=== PATIENT | female | born 1980 | race Caucasian/White ===

== ENCOUNTER 2018-06-26 14:57 | Emergency (ER) | payer OTHER, SELFPAY ==
[2018-06-26 14:57] VITALS: BP 115/73; PULSE 125; RESP 22; TEMP 36.8; O2SAT 98; BMI 28.1
[2018-06-26] MEDS: ONDANSETRON 4 MG/2 ML INJ IV (17:28)
[2018-06-26] MEDS: SODIUM CHLORIDE 0.9% 1,000 ML 1000 ML IV ×2 (17:28→19:16)
[2018-06-26 17:31] VITALS: BP 135/68; PULSE 111; RESP 18; O2SAT 100
[2018-06-26 17:31] LABS: Add Manual Diff / Slide Review NO; Basophils Percent Auto 0.3 % (0-2); Eosinophils Percent Auto 0.3 % (2-4); Hematocrit 43.1 % (36-46); Hemoglobin 14.1 g/dL (12.0-16.0); Lymphocytes Percent Auto 8.4 % (25-40); Mean Corpuscular HGB Conc 32.6 % (30-36); Mean Corpuscular Hemoglobin 29.6 PG (26-34); Mean Corpuscular Volume 90.8 fL (80-100); Monocytes Percent Auto 4.5 % (3-14); Neutrophils Absolute Auto 8700 /uL (3000-5900); Neutrophils Percent Auto 86.5 % (50-75); Platelet Count 355 X10^3/uL (150-400); Red Blood Cell Count 4.75 X10^6/uL (4.0-5.2); Red Cell Distribution Width 12.8 % (11.6-14.8); White Blood Cell Count 10.1 X10^3/uL (4.5-11.0)
[2018-06-26 17:33] LABS: Alanine Aminotransferase 33 IU/L (9-52); Albumin 4.9 g/dL (3.5-5.0); Albumin Globulin Ratio 1.8 (1.0-2.8); Alkaline Phosphatase 58 U/L (38-126); Aspartate Aminotransferase 32 IU/L (14-36); BUN Creatinine Ratio 32.9 (6-22); Bilirubin Total 1.3 mg/dL (0.2-1.3); Blood Urea Nitrogen 23 mg/dL (7-17); Calcium 9.6 mg/dL (8.4-10.2); Carbon Dioxide 24 mmol/L (22-32); Chloride 97 mmol/L (98-107); Estimated Glomerular Filt Rate > 60.0 mL/min (>60); Globulin 2.8 g/dL (1.7-4.1); Glucose 378 mg/dL (70-100); Potassium 4.3 mmol/L (3.4-5.1); Sodium 138 mmol/L (137-145); Total Protein 7.7 g/dL (6.3-8.2)
[2018-06-26 17:41] LABS: HEMOLYSIS 69 (0-50); Lipase < 10 U/L (23-300)
[2018-06-26 18:00] VITALS: BP 127/74; PULSE 104; RESP 11; O2SAT 100
[2018-06-26 18:06] LABS: INR 1.1 (0.9-1.3)
--- NOTE | 2018-06-26 18:08 | PC.NURSE ---
1715: I informed the patient that her blood sugar was now 359. She states she turned off her insulin pump earlier because her blood sugar was lower. She then stated I'll turn it back on and give myself some.
[2018-06-26 18:09] LABS: PTT Partial Thromboplastin Tim 22 SECONDS (26.4-36.2)
--- NOTE | 2018-06-26 18:14 | ED.GENADULT ---
HPI - General Adult General Chief complaint: Diabetic Problem Stated complaint: DIABETIC KETONES Time Seen by Provider: 06/26/18 18:06 Source: patient Mode of arrival: ambulatory Limitations: no limitations History of Present Illness HPI narrative: 38-year-old female type 1 diabetic on insulin states that a couple days ago she started having a headache. She states that in the past when this has happened she develops nausea and vomiting which happened this time. She states she has vomited multiple times. Since then has had problems controlling her insulin. She did take herself off of her insulin pump and started injecting herself with insulin. She states she was not feeling well today. Checked her urine at home and there were ketones and then she checked her blood sugars and they were elevated. She came in for evaluation. Related Data Home Medications Medication Instructions Recorded Confirmed insulin lispro [Humalog U-100 DIRECTED #0 10/20/11 Insulin] Previous Rx's Medication Instructions Recorded hydroxyzine pamoate 25 mg PO QID PRN #40 cap 03/14/17 permethrin [Elimite] 1 kin TOPICAL QDAY #60 gm 03/14/17 Allergies Allergy/AdvReac Type Severity Reaction Status Date / Time lactose [LACTOSE] Allergy Intermediate Unverified 01/20/18 12:54 hydromorphone [From DILAUDID] Allergy Unknown Unverified 01/20/18 12:54 diphenhydramine AdvReac Unknown ANXIETY, Unverified 01/20/18 12:54 DOESNT CALM HER. Review of Systems Constitutional Denies chills, Denies fever(s) and Reports headache(s) (A couple days ago but not today) Comments: Overall just not feeling well ENT Ears, Nose, Mouth, and Throat: Denies dizziness and Reports headache(s) (A couple days ago but not today) Cardiovascular Denies chest pain and Denies dyspnea Respiratory Denies dyspnea Gastrointestinal Gastrointestinal: Denies abdominal pain, Reports nausea and Reports vomiting Genitourinary Denies dysuria Musculoskeletal Denies myalgias and Denies arthralgias Integumentary/Breasts Denies lesions and Denies rash Neurologic Denies behavioral changes, Denies confusion, Denies dizziness and Reports headache(s) (A couple days ago but not today) Psychiatric Denies behavioral changes and Denies confusion Hematologic/Lymphatic Denies easy bleeding and Denies easy bruising [facility] Medical History Type 1 diabetes (Acute) Surgical History No pertinent past surgical history (Acute) Social History Smoking Status: Never smoker Exam Initial Vital Signs Initial Vital Signs: Vital Signs Temperature 98.3 F 06/26/18 14:57 Pulse Rate 125 H 06/26/18 14:57 Respiratory Rate 22 06/26/18 14:57 Blood Pressure 115/73 06/26/18 14:57 Pulse Oximetry 98 06/26/18 14:57 Const General: cooperative, healthy appearing, comfortable, well developed, well groomed and No acute distress HENMT Head: normal to inspection and normocephalic Resp Effort & Inspection: normal respiratory effort Auscultation: clear to auscultation bilaterally Cardio Rate: regular rate Rhythm: regular rhythm GI Inspection: non-distended Palpation: soft Skin Lesions: no lesions Rashes: no rashes Neuro General: alert, awake and oriented x3 Extrem General: normal to inspection and full ROM Psych Appearance: grossly normal and well kempt Course Orders Ordered: ED Orders 06/26/18 18:40 Arterial Blood Gas Stat Discontinued Medications Sodium Chloride (Normal Saline 0.9%) 1,000 mls @ 1,000 mls/hr IV BOLUS ONE Stop: 06/26/18 18:24 Last Infusion: 06/26/18 21:19 Dose: 0 mls/hr Infusion: 06/26/18 18:17 Dose: 0 mls/hr Admin: 06/26/18 17:28 Dose: 1,000 mls/hr Sodium Chloride (Normal Saline 0.9%) 1,000 mls @ 1,000 mls/hr IV BOLUS ONE Stop: 06/26/18 19:59 Last Infusion: 06/26/18 21:20 Dose: 0 mls/hr Admin: 06/26/18 19:16 Dose: 1,000 mls/hr Metoclopramide HCl (Reglan) 10 mg IV NOW ONE Stop: 06/26/18 19:01 Last Admin: 06/26/18 19:17 Dose: 10 mg Ondansetron HCl (Zofran) 4 mg IV NOW ONE Stop: 06/26/18 17:26 Last Admin: 06/26/18 17:28 Dose: 4 mg Pantoprazole Sodium (Protonix) 40 mg IV NOW ONE Stop: 06/26/18 19:01 Last Admin: 06/26/18 19:16 Dose: 40 mg Vital Signs - 8 hr 06/26/18 20:26 06/26/18 21:28 Pulse Rate 92 H 90 Respiratory Rate 16 16 Blood Pressure 101/64 Blood Pressure [Right Arm] 107/66 Pulse Oximetry 100 Medical Decision Making Medical Records Medical records reviewed: Yes I reviewed the patient's medical records. Lab Data Lab results reviewed: Yes I reviewed the patient's lab results. Result diagrams: 06/26/18 17:05 06/26/18 17:05 Lab Results 06/26/18 06/26/18 06/26/18 Range/Units 17:05 17:05 17:05 WBC 10.1 (4.5-11.0) X10^3/uL RBC 4.75 (4.0-5.2) X10^6/uL Hgb 14.1 (12.0-16.0) g/dL Hct 43.1 (36-46) % MCV 90.8 (80-100) fL MCH 29.6 (26-34) PG MCHC 32.6 (30-36) % RDW 12.8 (11.6-14.8) % Plt Count 355 (150-400) X10^3/uL Neut % (Auto) 86.5 H (50-75) % Lymph % (Auto) 8.4 L (25-40) % [place] % (Auto) 4.5 (3-14) % Eos % (Auto) 0.3 L (2-4) % Baso % (Auto) 0.3 (0-2) % Neut # (Auto) 8700 H (5594-0418) /uL PT 12.0 (10.1-12.7) SECONDS INR 1.1 (0.9-1.3) APTT 22 L (26.4-36.2) SECONDS ABG pH (7.35-7.45) ABG pCO2 (35-45) mmHg ABG pO2 (80-105) mmHg ABG HCO3 (23-27) mmol/L ABG Total CO2 (23-27) mmol/L ABG O2 Saturation (95-100) % ABG Base Excess (-2-3) mmol/L FiO2 Sodium 138 (137-145) mmol/L Potassium 4.3 (3.4-5.1) mmol/L Chloride 97 L (98-107) mmol/L Carbon Dioxide 24 (22-32) mmol/L BUN 23 H (7-17) mg/dL Creatinine 0.70 (0.52-1.04) mg/dL Estimated GFR > 60.0 (>60) mL/min BUN/Creatinine Ratio 32.9 H (6-22) Glucose 378 H (70-100) mg/dL Calcium 9.6 (8.4-10.2) mg/dL Total Bilirubin 1.3 (0.2-1.3) mg/dL AST 32 (14-36) IU/L ALT 33 (9-52) IU/L Alkaline Phosphatase 58 (38-126) U/L Total Protein 7.7 (6.3-8.2) g/dL Albumin 4.9 (3.5-5.0) g/dL Globulin 2.8 (1.7-4.1) g/dL Albumin/Globulin Ratio 1.8 (1.0-2.8) Lipase < 10 L (23-300) U/L 06/26/18 Range/Units 18:40 WBC (4.5-11.0) X10^3/uL RBC (4.0-5.2) X10^6/uL Hgb (12.0-16.0) g/dL Hct (36-46) % MCV (80-100) fL MCH (26-34) PG MCHC (30-36) % RDW (11.6-14.8) % Plt Count (150-400) X10^3/uL Neut % (Auto) (50-75) % Lymph % (Auto) (25-40) % [place] % (Auto) (3-14) % Eos % (Auto) (2-4) % Baso % (Auto) (0-2) % Neut # (Auto) (0642-6980) /uL PT (10.1-12.7) SECONDS INR (0.9-1.3) APTT (26.4-36.2) SECONDS ABG pH 7.47 H (7.35-7.45) ABG pCO2 27.7 L (35-45) mmHg ABG pO2 105 (80-105) mmHg ABG HCO3 20 L (23-27) mmol/L ABG Total CO2 21 L (23-27) mmol/L ABG O2 Saturation 99 (95-100) % ABG Base Excess -3.0 L (-2-3) mmol/L FiO2 0.21 Sodium (137-145) mmol/L Potassium (3.4-5.1) mmol/L Chloride (98-107) mmol/L Carbon Dioxide (22-32) mmol/L BUN (7-17) mg/dL Creatinine (0.52-1.04) mg/dL Estimated GFR (>60) mL/min BUN/Creatinine Ratio (6-22) Glucose (70-100) mg/dL Calcium (8.4-10.2) mg/dL Total Bilirubin (0.2-1.3) mg/dL AST (14-36) IU/L ALT (9-52) IU/L Alkaline Phosphatase (38-126) U/L Total Protein (6.3-8.2) g/dL Albumin (3.5-5.0) g/dL Globulin (1.7-4.1) g/dL Albumin/Globulin Ratio (1.0-2.8) Lipase (23-300) U/L Point of Care Testing Test Results Negative Glucose POC 282 Urine Dip Bedside Urine Glucose 1000 mg/dl Bedside Urine Bilirubin - Negative Bedside Urine Ketone +++ 80 Urine Specific [place] 1.020 Bedside Urine Occult Blood - Negative Bedside Urine pH 5.5 Bedside Urine Protein - Negative Bedside Urine Urobilinogen - Negative Bedside Urine Nitrite - Negative Bedside Urine Leukocytes - Negative Esterase Point of care testing: Point of Care Testing Test Results Negative Glucose POC 282 Urine Dip Bedside Urine Glucose 1000 mg/dl Bedside Urine Bilirubin - Negative Bedside Urine Ketone +++ 80 Urine Specific [place] 1.020 Bedside Urine Occult Blood - Negative Bedside Urine pH 5.5 Bedside Urine Protein - Negative Bedside Urine Urobilinogen - Negative Bedside Urine Nitrite - Negative Bedside Urine Leukocytes - Negative Esterase [facility] Narrative Medical decision making narrative: Patient is hyperglycemic and has ketones in her urine but is not acidotic. She did receive fluids here in the emergency department after which she states she felt much better. Her blood sugar was improving with the fluids. Given the fact she is not acidotic she is not in DKA. She was able to tolerate oral intake here in the emergency department. She states that she was not having a headache. She states that improved prior to arrival here in the emergency department. Patient did receive multiple L of fluids here in the ER. Will hold on further workup for now. The patient agrees with this. Will hold on further workup for now. Patient expressed understanding and agreement with plan. Discharge Plan Departure Patient Disposition: Home Clinical Impression: Acute hyperglycemia, Acute complication due to diabetes mellitus Discharge Date/Time: 06/26/18 21:29 Interventions: ED Discharge Assessment Last Done: 06/26/18 21:28 Instructions: DI for Hyperglycemia -- Adult Activity Restrictions/Additional Instructions: Recommend that you continue all of your diabetic medications as directed. Make sure your increasing your fluid intake. Return to the emergency department for any new or worsening symptoms Prescriptions: No Action insulin lispro [Humalog U-100 Insulin] 100 UNIT/1 ML solution DIRECTED Qty: 0 RF: 0 permethrin [Elimite] 5 % cream 1 kin Topical QDAY Qty: 60 RF: 0 hydroxyzine pamoate 25 MG capsule 25 mg PO QID PRNQty: 40 RF: 0
[2018-06-26 18:51] LABS: HCO3 ABG 20 mmol/L (23-27); PCO2 ABG 27.7 mmHg (35-45); PO2 ABG 105 mmHg (80-105); TCO2 ABG 21 mmol/L (23-27); pH ABG 7.47 (7.35-7.45)
[2018-06-26 18:52] LABS: Fractionated Inspired Oxygen 0.21; Oxygen Saturation ABG 99 % (95-100)
[2018-06-26 19:00] VITALS: BP 122/75; PULSE 102; RESP 17; O2SAT 99
[2018-06-26] MEDS: PANTOPRAZOLE 40 MG VIAL IV (19:16)
[2018-06-26] MEDS: METOCLOPRAMIDE 10 MG/2 ML INJ IV (19:17)
[2018-06-26 20:26] VITALS: BP 107/66; PULSE 92; RESP 16
[2018-06-26 21:28] VITALS: BP 101/64; PULSE 90; RESP 16; O2SAT 100
== END 2018-06-26 21:29 | disposition home or self-care (01) ==
PROVIDERS: Emergency Medicine; Emergency Provider Emergency Medicine; PCP Internal Medicine
DX: E10.65 Type 1 diabetes mellitus with hyperglycemia (principal)
CPT/HCPCS: 36591; 36600; 80053; 81003; 81025; 82805; 82962; 83690; 85025; 85610; 85730; 93041; 96361; 96374; 96375; 99285; C9113; J2405; J2765

== ENCOUNTER 2018-07-25 10:10 | Emergency (ER) | payer OTHER, SELFPAY ==
[2018-07-25 10:22] VITALS: BP 136/103; PULSE 118; RESP 20; TEMP 36.9; O2SAT 99; BMI 28.1
[2018-07-25] MEDS: SODIUM CHLORIDE 0.9% 1,000 ML 1000 ML IV ×2 (10:51→12:57)
[2018-07-25 10:55] LABS: Add Manual Diff / Slide Review NO; Basophils Percent Auto 1.2 % (0-2); Eosinophils Percent Auto 2.1 % (2-4); Hematocrit 42.1 % (36-46); Hemoglobin 13.8 g/dL (12.0-16.0); Lymphocytes Percent Auto 16.3 % (25-40); Mean Corpuscular HGB Conc 32.8 % (30-36); Mean Corpuscular Hemoglobin 29.8 PG (26-34); Mean Corpuscular Volume 90.9 fL (80-100); Monocytes Percent Auto 5.1 % (3-14); Neutrophils Absolute Auto 4400 /uL (3000-5900); Neutrophils Percent Auto 75.3 % (50-75); Platelet Count 322 X10^3/uL (150-400); Red Blood Cell Count 4.63 X10^6/uL (4.0-5.2); Red Cell Distribution Width 12.9 % (11.6-14.8); White Blood Cell Count 5.8 X10^3/uL (4.5-11.0)
--- NOTE | 2018-07-25 11:01 | ED.NAVMDI ---
HPI - Nausea/Vomiting/Diarrhea General Chief complaint: Nausea/Vomiting/Diarrhea Stated complaint: VOMITING CANT KEEP ANYTHING DOWN FOR 2 DAYS Time Seen by Provider: 07/25/18 10:20 Source: patient Mode of arrival: ambulatory Limitations: no limitations History of Present Illness HPI Narrative: 38-year-old former smoker presents to the emergency department with a chief complaint of nausea vomiting and generally feeling unwell. She is a type 1 diabetic and been under significant stress for the past few days. Her symptoms started yesterday. She denies fever or chills. She denies any alterations in her diabetic regimen. MD complaint: nausea and vomiting Onset (ago): hour(s) Description of Vomiting: food contents Description of Diarrhea: none Associated Abdominal Pain: No Relieving factors: none Exacerbating factors: none Associated symptoms: denies other symptoms Related Data Home Medications Medication Instructions Recorded Confirmed insulin lispro [Humalog U-100 DIRECTED #0 10/20/11 Insulin] Previous Rx's Medication Instructions Recorded hydroxyzine pamoate 25 mg PO QID PRN #40 cap 03/14/17 permethrin [Elimite] 1 kin TOPICAL QDAY #60 gm 03/14/17 ondansetron [Zofran ODT] 4 mg PO Q6H PRN #14 tab 07/25/18 Allergies Allergy/AdvReac Type Severity Reaction Status Date / Time lactose [LACTOSE] Allergy Intermediate Unverified 01/20/18 12:54 hydromorphone [From DILAUDID] Allergy Unknown Unverified 01/20/18 12:54 diphenhydramine AdvReac Unknown ANXIETY, Unverified 01/20/18 12:54 DOESNT CALM HER. Review of Systems Review of Systems All systems reviewed & are unremarkable except as noted in HPI and below Constitutional Reports body ache(s), Denies chills, Denies fever(s), Denies lethargy and Reports weakness Eyes Denies change in vision, Denies eye discharge, Denies irritation and Denies loss of vision ENT Ears, Nose, Mouth, and Throat: Denies change in voice, Denies neck pain and Denies sore throat Cardiovascular Denies chest pain, Denies irregular heart rhythm, Denies lightheadedness, Denies palpitations, Denies dyspnea, Denies dyspnea on exertion and Denies orthopnea Respiratory Denies cough, Denies dyspnea, Denies dyspnea on exertion and Denies wheezing Gastrointestinal Gastrointestinal: Denies change in bowel habits, Denies diarrhea, Reports nausea and Reports vomiting Genitourinary Denies hematuria, Denies flank pain, Denies urinary incontinence and Denies urinary urgency Musculoskeletal Denies neck pain Integumentary/Breasts Denies pruritus, Denies erythema, Denies rash and Denies wounds Neurologic Denies confusion, Denies loss of vision and Reports weakness Psychiatric Denies anxiety, Denies confusion, Denies depression, Denies homicidal ideation and Denies suicidal ideation Endocrine Denies palpitations Hematologic/Lymphatic Denies easy bruising Allergic/Immunologic Denies wheezing [facility] Medical History Type 1 diabetes (Acute) Surgical History No pertinent past surgical history (Acute) Social History Smoking Status: Former smoker Exam Narrative Exam Narrative: 30-year-old female resting comfortably, in mild distress Initial Vital Signs Initial Vital Signs: Vital Signs Temperature 98.5 F 07/25/18 10:22 Pulse Rate 118 H 07/25/18 10:22 Respiratory Rate 20 07/25/18 10:22 Blood Pressure 136/103 H 07/25/18 10:22 Pulse Oximetry 99 07/25/18 10:22 Const General: cooperative and well developed Nutritional Appearance: well nourished Orientation: alert, awake, oriented x3 and not confused [facility] Head: normocephalic and atraumatic Ears: external ears normal and TM's normal bilaterally Nose: external nose normal and No nasal discharge Face and sinus: sinuses nontender, face symmetric, no sinus tenderness and No dry mucous membranes Mouth: oral mucosae normal and moist mucous membranes Teeth and gingiva: dentition normal Throat: tonsils normal and uvula midline Eyes General: appearance normal, both eyes and all related structures Eyelids: eyelids normal Conjunctivae: conjunctivae normal Sclera: sclerae normal Pupils: PERRL EOM: EOM intact bilaterally Neck Neck: normal visual inspection, trachea midline, No lymphadenopathy, No midline deformity and No JVD Lymphatic: No lymphedema Chest Chest: normal inspection of the chest Resp Effort & Inspection: normal respiratory effort, able to speak in complete sentences, no respiratory distress and no use of accessory muscles Auscultation: clear to auscultation bilaterally, no rales, no rhonchi and no wheezes Cardio Rate: regular rate Rhythm: regular rhythm Heart Sounds: no click, no gallops, no murmurs and no rubs Pulses: normal peripheral pulses GI Inspection: non-distended Palpation: soft, no hepatosplenomegaly, No guarding, No pulsatile mass and No tender Auscultation: normal bowel sounds Back/Spine/Pelvis Back: No CVA tenderness Cervical Spine: cervical ROM normal and No pain with cervical ROM Thoracic/Lumbar Spine: thoracic and lumbar spine normal to inspection Skin General: no rashes or lesions noted, No jaundice and No petechiae Neuro General: alert, oriented x3, gait normal and no focal motor deficits Speech: speech normal Extrem General: full ROM, no clubbing, cyanosis or edema, no pedal edema and no calf tenderness Psych Appearance: well kempt Mental Status: mental status grossly normal Attitude: cooperative Thought Content: normal and suicidality Judgment: judgment good Course Orders Ordered: ED Orders 07/25/18 10:33 Complete Blood Count AUTO DIFF Stat Comprehensive Metabolic Panel Stat Ketones (Beta-Hydroxybutyrate) Stat Procalcitonin Stat 07/25/18 10:39 Venous Blood Gas Stat EKG-12 Lead Stat Discontinued Medications Sodium Chloride (Normal Saline 0.9%) 1,000 mls @ 1,000 mls/hr IV BOLUS ONE Stop: 07/25/18 11:37 Last Infusion: 07/25/18 12:37 Dose: 0 mls/hr Admin: 07/25/18 10:51 Dose: 1,000 mls/hr Sodium Chloride (Normal Saline 0.9%) 1,000 mls @ 1,000 mls/hr IV BOLUS ONE Stop: 07/25/18 13:54 Last Infusion: 07/25/18 14:00 Dose: 0 mls/hr Admin: 07/25/18 12:57 Dose: 1,000 mls/hr Pantoprazole Sodium (Protonix) 40 mg IV NOW ONE Stop: 07/25/18 12:57 Last Admin: 07/25/18 12:57 Dose: 40 mg Reevaluation(s) Reevaluation #1: Patient feeling tremendous relief after 1st bag of fluid, Accu-Chek is dropped into the 200s. Given the difficult IV starts and her improvement after 1 L we elect to administer a 2nd L. after her 2nd L she feels even more improvement and is requesting discharge Vital Signs - 8 hr 07/25/18 10:22 07/25/18 11:50 07/25/18 14:00 Temperature 98.5 F Pulse Rate 118 H 88 76 Respiratory Rate 20 17 12 Blood Pressure 136/103 H Blood Pressure [Left Arm] 139/93 H 136/68 Pulse Oximetry 99 98 100 MDM - Nausea/Vomiting/Diarrhea Lab Data Result diagrams: 07/25/18 10:33 07/25/18 10:33 Lab Results 07/25/18 07/25/18 07/25/18 Range/Units 10:33 10:33 10:33 WBC 5.8 (4.5-11.0) X10^3/uL RBC 4.63 (4.0-5.2) X10^6/uL Hgb 13.8 (12.0-16.0) g/dL Hct 42.1 (36-46) % MCV 90.9 (80-100) fL MCH 29.8 (26-34) PG MCHC 32.8 (30-36) % RDW 12.9 (11.6-14.8) % Plt Count 322 (150-400) X10^3/uL Neut % (Auto) 75.3 H (50-75) % Lymph % (Auto) 16.3 L (25-40) % [place] % (Auto) 5.1 (3-14) % Eos % (Auto) 2.1 (2-4) % Baso % (Auto) 1.2 (0-2) % Neut # (Auto) 4400 (1894-5131) /uL VBG pH (7.31-7.41) VBG pCO2 (45-50) mmHg VBG pO2 (35-45) mmHg VBG HCO3 (24-28) mmol/L VBG Total CO2 (24-29) mmol/L VBG O2 Saturation (70-75) % VBG Base Excess (0-4) mmol/L Sodium 135 L (137-145) mmol/L Potassium 4.5 (3.4-5.1) mmol/L Chloride 98 (98-107) mmol/L Carbon Dioxide 24 (22-32) mmol/L BUN 15 (7-17) mg/dL Creatinine 0.70 (0.52-1.04) mg/dL Estimated GFR > 60.0 (>60) mL/min BUN/Creatinine Ratio 21.4 (6-22) Glucose 453 H (70-100) mg/dL Calcium 9.4 (8.4-10.2) mg/dL Total Bilirubin 0.9 (0.2-1.3) mg/dL AST 25 (14-36) IU/L ALT 33 (9-52) IU/L Alkaline Phosphatase 63 (38-126) U/L Total Protein 7.3 (6.3-8.2) g/dL Albumin 4.5 (3.5-5.0) g/dL Globulin 2.8 (1.7-4.1) g/dL Albumin/Globulin Ratio 1.6 (1.0-2.8) Procalcitonin 0.35 (<0.5) ng/mL Ketones 2.07 H (<0.27) mmol/L 10/14/18 Range/Units 10:39 WBC (4.5-11.0) X10^3/uL RBC (4.0-5.2) X10^6/uL Hgb (12.0-16.0) g/dL Hct (36-46) % MCV (80-100) fL MCH (26-34) PG MCHC (30-36) % RDW (11.6-14.8) % Plt Count (150-400) X10^3/uL Neut % (Auto) (50-75) % Lymph % (Auto) (25-40) % [place] % (Auto) (3-14) % Eos % (Auto) (2-4) % Baso % (Auto) (0-2) % Neut # (Auto) (5903-1529) /uL VBG pH 7.42 H (7.31-7.41) VBG pCO2 40.7 L (45-50) mmHg VBG pO2 31 L (35-45) mmHg VBG HCO3 26 (24-28) mmol/L VBG Total CO2 28 (24-29) mmol/L VBG O2 Saturation 61 L (70-75) % VBG Base Excess 2.0 (0-4) mmol/L Sodium (137-145) mmol/L Potassium (3.4-5.1) mmol/L Chloride (98-107) mmol/L Carbon Dioxide (22-32) mmol/L BUN (7-17) mg/dL Creatinine (0.52-1.04) mg/dL Estimated GFR (>60) mL/min BUN/Creatinine Ratio (6-22) Glucose (70-100) mg/dL Calcium (8.4-10.2) mg/dL Total Bilirubin (0.2-1.3) mg/dL AST (14-36) IU/L ALT (9-52) IU/L Alkaline Phosphatase (38-126) U/L Total Protein (6.3-8.2) g/dL Albumin (3.5-5.0) g/dL Globulin (1.7-4.1) g/dL Albumin/Globulin Ratio (1.0-2.8) Procalcitonin (<0.5) ng/mL Ketones (<0.27) mmol/L Point of Care Testing Glucose POC 226 Urine Dip Bedside Urine Glucose 1000 mg/dl Bedside Urine Bilirubin - Negative Bedside Urine Ketone +++ 80 Urine Specific [place] 1.020 Bedside Urine Occult Blood - Negative Bedside Urine pH 5.5 Bedside Urine Protein - Negative Bedside Urine Urobilinogen - Negative Bedside Urine Nitrite - Negative Bedside Urine Leukocytes - Negative Esterase Discharge Plan Departure Patient Disposition: Home Clinical Impression: Acute hyperglycemia, Vomiting Discharge Date/Time: 07/25/18 14:12 Interventions: ED Discharge Assessment Last Done: 07/25/18 14:10 Instructions: DI for Vomiting -- Adult Activity Restrictions/Additional Instructions: 1. Drink plenty of fluids with frequent small sips. 2. For the next 24 hours a clear liquid diet is advised. After that please employ a brat diet which would include bananas, rice, apples, toast. 3. Please take medications as directed. 4. Please follow-up with your doctor in the next 1-2 days. Call the office for an appointment. 5. Please return to the emergency Department for any worsening or persistent symptoms, such as increasing pain or fever. Prescriptions: New ondansetron [Zofran ODT] 4 mg tablet,disintegrating 4 mg PO Q6H PRN (Reason: nausea and vomiting) Qty: 14 RF: 0 No Action insulin lispro [Humalog U-100 Insulin] 100 UNIT/1 ML solution DIRECTED Qty: 0 RF: 0 permethrin [Elimite] 5 % cream 1 kin Topical QDAY Qty: 60 RF: 0 hydroxyzine pamoate 25 MG capsule 25 mg PO QID PRNQty: 40 RF: 0 Referrals: Marshall Woodward MD [Primary Care Provider] -
[2018-07-25 11:12] LABS: Alanine Aminotransferase 33 IU/L (9-52); Albumin 4.5 g/dL (3.5-5.0); Albumin Globulin Ratio 1.6 (1.0-2.8); Alkaline Phosphatase 63 U/L (38-126); Aspartate Aminotransferase 25 IU/L (14-36); BUN Creatinine Ratio 21.4 (6-22); Bilirubin Total 0.9 mg/dL (0.2-1.3); Blood Urea Nitrogen 15 mg/dL (7-17); Calcium 9.4 mg/dL (8.4-10.2); Carbon Dioxide 24 mmol/L (22-32); Chloride 98 mmol/L (98-107); Estimated Glomerular Filt Rate > 60.0 mL/min (>60); Globulin 2.8 g/dL (1.7-4.1); Glucose 453 mg/dL (70-100); HEMOLYSIS < 15 (0-50); Potassium 4.5 mmol/L (3.4-5.1); Sodium 135 mmol/L (137-145); Total Protein 7.3 g/dL (6.3-8.2)
[2018-07-25 11:15] LABS: Ketones (Beta-Hydroxybutyrate) 2.07 mmol/L (<0.27)
[2018-07-25 11:16] LABS: Procalcitonin 0.35 ng/mL (<0.5)
[2018-07-25 11:31] LABS: HCO3 VBG 26 mmol/L (24-28); PCO2 VBG 40.7 mmHg (45-50); PO2 VBG 31 mmHg (35-45); Total CO2 VBG 28 mmol/L (24-29); pH VBG 7.42 (7.31-7.41)
[2018-07-25 11:32] LABS: Oxygen Saturation VBG 61 % (70-75)
[2018-07-25 11:50] VITALS: BP 139/93; PULSE 88; RESP 17; O2SAT 98
[2018-07-25] MEDS: PANTOPRAZOLE 40 MG VIAL IV (12:57)
[2018-07-25 14:00] VITALS: BP 136/68; PULSE 76; RESP 12; O2SAT 100
== END 2018-07-25 14:12 | disposition home or self-care (01) ==
PROVIDERS: Emergency Provider Emergency Medicine; PCP Internal Medicine
DX: R73.9 Hyperglycemia, unspecified (principal); R11.10 Vomiting, unspecified
CPT/HCPCS: 36591; 80053; 81003; 82009; 82805; 82962; 84145; 85025; 93005; 93010; 96361; 96374; 99283; 99284; C9113

== ENCOUNTER 2018-09-10 08:36 | Emergency (ER) | payer OTHER, SELFPAY ==
[2018-09-10 08:42] VITALS: BP 135/86; PULSE 98; RESP 20; TEMP 36.9; O2SAT 99; BMI 28.1
[2018-09-10] MEDS: ONDANSETRON 4 MG/2 ML INJ IV ×2 (09:08→10:05)
[2018-09-10] MEDS: SODIUM CHLORIDE 0.9% 1,000 ML 1000 ML IV ×2 (09:09→10:39)
[2018-09-10 09:10] LABS: Add Manual Diff / Slide Review NO; Basophils Percent Auto 1.3 % (0-2); Hematocrit 41.6 % (36-46); Lymphocytes Percent Auto 12.8 % (25-40); Mean Corpuscular HGB Conc 33.6 % (30-36); Mean Corpuscular Volume 89.3 fL (80-100); Monocytes Percent Auto 6.5 % (3-14); Neutrophils Absolute Auto 5400 /uL (3000-5900); Neutrophils Percent Auto 78.4 % (50-75); Platelet Count 325 X10^3/uL (150-400); Red Blood Cell Count 4.66 X10^6/uL (4.0-5.2); Red Cell Distribution Width 13.1 % (11.6-14.8); White Blood Cell Count 6.9 X10^3/uL (4.5-11.0)
[2018-09-10 09:19] LABS: Alanine Aminotransferase 28 IU/L (9-52); Albumin 4.8 g/dL (3.5-5.0); Albumin Globulin Ratio 1.7 (1.0-2.8); Alkaline Phosphatase 67 U/L (38-126); Aspartate Aminotransferase 20 IU/L (14-36); BUN Creatinine Ratio 38.3 (6-22); Bilirubin Total 1.2 mg/dL (0.2-1.3); Blood Urea Nitrogen 23 mg/dL (7-17); Calcium 9.7 mg/dL (8.4-10.2); Carbon Dioxide 25 mmol/L (22-32); Chloride 100 mmol/L (98-107); Estimated Glomerular Filt Rate > 60.0 mL/min (>60); Globulin 2.9 g/dL (1.7-4.1); Glucose 299 mg/dL (70-100); HEMOLYSIS < 15 (0-50); Potassium 3.7 mmol/L (3.4-5.1); Sodium 139 mmol/L (137-145); Total Protein 7.7 g/dL (6.3-8.2)
--- NOTE | 2018-09-10 09:42 | ED_ITS ---
HPI - Nausea/Vomiting/Diarrhea General Chief complaint: Diabetic Problem Stated complaint: 'possibly in dka' Time Seen by Provider: 09/10/18 09:08 Source: patient Mode of arrival: ambulatory Limitations: no limitations History of Present Illness HPI Narrative: This is a 38-year-old female who comes to the emergency department with complaint of headache which started as a migraine. She states she gets these typically. She started having vomiting starting about 4:00 a.m. yesterday afternoon and throughout throughout the evening. Patient states that she has insulin-dependent diabetes and was concerned that she might get into DKA if she continued to vomit get dehydrated. Patient states her sugar was in the 200s, she is not having any abdominal pain at this time. She denies any chest pain or shortness of breath. She still has a headache but states it usually gets better with fluids. Patient states her typical migraine pattern. She denies any new vision changes, no numbness, no weakness or other neurologic issues. Patient has not had any diarrhea or constipation. She has not had area for could see or polyuria. Patient has a history of migraines and insulin- dependent diabetes but denies any prior hypertensive or other medical issues. Patient denies any prior surgeries. She states no allergies but Benadryl does make her more anxious and agitated. Related Data Home Medications Medication Instructions Recorded Confirmed Juice And Vitamins 1 ea PO DAILY 09/10/18 09/10/18 hydroxyzine pamoate 25 mg PO QID PRN 09/10/18 09/10/18 insulin aspart U-100 [Novolog 1 dose CONTINUOUS SUBCUTANEOUS 09/10/18 09/10/18 U-100 Insulin aspart] INFUSION CONT PRN ondansetron 4 mg PO Q6H PRN 09/10/18 09/10/18 Previous Rx's Medication Instructions Recorded ondansetron HCl [Zofran] 4 mg PO QID PRN #5 tab 09/10/18 Allergies Allergy/AdvReac Type Severity Reaction Status Date / Time lactose [LACTOSE] Allergy Intermediate Verified 09/10/18 09:08 hydromorphone [From DILAUDID] Allergy Unknown Verified 09/10/18 09:08 diphenhydramine AdvReac Unknown ANXIETY, Verified 09/10/18 09:08 DOESNT CALM HER. Review of Systems Review of Systems All systems reviewed & are unremarkable except as noted in HPI and below Constitutional Denies chills, Denies fever(s), Reports headache(s), Denies lethargy and Denies weakness Eyes Denies change in vision ENT Ears, Nose, Mouth, and Throat: Reports headache(s) Cardiovascular Denies chest pain and Denies dyspnea Respiratory Denies dyspnea Gastrointestinal Gastrointestinal: Denies abdominal pain, Denies constipation, Denies diarrhea, Reports nausea and Reports vomiting Genitourinary Denies urinary frequency, Denies dysuria, Denies urinary urgency and Denies other (polyuria) Musculoskeletal Denies numbness Neurologic Denies abnormal speech, Reports headache(s), Denies numbness, Denies sensory deficit and Denies weakness [facility] Medical History Type 1 diabetes (Acute) Surgical History No pertinent past surgical history (Acute) Social History Smoking Status: Former smoker Exam Narrative Exam Narrative: GENERAL: Alert and oriented x three, obese, well-appearing female in mild distress. HEENT: Head normocephalic, atraumatic, EOMI, pupils reactive, face symmetric, moist mucous membranes, no facial droop. NECK: Supple, full range of motion CARDIOVASCULAR: Regular rate and rhythm without murmurs, rubs or gallops. RESPIRATORY: Breath sounds equal bilaterally, no wheezes rales or rhonchi. ABDOMEN: Soft, nontender. Normoactive bowel sounds all 4 quadrants. No guarding or rebound, rigidity, no mass : No CVA tenderness EXTREMITIES: Normal range of motion, no clubbing or edema. Neurovascularly intact NEUROLOGICAL: Cranial nerves II through XII grossly intact. Moving all extremities. Normal gait. SKIN: Warm, dry, no petechiae, no rashes or lesions. Initial Vital Signs Initial Vital Signs: Vital Signs Temperature 98.4 F 09/10/18 08:42 Pulse Rate 98 H 09/10/18 08:42 Respiratory Rate 20 09/10/18 08:42 Blood Pressure 135/86 09/10/18 08:42 Pulse Oximetry 99 09/10/18 08:42 Course Orders Ordered: Discontinued Medications Al Hydrox/Mg Hydrox/Simethicone (Maalox Plus) 30 ml PO NOW ONE Stop: 09/10/18 10:36 Last Admin: 09/10/18 10:39 Dose: 30 ml Sodium Chloride (Normal Saline 0.9%) 1,000 mls @ 1,000 mls/hr IV BOLUS ONE Stop: 09/10/18 10:05 Last Infusion: 09/10/18 10:07 Dose: 0 mls/hr Admin: 09/10/18 09:09 Dose: 1,000 mls/hr Sodium Chloride (Normal Saline 0.9%) 1,000 mls @ 1,000 mls/hr IV BOLUS ONE Stop: 09/10/18 11:08 Last Admin: 09/10/18 10:39 Dose: 1,000 mls/hr Ondansetron HCl (Zofran) 4 mg IV NOW ONE Stop: 09/10/18 09:07 Last Admin: 09/10/18 09:08 Dose: 4 mg Ondansetron HCl (Zofran) 4 mg IV NOW ONE Stop: 09/10/18 10:05 Last Admin: 09/10/18 10:05 Dose: 4 mg Pantoprazole Sodium (Protonix) 40 mg IV NOW ONE Stop: 09/10/18 09:36 Last Admin: 09/10/18 10:05 Dose: 40 mg Vital Signs - 8 hr 09/10/18 11:00 09/10/18 11:55 Pulse Rate 91 H 91 H Respiratory Rate 15 18 Blood Pressure 120/79 Blood Pressure [Left Arm] 118/77 Pulse Oximetry 100 100 MDM - Nausea/Vomiting/Diarrhea Lab Data Result diagrams: 09/10/18 08:55 09/10/18 08:55 Lab Results 09/10/18 09/10/18 Range/Units 08:55 08:55 WBC 6.9 (4.5-11.0) X10^3/uL RBC 4.66 (4.0-5.2) X10^6/uL Hgb 14.0 (12.0-16.0) g/dL Hct 41.6 (36-46) % MCV 89.3 (80-100) fL MCH 30.0 (26-34) PG MCHC 33.6 (30-36) % RDW 13.1 (11.6-14.8) % Plt Count 325 (150-400) X10^3/uL Neut % (Auto) 78.4 H (50-75) % Lymph % (Auto) 12.8 L (25-40) % [place] % (Auto) 6.5 (3-14) % Eos % (Auto) 1.0 L (2-4) % Baso % (Auto) 1.3 (0-2) % Neut # (Auto) 5400 (5206-2485) /uL Sodium 139 (137-145) mmol/L Potassium 3.7 (3.4-5.1) mmol/L Chloride 100 (98-107) mmol/L Carbon Dioxide 25 (22-32) mmol/L BUN 23 H (7-17) mg/dL Creatinine 0.60 (0.52-1.04) mg/dL Estimated GFR > 60.0 (>60) mL/min BUN/Creatinine Ratio 38.3 H (6-22) Glucose 299 H (70-100) mg/dL Calcium 9.7 (8.4-10.2) mg/dL Total Bilirubin 1.2 (0.2-1.3) mg/dL AST 20 (14-36) IU/L ALT 28 (9-52) IU/L Alkaline Phosphatase 67 (38-126) U/L Total Protein 7.7 (6.3-8.2) g/dL Albumin 4.8 (3.5-5.0) g/dL Globulin 2.9 (1.7-4.1) g/dL Albumin/Globulin Ratio 1.7 (1.0-2.8) Point of Care Testing Test Results Negative Glucose POC 227 Urine Dip Bedside Urine Glucose 1000 mg/dl Bedside Urine Bilirubin - Negative Bedside Urine Ketone +++ 80 Urine Specific [place] 1.010 Bedside Urine Occult Blood - Negative Bedside Urine pH 8.0 Bedside Urine Protein - Negative Bedside Urine Urobilinogen - Negative Bedside Urine Nitrite - Negative Bedside Urine Leukocytes - Negative Esterase MDM Narrative Medical decision making narrative: Patient's sugars at 268, she likely is not in DKA but basic labs were ordered. Patient given fluids and Zofran here in the department. She does request Protonix as she states that when she starts throwing up she often gets reflux. She states typically fluids will resolve her migraine and defers any other pain medications. Patient show some dehydration with elevation of BUN, patient had 2 L of fluid was able give urine she did have ketones and glucose. She does not have an anion gap were decrease in her bicarb so concern for DKA is low at this time. Patient has been able to tolerate orals and plan to DC home with Zofran. She was given some Maalox which she also tolerated secondary to reflux symptoms. Discharge Plan Departure Patient Disposition: Home Clinical Impression: Migraine, Vomiting, Hyperglycemia Discharge Date/Time: 09/10/18 11:55 Interventions: ED Discharge Assessment Last Done: 09/10/18 11:55 Instructions: DI for Migraine Activity Restrictions/Additional Instructions: Follow-up with primary care in the next 2-3 days for recheck if your symptoms have not completely resolved. You may take Zofran sublingually every 6 hr as needed for nausea. Return to the emergency department for persistent vomiting, severe abdominal pain, signs of dehydration, sudden severe onset headaches, new weakness, new numbness or difficulty with speech. Prescriptions: New ondansetron HCl [Zofran] 4 mg tablet 4 mg PO QID PRN (Reason: nausea and vomiting) Qty: 5 RF: 0 No Action insulin aspart U-100 [Novolog U-100 Insulin aspart] 100 unit/mL Solution 1 dose Continuous Subcutaneous Infusion CONT PRN (Reason: sliding scale) RF: 0 ondansetron 4 mg Tablet,Disintegrating 4 mg PO Q6H PRN (Reason: Nausea) RF: 0 Juice And Vitamins 1 ea PO DAILY RF: 0 hydroxyzine pamoate 25 MG capsule 25 mg PO QID PRN (Reason: Nausea And Vomiting) RF: 0 Referrals: Marshall Woodward MD [Primary Care Provider] -
[2018-09-10 10:04] VITALS: BP 125/80; PULSE 86; RESP 18; O2SAT 100
[2018-09-10] MEDS: PANTOPRAZOLE 40 MG VIAL IV (10:05)
[2018-09-10 10:35] VITALS: BP 114/85; PULSE 82; RESP 11; O2SAT 100
[2018-09-10] MEDS: MAG HYDROX/ALUM/SIMETH 30 ML UDC PO (10:39)
[2018-09-10 11:00] VITALS: BP 118/77; PULSE 91; RESP 15; O2SAT 100
[2018-09-10 11:55] VITALS: BP 120/79; PULSE 91; RESP 18; O2SAT 100
== END 2018-09-10 11:55 | disposition home or self-care (01) ==
PROVIDERS: Emergency Provider Emergency Medicine; PCP Internal Medicine
DX: G43.909 Migraine, unspecified, not intractable, without status migrainosus (principal); R11.10 Vomiting, unspecified; E10.65 Type 1 diabetes mellitus with hyperglycemia
CPT/HCPCS: 36591; 80053; 81003; 81025; 82962; 85025; 93041; 96361; 96374; 96375; 96376; 99283; 99284; C9113; J2405

== ENCOUNTER 2018-09-11 13:14 | Observation (INO) | payer OTHER, SELFPAY ==
[2018-09-11] VITALS (10 sets, daily range): BP systolic 91–142; BP diastolic 53–85; PULSE 101–126; RESP 10–17; TEMP 36.6–37.6; O2SAT 97–100; BMI 28.1
[2018-09-11] MEDS: SODIUM CHLORIDE 0.9% 1,000 ML 1000 ML IV ×3 (13:55→16:23)
[2018-09-11] MEDS: ONDANSETRON 4 MG/2 ML INJ IV ×3 (13:55→19:51)
[2018-09-11 14:04] LABS: Add Manual Diff / Slide Review NO; Basophils Percent Auto 0.8 % (0-2); Eosinophils Percent Auto 0.4 % (2-4); Hematocrit 39.3 % (36-46); Hemoglobin 13.2 g/dL (12.0-16.0); Mean Corpuscular HGB Conc 33.6 % (30-36); Mean Corpuscular Hemoglobin 30.3 PG (26-34); Mean Corpuscular Volume 90.1 fL (80-100); Monocytes Percent Auto 4.7 % (3-14); Neutrophils Absolute Auto 7700 /uL (3000-5900); Neutrophils Percent Auto 79.1 % (50-75); Platelet Count 360 X10^3/uL (150-400); Red Blood Cell Count 4.37 X10^6/uL (4.0-5.2); White Blood Cell Count 9.7 X10^3/uL (4.5-11.0)
--- NOTE | 2018-09-11 14:11 | ED_ITS ---
HPI - General Adult General Chief complaint: Diabetic Problem Stated complaint: Thinks DKA, N/V since yesterday Time Seen by Provider: 09/11/18 14:10 Source: patient and old records reviewed Mode of arrival: ambulatory Limitations: no limitations History of Present Illness HPI narrative: This is a 38-year-old comes to the emergency department with complaint of vomiting. Patient was seen here in the last 24 hr for similar. Patient states her vomiting stopped, she was discharged home she had a couple episodes that afternoon. No vomiting overnight and then started vomiting again this morning. Patient states she has not been able to keep anything down. No fevers. She is concerned because she is an insulin-dependent diabetic that she may be getting closer to DKA. Patient is having abdominal pain and cramping. She has not been having any bowel movements and denies any flatus overnight. She has been urinating but states small amounts she has not noticed if it is darker light. Patient denies any fevers. She was having a migraine when she was last seen but states her headache is doing better. Related Data Home Medications Medication Instructions Recorded Confirmed Juice And Vitamins 1 ea PO DAILY 09/10/18 09/10/18 hydroxyzine pamoate 25 mg PO QID PRN 09/10/18 09/10/18 insulin aspart U-100 [Novolog 1 dose CONTINUOUS SUBCUTANEOUS 09/10/18 09/10/18 U-100 Insulin aspart] INFUSION CONT PRN ondansetron 4 mg PO Q6H PRN 09/10/18 09/10/18 Previous Rx's Medication Instructions Recorded ondansetron HCl [Zofran] 4 mg PO QID PRN #5 tab 09/10/18 Allergies Allergy/AdvReac Type Severity Reaction Status Date / Time lactose [LACTOSE] Allergy Intermediate Verified 09/11/18 13:28 hydromorphone [From DILAUDID] Allergy Unknown Verified 09/11/18 13:28 diphenhydramine AdvReac Unknown ANXIETY, Verified 09/11/18 13:28 DOESNT CALM HER. Review of Systems Review of Systems All systems reviewed & are unremarkable except as noted in HPI and below Constitutional Reports anorexia and Denies fever(s) Cardiovascular Denies chest pain and Denies dyspnea Respiratory Denies dyspnea Gastrointestinal Gastrointestinal: Reports abdominal pain, Denies change in bowel habits, Reports constipation, Denies diarrhea, Reports nausea, Reports vomiting and Denies hematemesis Genitourinary Denies urinary frequency, Denies urinary incontinence, Denies urinary urgency and Reports other (decreased urine output) [facility] Medical History Type 1 diabetes (Acute) Social History Smoking Status: Former smoker Exam Narrative Exam Narrative: GENERAL: Alert and oriented x three, well-nourished female in moderate distress. Patient is dry heaving while I am in the room. HEENT: Head normocephalic, atraumatic, EOMI, pupils reactive, face symmetric, moist mucous membranes NECK: Supple, full range of motion CARDIOVASCULAR: Regular rate and rhythm without murmurs, rubs or gallops. RESPIRATORY: Breath sounds equal bilaterally, no wheezes rales or rhonchi. ABDOMEN: Soft, nontender to palpation. Normoactive bowel sounds all 4 quadrants. No guarding or rebound, rigidity, no mass : No CVA tenderness EXTREMITIES: Normal range of motion, no clubbing or edema. Neurovascularly intact NEUROLOGICAL: Cranial nerves II through XII grossly intact. Moving all extremities SKIN: Warm, dry, no petechiae, no rashes or lesions. Initial Vital Signs Initial Vital Signs: Vital Signs Temperature 98.4 F 09/11/18 13:28 Pulse Rate 122 H 09/11/18 13:28 Respiratory Rate 15 09/11/18 13:28 Blood Pressure 127/77 09/11/18 13:28 Pulse Oximetry 97 09/11/18 13:28 Course Orders Ordered: ED Orders 09/11/18 13:45 Complete Blood Count AUTO DIFF Stat Comprehensive Metabolic Panel Stat Ketones (Beta-Hydroxybutyrate) Stat Lactate (Lactic Acid) Stat Procalcitonin Stat 09/11/18 13:53 Venous Blood Gas Stat 09/11/18 13:59 EKG-12 Lead Stat 09/11/18 14:24 Arterial Blood Gas Stat 09/11/18 14:28 US abdomen complete Stat XR abdomen min 2V Stat 09/11/18 14:35 Urine Microscopic Stat Discontinued Medications Al Hydrox/Mg Hydrox/Simethicone 20 ml/ Lidocaine HCl 15 ml 0 ml PO NOW ONE Stop: 09/11/18 17:15 Last Admin: 09/11/18 17:22 Dose: 30 ml Sodium Chloride (Normal Saline 0.9%) 1,000 mls @ 1,000 mls/hr IV BOLUS ONE Stop: 09/11/18 14:52 Last Infusion: 09/11/18 15:16 Dose: 0 mls/hr Admin: 09/11/18 13:55 Dose: 1,000 mls/hr Sodium Chloride (Normal Saline 0.9%) 1,000 mls @ 1,000 mls/hr IV BOLUS ONE Stop: 09/11/18 16:13 Last Infusion: 09/11/18 16:04 Dose: 0 mls/hr Admin: 09/11/18 15:16 Dose: 1,000 mls/hr Sodium Chloride (Normal Saline 0.9%) 1,000 mls @ 1,000 mls/hr IV BOLUS ONE Stop: 09/11/18 17:20 Last Infusion: 09/11/18 17:40 Dose: 0 mls/hr Admin: 09/11/18 16:23 Dose: 1,000 mls/hr Lorazepam (Ativan) 0.5 mg IV NOW ONE Stop: 09/11/18 14:25 Last Admin: 09/11/18 14:33 Dose: 0.5 mg Lorazepam (Ativan) 0.5 mg IV NOW ONE Stop: 09/11/18 17:49 Last Admin: 09/11/18 17:56 Dose: 0.5 mg Ondansetron HCl (Zofran) 4 mg IV NOW ONE Stop: 09/11/18 13:54 Last Admin: 09/11/18 13:55 Dose: 4 mg Ondansetron HCl (Zofran) 4 mg IV NOW ONE Stop: 09/11/18 16:22 Last Admin: 09/11/18 16:23 Dose: 4 mg Pantoprazole Sodium (Protonix) 40 mg IV NOW ONE Stop: 09/11/18 16:03 Last Admin: 09/11/18 16:07 Dose: 40 mg Vital Signs - 8 hr 09/11/18 13:28 09/11/18 14:30 09/11/18 15:15 Temperature 98.4 F Pulse Rate 122 H 107 H 102 H Respiratory Rate 15 11 L 11 L Blood Pressure 127/77 Blood Pressure [Right Arm] 131/74 123/63 Pulse Oximetry 97 100 100 09/11/18 15:30 09/11/18 16:00 09/11/18 16:41 Temperature Pulse Rate 101 H 103 H 103 H Respiratory Rate 12 11 L 10 L Blood Pressure Blood Pressure [Right Arm] 115/70 131/78 125/73 Pulse Oximetry 100 100 100 09/11/18 17:30 Temperature Pulse Rate 108 H Respiratory Rate 15 Blood Pressure Blood Pressure [Right Arm] 142/85 H Pulse Oximetry 100 Medical Decision Making Lab Data Lab results reviewed: Yes I reviewed the patient's lab results. Result diagrams: 09/11/18 13:45 09/11/18 13:45 Lab Results 09/11/18 09/11/18 09/11/18 Range/Units 13:45 13:45 13:45 WBC 9.7 (4.5-11.0) X10^3/uL RBC 4.37 (4.0-5.2) X10^6/uL Hgb 13.2 (12.0-16.0) g/dL Hct 39.3 (36-46) % MCV 90.1 (80-100) fL MCH 30.3 (26-34) PG MCHC 33.6 (30-36) % RDW 13.0 (11.6-14.8) % Plt Count 360 (150-400) X10^3/uL Neut % (Auto) 79.1 H (50-75) % Lymph % (Auto) 15.0 L (25-40) % [place] % (Auto) 4.7 (3-14) % Eos % (Auto) 0.4 L (2-4) % Baso % (Auto) 0.8 (0-2) % Neut # (Auto) 7700 H (1529-4921) /uL ABG pH (7.35-7.45) ABG pCO2 (35-45) mmHg ABG pO2 (80-100) mmHg ABG HCO3 (22-26) mmol/L ABG Total CO2 (21-31) mmol/L ABG O2 Saturation (95-100) % ABG Base Excess (-2-2) mmol/L FiO2 Sodium 137 (137-145) mmol/L Potassium 4.1 (3.4-5.1) mmol/L Chloride 98 (98-107) mmol/L Carbon Dioxide 18 L (22-32) mmol/L BUN 20 H (7-17) mg/dL Creatinine 0.60 (0.52-1.04) mg/dL Estimated GFR > 60.0 (>60) mL/min BUN/Creatinine Ratio 33.3 H (6-22) Glucose 343 H (70-100) mg/dL Lactate (0.7-2.1) mmol/L Calcium 9.3 (8.4-10.2) mg/dL Total Bilirubin 0.9 (0.2-1.3) mg/dL AST 18 (14-36) IU/L ALT 27 (9-52) IU/L Alkaline Phosphatase 69 (38-126) U/L Total Protein 6.9 (6.3-8.2) g/dL Albumin 4.5 (3.5-5.0) g/dL Globulin 2.4 (1.7-4.1) g/dL Albumin/Globulin Ratio 1.9 (1.0-2.8) Procalcitonin 0.09 (<0.5) ng/mL Urine RBC (0-5/HPF) Urine WBC (0-5/HPF) Ur Squamous Epith Cells Urine Bacteria (None) Ur Culture Indicated? Micro UA Comment Ketones 4.16 H (<0.27) mmol/L 09/11/18 09/11/18 09/11/18 Range/Units 13:45 14:24 14:35 WBC (4.5-11.0) X10^3/uL RBC (4.0-5.2) X10^6/uL Hgb (12.0-16.0) g/dL Hct (36-46) % MCV (80-100) fL MCH (26-34) PG MCHC (30-36) % RDW (11.6-14.8) % Plt Count (150-400) X10^3/uL Neut % (Auto) (50-75) % Lymph % (Auto) (25-40) % [place] % (Auto) (3-14) % Eos % (Auto) (2-4) % Baso % (Auto) (0-2) % Neut # (Auto) (7071-3614) /uL ABG pH 7.45 (7.35-7.45) ABG pCO2 27.5 L (35-45) mmHg ABG pO2 115 H (80-100) mmHg ABG HCO3 19 L (22-26) mmol/L ABG Total CO2 20 L (21-31) mmol/L ABG O2 Saturation 99 (95-100) % ABG Base Excess -5.0 L (-2-2) mmol/L FiO2 0.21 Sodium (137-145) mmol/L Potassium (3.4-5.1) mmol/L Chloride (98-107) mmol/L Carbon Dioxide (22-32) mmol/L BUN (7-17) mg/dL Creatinine (0.52-1.04) mg/dL Estimated GFR (>60) mL/min BUN/Creatinine Ratio (6-22) Glucose (70-100) mg/dL Lactate 1.6 (0.7-2.1) mmol/L Calcium (8.4-10.2) mg/dL Total Bilirubin (0.2-1.3) mg/dL AST (14-36) IU/L ALT (9-52) IU/L Alkaline Phosphatase (38-126) U/L Total Protein (6.3-8.2) g/dL Albumin (3.5-5.0) g/dL Globulin (1.7-4.1) g/dL Albumin/Globulin Ratio (1.0-2.8) Procalcitonin (<0.5) ng/mL Urine RBC 0-1/hpf (0-5/HPF) Urine WBC 0-1/hpf (0-5/HPF) Ur Squamous Epith Cells 0-1 /hpf Urine Bacteria None seen (None) Ur Culture Indicated? Cult not indicated Micro UA Comment Not Reportable Ketones (<0.27) mmol/L Point of Care Testing Test Results Negative Glucose POC 204 Urine Dip Bedside Urine Glucose 1000 mg/dl Bedside Urine Bilirubin - Negative Bedside Urine Ketone +++ 80 Urine Specific [place] 1.025 Bedside Urine Occult Blood +/- Bedside Urine pH 6.0 Bedside Urine Protein - Negative Bedside Urine Urobilinogen - Negative Bedside Urine Nitrite - Negative Bedside Urine Leukocytes - Negative Esterase Point of care testing: Point of Care Testing Test Results Negative Glucose POC 204 Urine Dip Bedside Urine Glucose 1000 mg/dl Bedside Urine Bilirubin - Negative Bedside Urine Ketone +++ 80 Urine Specific [place] 1.025 Bedside Urine Occult Blood +/- Bedside Urine pH 6.0 Bedside Urine Protein - Negative Bedside Urine Urobilinogen - Negative Bedside Urine Nitrite - Negative Bedside Urine Leukocytes - Negative Esterase ECG Data Attestation: I personally reviewed and interpreted this ECG as follows: Interpretation: Sinus tachycardia no ST elevation or depression rate of 106 CO 166 QRS of 181 and QTC of 398. MDM Narrative Medical decision making narrative: Patient comes to the emergency department with continued nausea and vomiting she is feeling worse today than she did yesterday although her headache has improved. Patient x-ray does not show any obstructive signs. Patient has been dry heaving in the department. Patient been afebrile, her heart rate was elevated in the 120s upon arrival. Patient is not quite in DKA she does have ketones, she does not have acidosis on her ABG but does have an anion gap of 20 with a bicarb of 18 and hyperglycemia in the 300s. Patient given 2 L of fluids as well as Zofran and Ativan. Recheck glucose Patient is nauseated but no longer vomiting her heart rate is 108 which is better but still elevated. Patient's lab work is worse than her last visit but not quite DKA. Discussed possible observation she would rather return home will plan to give her 1/3 L of fluids, recheck glucose give her some Zofran and oral challenge. If she is unable to tolerate oral challenge and her heart rate is not improving we discussed that she would need to come in for observation. Patient continues to be tachy, she has not thrown up recently but requiring more antiemetics. Plan for observation, Dr. Schwartz agree to take patient. Patient has almost finished her third liter. She is still 109 regularly on tele. She has been able to keep down a large cup of water. I discussed I recommend keeping overnight in hospital for hydration, insulin and monitoring of lytes with her with continued tachycardia. Patient would prefer to be home as she has young children. Plan for a small rx of ativan she can take with zofran but if she had recurrent vomiting tonight she would need to return. Patient is agreeble to this plan. Discharge Plan Departure Patient Disposition: Admitted as Observation Clinical Impression: Hyperglycemia, Vomiting Instructions: DI for Hyperglycemia -- Adult Additional Instructions: Return to the ER if you continue to have vomiting. If you are able to tolerate fluids and are feeling better follow up Thursday for recheck. Continue zofran sublingually every 6 hours as needed for nausea. You may take ativan with this medication every 8 hours. Continue to hydrate at home with fluids. Referrals: Marshall Woodward MD [Primary Care Provider] - Admit Date/Time: 09/11/18 17:50 Admit Provider: Jason Schwartz
[2018-09-11 14:12] LABS: Lactate (Lactic Acid) 1.6 mmol/L (0.7-2.1)
[2018-09-11 14:27] LABS: Alanine Aminotransferase 27 IU/L (9-52); Albumin 4.5 g/dL (3.5-5.0); Albumin Globulin Ratio 1.9 (1.0-2.8); Alkaline Phosphatase 69 U/L (38-126); Aspartate Aminotransferase 18 IU/L (14-36); BUN Creatinine Ratio 33.3 (6-22); Bilirubin Total 0.9 mg/dL (0.2-1.3); Blood Urea Nitrogen 20 mg/dL (7-17); Calcium 9.3 mg/dL (8.4-10.2); Carbon Dioxide 18 mmol/L (22-32); Chloride 98 mmol/L (98-107); Estimated Glomerular Filt Rate > 60.0 mL/min (>60); Globulin 2.4 g/dL (1.7-4.1); Glucose 343 mg/dL (70-100); HEMOLYSIS < 15 (0-50); Potassium 4.1 mmol/L (3.4-5.1); Sodium 137 mmol/L (137-145); Total Protein 6.9 g/dL (6.3-8.2)
--- NOTE | 2018-09-11 14:28 | DI.US.S_ITS ---
PROCEDURE: US ABDOMEN COMPLETE INDICATIONS: vomiting/abdominal pain TECHNIQUE: Real-time scanning was performed of the abdominal and retroperitoneal organs, with image documentation. COMPARISON: [facility], US, ABDOMEN COMPLETE, 06/01/2014, 16:56. FINDINGS: Liver: Liver is normal in size and homogeneous in echotexture. Gallbladder: Gallbladder is sonographically normal. No gallstones. No gallbladder wall thickening. No pericholecystic fluid. No sonographic Kaminski sign. Biliary ducts: Intrahepatic bile ducts are non-dilated. Extrahepatic bile duct caliber measures 2.0 mm. Normal is 6-7 mm or less in diameter, or 10 mm or less post-cholecystectomy. Pancreas: Visualized portions of the pancreas are sonographically normal. Tail of pancreas not visualized due to bowel gas Spleen: Spleen is normal in size and homogeneous in echotexture. Kidneys: Kidneys are normal in size and echotexture. Right kidney measures 10.5 cm long; left kidney measures 12.6 cm long. No hydronephrosis or nephrolithiasis. No solid masses. Aorta: Visualized aorta is normal in caliber at less than 3 cm. Iliacs: Not visualized due to bowel gas and cannot be evaluated. IVC: Intrahepatic inferior vena cava is patent. Miscellaneous: No free abdominal fluid. IMPRESSION: Normal abdominal sonogram. Dictated by: Joanna Morataya MD, PhD on 09/11/2018 at 16:30 Approved by: Joanna Mroataya MD, PhD on 09/11/2018 at 16:31
--- NOTE | 2018-09-11 14:28 | DI.RAD.S_ITS ---
PROCEDURE: XR ABDOMEN MIN 2V INDICATIONS: vomiting, abdominal pain, IDDM TECHNIQUE: 2 views of the abdomen were acquired. COMPARISON: None. FINDINGS: Surgical changes and devices: None. Bowel: No pneumoperitoneum. The bowel gas pattern is normal. Soft tissues: No masses; visualized solid organ contours appear normal in size. No suspicious abdominal calcifications. Bones: No suspicious bony abnormalities. IMPRESSION: No acute disease process identified. Dictated by: Joanna Morataya MD, PhD on 09/11/2018 at 15:12 Approved by: Joanna Morataya MD, PhD on 09/11/2018 at 15:13
[2018-09-11 14:30] LABS: Ketones (Beta-Hydroxybutyrate) 4.16 mmol/L (<0.27)
[2018-09-11] MEDS: LORazepam 2 MG/ML SYRINGE 0.5 MG IV ×3 (14:33→19:51)
[2018-09-11 14:38] LABS: Procalcitonin 0.09 ng/mL (<0.5)
[2018-09-11 14:49] LABS: HCO3 ABG 19 mmol/L (22-26); Oxygen Saturation ABG 99 % (95-100); PCO2 ABG 27.5 mmHg (35-45); PO2 ABG 115 mmHg (80-100); TCO2 ABG 20 mmol/L (21-31); pH ABG 7.45 (7.35-7.45)
[2018-09-11 14:50] LABS: Fractionated Inspired Oxygen 0.21
[2018-09-11 14:53] LABS: Bacteria Urine None Seen
[2018-09-11 15:06] LABS: Culture Indicated Urine Cult Not Indicated; RBC Urine 0-1/HPF (0-5/HPF); Squamous Epithelial Cell Urine 0-1 /HPF; WBC Urine 0-1/HPF (0-5/HPF)
[2018-09-11] MEDS: PANTOPRAZOLE 40 MG VIAL IV (16:07)
[2018-09-11] MEDS: MAG HYDROX/ALUMINUM/SIMETH SUS 20 ML, LIDOCAINE VISCOUS 2% 15 ML PO (17:22)
--- NOTE | 2018-09-11 18:54 | P.HP_ITS ---
History of Present Illness Date Patient Seen: 09/11/18 Time Patient Seen: 18:52 Chief complaint: Thinks DKA, N/V since yesterday Narrative: This is a 30-year-old female with a history of 20 years type 1 diabetic and several prior admissions for diabetic ketoacidosis. Her symptoms are usually brought on by migraine headaches. She has been experiencing a migraine since yesterday and was actually seen in the emergency department yesterday and treated with fluids, antiemetics and was able to go home. She comes back today with migraine's still coming and going and vomiting worsening. Her anion gap is 21. Her bicarb is 18 and her blood sugars are in the 300. There are ketones in her serum - 4.16. Her pH was only 7.45 however. She is being admitted now for IV fluids, Zofran and lorazepam to control her symptoms along with intensive blood sugar control using her pump and or other forms of insulin delivery if needed. Patient History Medical History delivery delivered (Acute) Chin injury (Acute) Tubal ligation status (Acute) Type 1 diabetes (Acute) Surgical History No pertinent past surgical history (Acute) Status post ORIF of fracture of ankle (Acute) Family & Social History Family History: Reviewed 09/11/18 by Jason Schwartz MD Tobacco & Substance use: Smoking Status Former smoker alcohol intake frequency 0-2 drinks per day Substance Use Type does not use Meds Home Medications Medication Instructions Recorded Confirmed Type Juice And Vitamins 1 ea PO DAILY 09/10/18 09/11/18 History insulin aspart U-100 [Novolog 1 dose CONTINUOUS SUBCUTANEOUS 09/10/18 09/11/18 History U-100 Insulin aspart] INFUSION CONT PRN hydrocodone-acetaminophen 1 tab PO Q4HR PRN #15 tab 09/12/18 Rx ibuprofen 600 mg PO Q6HR PRN #30 tab 09/12/18 Rx metoclopramide HCl [Reglan] 10 mg PO Q6H #10 tab 09/12/18 Rx ondansetron 4 mg PO Q6H PRN #30 tab 09/12/18 09/11/18 Rx Allergies Allergy/AdvReac Type Severity Reaction Status Date / Time lactose [LACTOSE] Allergy Intermediate Verified 09/11/18 13:28 hydromorphone [From DILAUDID] Allergy Unknown Verified 09/11/18 13:28 diphenhydramine AdvReac Unknown ANXIETY, Verified 09/11/18 13:28 DOESNT CALM HER. Review of Systems Review of Systems Positive for headache, nausea, vomiting, weakness, photophobia. Negative for chest pain, abdominal pain, rashes, seizures, bleeding, diarrhea, dysuria, hematuria, trouble talking, new allergies. All systems reviewed & are unremarkable except as noted in HPI and below Exam Vital Signs (past 8 hours): - 09/11/18 13:28 09/11/18 14:30 09/11/18 15:15 Temperature 98.4 F Pulse Rate 122 H 107 H 102 H Respiratory Rate 15 11 L 11 L Blood Pressure 127/77 Blood Pressure [Right Arm] 131/74 123/63 Pulse Oximetry 97 100 100 09/11/18 15:30 09/11/18 16:00 09/11/18 16:41 Temperature Pulse Rate 101 H 103 H 103 H Respiratory Rate 12 11 L 10 L Blood Pressure Blood Pressure [Right Arm] 115/70 131/78 125/73 Pulse Oximetry 100 100 100 09/11/18 17:30 09/11/18 18:00 Temperature Pulse Rate 108 H 112 H Respiratory Rate 15 17 Blood Pressure Blood Pressure [Right Arm] 142/85 H 91/69 Pulse Oximetry 100 100 Oxygen Delivery Method Room Air Narrative Exam Narrative: She is alert and oriented x3. She appears quite weak and debilitated. Pupils are equally round and reactive to light and accommodation. Extraocular muscles are intact. Sclerae are pink and nonicteric. There is no thyromegaly There are no lymph nodes felt head, neck, supraclavicular area. Throat looks normal. JVD is less 6 cm No carotid bruits are heard. Heart is regular rate and rhythm without murmur. Extremities have no ankle edema. Lungs are clear to auscultation bilaterally. Abdomen is soft, bowel sounds positive, nontender, mildly obese, no organomegaly. Objective Labs Result Diagrams: 09/11/18 13:45 09/12/18 05:31 Labs: Laboratory Results - last 24 hr 09/11/18 09/11/18 09/11/18 13:45 13:45 13:45 WBC 9.7 RBC 4.37 Hgb 13.2 Hct 39.3 MCV 90.1 MCH 30.3 MCHC 33.6 RDW 13.0 Plt Count 360 Neut % (Auto) 79.1 H Lymph % (Auto) 15.0 L [place] % (Auto) 4.7 Eos % (Auto) 0.4 L Baso % (Auto) 0.8 Neut # (Auto) 7700 H ABG pH ABG pCO2 ABG pO2 ABG HCO3 ABG Total CO2 ABG O2 Saturation ABG Base Excess FiO2 Sodium 137 Potassium 4.1 Chloride 98 Carbon Dioxide 18 L BUN 20 H Creatinine 0.60 Estimated GFR > 60.0 BUN/Creatinine Ratio 33.3 H Glucose 343 H Lactate Calcium 9.3 Total Bilirubin 0.9 AST 18 ALT 27 Alkaline Phosphatase 69 Total Protein 6.9 Albumin 4.5 Globulin 2.4 Albumin/Globulin Ratio 1.9 Procalcitonin 0.09 Urine RBC Urine WBC Ur Squamous Epith Cells Urine Bacteria Ur Culture Indicated? Micro UA Comment Ketones 4.16 H 09/11/18 09/11/18 09/11/18 13:45 14:24 14:35 WBC RBC Hgb Hct MCV MCH MCHC RDW Plt Count Neut % (Auto) Lymph % (Auto) [place] % (Auto) Eos % (Auto) Baso % (Auto) Neut # (Auto) ABG pH 7.45 ABG pCO2 27.5 L ABG pO2 115 H ABG HCO3 19 L ABG Total CO2 20 L ABG O2 Saturation 99 ABG Base Excess -5.0 L FiO2 0.21 Sodium Potassium Chloride Carbon Dioxide BUN Creatinine Estimated GFR BUN/Creatinine Ratio Glucose Lactate 1.6 Calcium Total Bilirubin AST ALT Alkaline Phosphatase Total Protein Albumin Globulin Albumin/Globulin Ratio Procalcitonin Urine RBC 0-1/hpf Urine WBC 0-1/hpf Ur Squamous Epith Cells 0-1 /hpf Urine Bacteria None seen Ur Culture Indicated? Cult not indicated Micro UA Comment Not Reportable Ketones Assessment & Plan (1) Migraine: Problem details: Continue IV fluid, begun in the emergency department. Continue Zofran for vomiting along with lorazepam as needed. Qualifiers: Intractability: Migraine type: Status migrainosus presence: Current visit: No Status: Acute (2) Vomiting: Problem details: Continue IV fluids, Zofran and lorazepam. Qualifiers: Nausea presence: Vomiting Intractability: Vomiting type: Current visit: No Status: Acute (3) Type 1 diabetes: Problem details: Continue insulin pump with basal rate of 1 unit an hour monitored every couple of hours and more frequently as needed overnight. The patient has a system that she runs with the pump and would like to continue that during this hospitalization if at all possible. Current visit: No Status: Acute (4) Hyperglycemia: Problem details: The pH is normal so this is not technically acidosis but anion gap is wide and ketones are present in the serum. I have no doubt that she would have been in chery DKA if she had delayed this admission. Current visit: No Status: Acute
[2018-09-11] MEDS: SODIUM CHLORIDE 0.45% 1,000 ML 100 ML IV (19:57)
[2018-09-11] MEDS: METOCLOPRAMIDE 10 MG/2 ML INJ IV (21:04)
--- NOTE | 2018-09-11 21:44 | PC.NURSE ---
Patient is a&ox4, rates pain 7/10 generalized malaise, 100% on RA, skin is intact, CMS is intact. Patient demonstrates ability to ambulate safely independently from bed to BSC. Bowel tones are hypoactive, HR is tachy, lungs sound clear. Blood glucose was 238 at 1900, and 345 at 2100. MD aware of continuous vomiting, and of her HR; has been above 130's for about 30 minutes now. HR was about 115 when she first came up from ED. Per MD, increased IVF to 150/h. Tele placed and active. Call light in reach, Patient has been oriented to room. Will continue to monitor.
[2018-09-12 00:08] VITALS: O2SAT 100
[2018-09-12] MEDS: HYDROCODONE/ACET 5/325 TABLET 1 TAB PO (02:28)
[2018-09-12] MEDS: LORazepam 2 MG/ML SYRINGE 0.5 MG IV (02:28)
[2018-09-12] MEDS: SODIUM CHLORIDE 0.45% 1,000 ML 150 ML IV ×2 (03:14→10:01)
[2018-09-12 03:15] VITALS: BP 109/52; PULSE 116; RESP 18; TEMP 37.2; O2SAT 99
[2018-09-12] MEDS: fentaNYL 100 MCG/2 ML INJ 50 MCG IV (03:23)
[2018-09-12] MEDS: ONDANSETRON 4 MG/2 ML INJ IV (03:23)
[2018-09-12 05:55] LABS: BUN Creatinine Ratio 28.3 (6-22); Blood Urea Nitrogen 17 mg/dL (7-17); Calcium 7.7 mg/dL (8.4-10.2); Carbon Dioxide 17 mmol/L (22-32); Chloride 105 mmol/L (98-107); Estimated Glomerular Filt Rate > 60.0 mL/min (>60); Glucose 211 mg/dL (70-100); HEMOLYSIS < 15 (0-50); Sodium 136 mmol/L (137-145)
[2018-09-12] MEDS: METOCLOPRAMIDE 10 MG/2 ML INJ IV (07:42)
[2018-09-12 07:45] VITALS: O2SAT 98
[2018-09-12 07:50] VITALS: BP 112/56; PULSE 103; RESP 16; TEMP 37.1; O2SAT 99
[2018-09-12 11:37] VITALS: BP 116/62; PULSE 100; RESP 16; TEMP 37.3; O2SAT 97
--- NOTE | 2018-09-12 13:30 | P.DS_ITS ---
History of Present Illness Chief complaint: Thinks DKA, N/V since yesterday Narrative: This is a 30-year-old female with a history of 20 years type 1 diabetic and several prior admissions for diabetic ketoacidosis. Her symptoms are usually brought on by migraine headaches. She has been experiencing a migraine since yesterday and was actually seen in the emergency department yesterday and treated with fluids, antiemetics and was able to go home. She comes back today with migraine is still coming and going and vomiting worsening. Her anion gap is 21. Her bicarb is 18 and her blood sugars are in the 300. Her pH was only 7.45 however. She is being admitted now for IV fluids , Zofran and lorazepam to control her symptoms along with intensive blood sugar control using her pump and or other forms of insulin delivery if needed. Discharge Providers Date of admission: 09/11/18 17:50 Primary care physician: Marshall Woodward MD Discharge provider: Jason Schwartz MD Discharge Date: 09/12/18 Summary Discharge Diagnosis: Moderate diabetic ketosis Type 1 diabetes mellitus Severe migraine headache Dehydration Hospital Course: This morning the anion gap closed to 14, with a potassium of 4.0 and after IV fluids she stopped vomiting and the headache went away. We watched for the rest of the day, making sure she was tolerating food and then she was discharged at 4:00 p.m. the blood sugars have been in her usual range of 100s-200s. Status at Discharge Functional status at discharge: independent ambulation Overall status at discharge: patient is back to baseline Time Spent with Patient Less than 30 minutes Exam Vital Signs (past 8 hours): - 09/12/18 07:45 09/12/18 07:50 09/12/18 11:37 Temperature 98.7 F 99.1 F Pulse Rate 103 H 100 H Respiratory Rate 16 16 Blood Pressure 112/56 L 116/62 Pulse Oximetry 98 99 97 Oxygen Delivery Method Room Air Oxygen Flow Rate 0 Narrative Exam Narrative: She is alert and oriented x3, in no apparent distress. She is mildly tachycardic on exam but says this is her baseline. Lungs are clear to auscultation bilaterally and there is no ankle edema. She would like to go home. Objective Labs Result Diagrams: 09/11/18 13:45 09/12/18 05:31 Labs: Laboratory Results - last 24 hr 09/11/18 09/11/18 09/11/18 13:45 13:45 13:45 WBC 9.7 RBC 4.37 Hgb 13.2 Hct 39.3 MCV 90.1 MCH 30.3 MCHC 33.6 RDW 13.0 Plt Count 360 Neut % (Auto) 79.1 H Lymph % (Auto) 15.0 L [place] % (Auto) 4.7 Eos % (Auto) 0.4 L Baso % (Auto) 0.8 Neut # (Auto) 7700 H ABG pH ABG pCO2 ABG pO2 ABG HCO3 ABG Total CO2 ABG O2 Saturation ABG Base Excess FiO2 Sodium 137 Potassium 4.1 Chloride 98 Carbon Dioxide 18 L BUN 20 H Creatinine 0.60 Estimated GFR > 60.0 BUN/Creatinine Ratio 33.3 H Glucose 343 H Lactate Calcium 9.3 Total Bilirubin 0.9 AST 18 ALT 27 Alkaline Phosphatase 69 Total Protein 6.9 Albumin 4.5 Globulin 2.4 Albumin/Globulin Ratio 1.9 Procalcitonin 0.09 Urine RBC Urine WBC Ur Squamous Epith Cells Urine Bacteria Ur Culture Indicated? Micro UA Comment Ketones 4.16 H 09/11/18 09/11/18 09/11/18 13:45 14:24 14:35 WBC RBC Hgb Hct MCV MCH MCHC RDW Plt Count Neut % (Auto) Lymph % (Auto) [place] % (Auto) Eos % (Auto) Baso % (Auto) Neut # (Auto) ABG pH 7.45 ABG pCO2 27.5 L ABG pO2 115 H ABG HCO3 19 L ABG Total CO2 20 L ABG O2 Saturation 99 ABG Base Excess -5.0 L FiO2 0.21 Sodium Potassium Chloride Carbon Dioxide BUN Creatinine Estimated GFR BUN/Creatinine Ratio Glucose Lactate 1.6 Calcium Total Bilirubin AST ALT Alkaline Phosphatase Total Protein Albumin Globulin Albumin/Globulin Ratio Procalcitonin Urine RBC 0-1/hpf Urine WBC 0-1/hpf Ur Squamous Epith Cells 0-1 /hpf Urine Bacteria None seen Ur Culture Indicated? Cult not indicated Micro UA Comment Not Reportable Ketones 09/12/18 05:31 WBC RBC Hgb Hct MCV MCH MCHC RDW Plt Count Neut % (Auto) Lymph % (Auto) [place] % (Auto) Eos % (Auto) Baso % (Auto) Neut # (Auto) ABG pH ABG pCO2 ABG pO2 ABG HCO3 ABG Total CO2 ABG O2 Saturation ABG Base Excess FiO2 Sodium 136 L Potassium 4.0 Chloride 105 Carbon Dioxide 17 L BUN 17 Creatinine 0.60 Estimated GFR > 60.0 BUN/Creatinine Ratio 28.3 H Glucose 211 H D Lactate Calcium 7.7 L Total Bilirubin AST ALT Alkaline Phosphatase Total Protein Albumin Globulin Albumin/Globulin Ratio Procalcitonin Urine RBC Urine WBC Ur Squamous Epith Cells Urine Bacteria Ur Culture Indicated? Micro UA Comment Ketones Discharge Plan Discharge Plan Patient Disposition: Home Discharge Med Rec/Prescriptions Prescriptions: New hydrocodone-acetaminophen 5-325 mg Tablet 1 tab PO Q4HR PRN (Reason: Pain, Moderate (4-6)) Qty: 15 RF: 0 ibuprofen 600 mg Tablet 600 mg PO Q6HR PRN (Reason: As Needed For Fever/Mild Pain) Qty: 30 RF: 0 metoclopramide HCl [Reglan] 10 mg tablet 10 mg PO Q6H Qty: 10 RF: 0 Continue insulin aspart U-100 [Novolog U-100 Insulin aspart] 100 unit/mL Solution 1 dose Continuous Subcutaneous Infusion CONT PRN (Reason: sliding scale) RF: 0 Juice And Vitamins 1 ea PO DAILY RF: 0 ondansetron 4 mg Tablet,Disintegrating 4 mg PO Q6H PRN (Reason: Nausea) Qty: 30 RF: 0 Follow up/Referrals: Marshall Woodward MD [Primary Care Provider] - Visit Report/Discharge Packet Instructions: DI for Hyperglycemia -- Adult Visit Report Forms: Stroke Signs & Symptoms Discharge Data Primary Care Provider: Marshall Woodward Attending Provider: Jason Schwartz Admit Date/Time: 09/11/18 17:50 Discharges patient from system. Discharge Date/Time: 09/12/18 16:00 Quality VTE Deep Vein Thrombosis/Pulmonary Embolism Present on Admission: No
--- NOTE | 2018-09-12 13:34 | PC.NURSE ---
Day Shift- Pt A&OX4, able to make her needs known using call light. Ambulating in room indep with steady gait, denies light-headedness/dizziness. Rated headache 4/10 this AM, did not want any prn's, pt stated nothing works for her at home for medication relief. Nausea 6/10 this AM, upon reassessment, at 1130 nausea 3/10, headache slightly decreased as well. At 1330, pt denied nausea but headache had worsened, ice pack given per pt request. Pt stated she takes excedrin at home but it doesn't help much. Did not want anything else at this time. Offered pt to walk outside of room and pt stated that the light is bothering her right now. Tolerating 3 cups of chicken broth, water, and ice chips throughout shift. Pt stated want to be on a clear liquid type diet, as this is want she would do at home. IVF infusing, monitoring urine OP. Pt wants to be discharged today.
--- NOTE | 2018-09-12 15:09 | CM.DANOTE ---
DCP Assessment: Patient is a 38 you female admitted for Ketoacidosis, nausea, vomiting, migraine. Met with patient at the bedside and role of planner internship explained. PCP: Dr. Woodward Insurance: [employer] Patient lives in [place] with her and child. She is I at baseline. She does not work. She drives. She has no history with [facility] or or any other community agencies. She does not identify any discharge barriers. Plan: Discharge home with family when medically stable. Ann Marie Corley RN Case Manager
--- NOTE | 2018-09-12 15:57 | PC.NURSE ---
Discharge: Pt AxOx3, dressed in own clothes with belongings, out in wheelchair to POV with mother and RN. Discharge paperwork given and pt acknowledged instructions and verbalized to come back if symptoms return and/or worsen. Prescriptions sent electronically to [facility] pharmacy in [place] and narcotic paper prescription given to pt's mother.
== END 2018-09-12 16:00 | disposition home or self-care (01) ==
LOC: ED 17:45 → AC 17:51
PROVIDERS: Admitting Provider Family Medicine; Emergency Provider Emergency Medicine; PCP Internal Medicine; Visit Provider Family Medicine
DX: E10.10 Type 1 diabetes mellitus with ketoacidosis without coma (principal); R11.2 Nausea with vomiting, unspecified; G43.909 Migraine, unspecified, not intractable, without status migrainosus; Z87.891 Personal history of nicotine dependence; Z79.4 Long term (current) use of insulin; Z96.41 Presence of insulin pump (external) (internal); E86.0 Dehydration
CPT/HCPCS: 36415; 36591; 36600; 74019; 76700; 80048; 80053; 81003; 81015; 81025; 82009; 82805; 82962; 83605; 84145; 85025; 93005; 93010; 94762; 96361; 96374; 96375; 96376; 99285; G0378; C9113; J2060; J2405; J2765; J3010; J7050

== ENCOUNTER 2018-09-13 18:10 | Observation (INO) | payer OTHER, SELFPAY ==
[2018-09-11 18:42] VITALS: BMI 28.1
[2018-09-13 18:14] VITALS: BP 129/81; PULSE 132; RESP 12; TEMP 37.3; O2SAT 100; BMI 28.1
[2018-09-13 18:48] LABS: HCO3 VBG 13 mmol/L (23-28); Oxygen Saturation VBG 92 % (70-75); PCO2 VBG 25.5 mmHg (45-50); PO2 VBG 66 mmHg (35-45); Total CO2 VBG 14 mmol/L (24-29); pH VBG 7.33 (7.33-7.43)
--- NOTE | 2018-09-13 18:53 | ED.ABDPAIN ---
HPI - Abdominal Pain General Chief Complaint: Abdominal Pain Stated Complaint: VOMITING UNABLE TO KEEP ANYTHING DOWN Time Seen by Provider: 09/13/18 18:20 Source: patient Mode of arrival: ambulatory Limitations: no limitations History of Present Illness HPI narrative: 38-year-old female, former smoker, type 1 diabetic presents to the emergency department for the 3rd time this week. She was admitted over the weekend for moderate DKA and discharged yesterday. Since her discharge she has been unable to keep any food or even water down persistent vomiting and generalized abdominal pain. She is not dizzy, weak and lightheaded and fatigued. She denies any chest pain or shortness of breath. She has no runny nose or sore throat. MD complaint: abdominal pain Onset (ago): hour(s) Pain Consistency: constant Location: diffuse Severity: moderate Quality: cramping Migration to: no migration Relieving factors: nothing Exacerbating factors: nothing Associated symptoms: nausea and vomiting Related Data Home Medications Medication Instructions Recorded Confirmed Juice And Vitamins 1 ea PO DAILY 09/10/18 09/11/18 insulin aspart U-100 [Novolog 1 dose CONTINUOUS SUBCUTANEOUS 09/10/18 09/11/18 U-100 Insulin aspart] INFUSION CONT PRN Previous Rx's Medication Instructions Recorded hydrocodone-acetaminophen 1 tab PO Q4HR PRN #15 tab 09/12/18 ibuprofen 600 mg PO Q6HR PRN #30 tab 09/12/18 metoclopramide HCl [Reglan] 10 mg PO Q6H #10 tab 09/12/18 ondansetron 4 mg PO Q6H PRN #30 tab 09/12/18 Allergies Allergy/AdvReac Type Severity Reaction Status Date / Time lactose [LACTOSE] Allergy Intermediate Verified 09/11/18 13:28 hydromorphone [From DILAUDID] Allergy Unknown Verified 09/11/18 13:28 diphenhydramine AdvReac Unknown ANXIETY, Verified 09/11/18 13:28 DOESNT CALM HER. Review of Systems Review of Systems All systems reviewed & are unremarkable except as noted in HPI and below Constitutional Denies chills, Denies fever(s), Denies lethargy and Reports weakness Eyes Denies change in vision, Denies eye discharge, Denies irritation and Denies loss of vision ENT Ears, Nose, Mouth, and Throat: Denies change in voice, Denies neck pain and Denies sore throat Cardiovascular Denies chest pain, Denies irregular heart rhythm, Denies lightheadedness, Denies palpitations, Denies dyspnea, Denies dyspnea on exertion and Denies orthopnea Respiratory Denies cough, Denies dyspnea, Denies dyspnea on exertion and Denies wheezing Gastrointestinal Gastrointestinal: Reports abdominal pain, Denies change in bowel habits, Denies diarrhea, Reports nausea and Reports vomiting Genitourinary Denies hematuria, Denies flank pain, Denies urinary incontinence and Denies urinary urgency Musculoskeletal Denies neck pain Integumentary/Breasts Denies pruritus, Denies erythema, Denies rash and Denies wounds Neurologic Denies confusion, Denies loss of vision and Reports weakness Psychiatric Denies anxiety, Denies confusion, Denies depression, Denies homicidal ideation and Denies suicidal ideation Endocrine Denies palpitations Hematologic/Lymphatic Denies easy bruising Allergic/Immunologic Denies wheezing [facility] Medical History delivery delivered (Acute) Chin injury (Acute) Tubal ligation status (Acute) Type 1 diabetes (Acute) Surgical History No pertinent past surgical history (Acute) Status post ORIF of fracture of ankle (Acute) Family History: Reviewed 09/13/18 by Sommer Watts MD Social History household members: spouse and children Smoking Status: Former smoker Exam Narrative Exam Narrative: 38-year-old female, known well myself, appears unwell, actively vomiting and clutching her abdomen Initial Vital Signs Initial Vital Signs: Vital Signs Temperature 99.1 F 09/13/18 18:14 Pulse Rate 132 H 09/13/18 18:14 Respiratory Rate 12 09/13/18 18:14 Blood Pressure 129/81 09/13/18 18:14 Pulse Oximetry 100 09/13/18 18:14 Const General: cooperative and well developed Nutritional Appearance: well nourished Orientation: alert, awake, oriented x3 and not confused [facility] Head: normal to inspection Ears: hearing grossly normal bilaterally Nose: external nose normal Eyes General: appearance normal, both eyes and all related structures Eyelids: eyelids normal Conjunctivae: conjunctivae normal Sclera: sclerae normal Pupils: PERRL EOM: EOM intact bilaterally Chest Chest: normal inspection of the chest GI Inspection: non-distended Palpation: soft, no hepatosplenomegaly, No guarding, No pulsatile mass and tender Auscultation: normal bowel sounds Back/Spine/Pelvis Back: No CVA tenderness Cervical Spine: cervical ROM normal and No pain with cervical ROM Thoracic/Lumbar Spine: thoracic and lumbar spine normal to inspection Skin General: no rashes or lesions noted, No jaundice and No petechiae Neuro General: alert, oriented x3, gait normal and no focal motor deficits Speech: speech normal Course Orders Ordered: ED Orders 09/13/18 18:36 Venous Blood Gas Stat 09/13/18 19:29 Blood Culture Stat Complete Blood Count AUTO DIFF Stat Comprehensive Metabolic Panel Stat Ketones (Beta-Hydroxybutyrate) Stat Lactate (Lactic Acid) Stat Procalcitonin Stat 09/14/18 05:00 Basic Metabolic Panel Routine Complete Blood Count AUTO DIFF Routine Acetaminophen (Tylenol) 650 mg PO Q6HR PRN PRN Reason: As Needed for Fever/Mild Pain Bisacodyl (Dulcolax) 10 mg [place] DAILY PRN PRN Reason: Constipation Famotidine (Pepcid) 20 mg in 50 mls @ 200 mls/hr IV Q12HR RANULFO Insulin Human Regular 100 unit (/ Sodium Chloride) 100 mls @ 6 mls/hr IV TITRATE RANULFO; Protocol Dextrose/Sodium Chloride (Dextrose 5%-0.45% Ns) 1,000 mls @ 100 mls/hr IV CONT RANULFO Insulin Human Regular 100 unit (/ Sodium Chloride) 100 mls @ 6 mls/hr IV TITRATE RANULFO; Protocol Metoclopramide HCl (Reglan) 10 mg IV Q6HR PRN PRN Reason: Nausea And Vomiting Morphine Sulfate (Morphine) 2 mg IV Q4HR PRN PRN Reason: Pain, Mild (1-3) Discontinued Medications Sodium Chloride (Normal Saline 0.9%) 1,000 mls @ 1,000 mls/hr IV BOLUS ONE Stop: 09/13/18 19:21 Last Infusion: 09/13/18 20:35 Dose: 0 mls/hr Admin: 09/13/18 18:59 Dose: 1,000 mls/hr Insulin Human Regular 100 unit (/ Sodium Chloride) 100 mls @ 6 mls/hr IV TITRATE RANULFO; Protocol Last Admin: 09/13/18 21:11 Dose: 6 mls/hr, 6 mls/hr Metoclopramide HCl (Reglan) 10 mg IV NOW ONE Stop: 09/13/18 18:23 Last Admin: 09/13/18 18:59 Dose: 10 mg Ondansetron HCl (Zofran) 4 mg IV NOW ONE Stop: 09/13/18 19:01 Last Admin: 09/13/18 19:01 Dose: 4 mg Pantoprazole Sodium (Protonix) 40 mg IV NOW ONE Stop: 09/13/18 18:50 Last Admin: 09/13/18 18:59 Dose: 40 mg Consultations Consultation #1: call to Dr. Watts for admission Time: 20:00 Vital Signs - 8 hr 09/13/18 18:14 09/13/18 19:53 09/13/18 20:39 Temperature 99.1 F Pulse Rate 132 H 120 H 122 H Respiratory Rate 12 20 20 Blood Pressure 129/81 Blood Pressure [Left Arm] 104/55 L 132/65 Pulse Oximetry 100 100 100 MDM - Abdominal Pain Lab Data Result diagrams: 09/13/18 19:29 09/13/18 19:29 Lab Results 09/13/18 09/13/18 09/13/18 Range/Units 18:36 19:29 19:29 WBC 8.1 (4.5-11.0) X10^3/uL RBC 4.33 (4.0-5.2) X10^6/uL Hgb 12.7 (12.0-16.0) g/dL Hct 39.3 (36-46) % MCV 90.8 (80-100) fL MCH 29.3 (26-34) PG MCHC 32.2 (30-36) % RDW 13.4 (11.6-14.8) % Plt Count 331 (150-400) X10^3/uL Neut % (Auto) 84.0 H (50-75) % Lymph % (Auto) 9.6 L (25-40) % [place] % (Auto) 5.7 (3-14) % Eos % (Auto) 0.1 L (2-4) % Baso % (Auto) 0.6 (0-2) % Neut # (Auto) 6800 H (0421-5651) /uL VBG pH 7.33 (7.33-7.43) VBG pCO2 25.5 L (45-50) mmHg VBG pO2 66 H (35-45) mmHg VBG HCO3 13 L (23-28) mmol/L VBG Total CO2 14 L (24-29) mmol/L VBG O2 Saturation 92 H (70-75) % VBG Base Excess -13.0 L (0-4) mmol/L Sodium (137-145) mmol/L Potassium (3.4-5.1) mmol/L Chloride (98-107) mmol/L Carbon Dioxide (22-32) mmol/L BUN (7-17) mg/dL Creatinine (0.52-1.04) mg/dL Estimated GFR (>60) mL/min BUN/Creatinine Ratio (6-22) Glucose (70-100) mg/dL Lactate (0.7-2.1) mmol/L Calcium (8.4-10.2) mg/dL Total Bilirubin (0.2-1.3) mg/dL AST (14-36) IU/L ALT (9-52) IU/L Alkaline Phosphatase (38-126) U/L Total Protein (6.3-8.2) g/dL Albumin (3.5-5.0) g/dL Globulin (1.7-4.1) g/dL Albumin/Globulin Ratio (1.0-2.8) Procalcitonin 0.18 (<0.5) ng/mL Ketones (<0.27) mmol/L 09/13/18 09/13/18 Range/Units 19:29 19:29 WBC (4.5-11.0) X10^3/uL RBC (4.0-5.2) X10^6/uL Hgb (12.0-16.0) g/dL Hct (36-46) % MCV (80-100) fL MCH (26-34) PG MCHC (30-36) % RDW (11.6-14.8) % Plt Count (150-400) X10^3/uL Neut % (Auto) (50-75) % Lymph % (Auto) (25-40) % [place] % (Auto) (3-14) % Eos % (Auto) (2-4) % Baso % (Auto) (0-2) % Neut # (Auto) (3817-1604) /uL VBG pH (7.33-7.43) VBG pCO2 (45-50) mmHg VBG pO2 (35-45) mmHg VBG HCO3 (23-28) mmol/L VBG Total CO2 (24-29) mmol/L VBG O2 Saturation (70-75) % VBG Base Excess (0-4) mmol/L Sodium 136 L (137-145) mmol/L Potassium 3.9 (3.4-5.1) mmol/L Chloride 103 (98-107) mmol/L Carbon Dioxide 10 L (22-32) mmol/L BUN 9 (7-17) mg/dL Creatinine 0.50 L (0.52-1.04) mg/dL Estimated GFR > 60.0 (>60) mL/min BUN/Creatinine Ratio 18.0 (6-22) Glucose 294 H (70-100) mg/dL Lactate 0.9 (0.7-2.1) mmol/L Calcium 8.6 (8.4-10.2) mg/dL Total Bilirubin 0.6 (0.2-1.3) mg/dL AST 22 (14-36) IU/L ALT 35 (9-52) IU/L Alkaline Phosphatase 78 (38-126) U/L Total Protein 6.9 (6.3-8.2) g/dL Albumin 4.3 (3.5-5.0) g/dL Globulin 2.6 (1.7-4.1) g/dL Albumin/Globulin Ratio 1.7 (1.0-2.8) Procalcitonin (<0.5) ng/mL Ketones 7.01 H (<0.27) mmol/L Discharge Plan Departure Patient Disposition: Admitted As Inpatient Clinical Impression: DKA, type 1 Admit Date/Time: 09/13/18 20:50 Admit Provider: Sommer Watts
[2018-09-13] MEDS: SODIUM CHLORIDE 0.9% 1,000 ML 1000 ML IV ×2 (18:59→22:57)
[2018-09-13] MEDS: PANTOPRAZOLE 40 MG VIAL IV (18:59)
[2018-09-13] MEDS: METOCLOPRAMIDE 10 MG/2 ML INJ IV (18:59)
[2018-09-13] MEDS: ONDANSETRON 4 MG/2 ML INJ IV (19:01)
[2018-09-13 19:41] LABS: Add Manual Diff / Slide Review NO; Basophils Percent Auto 0.6 % (0-2); Eosinophils Percent Auto 0.1 % (2-4); Hematocrit 39.3 % (36-46); Hemoglobin 12.7 g/dL (12.0-16.0); Lymphocytes Percent Auto 9.6 % (25-40); Mean Corpuscular HGB Conc 32.2 % (30-36); Mean Corpuscular Hemoglobin 29.3 PG (26-34); Mean Corpuscular Volume 90.8 fL (80-100); Monocytes Percent Auto 5.7 % (3-14); Neutrophils Absolute Auto 6800 /uL (3000-5900); Platelet Count 331 X10^3/uL (150-400); Red Blood Cell Count 4.33 X10^6/uL (4.0-5.2); Red Cell Distribution Width 13.4 % (11.6-14.8); White Blood Cell Count 8.1 X10^3/uL (4.5-11.0)
[2018-09-13 19:53] VITALS: BP 104/55; PULSE 120; RESP 20; O2SAT 100
[2018-09-13 19:53] LABS: Lactate (Lactic Acid) 0.9 mmol/L (0.7-2.1)
[2018-09-13 19:58] LABS: Alanine Aminotransferase 35 IU/L (9-52); Albumin 4.3 g/dL (3.5-5.0); Albumin Globulin Ratio 1.7 (1.0-2.8); Alkaline Phosphatase 78 U/L (38-126); Aspartate Aminotransferase 22 IU/L (14-36); Bilirubin Total 0.6 mg/dL (0.2-1.3); Blood Urea Nitrogen 9 mg/dL (7-17); Calcium 8.6 mg/dL (8.4-10.2); Carbon Dioxide 10 mmol/L (22-32); Chloride 103 mmol/L (98-107); Estimated Glomerular Filt Rate > 60.0 mL/min (>60); Globulin 2.6 g/dL (1.7-4.1); Glucose 294 mg/dL (70-100); HEMOLYSIS < 15 (0-50); Potassium 3.9 mmol/L (3.4-5.1); Sodium 136 mmol/L (137-145); Total Protein 6.9 g/dL (6.3-8.2)
[2018-09-13 20:03] LABS: Ketones (Beta-Hydroxybutyrate) 7.01 mmol/L (<0.27)
[2018-09-13 20:26] LABS: Procalcitonin 0.18 ng/mL (<0.5)
[2018-09-13 20:39] VITALS: BP 132/65; PULSE 122; RESP 20; O2SAT 100
[2018-09-13] MEDS: INSULIN REGULAR, HUMAN 100 UNIT in SODIUM CHLORIDE 0.9% 100 ML 6 ML IV (21:11)
--- NOTE | 2018-09-13 21:22 | PM.HP.1 ---
History of Present Illness Date Patient Seen: 09/13/18 Chief complaint: VOMITING UNABLE TO KEEP ANYTHING DOWN Narrative: The patient is a 38 y/o female with a history of Type 1 diabetes currently managed via an insulin pump who was discharged from the hospital yesterday after a 24 hour admission. The patient presented with Nausea, Emesis, and DKA. She was treated with an insulin drip, IV hydration, Anti emetics. She was on a clear liquid diet and discharged home with the plan to advance her diet accordingly. The patient reports that she has been unable to keep anything down because of persistant vomiting. She states her symptoms are triggered by migraine CANSECO. She has a history of migraine headaches which improved until 4 years ago. She has tried prophylactic treatment but says it did not work. She says she does not have diabetic gastroparesis. Patient presented with nausea, emesis, and found to have DKA. She is admitted to the hosptial for further evaluation. Patient History Medical History delivery delivered (Acute) Chin injury (Acute) Tubal ligation status (Acute) Type 1 diabetes (Acute) Surgical History No pertinent past surgical history (Acute) Status post ORIF of fracture of ankle (Acute) Family & Social History Family History: Reviewed 09/13/18 by Sommer Watts MD Social History: household members spouse,children Tobacco & Substance use: Smoking Status Former smoker alcohol intake frequency 0-2 drinks per day Substance Use Type does not use Meds Home Medications Medication Instructions Recorded Confirmed Type Juice And Vitamins 1 ea PO DAILY 09/10/18 09/11/18 History insulin aspart U-100 [Novolog 1 dose CONTINUOUS SUBCUTANEOUS 09/10/18 09/11/18 History U-100 Insulin aspart] INFUSION CONT PRN hydrocodone-acetaminophen 1 tab PO Q4HR PRN #15 tab 09/12/18 Rx ibuprofen 600 mg PO Q6HR PRN #30 tab 09/12/18 Rx metoclopramide HCl [Reglan] 10 mg PO Q6H #10 tab 09/12/18 Rx ondansetron 4 mg PO Q6H PRN #30 tab 09/12/18 09/11/18 Rx Allergies Allergy/AdvReac Type Severity Reaction Status Date / Time lactose [LACTOSE] Allergy Intermediate Verified 09/11/18 13:28 hydromorphone [From DILAUDID] Allergy Unknown Verified 09/11/18 13:28 diphenhydramine AdvReac Unknown ANXIETY, Verified 09/11/18 13:28 DOESNT CALM HER. Review of Systems Review of Systems All systems reviewed & are unremarkable except as noted in HPI and below Exam Vital Signs (past 8 hours): - 09/13/18 18:14 09/13/18 19:53 09/13/18 20:39 Temperature 99.1 F Pulse Rate 132 H 120 H 122 H Respiratory Rate 12 20 20 Blood Pressure 129/81 Blood Pressure [Left Arm] 104/55 L 132/65 Pulse Oximetry 100 100 100 Oxygen Delivery Method Room Air Narrative Exam Narrative: Pleasant ill appearing female HEENT: NC/AT, PERRL, EOMI, Oropharynx clear, moist mucus membranes Neck: supple without adenopathy Lungs: clear to auscultation CV: Tachycardic, RRR nl Sl S2 Abd: soft/ non tender/non distended, no HSM, insulin pump in place Ext: no edema Skin: multiple tattoos on her forearms Neuro: non focal Objective Labs Result Diagrams: 09/13/18 19:29 09/13/18 19:29 Labs: Laboratory Results - last 24 hr 09/13/18 09/13/18 09/13/18 18:36 19:29 19:29 WBC 8.1 RBC 4.33 Hgb 12.7 Hct 39.3 MCV 90.8 MCH 29.3 MCHC 32.2 RDW 13.4 Plt Count 331 Neut % (Auto) 84.0 H Lymph % (Auto) 9.6 L [place] % (Auto) 5.7 Eos % (Auto) 0.1 L Baso % (Auto) 0.6 Neut # (Auto) 6800 H VBG pH 7.33 VBG pCO2 25.5 L VBG pO2 66 H VBG HCO3 13 L VBG Total CO2 14 L VBG O2 Saturation 92 H VBG Base Excess -13.0 L Sodium Potassium Chloride Carbon Dioxide BUN Creatinine Estimated GFR BUN/Creatinine Ratio Glucose Lactate Calcium Total Bilirubin AST ALT Alkaline Phosphatase Total Protein Albumin Globulin Albumin/Globulin Ratio Procalcitonin 0.18 Ketones 09/13/18 09/13/18 19:29 19:29 WBC RBC Hgb Hct MCV MCH MCHC RDW Plt Count Neut % (Auto) Lymph % (Auto) [place] % (Auto) Eos % (Auto) Baso % (Auto) Neut # (Auto) VBG pH VBG pCO2 VBG pO2 VBG HCO3 VBG Total CO2 VBG O2 Saturation VBG Base Excess Sodium 136 L Potassium 3.9 Chloride 103 Carbon Dioxide 10 L BUN 9 Creatinine 0.50 L Estimated GFR > 60.0 BUN/Creatinine Ratio 18.0 Glucose 294 H Lactate 0.9 Calcium 8.6 Total Bilirubin 0.6 AST 22 ALT 35 Alkaline Phosphatase 78 Total Protein 6.9 Albumin 4.3 Globulin 2.6 Albumin/Globulin Ratio 1.7 Procalcitonin Ketones 7.01 H Assessment & Plan (1) DKA, type 1: Problem details: Will continue insulin drip. Will start D5 once blood sugars are less than 200, She will need some time to clear ketones and improve acidosis even tho her blood sugars are not very high Suggest Endocrine consult at discharge to evaluate for Gastroparesis. Qualifiers: Diabetes mellitus complication detail: without coma Qualified Code(s): E10.10 - Type 1 diabetes mellitus with ketoacidosis without coma Current visit: Yes Status: Acute (2) Nausea and vomiting: Problem details: Continue IV hydration, Clear liquid diet, advance as tolerated Current visit: No Status: Acute (3) Migraine: Problem details: Continue IV fluid, begun in the emergency department. Continue Zofran for vomiting along with lorazepam as needed. Headache significantly improved. Needs Neuro Eval to consider prophylactic treatment for recurrent migraine CANSECO Qualifiers: Intractability: Migraine type: Status migrainosus presence: Current visit: No Status: Acute
[2018-09-13 21:25] VITALS: PULSE 118; RESP 20; O2SAT 99
[2018-09-13 22:00] VITALS: BMI 29.7
[2018-09-13 22:10] VITALS: BP 107/52; PULSE 117; RESP 13; TEMP 37.6; O2SAT 100
[2018-09-13] MEDS: DEXTROSE 5%-0.45% NS 1,000 ML 100 ML IV (22:20)
--- NOTE | 2018-09-13 23:06 | PC.NURSE ---
raffaele russo pt admitted from ER. Pt c/o nausea, having some retching. HR tachy 115-120s at rest, up to 140 [address] on BSC. [address] Dr. Watts and received new orders.
[2018-09-13 23:08] VITALS: BP 108/50; PULSE 113; RESP 14; TEMP 37.1; O2SAT 100
[2018-09-13 23:51] LABS: Blood Urea Nitrogen 9 mg/dL (7-17); Carbon Dioxide 15 mmol/L (22-32); Chloride 108 mmol/L (98-107); Estimated Glomerular Filt Rate > 60.0 mL/min (>60); Glucose 165 mg/dL (70-100); HEMOLYSIS < 15 (0-50); Potassium 3.6 mmol/L (3.4-5.1); Sodium 138 mmol/L (137-145)
[2018-09-14] VITALS (11 sets, daily range): BP systolic 110–142; BP diastolic 49–83; PULSE 92–116; RESP 12–20; TEMP 36.4–36.9; O2SAT 97–100
[2018-09-14] MEDS: POTASSIUM CHLORIDE 40 MEQ in SODIUM CHLORIDE 0.9% 500 ML 130 ML IV (00:34)
[2018-09-14] MEDS: DEXTROSE 10 % IN WATER 1,000 ML 50 ML IV (00:34)
[2018-09-14] MEDS: FAMOTIDINE 20 MG/50 ML PIGGYBACK 200 MG IV (00:51)
[2018-09-14] MEDS: LORazepam 2 MG/ML SYRINGE 1 MG IV (02:17)
--- NOTE | 2018-09-14 04:42 | PC.NURSE ---
NOC Shift: Pt DKA on insulin protocol. Insulin gtt titration throughout shift w/K rider replacement. See flow sheet. Pt AAOX3, complains of nausea, headache. Ativan given prn. VSS, ST on tele. Up to BS commode w/1 PA. Pt pleasant, cooperative. ICU status.
[2018-09-14 05:19] LABS: Blood Urea Nitrogen 7 mg/dL (7-17); Calcium 7.9 mg/dL (8.4-10.2); Carbon Dioxide 14 mmol/L (22-32); Chloride 107 mmol/L (98-107); Estimated Glomerular Filt Rate > 60.0 mL/min (>60); Glucose 151 mg/dL (70-100); HEMOLYSIS < 15 (0-50); Potassium 4.4 mmol/L (3.4-5.1); Sodium 135 mmol/L (137-145)
[2018-09-14 05:24] LABS: Add Manual Diff / Slide Review NO; Basophils Percent Auto 0.4 % (0-2); Eosinophils Percent Auto 0.3 % (2-4); Hematocrit 34.2 % (36-46); Hemoglobin 11.3 g/dL (12.0-16.0); Lymphocytes Percent Auto 14.7 % (25-40); Mean Corpuscular HGB Conc 33.2 % (30-36); Mean Corpuscular Volume 90.3 fL (80-100); Monocytes Percent Auto 8.6 % (3-14); Neutrophils Absolute Auto 5400 /uL (3000-5900); Platelet Count 328 X10^3/uL (150-400); Red Blood Cell Count 3.79 X10^6/uL (4.0-5.2); White Blood Cell Count 7.1 X10^3/uL (4.5-11.0)
--- NOTE | 2018-09-14 08:18 | CM.DANOTE ---
DCP: Case received, EMR reviewed. Patient sleeping, but placed name of this material planner on her white board in her room. DCP template completed with information currently available. Patient is a 38 year old female who admitted yesterday evening to the care of the hospitalist team. PCP: Dr. Woodward. Payer:confirmed: [facility]. Patient here with symptoms of nausea and vomiting. Patient is a type 1 Diabetic, and has an insulin pump as well. Patient holds diagnosis of Gastroparesis. Has history of DKA as well. Patient sleeping, but noted from record, that she lives with spouse and children. Is independent at home. P: DCP to follow patient closely. Patient should be able to go home when medically stable. Evelyn Quiroga RN/Heat Treating Operator
--- NOTE | 2018-09-14 08:24 | P.DS_ITS ---
History of Present Illness Chief complaint: VOMITING UNABLE TO KEEP ANYTHING DOWN Discharge Providers Date of admission: 09/13/18 20:50 Primary care physician: Marshall Woodward MD Discharge provider: Bismark Weldon DO Exam Vital Signs (past 8 hours): - 09/14/18 01:00 09/14/18 02:00 09/14/18 03:00 Temperature Pulse Rate 103 H 116 H 115 H Respiratory Rate 14 14 17 Blood Pressure 110/49 L 131/61 120/57 L Pulse Oximetry 98 100 100 09/14/18 04:00 09/14/18 05:00 09/14/18 06:00 Temperature 98.5 F Pulse Rate 101 H 92 H 93 H Respiratory Rate 14 14 15 Blood Pressure 133/59 L 124/70 Pulse Oximetry 97 99 100 09/14/18 08:00 Temperature 98.1 F Pulse Rate 109 H Respiratory Rate 12 Blood Pressure 142/79 H Pulse Oximetry 100 Oxygen Delivery Method Room Air Oxygen Flow Rate 0 Objective Labs Result Diagrams: 09/14/18 04:37 09/14/18 04:37 Labs: Laboratory Results - last 24 hr 09/13/18 09/13/18 09/13/18 18:36 19:29 19:29 WBC 8.1 RBC 4.33 Hgb 12.7 Hct 39.3 MCV 90.8 MCH 29.3 MCHC 32.2 RDW 13.4 Plt Count 331 Neut % (Auto) 84.0 H Lymph % (Auto) 9.6 L [place] % (Auto) 5.7 Eos % (Auto) 0.1 L Baso % (Auto) 0.6 Neut # (Auto) 6800 H VBG pH 7.33 VBG pCO2 25.5 L VBG pO2 66 H VBG HCO3 13 L VBG Total CO2 14 L VBG O2 Saturation 92 H VBG Base Excess -13.0 L Sodium Potassium Chloride Carbon Dioxide BUN Creatinine Estimated GFR BUN/Creatinine Ratio Glucose Lactate Calcium Total Bilirubin AST ALT Alkaline Phosphatase Total Protein Albumin Globulin Albumin/Globulin Ratio Procalcitonin 0.18 Nasal Screen MRSA (PCR) Ketones 09/13/18 09/13/18 09/13/18 19:29 19:29 22:00 WBC RBC Hgb Hct MCV MCH MCHC RDW Plt Count Neut % (Auto) Lymph % (Auto) [place] % (Auto) Eos % (Auto) Baso % (Auto) Neut # (Auto) VBG pH VBG pCO2 VBG pO2 VBG HCO3 VBG Total CO2 VBG O2 Saturation VBG Base Excess Sodium 136 L Potassium 3.9 Chloride 103 Carbon Dioxide 10 L BUN 9 Creatinine 0.50 L Estimated GFR > 60.0 BUN/Creatinine Ratio 18.0 Glucose 294 H Lactate 0.9 Calcium 8.6 Total Bilirubin 0.6 AST 22 ALT 35 Alkaline Phosphatase 78 Total Protein 6.9 Albumin 4.3 Globulin 2.6 Albumin/Globulin Ratio 1.7 Procalcitonin Nasal Screen MRSA (PCR) Negative for mrsa Ketones 7.01 H 09/13/18 09/14/18 09/14/18 23:30 04:37 04:37 WBC 7.1 RBC 3.79 L Hgb 11.3 L Hct 34.2 L MCV 90.3 MCH 30.0 MCHC 33.2 RDW 13.0 Plt Count 328 Neut % (Auto) 76.0 H Lymph % (Auto) 14.7 L [place] % (Auto) 8.6 Eos % (Auto) 0.3 L Baso % (Auto) 0.4 Neut # (Auto) 5400 VBG pH VBG pCO2 VBG pO2 VBG HCO3 VBG Total CO2 VBG O2 Saturation VBG Base Excess Sodium 138 135 L Potassium 3.6 4.4 Chloride 108 H 107 Carbon Dioxide 15 L 14 L BUN 9 7 Creatinine 0.60 0.50 L Estimated GFR > 60.0 > 60.0 BUN/Creatinine Ratio 15.0 14.0 Glucose 165 H D 151 H Lactate Calcium 8.0 L 7.9 L Total Bilirubin AST ALT Alkaline Phosphatase Total Protein Albumin Globulin Albumin/Globulin Ratio Procalcitonin Nasal Screen MRSA (PCR) Ketones Discharge Plan Discharge Plan Patient Disposition: Home Discharge comment: dc to home once agap back to [facility] and kayla po well act as kayla diabetic diet f/u with pcp 3-10 days Discharge Med Rec/Prescriptions Prescriptions: New sennosides [senna] 8.6 mg tablet 8.6 mg PO BID Qty: 30 RF: 0 polyethylene glycol 3350 [Miralax] 17 gram powder in packet 17 gram PO BID Qty: 14 RF: 0 Continue insulin aspart U-100 [Novolog U-100 Insulin aspart] 100 unit/mL Solution 1 dose Continuous Subcutaneous Infusion CONT PRN (Reason: sliding scale) RF: 0 Juice And Vitamins 1 ea PO DAILY RF: 0 metoclopramide HCl [Reglan] 10 mg tablet 10 mg PO Q6H Qty: 10 RF: 0 ondansetron 4 mg Tablet,Disintegrating 4 mg PO Q6H PRN (Reason: Nausea) Qty: 30 RF: 0 Discontinued hydrocodone-acetaminophen 5-325 mg Tablet 1 tab PO Q4HR PRN (Reason: Pain, Moderate (4-6)) Qty: 15 RF: 0 ibuprofen 600 mg Tablet 600 mg PO Q6HR PRN (Reason: As Needed For Fever/Mild Pain) Qty: 30 RF: 0 Provider Discharge Instructions Diet: Carb-consistent/Diabetic, Low-fat and Low-cholesterol Diet comment: high fiber Skin/Wound/Dressing Care Report to your healthcare provider any signs of infection, such as:: chills, fever, night sweats, increased pain, unusual drainage and unusual redness Discharge Data Primary Care Provider: Marshall Woodward Attending Provider: Sommer Watts Admit Date/Time: 09/13/18 20:50 Quality VTE Deep Vein Thrombosis/Pulmonary Embolism Present on Admission: No
[2018-09-14] MEDS: SODIUM CHLORIDE 0.9% 1,000 ML 1000 ML IV (08:41)
[2018-09-14] MEDS: ONDANSETRON 4 MG ODT PO (10:27)
[2018-09-14 13:01] LABS: Alanine Aminotransferase 32 IU/L (9-52); Albumin 3.7 g/dL (3.5-5.0); Albumin Globulin Ratio 1.5 (1.0-2.8); Alkaline Phosphatase 65 U/L (38-126); Aspartate Aminotransferase 20 IU/L (14-36); Bilirubin Total 0.6 mg/dL (0.2-1.3); Blood Urea Nitrogen 7 mg/dL (7-17); Carbon Dioxide 12 mmol/L (22-32); Chloride 105 mmol/L (98-107); Estimated Glomerular Filt Rate > 60.0 mL/min (>60); Globulin 2.5 g/dL (1.7-4.1); Glucose 197 mg/dL (70-100); HEMOLYSIS < 15 (0-50); Potassium 3.8 mmol/L (3.4-5.1); Sodium 136 mmol/L (137-145); Total Protein 6.2 g/dL (6.3-8.2)
[2018-09-14 13:10] LABS: Appearance Urine UA CLEAR; Bilirubin Urine UA NEGATIVE (NEGATIVE); Color Urine UA YELLOW; Glucose Urine UA 1+ g/dL (Normal); Ketones Urine UA 3+ (NEGATIVE); Leukocyte Esterase Urine UA NEGATIVE (NEGATIVE); Nitrite Urine UA NEGATIVE (Negative); Occult Blood Urine UA 3+ (Negative); Protein Urine UA NEGATIVE (Negative); Specific Gravity Urine UA >=1.030 (1.000-1.035); Urobilinogen Urine UA 0.2 E.U./dL (0.2)
[2018-09-14 13:17] LABS: Urine Amphetamines Negative (Negative); Urine Cocaine Negative (Negative); Urine Morphine/Opi cutoff 2000 Negative (Negative); Urine Tetrahydrocannabinol Negative (Negative)
[2018-09-14 13:17] LABS: Phosphorous 0.9 mg/dL (2.5-4.5)
[2018-09-14 13:18] LABS: Urine Barbiturates Negative (Negative); Urine Benzodiazepines Positive (Negative); Urine MDMA Negative (Negative); Urine Methadone Negative (Negative); Urine Methamphetamines Negative (Negative); Urine Oxycodone Negative (Negative); Urine Phencyclidine Negative (Negative); Urine Tricyclic Antidepressant Negative (Negative)
[2018-09-14] MEDS: SODIUM,POTASSIUM PHOSPHATES PACKET 2 EACH PO (13:43)
[2018-09-14] MEDS: SODIUM BICARBONATE 650 MG TABLET PO ×2 (13:43)
[2018-09-14 13:46] LABS: Bacteria Urine Moderate (10-30); Culture Indicated Urine Cult Not Indicated; RBC Urine 10-30/HPF (0-5/HPF); Squamous Epithelial Cell Urine 1-5 /HPF; WBC Urine 1-5/HPF (0-5/HPF)
--- NOTE | 2018-09-14 14:50 | PC.NURSE ---
Day Shift Note Insulin gtt stopped at 0800 per MD order and patient initiated own insulin pump running at 1 unit/hr. Pt gave bolus dose of 1 unit at 1100 and 1.5 units 1230 with meals. Last CBG was 124. IV became painful and was found to be infiltrated; d/c'd at that time. Pt has been a difficult lab start and Lilibeth REYES was called to start peripheral or midline but was unsuccessful. MD aware of no IV access, no PICC line order at this time. Plan is for possible d/c today. Pt has been tolerating full liquids and toast without nausea. Resting in room at this time. Denies pain.
[2018-09-14 17:19] LABS: Alanine Aminotransferase 34 IU/L (9-52); Albumin 3.8 g/dL (3.5-5.0); Albumin Globulin Ratio 1.5 (1.0-2.8); Alkaline Phosphatase 70 U/L (38-126); Aspartate Aminotransferase 24 IU/L (14-36); Bilirubin Total 0.8 mg/dL (0.2-1.3); Blood Urea Nitrogen 5 mg/dL (7-17); Calcium 8.3 mg/dL (8.4-10.2); Carbon Dioxide 13 mmol/L (22-32); Chloride 104 mmol/L (98-107); Estimated Glomerular Filt Rate > 60.0 mL/min (>60); Globulin 2.6 g/dL (1.7-4.1); Glucose 147 mg/dL (70-100); HEMOLYSIS < 15 (0-50); Potassium 3.7 mmol/L (3.4-5.1); Sodium 134 mmol/L (137-145); Total Protein 6.4 g/dL (6.3-8.2)
--- NOTE | 2018-09-14 17:50 | PM.PN.1 ---
Subjective Date Patient Seen: 09/14/18 Time Patient Seen: 17:51 Interval history: PATIENT WOULD PREFER TO GO HOME TODAY SHE DENIED ANY SHORTNESS OF BREATH OR CHEST PAIN NO FEVER OR CHILLS OVERNIGHT I SPOKE TO NURSING REGARDING THE CASE Exam Vital Signs (past 8 hours): - 09/14/18 13:57 09/14/18 16:00 Temperature 98 F 98.2 F Pulse Rate 103 H 104 H Respiratory Rate 12 16 Blood Pressure 142/77 H 139/83 Pulse Oximetry 98 100 Oxygen Delivery Method Room Air Oxygen Flow Rate 0 Narrative Exam Narrative: NO ACUTE DISTRESS. PATIENT IS ALERT ORIENTED X3. VITAL SIGNS STABLE HEAD ATRAUMATIC NORMOCEPHALIC NECK : SUPPLE WITHOUT ADENOPATHY EYE: EOMI, PERRLA, NORMAL CONJUNCTIVA CHEST: REGULAR RATE.. NO RUBS. PMI IS NON DISPLACED. NO MURMURS PULMONARY: DECREASED BS OVER THE BASES. MILD BIBASILAR CRACKLES NOTED; NO INCREASED DULLNESS TO PERCUSSION ABDOMEN: SOFT; NON TENDER; BS + IN ALL 4 QUAD EXTREMITIES:NO EDEMA.. NO CYANOSIS OR CLUBBING NOTED. NEURO: CRANIAL NERVES 2-12 GROSSLY INTACT. NO FOCAL NEUROLOGICAL DEFICIT NOTED. MSK: NORMAL RANGE OF MOTION FOR AGE. NO JOINT EFFUSION. SKIN: NORMAL FOR ETHNICITY; NO ECCHYMOSIS. NO LESION. GOOD TURGOR.; NORASHES : NORMAL EXTERNAL GENITALIA. PSYCH : APPROPRIATE MOOD AND AFFECT. ALERT AWAKE ORIENTED X3 Objective Labs Result Diagrams: 09/14/18 04:37 09/14/18 16:55 Labs: Laboratory Results - last 24 hr 09/13/18 09/13/18 09/13/18 18:36 19:29 19:29 WBC 8.1 RBC 4.33 Hgb 12.7 Hct 39.3 MCV 90.8 MCH 29.3 MCHC 32.2 RDW 13.4 Plt Count 331 Neut % (Auto) 84.0 H Lymph % (Auto) 9.6 L [place] % (Auto) 5.7 Eos % (Auto) 0.1 L Baso % (Auto) 0.6 Neut # (Auto) 6800 H VBG pH 7.33 VBG pCO2 25.5 L VBG pO2 66 H VBG HCO3 13 L VBG Total CO2 14 L VBG O2 Saturation 92 H VBG Base Excess -13.0 L Sodium Potassium Chloride Carbon Dioxide BUN Creatinine Estimated GFR BUN/Creatinine Ratio Glucose Hemoglobin A1c Lactate Calcium Phosphorus Total Bilirubin AST ALT Alkaline Phosphatase Total Protein Albumin Globulin Albumin/Globulin Ratio Procalcitonin 0.18 Urine Color Urine Appearance Urine pH Ur Specific [place] Urine Protein Urine Glucose (UA) Urine Ketones Urine Occult Blood Urine Nitrate Urine Bilirubin Urine Urobilinogen Ur Leukocyte Esterase Urine RBC Urine WBC Ur Squamous Epith Cells Urine Bacteria Ur Culture Indicated? Micro UA Comment Nasal Screen MRSA (PCR) Urine Opiates Screen Ur Oxycodone Screen Urine Methadone Screen Ur Barbiturates Screen U Tricyclic Antidepress Ur Phencyclidine Scrn Ur Amphetamines Screen U Methamphetamines Scrn Ur MDMA Scrn (Ecstasy) U Benzodiazepines Scrn Urine Cocaine Screen U Marijuana (THC) Screen Ketones 09/13/18 09/13/18 09/13/18 19:29 19:29 22:00 WBC RBC Hgb Hct MCV MCH MCHC RDW Plt Count Neut % (Auto) Lymph % (Auto) [place] % (Auto) Eos % (Auto) Baso % (Auto) Neut # (Auto) VBG pH VBG pCO2 VBG pO2 VBG HCO3 VBG Total CO2 VBG O2 Saturation VBG Base Excess Sodium 136 L Potassium 3.9 Chloride 103 Carbon Dioxide 10 L BUN 9 Creatinine 0.50 L Estimated GFR > 60.0 BUN/Creatinine Ratio 18.0 Glucose 294 H Hemoglobin A1c Lactate 0.9 Calcium 8.6 Phosphorus Total Bilirubin 0.6 AST 22 ALT 35 Alkaline Phosphatase 78 Total Protein 6.9 Albumin 4.3 Globulin 2.6 Albumin/Globulin Ratio 1.7 Procalcitonin Urine Color Urine Appearance Urine pH Ur Specific [place] Urine Protein Urine Glucose (UA) Urine Ketones Urine Occult Blood Urine Nitrate Urine Bilirubin Urine Urobilinogen Ur Leukocyte Esterase Urine RBC Urine WBC Ur Squamous Epith Cells Urine Bacteria Ur Culture Indicated? Micro UA Comment Nasal Screen MRSA (PCR) Negative for mrsa Urine Opiates Screen Ur Oxycodone Screen Urine Methadone Screen Ur Barbiturates Screen U Tricyclic Antidepress Ur Phencyclidine Scrn Ur Amphetamines Screen U Methamphetamines Scrn Ur MDMA Scrn (Ecstasy) U Benzodiazepines Scrn Urine Cocaine Screen U Marijuana (THC) Screen Ketones 7.01 H 09/13/18 09/14/18 09/14/18 23:30 04:37 04:37 WBC 7.1 RBC 3.79 L Hgb 11.3 L Hct 34.2 L MCV 90.3 MCH 30.0 MCHC 33.2 RDW 13.0 Plt Count 328 Neut % (Auto) 76.0 H Lymph % (Auto) 14.7 L [place] % (Auto) 8.6 Eos % (Auto) 0.3 L Baso % (Auto) 0.4 Neut # (Auto) 5400 VBG pH VBG pCO2 VBG pO2 VBG HCO3 VBG Total CO2 VBG O2 Saturation VBG Base Excess Sodium 138 135 L Potassium 3.6 4.4 Chloride 108 H 107 Carbon Dioxide 15 L 14 L BUN 9 7 Creatinine 0.60 0.50 L Estimated GFR > 60.0 > 60.0 BUN/Creatinine Ratio 15.0 14.0 Glucose 165 H D 151 H Hemoglobin A1c Lactate Calcium 8.0 L 7.9 L Phosphorus Total Bilirubin AST ALT Alkaline Phosphatase Total Protein Albumin Globulin Albumin/Globulin Ratio Procalcitonin Urine Color Urine Appearance Urine pH Ur Specific [place] Urine Protein Urine Glucose (UA) Urine Ketones Urine Occult Blood Urine Nitrate Urine Bilirubin Urine Urobilinogen Ur Leukocyte Esterase Urine RBC Urine WBC Ur Squamous Epith Cells Urine Bacteria Ur Culture Indicated? Micro UA Comment Nasal Screen MRSA (PCR) Urine Opiates Screen Ur Oxycodone Screen Urine Methadone Screen Ur Barbiturates Screen U Tricyclic Antidepress Ur Phencyclidine Scrn Ur Amphetamines Screen U Methamphetamines Scrn Ur MDMA Scrn (Ecstasy) U Benzodiazepines Scrn Urine Cocaine Screen U Marijuana (THC) Screen Ketones 09/14/18 09/14/18 09/14/18 04:37 12:11 16:55 WBC RBC Hgb Hct MCV MCH MCHC RDW Plt Count Neut % (Auto) Lymph % (Auto) [place] % (Auto) Eos % (Auto) Baso % (Auto) Neut # (Auto) VBG pH VBG pCO2 VBG pO2 VBG HCO3 VBG Total CO2 VBG O2 Saturation VBG Base Excess Sodium 136 L 134 L Potassium 3.8 3.7 Chloride 105 104 Carbon Dioxide 12 L 13 L BUN 7 5 L Creatinine 0.50 L 0.50 L Estimated GFR > 60.0 > 60.0 BUN/Creatinine Ratio 14.0 10.0 Glucose 197 H 147 H Hemoglobin A1c 10.0 H Lactate Calcium 8.0 L 8.3 L Phosphorus 0.9 L* Total Bilirubin 0.6 0.8 AST 20 24 ALT 32 34 Alkaline Phosphatase 65 70 Total Protein 6.2 L 6.4 Albumin 3.7 3.8 Globulin 2.5 2.6 Albumin/Globulin Ratio 1.5 1.5 Procalcitonin Urine Color Urine Appearance Urine pH Ur Specific [place] Urine Protein Urine Glucose (UA) Urine Ketones Urine Occult Blood Urine Nitrate Urine Bilirubin Urine Urobilinogen Ur Leukocyte Esterase Urine RBC Urine WBC Ur Squamous Epith Cells Urine Bacteria Ur Culture Indicated? Micro UA Comment Nasal Screen MRSA (PCR) Urine Opiates Screen Ur Oxycodone Screen Urine Methadone Screen Ur Barbiturates Screen U Tricyclic Antidepress Ur Phencyclidine Scrn Ur Amphetamines Screen U Methamphetamines Scrn Ur MDMA Scrn (Ecstasy) U Benzodiazepines Scrn Urine Cocaine Screen U Marijuana (THC) Screen Ketones 09/14/18 09/14/18 Unknown Unknown WBC RBC Hgb Hct MCV MCH MCHC RDW Plt Count Neut % (Auto) Lymph % (Auto) [place] % (Auto) Eos % (Auto) Baso % (Auto) Neut # (Auto) VBG pH VBG pCO2 VBG pO2 VBG HCO3 VBG Total CO2 VBG O2 Saturation VBG Base Excess Sodium Potassium Chloride Carbon Dioxide BUN Creatinine Estimated GFR BUN/Creatinine Ratio Glucose Hemoglobin A1c Lactate Calcium Phosphorus Total Bilirubin AST ALT Alkaline Phosphatase Total Protein Albumin Globulin Albumin/Globulin Ratio Procalcitonin Urine Color Yellow Urine Appearance Clear Urine pH 5.0 Ur Specific [place] >=1.030 H Urine Protein Negative Urine Glucose (UA) 1+ Urine Ketones 3+ H Urine Occult Blood 3+ H Urine Nitrate Negative Urine Bilirubin Negative Urine Urobilinogen 0.2 Ur Leukocyte Esterase Negative Urine RBC 10-30/hpf H Urine WBC 1-5/hpf Ur Squamous Epith Cells 1-5 /hpf Urine Bacteria Moderate (10-30) H Ur Culture Indicated? Cult not indicated Micro UA Comment Not Reportable Nasal Screen MRSA (PCR) Urine Opiates Screen Negative Ur Oxycodone Screen Negative Urine Methadone Screen Negative Ur Barbiturates Screen Negative U Tricyclic Antidepress Negative Ur Phencyclidine Scrn Negative Ur Amphetamines Screen Negative U Methamphetamines Scrn Negative Ur MDMA Scrn (Ecstasy) Negative U Benzodiazepines Scrn Positive H Urine Cocaine Screen Negative U Marijuana (THC) Screen Negative Ketones Assessment & Plan Plan: Assessment/Plan Narrative: ACUTE DKA. ANION GAP CONTINUED TO BE ELEVATED; SLIDING SCALE ORDERED; PATIENT IS ON HER INSULIN PUMP SHE LOST HER IV ACCESS AND DID NOT WANT TO HAVE A DECLINE AT THIS POINT AFTER MULTIPLE FAILED TRIALS TO REINSERT AN IV. CONTINUE TO FOLLOW LABS EVERY 6 HR; ADDITIONALLY WITH GOOD CLINICALLY OBESITY. OUTPATIENT MANAGEMENT ANEMIA OF CHRONIC DISEASE. MONITOR FOR NOW NAUSEA AND VOMITING. CAUSE WAS UNCLEAR. RESOLVED Quality VTE Deep Vein Thrombosis/Pulmonary Embolism Present on Admission: No
--- NOTE | 2018-09-14 18:46 | PC.NURSE ---
raffaele note pt managing own insulin via insulin pump. glucose at dinner was 134. Pt gave self 1.25 units insulin after eating a grilled cheese sandwich and some broth. Pt denies nausea. No IV access. Pt c/o pain to left upper arm. Pt concerned about a blood clot. Diagnostic imaging nurse tried to insert IV today via ultrasound in LUE and was unsuccessful. LUE is not red or hot or larger in size.
[2018-09-14] MEDS: SODIUM BICARBONATE 650 MG TABLET 1300 MG PO (20:57)
[2018-09-14 22:56] LABS: Alanine Aminotransferase 31 IU/L (9-52); Albumin 3.8 g/dL (3.5-5.0); Albumin Globulin Ratio 1.5 (1.0-2.8); Alkaline Phosphatase 65 U/L (38-126); Aspartate Aminotransferase 24 IU/L (14-36); Bilirubin Total 0.7 mg/dL (0.2-1.3); Blood Urea Nitrogen 4 mg/dL (7-17); Calcium 8.4 mg/dL (8.4-10.2); Carbon Dioxide 14 mmol/L (22-32); Chloride 104 mmol/L (98-107); Estimated Glomerular Filt Rate > 60.0 mL/min (>60); Globulin 2.6 g/dL (1.7-4.1); Glucose 148 mg/dL (70-100); HEMOLYSIS 23 (0-50); Potassium 3.6 mmol/L (3.4-5.1); Sodium 135 mmol/L (137-145); Total Protein 6.4 g/dL (6.3-8.2)
[2018-09-15] VITALS: PULSE 93; RESP 21; TEMP 36.9
[2018-09-15 01:41] VITALS: BP 142/85; PULSE 102; RESP 12; TEMP 36.8
--- NOTE | 2018-09-15 02:54 | PC.NURSE ---
Addendum entered by Denisse Hall R.N. 09/15/18 06:29: 0500 Pt awake, appropriate, pleasant. VSS, NSR on tele. AM labs drawn from PIV left hand w/o problems to pedi tube. TKO IV left running to keep line open. Pt tolerating and managing own insulin pump. No N/V. Original Note: Addendum entered by Denisse Hall R.N. 09/15/18 03:12: 0130 Pt up independently to BS commode, agreed to allow BP, neurologically intact, denied pain. Pt cooperative, appropriate. VSS. States she doesn't want to be bothered again and will call if she needs something. Bedside monitor placed on privacy mode so alarms, beeps don't wake pt. Original Note: NOC Shift: At beginning of shift, pt refused to have BP, pulse oximetry checked by RN, became beligerent and told RN to get out of room. Asked pt if she felt she needed to check her CBG, pt stated No. Last BG on serum lab @2230 was 148. Denied pain, pt left alone and directed to call if she needed anything. NSR/ST on tele. Has own insulin pump infusing and pt managing.
[2018-09-15 05:00] VITALS: BP 138/83; PULSE 88; RESP 12; TEMP 36.9; O2SAT 97
[2018-09-15 05:16] LABS: Alanine Aminotransferase 32 IU/L (9-52); Albumin 3.6 g/dL (3.5-5.0); Albumin Globulin Ratio 1.4 (1.0-2.8); Alkaline Phosphatase 64 U/L (38-126); Aspartate Aminotransferase 23 IU/L (14-36); Bilirubin Total 0.4 mg/dL (0.2-1.3); Blood Urea Nitrogen 5 mg/dL (7-17); Calcium 8.3 mg/dL (8.4-10.2); Carbon Dioxide 18 mmol/L (22-32); Chloride 105 mmol/L (98-107); Estimated Glomerular Filt Rate > 60.0 mL/min (>60); Globulin 2.5 g/dL (1.7-4.1); Glucose 211 mg/dL (70-100); HEMOLYSIS < 15 (0-50); Potassium 3.7 mmol/L (3.4-5.1); Sodium 138 mmol/L (137-145); Total Protein 6.1 g/dL (6.3-8.2)
[2018-09-15 07:00] VITALS: BP 135/85; PULSE 93; RESP 11; TEMP 36.4; O2SAT 100
--- NOTE | 2018-09-15 08:37 | PC.NURSE ---
RESOURCE TECHNICIAN Note: Pt checks her own Blood Glucose. Pt stated to RESOURCE TECHNICIAN her blood glucose is 138.
[2018-09-15] MEDS: SODIUM,POTASSIUM PHOSPHATES PACKET 2 EACH PO (08:55)
[2018-09-15] MEDS: SODIUM BICARBONATE 650 MG TABLET 1300 MG PO (08:55)
[2018-09-15 09:58] LABS: Alanine Aminotransferase 37 IU/L (9-52); Albumin 3.9 g/dL (3.5-5.0); Albumin Globulin Ratio 1.6 (1.0-2.8); Alkaline Phosphatase 64 U/L (38-126); Aspartate Aminotransferase 25 IU/L (14-36); Bilirubin Total 0.5 mg/dL (0.2-1.3); Blood Urea Nitrogen 6 mg/dL (7-17); Calcium 8.7 mg/dL (8.4-10.2); Carbon Dioxide 19 mmol/L (22-32); Chloride 103 mmol/L (98-107); Estimated Glomerular Filt Rate > 60.0 mL/min (>60); Globulin 2.5 g/dL (1.7-4.1); Glucose 193 mg/dL (70-100); HEMOLYSIS < 15 (0-50); Phosphorous 1.6 mg/dL (2.5-4.5); Potassium 3.7 mmol/L (3.4-5.1); Sodium 138 mmol/L (137-145); Total Protein 6.4 g/dL (6.3-8.2)
--- NOTE | 2018-09-15 10:13 | P.DS_ITS ---
History of Present Illness Date Patient Seen: 09/15/18 Time Patient Seen: 07:35 Chief complaint: VOMITING UNABLE TO KEEP ANYTHING DOWN Narrative: The patient is a 38 y/o female with a history of Type 1 diabetes currently managed via an insulin pump who was discharged from the hospital yesterday after a 24 hour admission. The patient presented with Nausea, Emesis, and DKA. She was treated with an insulin drip, IV hydration, Anti emetics. She was on a clear liquid diet and discharged home with the plan to advance her diet accordingly. The patient reports that she has been unable to keep anything down because of persistant vomiting. She states her symptoms are triggered by migraine CANSECO. She has a history of migraine headaches which improved until 4 years ago. She has tried prophylactic treatment but says it did not work. She says she does not have diabetic gastroparesis. Patient presented with nausea, emesis, and found to have DKA. She is admitted to the hosptial for further evaluation. Discharge Providers Date of admission: 09/13/18 20:50 Primary care physician: Marshall Woodward MD Discharge provider: Bismark Weldon DO Discharge Date: 09/15/18 Summary Discharge Diagnosis: DKA; RESOLVED UNCONTROLLED DM; ON INSULIN PUMP MEDICAL NON COMPLIANCE; COUNSELING GIVEN OBESITY; OUTPATIENT MANAGEMENT Hospital Course: - PATIENT ADMITTED WITH NAUSEA AND VOMITING DUE TO DKA - ADMITTED NOT BEING COMPLIANCE WITH HER INSULIN PUMPS AND OTHER RESTRICTIONS SUCH DIET - HA1C OF TEN - TREATED WITH IVF AND INSULIN DRIP; RESPONDED WELL TO TREATMENT - PATIENT LOST HER IV SITE DURING THE STAY AND HAD TO BE TREATED WITH ALTERNATE MEANS - AT THIS TIME, PATIENT IS CLINICALLY IMPROVED AND WOULD LIKE TO LEAVE SO SHE COULD TAKE CARE OF HER CHILD 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 - SHE WOULD BE DC TO HOME AND ADDITIONAL MANAGEMENT DEFERRED TO OUTPATIENT PROVIDERS - SHE WOULD NEED TO WITH HER PCP AND EARLY CHILDHOOD ASSISTANT CLOSELY TO MANAGE HER BLOOD GLUCOSE MORE TIGHTLY Status at Discharge Cognitive/behavioral status at discharge: STABLE TO HOME Functional status at discharge: independent ambulation Overall status at discharge: patient is back to baseline Time Spent with Patient Greater than 30 minutes Exam Vital Signs (past 8 hours): - 09/15/18 05:00 09/15/18 07:00 Temperature 98.5 F 97.5 F L Pulse Rate 88 93 H Respiratory Rate 12 11 L Blood Pressure 138/83 135/85 Pulse Oximetry 97 100 Oxygen Delivery Method Room Air Oxygen Flow Rate 0 Narrative Exam Narrative: NO ACUTE DISTRESS. PATIENT IS ALERT ORIENTED X3. VITAL SIGNS STABLE HEAD ATRAUMATIC NORMOCEPHALIC NECK : SUPPLE WITHOUT ADENOPATHY EYE: EOMI, PERRLA, NORMAL CONJUNCTIVA CHEST: REGULAR RATE.. NO RUBS. PMI IS NON DISPLACED. NO MURMURS PULMONARY: DECREASED BS OVER THE BASES. MILD BIBASILAR CRACKLES NOTED; NO INCREASED DULLNESS TO PERCUSSION ABDOMEN: SOFT; NON TENDER; BS + IN ALL 4 QUAD EXTREMITIES:NO EDEMA.. NO CYANOSIS OR CLUBBING NOTED. NEURO: CRANIAL NERVES 2-12 GROSSLY INTACT. NO FOCAL NEUROLOGICAL DEFICIT NOTED. MSK: NORMAL RANGE OF MOTION FOR AGE. NO JOINT EFFUSION. SKIN: NORMAL FOR ETHNICITY; NO ECCHYMOSIS. NO LESION. GOOD TURGOR.; NORASHES : NORMAL EXTERNAL GENITALIA. PSYCH : APPROPRIATE MOOD AND AFFECT. ALERT AWAKE ORIENTED X3 Objective Labs Result Diagrams: 09/14/18 04:37 09/15/18 08:30 Labs: Laboratory Results - last 24 hr 09/14/18 09/14/18 09/14/18 12:11 16:55 22:30 Sodium 136 L 134 L 135 L Potassium 3.8 3.7 3.6 Chloride 105 104 104 Carbon Dioxide 12 L 13 L 14 L BUN 7 5 L 4 L Creatinine 0.50 L 0.50 L 0.50 L Estimated GFR > 60.0 > 60.0 > 60.0 BUN/Creatinine Ratio 14.0 10.0 8.0 Glucose 197 H 147 H 148 H Calcium 8.0 L 8.3 L 8.4 Phosphorus 0.9 L* Total Bilirubin 0.6 0.8 0.7 AST 20 24 24 ALT 32 34 31 Alkaline Phosphatase 65 70 65 Total Protein 6.2 L 6.4 6.4 Albumin 3.7 3.8 3.8 Globulin 2.5 2.6 2.6 Albumin/Globulin Ratio 1.5 1.5 1.5 Urine Color Urine Appearance Urine pH Ur Specific Lawrence Urine Protein Urine Glucose (UA) Urine Ketones Urine Occult Blood Urine Nitrate Urine Bilirubin Urine Urobilinogen Ur Leukocyte Esterase Urine RBC Urine WBC Ur Squamous Epith Cells Urine Bacteria Ur Culture Indicated? Micro UA Comment Urine Opiates Screen Ur Oxycodone Screen Urine Methadone Screen Ur Barbiturates Screen U Tricyclic Antidepress Ur Phencyclidine Scrn Ur Amphetamines Screen U Methamphetamines Scrn Ur MDMA Scrn (Ecstasy) U Benzodiazepines Scrn Urine Cocaine Screen U Marijuana (THC) Screen 09/14/18 09/14/18 09/15/18 Unknown Unknown 04:50 Sodium 138 Potassium 3.7 Chloride 105 Carbon Dioxide 18 L BUN 5 L Creatinine 0.50 L Estimated GFR > 60.0 BUN/Creatinine Ratio 10.0 Glucose 211 H Calcium 8.3 L Phosphorus Total Bilirubin 0.4 AST 23 ALT 32 Alkaline Phosphatase 64 Total Protein 6.1 L Albumin 3.6 Globulin 2.5 Albumin/Globulin Ratio 1.4 Urine Color Yellow Urine Appearance Clear Urine pH 5.0 Ur Specific [place] >=1.030 H Urine Protein Negative Urine Glucose (UA) 1+ Urine Ketones 3+ H Urine Occult Blood 3+ H Urine Nitrate Negative Urine Bilirubin Negative Urine Urobilinogen 0.2 Ur Leukocyte Esterase Negative Urine RBC 10-30/hpf H Urine WBC 1-5/hpf Ur Squamous Epith Cells 1-5 /hpf Urine Bacteria Moderate (10-30) H Ur Culture Indicated? Cult not indicated Micro UA Comment Not Reportable Urine Opiates Screen Negative Ur Oxycodone Screen Negative Urine Methadone Screen Negative Ur Barbiturates Screen Negative U Tricyclic Antidepress Negative Ur Phencyclidine Scrn Negative Ur Amphetamines Screen Negative U Methamphetamines Scrn Negative Ur MDMA Scrn (Ecstasy) Negative U Benzodiazepines Scrn Positive H Urine Cocaine Screen Negative U Marijuana (THC) Screen Negative 09/15/18 08:30 Sodium 138 Potassium 3.7 Chloride 103 Carbon Dioxide 19 L BUN 6 L Creatinine 0.50 L Estimated GFR > 60.0 BUN/Creatinine Ratio 12.0 Glucose 193 H Calcium 8.7 Phosphorus 1.6 L Total Bilirubin 0.5 AST 25 ALT 37 Alkaline Phosphatase 64 Total Protein 6.4 Albumin 3.9 Globulin 2.5 Albumin/Globulin Ratio 1.6 Urine Color Urine Appearance Urine pH Ur Specific [place] Urine Protein Urine Glucose (UA) Urine Ketones Urine Occult Blood Urine Nitrate Urine Bilirubin Urine Urobilinogen Ur Leukocyte Esterase Urine RBC Urine WBC Ur Squamous Epith Cells Urine Bacteria Ur Culture Indicated? Micro UA Comment Urine Opiates Screen Ur Oxycodone Screen Urine Methadone Screen Ur Barbiturates Screen U Tricyclic Antidepress Ur Phencyclidine Scrn Ur Amphetamines Screen U Methamphetamines Scrn Ur MDMA Scrn (Ecstasy) U Benzodiazepines Scrn Urine Cocaine Screen U Marijuana (THC) Screen Discharge Plan Discharge Plan Patient Disposition: Home Discharge comment: OK TO dc to home act as kayla diabetic diet f/u with pcp 3-10 days Discharge Med Rec/Prescriptions Prescriptions: New polyethylene glycol 3350 [Miralax] 17 gram powder in packet 17 gram PO BID Qty: 14 RF: 0 sennosides [senna] 8.6 mg tablet 8.6 mg PO BID Qty: 30 RF: 0 Continue insulin aspart U-100 [Novolog U-100 Insulin aspart] 100 unit/mL Solution 1 dose Continuous Subcutaneous Infusion CONT PRN (Reason: sliding scale) RF: 0 Juice And Vitamins 1 ea PO DAILY RF: 0 metoclopramide HCl [Reglan] 10 mg tablet 10 mg PO Q6H Qty: 10 RF: 0 ondansetron 4 mg Tablet,Disintegrating 4 mg PO Q6H PRN (Reason: Nausea) Qty: 30 RF: 0 Discontinued hydrocodone-acetaminophen 5-325 mg Tablet 1 tab PO Q4HR PRN (Reason: Pain, Moderate (4-6)) Qty: 15 RF: 0 ibuprofen 600 mg Tablet 600 mg PO Q6HR PRN (Reason: As Needed For Fever/Mild Pain) Qty: 30 RF: 0 Follow up/Referrals: Marshall Woodward MD [Primary Care Provider] - (Please call and make appointment in next 3-10 days.) Provider Discharge Instructions Diet: Carb-consistent/Diabetic, Low-fat and Low-cholesterol Diet comment: high fiber Skin/Wound/Dressing Care Report to your healthcare provider any signs of infection, such as:: chills, fever, night sweats, increased pain, unusual drainage and unusual redness Visit Report/Discharge Packet Instructions: DI for Diabetic Ketoacidosis Visit Report Forms: Stroke Signs & Symptoms Discharge Data Primary Care Provider: Marshall Woodward Attending Provider: Sommer Watts Admit Date/Time: 09/13/18 20:50 Discharges patient from system. Discharge Date/Time: 09/15/18 11:13 Quality VTE Deep Vein Thrombosis/Pulmonary Embolism Present on Admission: No
[2018-09-15 10:22] LABS: Ketones (Beta-Hydroxybutyrate) 4.35 mmol/L (<0.27)
== END 2018-09-15 11:13 | disposition home or self-care (01) ==
LOC: ED 20:02 → ICU 09-14 06:57
PROVIDERS: Hospitalist; Admitting Provider Internal Medicine; Emergency Provider Emergency Medicine; PCP Internal Medicine; Visit Provider Internal Medicine
DX: E10.10 Type 1 diabetes mellitus with ketoacidosis without coma (principal); R10.84 Generalized abdominal pain; Z79.4 Long term (current) use of insulin; Z96.41 Presence of insulin pump (external) (internal); R11.2 Nausea with vomiting, unspecified; Z87.891 Personal history of nicotine dependence; E86.0 Dehydration; E66.9 Obesity, unspecified; Z91.19 Patient's noncompliance with other medical treatment and regimen
CPT/HCPCS: 36415; 36592; 80048; 80053; 80305; 81001; 82009; 82805; 82962; 83036; 83605; 84100; 84145; 85025; 87040; 87797; 96361; 96374; 96375; 99283; 99285; G0378; C9113; J2060; J2405; J2765; J3480

== ENCOUNTER → 2019-11-16 09:31 | Outpatient (CLI) | payer OTHER, MEDICAID, SELFPAY ==
[2019-11-16 10:28] LABS: Hemoglobin A1C% w Est Avg Glu 9.8 % (4.0-6.0)
== END ==
PROVIDERS: PCP Internal Medicine; Referring Provider Internal Medicine; Visit Provider Internal Medicine
DX: E10.9 Type 1 diabetes mellitus without complications (principal)
CPT/HCPCS: 36415; 83036

== ENCOUNTER → 2020-03-09 09:12 | Outpatient (CLI) | payer OTHER, MEDICAID, SELFPAY ==
[2019-11-21 15:59] VITALS: BMI 29.7
[2020-03-09 10:17] LABS: Hemoglobin A1C% w Est Avg Glu 9.3 % (4.0-6.0)
[2020-03-09 10:59] LABS: BUN Creatinine Ratio 37.7 (6-22); Blood Urea Nitrogen 20 mg/dL (7-17); Calcium 9.4 mg/dL (8.4-10.2); Carbon Dioxide 24 mmol/L (22-32); Chloride 101 mmol/L (98-107); Cholesterol 237 mg/dL (140-199); Estimated Glomerular Filt Rate > 60.0 mL/min (>60); Glucose 189 mg/dL (70-100); HDL Cholesterol 91 mg/dL (40-60); HEMOLYSIS < 15 (0-50); LDL Cholesterol Calculated 126 mg/dL (<100); Potassium 3.9 mmol/L (3.4-5.1); Sodium 136 mmol/L (137-145); Triglycerides 102 mg/dL (35-150)
== END ==
PROVIDERS: PCP Internal Medicine; Referring Provider Internal Medicine; Visit Provider Internal Medicine
DX: E10.9 Type 1 diabetes mellitus without complications (principal); I48.91 Unspecified atrial fibrillation
CPT/HCPCS: 36415; 80048; 80061; 83036

== ENCOUNTER 2020-03-25 08:10 | Emergency (ER) | payer OTHER, MEDICAID, SELFPAY ==
[2019-11-21 15:59] VITALS: BMI 29.7
--- NOTE | 2020-03-25 08:15 | ED.HA ---
HPI - Headache General Chief Complaint: Headache Stated Complaint: vomiting, migrain, type 1 diabetes Time Seen by Provider: 03/25/20 08:15 History of Present Illness HPI Narrative: CC: Migraine headache, nausea vomiting, diabetes mellitus HPI: The patient is a 40-year-old female who woke up this morning with a bifrontal throbbing headache that is 7/10 in intensity. She denies any fall or injury. She states that this headache is identical to her previous migraine headaches. She states that she used to get migraines very frequently but now has them infrequently. She is unaware that she had any aura. She denies arm any injury or trauma. She is photophobic and phonophobic. Her last menstrual period was 1 month ago and she is due for her period any time. She is not on any hormones. She only takes Excedrin for her headache. She is on no maintenance medications nor rescue regimen. She has had no change in vision diplopia blind spot scotomata. She has been nauseous with vomiting without hematemesis. She has had no numbness tingling paresthesias anesthesia is or paresis. She admits to history being type 1 diabetic with a history of diabetic ketoacidosis. She has a past history of atrial fibrillation and tachycardia status post and ablations that did not work completely. She denies a history of hypertension or myocardial infarction. 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 She does not not smoke cigarettes at this time but is a former smoker. She was drinking alcohol last night and does not use any marijuana. Related Data Home Medications Medication Instructions Recorded Confirmed Juice And Vitamins 1 ea PO DAILY 09/10/18 12/01/19 insulin aspart U-100 [Novolog 1 dose CONTINUOUS SUBCUTANEOUS 09/10/18 12/01/19 U-100 Insulin aspart] INFUSION CONT PRN Previous Rx's Medication Instructions Recorded metoclopramide HCl [Reglan] 10 mg PO Q6H #10 tab 09/12/18 ondansetron 4 mg PO Q6H PRN #30 tab 09/12/18 polyethylene glycol 3350 [Miralax] 17 gram PO BID #14 each 09/14/18 sennosides [senna] 8.6 mg PO BID #30 tab 09/14/18 naproxen [Naprosyn] 500 mg PO BID PRN #20 tab 03/25/20 ondansetron HCl [Zofran] 4 mg PO Q6H PRN #12 tab 03/25/20 Allergies Allergy/AdvReac Type Severity Reaction Status Date / Time lactose [LACTOSE] Allergy Intermediate Verified 03/25/20 08:33 hydromorphone [From DILAUDID] Allergy Unknown Verified 03/25/20 08:33 diphenhydramine AdvReac Unknown ANXIETY, Verified 03/25/20 08:33 DOESNT CALM HER. Review of Systems Review of Systems Narrative: REVIEW OF SYSTEMS: CONSTITUTIONAL: He denies any fever chills but has had sweats with her vomiting. NEUROLOGICAL: She complains of a bifrontal headache identical to her previous migraines. She denies any numbness tingling paresthesias anesthesia is paresis or paralysis or any visual symptomatology. She denies any head injury EENT: No sore throat or trouble swallowing of sinus congestion. CARDIO-PULMONARY: No chest pain cough shortness of breath difficulty in breathing. She is not having any tachycardia at this time or palpitation she has a history of atrial fibrillation. GASTROINTESTINAL: She denies any abdominal pain has had nausea and vomiting without diarrhea GENITAL URINARY: No urinary symptoms MUSCULOSKELETAL/ RHEUMATOLOGICAL: No back ache DERMATOLOGICAL: No skin rash or bruise Patient History Medical History delivery delivered (Acute) Chin injury (Acute) Type 1 diabetes (Acute) Surgical History No pertinent past surgical history (Acute) Status post ORIF of fracture of ankle (Acute) Tubal ligation status (Acute) Family History Mother Thyroid disease Father Lumbar back pain Social History household members: spouse and children Smoking Status: Former smoker Smoking Status: Former smoker alcohol intake frequency: 0-2 drinks per day Substance Use Type: does not use Exam Narrative Exam Narrative: PHYSICAL EXAM: CONSTITUTIONAL: Awake, Alert, Oriented, Coherent, Cooperative in NAD. Does not appear toxic or ill. HEAD: AT/NC EENT: PERRL, FROM of eyes, no discharge, NOSE:No epistaxis or nasal drainage MOUTH:Oral mucosa is moist and pink, posterior pharynx is without erythema or exudate. The patient has small pimple like lesions around her mouth NECK: Supple, no obvious JVD, Trachea is midline without stridor, no palpable LN. No nuchal rigidity SPINE: Palpationof the cervical, Thoracic, Lumbar or Sacral spine reveals no gross deformity or tenderness. No CVA tenderness. THORAX: No deformity, retractions, chest wall tenderness. LUNGS: Clear, symmetrical breath sounds without respiratory distress. HEART: Normal heart tones, regular rhythm and rate without murmur. ABDOMEN: Soft, non-tender, normal bowel sounds without guarding, rebound, rigidity or palpable mass. EXTREMITIES: No edema, deformity, tenderness or cyanosis. SKIN: No rash, bruising, petechiae or purpura. NEURO: Awake, alert, oriented, conversive, cranial nerves II-XII are symmetrical , moves all 4 extremities and is ambulatory. [id number] within normal limits symmetrical strength cerebellar functions are within normal limits MENTAL HEALTH: Does not appear excessively anxious or depressed. Initial Vital Signs Initial Vital Signs: Vital Signs Temperature 97.3 F L 03/25/20 08:16 Pulse Rate 93 H 03/25/20 08:16 Respiratory Rate 19 03/25/20 08:16 Blood Pressure 136/89 03/25/20 08:16 Pulse Oximetry 98 03/25/20 08:16 Course Course Course Narrative: 0941: The patient's blood glucose is 339. She does not have an anion gap and is not in diabetic ketoacidosis. 1037: Patient was sleeping and resting comfortably. She states that her headache was significantly improved and was improved to the point that she can be discharged. Orders Ordered: Discontinued Medications Benztropine Mesylate (Cogentin) 1 mg IV NOW ONE Stop: 03/25/20 08:35 Last Admin: 03/25/20 08:48 Dose: Not Given Documented by: LESLEY Diphenhydramine HCl (Benadryl) 25 mg IV NOW ONE Stop: 03/25/20 08:29 Last Admin: 03/25/20 08:48 Dose: Not Given Documented by: LESLEY Sodium Chloride (Normal Saline 0.9%) 1,000 mls @ 1,000 mls/hr IV BOLUS ONE Stop: 03/25/20 09:16 Last Infusion: 03/25/20 10:25 Dose: 0 mls/hr Documented by: Admin: 03/25/20 08:37 Dose: 1,000 mls/hr Documented by: LESLEY Ketorolac Tromethamine (Toradol) 30 mg IV NOW ONE Stop: 03/25/20 08:29 Last Admin: 03/25/20 08:37 Dose: 30 mg Documented by: LESLEY Lorazepam (Ativan) 0.5 mg IV NOW ONE Stop: 03/25/20 08:33 Last Admin: 03/25/20 08:49 Dose: Not Given Documented by: LESLEY Lorazepam (Ativan) 0.25 mg IV NOW ONE Stop: 03/25/20 08:37 Last Admin: 03/25/20 08:49 Dose: Not Given Documented by: LESLEY Metoclopramide HCl (Reglan) 10 mg IV NOW ONE Stop: 03/25/20 08:29 Last Admin: 03/25/20 08:39 Dose: 10 mg Documented by: LESLEY Vital Signs Vital signs: Vital Signs - 8 hr 03/25/20 08:16 03/25/20 09:00 03/25/20 10:00 Temperature 97.3 F L Pulse Rate 93 H 84 95 H Respiratory Rate 19 Blood Pressure 136/89 Blood Pressure [Left Arm] 128/73 135/76 Pulse Oximetry 98 100 98 MDM - Headache Medical Records Attestation: I reviewed the patient's medical records. Lab Data Attestation: I reviewed the patient's lab results. Result diagrams: 03/25/20 08:25 03/25/20 08:25 Labs: Lab Results 03/25/20 03/25/20 Range/Units 08:25 08:25 WBC 6.0 (4.5-11.0) X10^3/uL RBC 4.60 (4.0-5.2) X10^6/uL Hgb 14.0 (12.0-16.0) g/dL Hct 42.9 (36-46) % MCV 93.3 (80-100) fL MCH 30.3 (26-34) PG MCHC 32.5 (30-36) % RDW 13.8 (11.6-14.8) % Plt Count 294 (150-400) X10^3/uL Neut % (Auto) 55.5 (50-75) % Lymph % (Auto) 31.5 (25-40) % [place] % (Auto) 8.2 (3-14) % Eos % (Auto) 4.6 H (2-4) % Baso % (Auto) 0.2 (0-2) % Neut # (Auto) 3400 (5870-0368) /uL Lymph # (Auto) 1900 (4286-6494) /uL [place] # (Auto) 500 (0-900) /uL Eos # (Auto) 300 (0-450) /uL Baso # (Auto) 0 (0-100) /uL Sodium 134 L (137-145) mmol/L Potassium 4.5 (3.4-5.1) mmol/L Chloride 104 (98-107) mmol/L Carbon Dioxide 22 (22-32) mmol/L BUN 18 H (7-17) mg/dL Creatinine 0.53 (0.52-1.04) mg/dL Estimated GFR > 60.0 (>60) mL/min BUN/Creatinine Ratio 34.0 H (6-22) Glucose 339 H (70-100) mg/dL Calcium 9.1 (8.4-10.2) mg/dL Total Bilirubin 0.7 (0.2-1.3) mg/dL AST 40 H (14-36) IU/L ALT 29 (<35) IU/L Alkaline Phosphatase 68 (38-126) U/L Total Protein 7.5 (6.3-8.2) g/dL Albumin 4.4 (3.5-5.0) g/dL Globulin 3.1 (1.7-4.1) g/dL Albumin/Globulin Ratio 1.4 (1.0-2.8) Point of Care Testing Glucose POC 291 Discharge Plan Departure Patient Disposition: Home Clinical Impression: Nausea and vomiting Qualifiers: Vomiting type: unspecified Vomiting Intractability: non-intractable Qualified Code(s): R11.2 - Nausea with vomiting, unspecified Migraine Qualifiers: Migraine type: unspecified Status migrainosus presence: without status migrainosus Intractability: not intractable Qualified Code(s): G43.909 - Migraine, unspecified, not intractable, without status migrainosus Discharge Date/Time: 03/25/20 11:08 Instructions: DI for Migraine, DI for Headache Activity Restrictions/Additional Instructions: 1. Follow-up with your primary care physician to be re-evaluated in 48-72 hours if the headache has not improved. 2. Return to the emergency department if you develop fever chills sweats worsening headache numbness tingling paresthesias weakness or paralysis or you feel faint as though to pass out. 3. Return to the emergency department if you develop persistent recurrent nausea and vomiting such that she thinks she may be developing diabetic ketoacidosis secondary to your type 1 diabetes mellitus. 4. Drink 2-3 L of fluid per day to keep herself hydrated. 5. Take the Naprosyn as prescribed for your headache. 6. Use Zofran as prescribed for nausea and vomiting. Prescriptions: New ondansetron HCl [Zofran] 4 mg tablet 4 mg PO Q6H PRN (Reason: nausea and vomiting) Qty: 12 RF: 0 naproxen [Naprosyn] 500 mg tablet 500 mg PO BID PRN (Reason: pain) Qty: 20 RF: 0 No Action insulin aspart U-100 [Novolog U-100 Insulin aspart] 100 unit/mL Solution 1 dose Continuous Subcutaneous Infusion CONT PRN (Reason: sliding scale) RF: 0 Juice And Vitamins 1 ea PO DAILY RF: 0 metoclopramide HCl [Reglan] 10 mg tablet 10 mg PO Q6H Qty: 10 RF: 0 ondansetron 4 mg Tablet,Disintegrating 4 mg PO Q6H PRN (Reason: Nausea) Qty: 30 RF: 0 polyethylene glycol 3350 [Miralax] 17 gram powder in packet 17 gram PO BID Qty: 14 RF: 0 sennosides [senna] 8.6 mg tablet 8.6 mg PO BID Qty: 30 RF: 0 Referrals: Marshall Woodward MD [Primary Care Provider] -
[2020-03-25 08:16] VITALS: BP 136/89; PULSE 93; RESP 19; TEMP 36.3; O2SAT 98; BMI 29.8
[2020-03-25 08:34] LABS: Add Manual Diff / Slide Review NO; Basophils Absolute Auto 0 /uL (0-100); Basophils Percent Auto 0.2 % (0-2); Eosinophils Absolute Auto 300 /uL (0-450); Eosinophils Percent Auto 4.6 % (2-4); Hematocrit 42.9 % (36-46); Lymphocytes Absolute Auto 1900 /uL (1100-4500); Lymphocytes Percent Auto 31.5 % (25-40); Mean Corpuscular HGB Conc 32.5 % (30-36); Mean Corpuscular Hemoglobin 30.3 PG (26-34); Mean Corpuscular Volume 93.3 fL (80-100); Monocytes Absolute Auto 500 /uL (0-900); Monocytes Percent Auto 8.2 % (3-14); Neutrophils Absolute Auto 3400 /uL (1500-7000); Neutrophils Percent Auto 55.5 % (50-75); Platelet Count 294 X10^3/uL (150-400); Red Cell Distribution Width 13.8 % (11.6-14.8)
[2020-03-25] MEDS: SODIUM CHLORIDE 0.9% 1,000 ML 1000 ML IV (08:37)
[2020-03-25] MEDS: KETOROLAC 60 MG/2 ML VIAL 30 MG IV (08:37)
[2020-03-25] MEDS: METOCLOPRAMIDE 10 MG/2 ML INJ IV (08:39)
[2020-03-25 08:44] LABS: Alanine Aminotransferase 29 IU/L (<35); Albumin 4.4 g/dL (3.5-5.0); Albumin Globulin Ratio 1.4 (1.0-2.8); Alkaline Phosphatase 68 U/L (38-126); Aspartate Aminotransferase 40 IU/L (14-36); Bilirubin Total 0.7 mg/dL (0.2-1.3); Blood Urea Nitrogen 18 mg/dL (7-17); Calcium 9.1 mg/dL (8.4-10.2); Carbon Dioxide 22 mmol/L (22-32); Chloride 104 mmol/L (98-107); Estimated Glomerular Filt Rate > 60.0 mL/min (>60); Globulin 3.1 g/dL (1.7-4.1); Glucose 339 mg/dL (70-100); Potassium 4.5 mmol/L (3.4-5.1); Sodium 134 mmol/L (137-145); Total Protein 7.5 g/dL (6.3-8.2)
[2020-03-25 08:55] LABS: HEMOLYSIS 78 (0-50)
[2020-03-25 09:00] VITALS: BP 128/73; PULSE 84; O2SAT 100
[2020-03-25 10:00] VITALS: BP 135/76; PULSE 95; O2SAT 98
== END 2020-03-25 11:08 | disposition home or self-care (01) ==
PROVIDERS: Emergency Provider Emergency Medicine; PCP Internal Medicine
DX: G43.909 Migraine, unspecified, not intractable, without status migrainosus (principal); R11.2 Nausea with vomiting, unspecified; E10.9 Type 1 diabetes mellitus without complications; Z79.4 Long term (current) use of insulin
CPT/HCPCS: 36415; 80053; 82962; 85025; 96361; 96374; 96375; 99284; J1885; J2765

== ENCOUNTER 2020-06-11 11:13 | Emergency (ER) | payer OTHER, MEDICAID, SELFPAY ==
[2020-04-19 10:05] VITALS: BMI 29.7
[2020-06-11] VITALS (9 sets, daily range): BP systolic 127–158; BP diastolic 82–92; PULSE 77–90; RESP 11–22; TEMP 37.1; O2SAT 97–100
--- NOTE | 2020-06-11 11:27 | DI.RAD.S_ITS ---
PROCEDURE: XR CHEST 1V INDICATIONS: chest pain TECHNIQUE: One view of the chest was acquired. COMPARISON: [facility], , CHEST 1 VIEW, 08/15/2013, 23:54. FINDINGS: Surgical changes and devices: None. Lungs and pleura: Lungs are clear. No pleural effusions or pneumothorax. Mediastinum: Mediastinal contours appear normal. Heart size is normal. Bones and chest wall: No suspicious bony lesions. Overlying soft tissues appear unremarkable. IMPRESSION: No acute cardiopulmonary abnormality. Dictated by: Chino Lynn M.D. on 06/11/2020 at 12:25 Approved by: Chino Lynn M.D. on 06/11/2020 at 12:26
--- NOTE | 2020-06-11 11:51 | ED.CHESTPAIN ---
HPI - Chest Pain General Chief Complaint: Chest Pain Stated Complaint: chest pain,shortness of breath,nausea Time Seen by Provider: 06/11/20 11:51 Source: patient Mode of arrival: Ambulatory Limitations: no limitations History of Present Illness HPI narrative: 40-year-old type 1 diabetic presents with a number of complaints that seem to be worsening and she felt needed further evaluation prior to her next available primary care appointment on July 06. She reports over the last 3 days she has been having mild left-sided chest pain, hypertension with blood pressures as high as 166/100 which is unusual for her, she describes the chest pain is achy and dull not necessarily associated with exertion but associated with overall general malaise, head throbbing, excessive fatigue, increasing dyspnea, occasional palpitations and when she has the palpitations will sometimes make her cough, she describes no fevers, no productive cough no abdominal pain and no specific dysuria. She does note that her sugars have been steady and she has an insulin pump Secondary problem includes rectal bleeding. She states that she has diabetic gastroparesis and has a bowel movement typically once a week only after taking moderate doses of laxatives on top of daily senna. With the weekly bowel moved she always has bright red blood lately she has been noticing increasing perirectal pain radiating up into her back associated with clots of blood with no stool. She has no neurologic, syncope or skin complaints at all today Related Data Home Medications Medication Instructions Recorded Confirmed insulin aspart U-100 [Novolog 1 dose CONTINUOUS SUBCUTANEOUS 09/10/18 06/11/20 U-100 Insulin aspart] INFUSION CONT PRN sennosides 8.6 mg tablet 8.6 mg PO DAILY tab 05/01/20 06/11/20 Previous Rx's Medication Instructions Recorded ondansetron HCl [Zofran] 4 mg PO Q6H PRN #12 tab 03/25/20 One Touch Ultra Test Strips #250 each 05/01/20 hydrocortisone acetate [Anusol-HC] 25 mg [place] BID #24 each 06/11/20 metoclopramide HCl 5 mg PO BID #60 tab 06/11/20 Allergies Allergy/AdvReac Type Severity Reaction Status Date / Time lactose [LACTOSE] Allergy Intermediate Verified 06/11/20 11:27 hydromorphone [From DILAUDID] Allergy Unknown Verified 06/11/20 11:27 diphenhydramine AdvReac Unknown ANXIETY, Verified 06/11/20 11:27 DOESNT CALM HER. Review of Systems Review of Systems Narrative: Remainder of review of systems including constitutional, ENT, cardiovascular, respiratory, GI, , musculoskeletal, skin, neurologic and psychiatric systems reviewed and are unremarkable except as noted in HPI. Patient History Medical History Chin injury (Acute) Hyperlipidemia, unspecified (Chronic) Type 1 diabetes (Acute) Surgical History delivery delivered (Acute) No pertinent past surgical history (Acute) Status post ORIF of fracture of ankle (Acute) Tubal ligation status (Acute) Family History Mother Thyroid disease Father Lumbar back pain Social History household members: spouse and children Smoking Status: Former smoker Smoking Status: Former smoker alcohol intake frequency: 0-2 drinks per day Substance Use Type: does not use Exam Narrative Exam Narrative: General: Healthy appearing, in no acute distress. Able to give a complete and coherent history. Well-nourished well-developed HEENT: Moist mucous membranes, normal sclera with reactive pupils, Neck: No JVD, supple Respiratory: Lungs are clear to auscultation, no wheezing no rales no rhonchi. Full and symmetrical air movement Cardiac: Regular rate and rhythm no murmurs no bruits Abdomen: Soft nontender good bowel tones, no flank pain, insulin pumping place Skin: Warm and dry, no rashes Neurologic: Grossly neurologically intact with no obvious asymmetries or abnormalities Extremities: No trauma, well perfused Psych: Cooperative, appropriate insight and affect Rectal exam: Moderate external hemorrhoidal tags. With a speculum, internal hemorrhoids are appreciated that are moderately bleeding with with the tectal pressure from the speculum. No masses Initial Vital Signs Initial Vital Signs: Vital Signs Pulse Rate 90 06/11/20 11:15 Respiratory Rate 18 06/11/20 11:15 Blood Pressure 158/92 H 06/11/20 11:15 Pulse Oximetry 100 06/11/20 11:15 Course Orders Ordered: ED Orders 06/11/20 11:27 XR chest 1V Stat EKG-12 Lead Stat 06/11/20 12:25 BNP [NT-proBNP (BNP-Adult 18+)] Stat Complete Blood Count AUTO DIFF Stat Comprehensive Metabolic Panel Stat Lipase Stat Magnesium Stat Partial Thromboplastin Time Stat Prothrombin Time INR Stat Troponin & CK Cardiac Panel Stat Discontinued Medications Sodium Chloride (Normal Saline 0.9%) 1,000 mls @ 1,000 mls/hr IV BOLUS ONE Stop: 06/11/20 13:38 Last Admin: 06/11/20 13:05 Dose: 1,000 mls/hr Documented by: ANA Vital Signs Vital signs: Vital Signs - 8 hr 06/11/20 11:15 06/11/20 11:27 06/11/20 11:29 Temperature 98.8 F Pulse Rate 90 87 Respiratory Rate 18 13 Blood Pressure 158/92 H Pulse Oximetry 100 98 06/11/20 11:30 06/11/20 11:52 06/11/20 12:00 Temperature Pulse Rate 87 83 82 Respiratory Rate 11 L 14 22 Blood Pressure 154/87 H 150/88 H Pulse Oximetry 98 99 99 06/11/20 12:30 06/11/20 13:00 Temperature Pulse Rate 81 78 Respiratory Rate 17 19 Blood Pressure 127/82 131/85 Pulse Oximetry 97 99 MDM - Chest Pain Medical Records Data Attestation: I reviewed the patient's medical records. Lab Data Attestation: I reviewed the patient's lab results. Result diagrams: 06/11/20 12:25 06/11/20 12:25 Labs: Lab Results 06/11/20 06/11/20 06/11/20 Range/Units 12:25 12:25 12:25 WBC 4.7 (4.5-11.0) X10^3/uL RBC 4.28 (4.0-5.2) X10^6/uL Hgb 12.7 (12.0-16.0) g/dL Hct 39.3 (36-46) % MCV 91.8 (80-100) fL MCH 29.7 (26-34) PG MCHC 32.4 (30-36) % RDW 13.7 (11.6-14.8) % Plt Count 278 (150-400) X10^3/uL Neut % (Auto) 59.4 (50-75) % Lymph % (Auto) 27.2 (25-40) % Bib[place] % (Auto) 9.0 (3-14) % Eos % (Auto) 3.2 (2-4) % Baso % (Auto) 1.2 (0-2) % Neut # (Auto) 2800 (8472-7025) /uL Lymph # (Auto) 1300 (0692-5565) /uL [place] # (Auto) 400 (0-900) /uL Eos # (Auto) 200 (0-450) /uL Baso # (Auto) 100 (0-100) /uL PT 10.5 (10.1-12.7) SECONDS INR 0.9 (0.9-1.3) APTT 26 L D (26.4-36.2) SECONDS Sodium 133 L (137-145) mmol/L Potassium 4.1 (3.4-5.1) mmol/L Chloride 100 (98-107) mmol/L Carbon Dioxide 29 (22-32) mmol/L BUN 17 (7-17) mg/dL Creatinine 0.63 (0.52-1.04) mg/dL Estimated GFR > 60.0 (>60) mL/min BUN/Creatinine Ratio 27.0 H (6-22) Glucose 287 H (70-100) mg/dL Calcium 9.2 (8.4-10.2) mg/dL Magnesium (1.6-2.3) mg/dL Total Bilirubin 0.5 (0.2-1.3) mg/dL AST 20 (14-36) IU/L ALT 16 (<35) IU/L Alkaline Phosphatase 59 (38-126) U/L Total Creatine Kinase 26 L (30-135) U/L CK-MB (CK-2) TNP CK-MB (CK-2) Rel Index TNP Troponin I < 0.012 (0.01-0.034) ng/mL NT-Pro-B Natriuret Pep (<125) pg/mL Total Protein 6.8 (6.3-8.2) g/dL Albumin 4.2 (3.5-5.0) g/dL Globulin 2.6 (1.7-4.1) g/dL Albumin/Globulin Ratio 1.6 (1.0-2.8) Lipase 29 (23-300) U/L 06/11/20 Range/Units 12:25 WBC (4.5-11.0) X10^3/uL RBC (4.0-5.2) X10^6/uL Hgb (12.0-16.0) g/dL Hct (36-46) % MCV (80-100) fL MCH (26-34) PG MCHC (30-36) % RDW (11.6-14.8) % Plt Count (150-400) X10^3/uL Neut % (Auto) (50-75) % Lymph % (Auto) (25-40) % Bib[place] % (Auto) (3-14) % Eos % (Auto) (2-4) % Baso % (Auto) (0-2) % Neut # (Auto) (3401-6340) /uL Lymph # (Auto) (6479-1554) /uL [place] # (Auto) (0-900) /uL Eos # (Auto) (0-450) /uL Baso # (Auto) (0-100) /uL PT (10.1-12.7) SECONDS INR (0.9-1.3) APTT (26.4-36.2) SECONDS Sodium (137-145) mmol/L Potassium (3.4-5.1) mmol/L Chloride (98-107) mmol/L Carbon Dioxide (22-32) mmol/L BUN (7-17) mg/dL Creatinine (0.52-1.04) mg/dL Estimated GFR (>60) mL/min BUN/Creatinine Ratio (6-22) Glucose (70-100) mg/dL Calcium (8.4-10.2) mg/dL Magnesium 1.8 (1.6-2.3) mg/dL Total Bilirubin (0.2-1.3) mg/dL AST (14-36) IU/L ALT (<35) IU/L Alkaline Phosphatase (38-126) U/L Total Creatine Kinase (30-135) U/L CK-MB (CK-2) CK-MB (CK-2) Rel Index Troponin I (0.01-0.034) ng/mL NT-Pro-B Natriuret Pep 39 (<125) pg/mL Total Protein (6.3-8.2) g/dL Albumin (3.5-5.0) g/dL Globulin (1.7-4.1) g/dL Albumin/Globulin Ratio (1.0-2.8) Lipase (23-300) U/L Point of Care Testing Test Results Negative Glucose POC 333 Urine Dip Bedside Urine Glucose 1000 mg/dl Bedside Urine Bilirubin - Negative Bedside Urine Ketone - Negative Urine Specific [place] 1.015 Bedside Urine Occult Blood - Negative Bedside Urine pH 6.0 Bedside Urine Protein - Negative Bedside Urine Urobilinogen - Negative Bedside Urine Nitrite - Negative Bedside Urine Leukocytes - Negative Esterase Imaging Data Chest x-ray: Radiologist's Impression: FINDINGS: Surgical changes and devices: None. Lungs and pleura: Lungs are clear. No pleural effusions or pneumothorax. Mediastinum: Mediastinal contours appear normal. Heart size is normal. Bones and chest wall: No suspicious bony lesions. Overlying soft tissues appear unremarkable. IMPRESSION: No acute cardiopulmonary abnormality. Dictated by: Chino Lynn M.D. on 06/11/2020 at 12:25 MDM Narrative Medical decision making narrative: Mild left-sided chest pain: No life-threatening etiologies identified. No significant arrhythmias, electrolyte abnormalities diabetic ketoacidosis, abnormal chest x-ray or evidence of acute coronary syndrome identified. Safe for home discharge Bright red rectal bleeding: Rather large internal hemorrhoids with significant constipation likely related to poor transit time secondary her to her diabetes. -Referral to surgery for treatment of the internal hemorrhoids -try to improve bowel regimen to at least every other day bowel movements rather than weekly. MiraLax 17 g b.i.d. and Reglan 10 mg b.i.d.. Will ask her to continue her laxative use with a goal of a bowel movement every other day rather than weekly. Hopefully with the MiraLax and Reglan combination will get back to a healthier combination with which she can avoid laxatives. Will clearly need follow-up with her primary care physician with stab wished next month She is safe for home discharge Discharge Plan Departure Patient Disposition: Home Clinical Impression: Atypical chest pain, Type 1 diabetes, Chronic constipation, Bleeding internal hemorrhoids Instructions: DI for Hemorrhoid Banding, DI for Constipation Activity Restrictions/Additional Instructions: Thank you for coming in today. The chest sensations that you are noticing do not have a life-threatening diagnosis further explanation. There is no evidence of acute coronary syndrome, pneumonia or significant lab work abnormalities. If it returns or seems like it is worsening feel free to return for additional evaluation Regarding your rectal bleeding, you have internal hemorrhoids and I believe this is being significantly complicated by your chronic constipation For the internal hemorrhoids, please schedule appointment with Dr. Pineda to discuss permanent treatment. Temporary treatment can include suppositories to help reduce some of the inflammation. Prescriptions for steroid suppository have been sent to [facility] for you. Regarding your constipation, I am going to suggest that we have you try a cap full (17 g) of MiraLax twice a day to keep your stool soft and 10 mg of Reglan twice a day to try to increase gut transit time. Prescription for the Reglan has been sent to [facility]. Please knot picker cloth the MiraLax at [facility]. Please try for a goal of a bowel movement every other day. For the interval time it is okay to continue to use the laxatives to get to that goal. Make sure you review this with Dr. Ferrera when you see her. I wish you the best Prescriptions: New hydrocortisone acetate [Anusol-HC] 25 mg suppository 25 mg [place] BID Qty: 24 RF: 0 metoclopramide HCl 5 mg tablet 5 mg PO BID Qty: 60 RF: 0 No Action sennosides [senna] 8.6 mg tablet 8.6 mg PO DAILY RF: 0 (DME) One Touch Ultra Test Strips Qty: 250 RF: 3 insulin aspart U-100 [Novolog U-100 Insulin aspart] 100 unit/mL Solution 1 dose Continuous Subcutaneous Infusion CONT PRN (Reason: sliding scale) RF: 0 ondansetron HCl [Zofran] 4 mg tablet 4 mg PO Q6H PRN (Reason: nausea and vomiting) Qty: 12 RF: 0 Referrals: Marshall Woodward MD [Primary Care Provider] - Umm Ferrera MD [Non-Staff] - Fina Rock MD [Physician] -
[2020-06-11 12:38] LABS: Add Manual Diff / Slide Review NO; Basophils Absolute Auto 100 /uL (0-100); Basophils Percent Auto 1.2 % (0-2); Eosinophils Absolute Auto 200 /uL (0-450); Eosinophils Percent Auto 3.2 % (2-4); Hematocrit 39.3 % (36-46); Hemoglobin 12.7 g/dL (12.0-16.0); Lymphocytes Absolute Auto 1300 /uL (1100-4500); Lymphocytes Percent Auto 27.2 % (25-40); Mean Corpuscular HGB Conc 32.4 % (30-36); Mean Corpuscular Hemoglobin 29.7 PG (26-34); Mean Corpuscular Volume 91.8 fL (80-100); Monocytes Absolute Auto 400 /uL (0-900); Neutrophils Absolute Auto 2800 /uL (1500-7000); Neutrophils Percent Auto 59.4 % (50-75); Platelet Count 278 X10^3/uL (150-400); Red Blood Cell Count 4.28 X10^6/uL (4.0-5.2); Red Cell Distribution Width 13.7 % (11.6-14.8); White Blood Cell Count 4.7 X10^3/uL (4.5-11.0)
[2020-06-11 12:44] LABS: INR 0.9 (0.9-1.3); Prothrombin Time 10.5 SECONDS (10.1-12.7)
[2020-06-11 12:47] LABS: PTT Partial Thromboplastin Tim 26 SECONDS (26.4-36.2)
[2020-06-11 12:49] LABS: Alanine Aminotransferase 16 IU/L (<35); Albumin 4.2 g/dL (3.5-5.0); Albumin Globulin Ratio 1.6 (1.0-2.8); Alkaline Phosphatase 59 U/L (38-126); Aspartate Aminotransferase 20 IU/L (14-36); Bilirubin Total 0.5 mg/dL (0.2-1.3); Blood Urea Nitrogen 17 mg/dL (7-17); Calcium 9.2 mg/dL (8.4-10.2); Carbon Dioxide 29 mmol/L (22-32); Chloride 100 mmol/L (98-107); Creatine Kinase 26 U/L (30-135); Estimated Glomerular Filt Rate > 60.0 mL/min (>60); Globulin 2.6 g/dL (1.7-4.1); Glucose 287 mg/dL (70-100); HEMOLYSIS < 15 (0-50); Lipase 29 U/L (23-300); Potassium 4.1 mmol/L (3.4-5.1); Sodium 133 mmol/L (137-145); Total Protein 6.8 g/dL (6.3-8.2)
[2020-06-11 12:50] LABS: Magnesium 1.8 mg/dL (1.6-2.3)
[2020-06-11 12:59] LABS: NT-proBNP (BNP-Adult 18+) 39 pg/mL (<125)
[2020-06-11 13:01] LABS: Troponin I < 0.012 ng/mL (0.01-0.034)
[2020-06-11] MEDS: SODIUM CHLORIDE 0.9% 1,000 ML 1000 ML IV (13:05)
== END 2020-06-11 14:05 | disposition home or self-care (01) ==
PROVIDERS: Emergency Provider Emergency Medicine; PCP Internal Medicine
DX: R07.89 Other chest pain (principal); E10.9 Type 1 diabetes mellitus without complications; K59.09 Other constipation; K64.8 Other hemorrhoids; I10 Essential (primary) hypertension
CPT/HCPCS: 36415; 71045; 80053; 81003; 81025; 82550; 82962; 83690; 83735; 83880; 84484; 85025; 85610; 85730; 93005; 99284

== ENCOUNTER 2020-09-02 18:25 | Emergency (ER) | payer OTHER, MEDICAID, SELFPAY ==
[2020-04-19 10:05] VITALS: BMI 29.7
[2020-09-02 18:43] VITALS: BP 136/77; PULSE 103; RESP 18; TEMP 36.8; O2SAT 100; BMI 26.6
--- NOTE | 2020-09-02 19:00 | ED_ITS ---
HPI - General Adult General Chief complaint: Diabetic Problem Stated complaint: vomiting Time Seen by Provider: 09/02/20 18:45 Source: patient Mode of arrival: Family Vehicle Limitations: no limitations History of Present Illness HPI narrative: Patient is a 40-year-old female with history of diabetes presenting today with nausea vomiting and headache. She states her vomiting started last night around 11:00 p.m. unable to keep anything down. She has not been in DKA for about a year. She denies any abdominal pain. This week she feels like she has been really run down and has increased fatigue. She denies any fever. She says this typically happens when she gets a migraine. She just started having a migraine headache she is sensitive to light. She had a COVID- 19 test 5 days ago and it was negative. She denies any cough or, loss of taste or smell. Related Data Home Medications Medication Instructions Recorded Confirmed insulin aspart U-100 [Novolog 1 dose CONTINUOUS SUBCUTANEOUS 09/10/18 06/11/20 U-100 Insulin aspart] INFUSION CONT PRN sennosides 8.6 mg tablet 8.6 mg PO DAILY tab 05/01/20 06/11/20 Previous Rx's Medication Instructions Recorded ondansetron HCl [Zofran] 4 mg PO Q6H PRN #12 tab 03/25/20 One Touch Ultra Test Strips #250 each 05/01/20 hydrocortisone acetate [Anusol-HC] 25 mg [place] BID #24 each 06/11/20 metoclopramide HCl 5 mg PO BID #60 tab 06/11/20 Allergies Allergy/AdvReac Type Severity Reaction Status Date / Time lactose [LACTOSE] Allergy Intermediate Verified 09/02/20 18:46 hydromorphone [From DILAUDID] Allergy Unknown Verified 09/02/20 18:46 diphenhydramine AdvReac Unknown ANXIETY, Verified 09/02/20 18:46 DOESNT CALM HER. Review of Systems Review of Systems Narrative: GENERAL: + fatigue Denies chills, malaise, fever, sweats, travel HEENT: Denies sinus pain, ear pain, sore throat, difficulty swallowing, neck pain RESPIRATORY: Denies dyspnea, cough, wheezing, hemoptysis, sputum. CARDIOVASCULAR: Denies chest pain, palpitations, orthopnea, edema GASTROINTESTINAL: See HPI : Denies dysuria, frequency, incontinence, hematuria, urinary retention, flank pain. MUSCULOSKELETAL: Denies weakness, joint pain, or bony pain SKIN: No rash, no erythema, no pruritus NEUROLOGIC: + headache Denies weakness, dizziness, headache, numbness, change in speech, confusion PSYCHIATRIC: No concerning psychosocial issues. 12 point review of systems is negative except for those stated above and HPI Patient History Medical History (Updated 09/02/20 @ 21:15 by Roxana Suresh DO) Chin injury Hyperlipidemia, unspecified Type 1 diabetes Surgical History delivery delivered No pertinent past surgical history Status post ORIF of fracture of ankle Tubal ligation status Family History Mother Thyroid disease Father Lumbar back pain Social History household members: spouse and children Smoking Status: Former smoker Smoking Status: Former smoker alcohol intake frequency: 0-2 drinks per day Substance Use Type: does not use Exam Initial Vital Signs Initial Vital Signs: Vital Signs Temperature 98.3 F 09/02/20 18:43 Pulse Rate 103 H 09/02/20 18:43 Respiratory Rate 18 09/02/20 18:43 Blood Pressure 136/77 09/02/20 18:43 Pulse Oximetry 100 09/02/20 18:43 GENERAL: Well-appearing, well-nourished and in no acute distress. HEENT: Head atraumatic,EOMI, pupils reactive, face symmetric, moist mucous membranes CARDIOVASCULAR: Regular rate and rhythm without murmurs, rubs or gallops. RESPIRATORY: Breath sounds equal bilaterally, no wheezes rales or rhonchi. ABDOMEN: Soft, nontender. Normoactive bowel sounds all 4 quadrants. No guardin g or rebound. : No CVA tenderness EXTREMITIES: Normal range of motion, no clubbing or edema. Neurovascularly intact NEUROLOGICAL: Alert and oriented x4.Normal gait and speech. Cranial nerves II th rough XII grossly intact. SKIN: Warm, dry, no laceration, no petechiae, no rashes or lesions. Course Orders Ordered: ED Orders 09/02/20 19:04 EKG-12 Lead Stat 09/02/20 19:40 Complete Blood Count AUTO DIFF Stat Comprehensive Metabolic Panel Stat Lipase Stat Partial Thromboplastin Time Stat Prothrombin Time INR Stat Discontinued Medications Diphenhydramine HCl (Diphenhydramine 50 Mg/Ml Vial) 25 mg IV NOW ONE Stop: 09/02/20 19:51 Last Admin: 09/02/20 20:03 Dose: Not Given Documented by: SAVANNAH Sodium Chloride (Normal Saline 0.9%) 1,000 mls @ 1,000 mls/hr IV BOLUS ONE Stop: 09/02/20 20:07 Last Infusion: 09/02/20 21:04 Dose: 0 mls/hr Documented by: Admin: 09/02/20 20:03 Dose: 1,000 mls/hr Documented by: SAVANNAH Ketorolac Tromethamine (Ketorolac 60 Mg/2 Ml Vial) 30 mg IV NOW ONE Stop: 09/02/20 19:51 Last Admin: 09/02/20 20:00 Dose: 30 mg Documented by: SAVANNAH Metoclopramide HCl (Metoclopramide 10 Mg/2 Ml Inj) 10 mg IV NOW ONE Stop: 09/02/20 19:51 Last Admin: 09/02/20 19:57 Dose: 10 mg Documented by: SAVANNAH Vital Signs Vital signs: Vital Signs - 8 hr 09/02/20 18:43 09/02/20 21:28 Temperature 98.3 F 98.5 F Pulse Rate 103 H 98 H Respiratory Rate 18 18 Blood Pressure 136/77 137/74 Pulse Oximetry 100 99 Medical Decision Making Lab Data Lab results reviewed: Yes I reviewed the patient's lab results. Result diagrams: 09/02/20 19:40 09/02/20 19:40 Labs: Lab Results 09/02/20 09/02/20 09/02/20 Range/Units 19:40 19:40 19:40 WBC 7.0 (4.5-11.0) X10^3/uL RBC 4.38 (4.0-5.2) X10^6/uL Hgb 13.0 (12.0-16.0) g/dL Hct 39.6 (36-46) % MCV 90.4 (80-100) fL MCH 29.6 (26-34) PG MCHC 32.7 (30-36) % RDW 13.6 (11.6-14.8) % Plt Count 307 (150-400) X10^3/uL Neut % (Auto) 82.3 H (50-75) % Lymph % (Auto) 10.5 L (25-40) % [place] % (Auto) 5.7 (3-14) % Eos % (Auto) 0.6 L (2-4) % Baso % (Auto) 0.9 (0-2) % Neut # (Auto) 5700 (9188-4662) /uL Lymph # (Auto) 700 L (1816-5275) /uL [place] # (Auto) 400 (0-900) /uL Eos # (Auto) 0 (0-450) /uL Baso # (Auto) 100 (0-100) /uL PT 11.6 (10.1-12.7) SECONDS INR 1.0 (0.9-1.3) APTT 28 D (26.4-36.2) SECONDS Sodium 135 L (137-145) mmol/L Potassium 4.0 (3.4-5.1) mmol/L Chloride 100 (98-107) mmol/L Carbon Dioxide 27 (22-32) mmol/L BUN 16 (7-17) mg/dL Creatinine 0.59 (0.52-1.04) mg/dL Estimated GFR > 60.0 (>60) mL/min BUN/Creatinine Ratio 27.1 H (6-22) Glucose 208 H (70-100) mg/dL Calcium 9.2 (8.4-10.2) mg/dL Total Bilirubin 0.8 (0.2-1.3) mg/dL AST 23 (14-36) IU/L ALT 17 (<35) IU/L Alkaline Phosphatase 73 (38-126) U/L Total Protein 7.4 (6.3-8.2) g/dL Albumin 4.4 (3.5-5.0) g/dL Globulin 3.0 (1.7-4.1) g/dL Albumin/Globulin Ratio 1.5 (1.0-2.8) Lipase 16 L (23-300) U/L ECG Data Attestation: I personally reviewed and interpreted this ECG as follows: Prior ECG tracings: available for review Interpretation: Normal sinus rhythm rate 90 p.r. interval 144 QRS [address] changes similar to previous EKG MDM Narrative Medical decision making narrative: Patient is overall feeling much better after IV fluids. She is tolerating fluids her headache is gone. She has no sign of DKA. At this time she feels ready and able to go home Discharge Plan Departure Patient Disposition: Home Clinical Impression: Diabetic gastroparesis, Migraine Instructions: DI for Gastroparesis Activity Restrictions/Additional Instructions: *You have been diagnosed with gastroparesis and migraine headache *What to do: At this time no sign of DKA likely related to gastroparesis. Increase fluid as tolerated *Continue to take medications as directed *Follow up with your primary care provider in 2-3 days *Return to ER if you should have persistent vomiting, abdominal pain or any new, worsening or concerning symptoms Prescriptions: No Action sennosides [senna] 8.6 mg tablet 8.6 mg PO DAILY RF: 0 (DME) One Touch Ultra Test Strips Qty: 250 RF: 3 insulin aspart U-100 [Novolog U-100 Insulin aspart] 100 unit/mL Solution 1 dose Continuous Subcutaneous Infusion CONT PRN (Reason: sliding scale) RF: 0 ondansetron HCl [Zofran] 4 mg tablet 4 mg PO Q6H PRN (Reason: nausea and vomiting) Qty: 12 RF: 0 hydrocortisone acetate [Anusol-HC] 25 mg suppository 25 mg [place] BID Qty: 24 RF: 0 metoclopramide HCl 5 mg tablet 5 mg PO BID Qty: 60 RF: 0 Referrals: Marshall Woodward MD [Primary Care Provider] -
[2020-09-02 19:49] LABS: Add Manual Diff / Slide Review NO; Basophils Absolute Auto 100 /uL (0-100); Basophils Percent Auto 0.9 % (0-2); Eosinophils Absolute Auto 0 /uL (0-450); Eosinophils Percent Auto 0.6 % (2-4); Hematocrit 39.6 % (36-46); Lymphocytes Absolute Auto 700 /uL (1100-4500); Lymphocytes Percent Auto 10.5 % (25-40); Mean Corpuscular HGB Conc 32.7 % (30-36); Mean Corpuscular Hemoglobin 29.6 PG (26-34); Mean Corpuscular Volume 90.4 fL (80-100); Monocytes Absolute Auto 400 /uL (0-900); Monocytes Percent Auto 5.7 % (3-14); Neutrophils Absolute Auto 5700 /uL (1500-7000); Neutrophils Percent Auto 82.3 % (50-75); Platelet Count 307 X10^3/uL (150-400); Red Blood Cell Count 4.38 X10^6/uL (4.0-5.2); Red Cell Distribution Width 13.6 % (11.6-14.8)
[2020-09-02] MEDS: METOCLOPRAMIDE 10 MG/2 ML INJ IV (19:57)
[2020-09-02] MEDS: KETOROLAC 60 MG/2 ML VIAL 30 MG IV (20:00)
[2020-09-02 20:01] LABS: Prothrombin Time 11.6 SECONDS (10.1-12.7)
[2020-09-02 20:03] LABS: PTT Partial Thromboplastin Tim 28 SECONDS (26.4-36.2)
[2020-09-02] MEDS: SODIUM CHLORIDE 0.9% 1,000 ML 1000 ML IV (20:03)
[2020-09-02 20:07] LABS: Alanine Aminotransferase 17 IU/L (<35); Albumin 4.4 g/dL (3.5-5.0); Albumin Globulin Ratio 1.5 (1.0-2.8); Alkaline Phosphatase 73 U/L (38-126); Aspartate Aminotransferase 23 IU/L (14-36); BUN Creatinine Ratio 27.1 (6-22); Bilirubin Total 0.8 mg/dL (0.2-1.3); Blood Urea Nitrogen 16 mg/dL (7-17); Calcium 9.2 mg/dL (8.4-10.2); Carbon Dioxide 27 mmol/L (22-32); Chloride 100 mmol/L (98-107); Estimated Glomerular Filt Rate > 60.0 mL/min (>60); Glucose 208 mg/dL (70-100); HEMOLYSIS < 15 (0-50); Lipase 16 U/L (23-300); Sodium 135 mmol/L (137-145); Total Protein 7.4 g/dL (6.3-8.2)
[2020-09-02 21:28] VITALS: BP 137/74; PULSE 98; RESP 18; TEMP 36.9; O2SAT 99
== END 2020-09-02 21:25 | disposition home or self-care (01) ==
PROVIDERS: Emergency Provider Emergency Medicine; PCP Internal Medicine
DX: E10.43 Type 1 diabetes mellitus with diabetic autonomic (poly)neuropathy (principal); K31.84 Gastroparesis; G43.909 Migraine, unspecified, not intractable, without status migrainosus; R11.2 Nausea with vomiting, unspecified
CPT/HCPCS: 36415; 80053; 83690; 85025; 85610; 85730; 93005; 93010; 96361; 96374; 96375; 99281; 99284; J1885; J2765

== ENCOUNTER 2020-12-03 11:45 | Emergency (ER) | payer OTHER, MEDICAID, SELFPAY ==
[2020-04-19 10:05] VITALS: BMI 29.7
[2020-12-03 11:49] VITALS: BP 138/89; PULSE 97; RESP 12; TEMP 36.6; O2SAT 98; BMI 31.6
[2020-12-03 12:00] VITALS: PULSE 98; O2SAT 97
--- NOTE | 2020-12-03 13:16 | DI.RAD.S_ITS ---
PROCEDURE: XR ACUTE ABDOMEN SERIES INDICATIONS: abd pain, constipation TECHNIQUE: One view chest and two views of the abdomen were acquired. COMPARISON: [facility], , ABDOMEN ACUTE SERIES, 05/31/2014, 16:52. FINDINGS: Surgical changes and devices: Devices project over the left mid abdomen and right upper quadrant. Chest: Lungs are clear. Heart size is normal. No pleural effusions. No pneumoperitoneum. Abdomen: Bowel gas pattern is normal. No suspicious calcifications. Visualized solid organ contours appear normal. Bones: No suspicious bony lesions. IMPRESSION: No acute process. Dictated by: Flaco Simon M.D. on 12/03/2020 at 13:47 Approved by: Flaco Simon M.D. on 12/03/2020 at 13:49
[2020-12-03 13:27] LABS: Add Manual Diff / Slide Review NO; Basophils Absolute Auto 100 /uL (0-100); Basophils Percent Auto 1.1 % (0-2); Eosinophils Absolute Auto 200 /uL (0-450); Eosinophils Percent Auto 3.9 % (2-4); Hematocrit 39.8 % (36-46); Hemoglobin 13.1 g/dL (12.0-16.0); Lymphocytes Absolute Auto 1300 /uL (1100-4500); Lymphocytes Percent Auto 25.6 % (25-40); Mean Corpuscular HGB Conc 32.8 % (30-36); Mean Corpuscular Volume 91.5 fL (80-100); Monocytes Absolute Auto 500 /uL (0-900); Monocytes Percent Auto 9.4 % (3-14); Neutrophils Absolute Auto 3100 /uL (1500-7000); Platelet Count 269 X10^3/uL (150-400); Red Blood Cell Count 4.35 X10^6/uL (4.0-5.2); Red Cell Distribution Width 13.6 % (11.6-14.8); White Blood Cell Count 5.1 X10^3/uL (4.5-11.0)
[2020-12-03 13:38] LABS: INR 0.9 (0.9-1.3); Prothrombin Time 10.6 SECONDS (10.1-12.7)
[2020-12-03 13:40] LABS: PTT Partial Thromboplastin Tim 28 SECONDS (26.4-36.2)
[2020-12-03 13:47] LABS: Alanine Aminotransferase 15 IU/L (<35); Albumin 4.4 g/dL (3.5-5.0); Albumin Globulin Ratio 1.5 (1.0-2.8); Alkaline Phosphatase 76 U/L (38-126); Aspartate Aminotransferase 19 IU/L (14-36); BUN Creatinine Ratio 28.4 (6-22); Bilirubin Total 0.3 mg/dL (0.2-1.3); Blood Urea Nitrogen 19 mg/dL (7-17); Calcium 9.6 mg/dL (8.4-10.2); Carbon Dioxide 28 mmol/L (22-32); Chloride 100 mmol/L (98-107); Estimated Glomerular Filt Rate > 60.0 mL/min (>60); Glucose 155 mg/dL (70-100); HEMOLYSIS < 15 (0-50); Lactate (Lactic Acid) 1.2 mmol/L (0.7-2.1); Potassium 3.7 mmol/L (3.4-5.1); Sodium 136 mmol/L (137-145); Total Protein 7.4 g/dL (6.3-8.2)
[2020-12-03 13:56] VITALS: BP 131/80; PULSE 85; O2SAT 100
[2020-12-03 13:56] LABS: Amylase < 30 U/L (30-110); Lipase 35 U/L (23-300)
[2020-12-03 14:00] VITALS: BP 133/75; PULSE 87; O2SAT 100
[2020-12-03 14:30] VITALS: BP 137/84; PULSE 91; O2SAT 100
[2020-12-03] MEDS: MAGNESIUM CITRATE 300 ML SOLUTION PO (14:47)
[2020-12-03 15:00] VITALS: BP 124/71; PULSE 93; O2SAT 100
--- NOTE | 2020-12-03 15:04 | ED.GIBLEED ---
HPI - GI Bleed <Margret Isaac, RADIOTELEGRAPH OPERATOR SERVICER-BC - Last Filed: 12/03/20 15:30> General Chief complaint: GI Bleed Stated complaint: blood in stool since Thursday Time Seen by Provider: 12/03/20 12:32 Source: patient Mode of arrival: Ambulatory Limitations: no limitations History of Present Illness HPI Narrative: The patient is a 40 year old female who presents with a chief complaint of bright red blood per rectum since Thursday. She has a history of type 1 diabetes and is a former smoker. She states she has history of hemorrhoids, has noticed some abdominal pain with this episode though. She states she has a history of significant constipation where she can go a week without a bowel movement. She is not sure when her last bowel movement was and states that she does not remember it. No known drug vomiting. No fevers muscle aches or chills. She states that she has known hemorrhoids, that this might be related to that but she is concerned about the amount of blood she is losing. She states that she has not passing stool since Thursday when she noticed this, but rather passes blood and mucus when attempting to have a bowel movement. She states that she had a referral to surgery for hemorrhoids, but she never went to see them. Related Data Home Medications Medication Instructions Recorded Confirmed insulin aspart U-100 [Novolog 1 dose CONTINUOUS SUBCUTANEOUS 09/10/18 06/11/20 U-100 Insulin aspart] INFUSION CONT PRN sennosides 8.6 mg tablet 8.6 mg PO DAILY tab 05/01/20 06/11/20 Previous Rx's Medication Instructions Recorded ondansetron HCl [Zofran] 4 mg PO Q6H PRN #12 tab 03/25/20 One Touch Ultra Test Strips #250 each 05/01/20 hydrocortisone acetate [Anusol-HC] 25 mg ME BID #24 each 06/11/20 metoclopramide HCl 5 mg PO BID #60 tab 06/11/20 hydrocortisone [Proctosol HC] 1 applic ME BID-QID PRN 7 Days #30 12/03/20 g Allergies Allergy/AdvReac Type Severity Reaction Status Date / Time lactose [LACTOSE] Allergy Intermediate Verified 12/03/20 11:52 hydromorphone [From DILAUDID] Allergy Unknown Verified 09/02/20 18:46 diphenhydramine AdvReac Unknown ANXIETY, Verified 09/02/20 18:46 DOESNT CALM HER. Review of Systems <RENA Ramirez - Last Filed: 12/03/20 15:30> Review of Systems Narrative: GENERAL: Denies chills, fatigue, malaise, fever, sweats. HEENT: Denies sinus pain, ear pain, sore throat, difficulty swallowing, dizziness. RESPIRATORY: Denies dyspnea, cough, wheezing, hemoptysis, sputum. CARDIOVASCULAR: Denies chest pain, palpitations, orthopnea, edema, GASTROINTESTINAL: See HPI : Denies dysuria, frequency, incontinence, hematuria, urinary retention. MUSCULOSKELETAL: denies weakness, joint pain, or bony pain SKIN: Denies rash, skin lesions, or other NEUROLOGIC: Denies weakness, headache, numbness, change in speech, confusion, seizures, incoordination. PSYCHIATRIC: No concerning psychosocial issues. 12 point review of systems is negative except for those stated above Patient History <RENA Ramirez - Last Filed: 12/03/20 15:30> Medical History (Updated 12/03/20 @ 15:13 by RENA Ramirez) Chin injury Hyperlipidemia, unspecified Type 1 diabetes Surgical History delivery delivered No pertinent past surgical history Status post ORIF of fracture of ankle Tubal ligation status Family History Mother Thyroid disease Father Lumbar back pain Social History household members: spouse and children Smoking Status: Former smoker Smoking Status: Former smoker alcohol intake frequency: 0-2 drinks per day Substance Use Type: does not use Exam <RENA Ramirez - Last Filed: 12/03/20 15:30> Narrative Exam Narrative: GENERAL: This is a well-nourished, well-developed patient, in no acute distress HEAD: Atraumatic. Normocephalic. No temporal or scalp tenderness. EYES: Pupils equal round and reactive. Extraocular motions intact. No scleral icterus. No injection or drainage. ENT: Nose without bleeding, purulent drainage or septal hematoma. Throat without erythema, tonsillar hypertrophy or exudate. Uvula midline. Airway patent. NECK: Trachea midline. No JVD or lymphadenopathy. Supple, nontender, no meningeal signs. CARDIOVASCULAR: Regular rate and rhythm RESPIRATORY: Clear to auscultation. Breath sounds equal bilaterally. No wheezes, rales, or rhonchi. No cough. No increased respiratory effort. No accessory muscle use GASTROINTESTINAL: Abdomen soft, diffusely tender to palpation, nondistended. No hepato-splenomegaly, or palpable masses. Active bowel sounds all 4 quadrants EXTREMITIES: No clubbing, cyanosis, or edema. No joint tenderness, effusion, or edema noted. BACK: Nontender without deformity or crepitance. No flank tenderness. NEURO: AOx3. SKIN: No rash or erythema on visible skin Rectal: Done with Portia REYES at bedside multiple external hemorrhoids noted, very slight blood noted on finger after digital exam, possible internal hemorrhoid noted. Tone intact. Initial Vital Signs Initial Vital Signs: Vital Signs Temperature 98 F 12/03/20 11:49 Pulse Rate 97 H 12/03/20 11:49 Respiratory Rate 12 12/03/20 11:49 Blood Pressure 138/89 12/03/20 11:49 Pulse Oximetry 98 12/03/20 11:49 <Sanjuana Garcia MD - Last Filed: 12/03/20 20:01> Initial Vital Signs Initial Vital Signs: Vital Signs Temperature 98 F 12/03/20 11:49 Pulse Rate 97 H 12/03/20 11:49 Respiratory Rate 12 12/03/20 11:49 Blood Pressure 138/89 12/03/20 11:49 Pulse Oximetry 98 12/03/20 11:49 Scores <RENA Ramirez - Last Filed: 12/03/20 15:30> GCS [place] coma scale eye opening: Spontaneous [place] coma scale verbal response: Orientated Samantha coma scale motor response: Obey commands Samantha coma scale total score: 15 Course <RENA Ramirez - Last Filed: 12/03/20 15:30> Orders Ordered: ED Orders 12/03/20 12:19 EKG-12 Lead Stat 12/03/20 13:15 Amylase Stat Complete Blood Count AUTO DIFF Stat Comprehensive Metabolic Panel Stat Lactate (Lactic Acid) Stat Lipase Stat Partial Thromboplastin Time Stat Prothrombin Time INR Stat Type and Screen Stat 12/03/20 13:16 XR acute abdomen series Stat Discontinued Medications Magnesium Citrate (Magnesium Citrate 300 Ml Solution) 300 ml PO NOW ONE Stop: 12/03/20 14:39 Last Admin: 12/03/20 14:47 Dose: 300 ml Documented by: SHAYNE Vital Signs Vital signs: Vital Signs - 8 hr 12/03/20 13:56 12/03/20 14:00 12/03/20 14:30 Pulse Rate 85 87 91 H Blood Pressure 131/80 133/75 137/84 Pulse Oximetry 100 100 100 12/03/20 15:00 Pulse Rate 93 H Blood Pressure 124/71 Pulse Oximetry 100 <Sanjuana Garcia MD - Last Filed: 12/03/20 20:01> Orders Ordered: ED Orders 12/03/20 12:19 EKG-12 Lead Stat 12/03/20 13:15 Amylase Stat Complete Blood Count AUTO DIFF Stat Comprehensive Metabolic Panel Stat Lactate (Lactic Acid) Stat Lipase Stat Partial Thromboplastin Time Stat Prothrombin Time INR Stat Type and Screen Stat 12/03/20 13:16 XR acute abdomen series Stat Discontinued Medications Magnesium Citrate (Magnesium Citrate 300 Ml Solution) 300 ml PO NOW ONE Stop: 12/03/20 14:39 Last Admin: 12/03/20 14:47 Dose: 300 ml Documented by: SHAYNE Vital Signs Vital signs: Vital Signs - 8 hr 12/03/20 13:56 12/03/20 14:00 12/03/20 14:30 Pulse Rate 85 87 91 H Blood Pressure 131/80 133/75 137/84 Pulse Oximetry 100 100 100 12/03/20 15:00 Pulse Rate 93 H Blood Pressure 124/71 Pulse Oximetry 100 MDM - GI Bleed <RENA Ramirez - Last Filed: 12/03/20 15:30> Lab Data Attestation: I reviewed the patient's lab results. Result diagrams: 12/03/20 13:15 12/03/20 13:15 Labs: Lab Results 12/03/20 12/03/20 12/03/20 Range/Units 13:15 13:15 13:15 WBC 5.1 (4.5-11.0) X10^3/uL RBC 4.35 (4.0-5.2) X10^6/uL Hgb 13.1 (12.0-16.0) g/dL Hct 39.8 (36-46) % MCV 91.5 (80-100) fL MCH 30.0 (26-34) PG MCHC 32.8 (30-36) % RDW 13.6 (11.6-14.8) % Plt Count 269 (150-400) X10^3/uL Neut % (Auto) 60.0 (50-75) % Lymph % (Auto) 25.6 (25-40) % [place] % (Auto) 9.4 (3-14) % Eos % (Auto) 3.9 (2-4) % Baso % (Auto) 1.1 (0-2) % Neut # (Auto) 3100 (6515-7666) /uL Lymph # (Auto) 1300 (3914-0097) /uL [place] # (Auto) 500 (0-900) /uL Eos # (Auto) 200 (0-450) /uL Baso # (Auto) 100 (0-100) /uL PT 10.6 (10.1-12.7) SECONDS INR 0.9 (0.9-1.3) APTT 28 (26.4-36.2) SECONDS Sodium 136 L (137-145) mmol/L Potassium 3.7 (3.4-5.1) mmol/L Chloride 100 (98-107) mmol/L Carbon Dioxide 28 (22-32) mmol/L BUN 19 H (7-17) mg/dL Creatinine 0.67 (0.52-1.04) mg/dL Estimated GFR > 60.0 (>60) mL/min BUN/Creatinine Ratio 28.4 H (6-22) Glucose 155 H (70-100) mg/dL Lactate (0.7-2.1) mmol/L Calcium 9.6 (8.4-10.2) mg/dL Total Bilirubin 0.3 (0.2-1.3) mg/dL AST 19 (14-36) IU/L ALT 15 (<35) IU/L Alkaline Phosphatase 76 (38-126) U/L Total Protein 7.4 (6.3-8.2) g/dL Albumin 4.4 (3.5-5.0) g/dL Globulin 3.0 (1.7-4.1) g/dL Albumin/Globulin Ratio 1.5 (1.0-2.8) Amylase (30-110) U/L Lipase (23-300) U/L Blood Type Antibody Screen 12/03/20 12/03/20 12/03/20 Range/Units 13:15 13:15 13:15 WBC (4.5-11.0) X10^3/uL RBC (4.0-5.2) X10^6/uL Hgb (12.0-16.0) g/dL Hct (36-46) % MCV (80-100) fL MCH (26-34) PG MCHC (30-36) % RDW (11.6-14.8) % Plt Count (150-400) X10^3/uL Neut % (Auto) (50-75) % Lymph % (Auto) (25-40) % [place] % (Auto) (3-14) % Eos % (Auto) (2-4) % Baso % (Auto) (0-2) % Neut # (Auto) (0168-5585) /uL Lymph # (Auto) (9082-2639) /uL [place] # (Auto) (0-900) /uL Eos # (Auto) (0-450) /uL Baso # (Auto) (0-100) /uL PT (10.1-12.7) SECONDS INR (0.9-1.3) APTT (26.4-36.2) SECONDS Sodium (137-145) mmol/L Potassium (3.4-5.1) mmol/L Chloride (98-107) mmol/L Carbon Dioxide (22-32) mmol/L BUN (7-17) mg/dL Creatinine (0.52-1.04) mg/dL Estimated GFR (>60) mL/min BUN/Creatinine Ratio (6-22) Glucose (70-100) mg/dL Lactate 1.2 (0.7-2.1) mmol/L Calcium (8.4-10.2) mg/dL Total Bilirubin (0.2-1.3) mg/dL AST (14-36) IU/L ALT (<35) IU/L Alkaline Phosphatase (38-126) U/L Total Protein (6.3-8.2) g/dL Albumin (3.5-5.0) g/dL Globulin (1.7-4.1) g/dL Albumin/Globulin Ratio (1.0-2.8) Amylase < 30 L (30-110) U/L Lipase 35 (23-300) U/L Blood Type A Positive Antibody Screen Negative Point of Care Testing Test Results Negative Urine Dip Bedside Urine Glucose Negative Bedside Urine Bilirubin - Negative Bedside Urine Ketone - Negative Urine Specific [place] 1.025 Bedside Urine Occult Blood - Negative Bedside Urine pH 6.0 Bedside Urine Protein - Negative Bedside Urine Urobilinogen - Negative Bedside Urine Nitrite - Negative Bedside Urine Leukocytes - Negative Esterase Imaging Data Abdominal x-ray: Radiologist's Impression: [address] [place] [id number] ReportSigned Patient: Kitty Hinojosa PMR#: [id number]: 1980Acct:[id number]/Sex: 40 / FDate of Service: 12/03/20Loc: EDAccession Number: [id number] Procedure: XR acute abdomen series Ordering Provider: Margret Isaac PROCEDURE: XR ACUTE ABDOMEN SERIES INDICATIONS: abd pain, constipation TECHNIQUE: One view chest and two views of the abdomen were acquired. COMPARISON: [facility], ABDOMEN ACUTE SERIES, 05/31/2014, 16:52. FINDINGS: Surgical changes and devices: Devices project over the left mid abdomen and right upper quadrant. Chest: Lungs are clear. Heart size is normal. No pleural effusions. No pneumoperitoneum. Abdomen: Bowel gas pattern is normal. No suspicious calcifications. Visualized solid organ contours appear normal. Bones: No suspicious bony lesions. IMPRESSION: No acute process. Dictated by: Flaco Simon M.D. on 12/03/2020 at 13:47 Approved by: Flaco Simon M.D. on 12/03/2020 at 13:49 ECG Data Attestation: I personally reviewed and interpreted this ECG as follows: Interpretation: Sinus rhythm. Ventricular 82. P.r. interval 154. QRS 80. MDM Narrative Medical decision making narrative: The patient is a 40-year-old female who presents with a chief complaint of multiple episodes of bright red blood per rectum while attempting to have a bowel movement over the past few days. She does complain of constipation with no bowel movement during her recent memory initially. Then she notes that she had 1 on . Overall her lab work is grossly normal, she has no signs of anemia, no leukocytosis, no elevated lactate. She does have multiple hemorrhoids on exam. I encouraged her to follow up with primary care provider in the next few days, she may benefit from another surgery referral. However given her pain, we did discuss the pros and cons of doing a CT today. We elected to hold off as her lab work is good, she would need a midline for IV access for a CT. I did discuss that this would be possible, but she would like to try conservative measures 1st. Given her difficulty having bowel movements, we did discharge her with magnesium citrate. I will give her Proctosol for her hemorrhoids. Urged monitoring sugars given her type 1 diabetes. I did discussed at length very strict ER return precautions including abdominal pain with fever, inability keep down fluids etcetera. Patient has no questions or concerns upon discharge states understanding return precautions as well as follow-up care. <Sanjuana Garcia MD - Last Filed: 12/03/20 20:01> Lab Data Labs: Lab Results 12/03/20 12/03/20 12/03/20 Range/Units 13:15 13:15 13:15 WBC 5.1 (4.5-11.0) X10^3/uL RBC 4.35 (4.0-5.2) X10^6/uL Hgb 13.1 (12.0-16.0) g/dL Hct 39.8 (36-46) % MCV 91.5 (80-100) fL MCH 30.0 (26-34) PG MCHC 32.8 (30-36) % RDW 13.6 (11.6-14.8) % Plt Count 269 (150-400) X10^3/uL Neut % (Auto) 60.0 (50-75) % Lymph % (Auto) 25.6 (25-40) % [place] % (Auto) 9.4 (3-14) % Eos % (Auto) 3.9 (2-4) % Baso % (Auto) 1.1 (0-2) % Neut # (Auto) 3100 (7806-7549) /uL Lymph # (Auto) 1300 (2731-9740) /uL [place] # (Auto) 500 (0-900) /uL Eos # (Auto) 200 (0-450) /uL Baso # (Auto) 100 (0-100) /uL PT 10.6 (10.1-12.7) SECONDS INR 0.9 (0.9-1.3) APTT 28 (26.4-36.2) SECONDS Sodium 136 L (137-145) mmol/L Potassium 3.7 (3.4-5.1) mmol/L Chloride 100 (98-107) mmol/L Carbon Dioxide 28 (22-32) mmol/L BUN 19 H (7-17) mg/dL Creatinine 0.67 (0.52-1.04) mg/dL Estimated GFR > 60.0 (>60) mL/min BUN/Creatinine Ratio 28.4 H (6-22) Glucose 155 H (70-100) mg/dL Lactate (0.7-2.1) mmol/L Calcium 9.6 (8.4-10.2) mg/dL Total Bilirubin 0.3 (0.2-1.3) mg/dL AST 19 (14-36) IU/L ALT 15 (<35) IU/L Alkaline Phosphatase 76 (38-126) U/L Total Protein 7.4 (6.3-8.2) g/dL Albumin 4.4 (3.5-5.0) g/dL Globulin 3.0 (1.7-4.1) g/dL Albumin/Globulin Ratio 1.5 (1.0-2.8) Amylase (30-110) U/L Lipase (23-300) U/L Blood Type Antibody Screen 12/03/20 12/03/20 12/03/20 Range/Units 13:15 13:15 13:15 WBC (4.5-11.0) X10^3/uL RBC (4.0-5.2) X10^6/uL Hgb (12.0-16.0) g/dL Hct (36-46) % MCV (80-100) fL MCH (26-34) PG MCHC (30-36) % RDW (11.6-14.8) % Plt Count (150-400) X10^3/uL Neut % (Auto) (50-75) % Lymph % (Auto) (25-40) % [place] % (Auto) (3-14) % Eos % (Auto) (2-4) % Baso % (Auto) (0-2) % Neut # (Auto) (5524-1680) /uL Lymph # (Auto) (2681-7101) /uL [place] # (Auto) (0-900) /uL Eos # (Auto) (0-450) /uL Baso # (Auto) (0-100) /uL PT (10.1-12.7) SECONDS INR (0.9-1.3) APTT (26.4-36.2) SECONDS Sodium (137-145) mmol/L Potassium (3.4-5.1) mmol/L Chloride (98-107) mmol/L Carbon Dioxide (22-32) mmol/L BUN (7-17) mg/dL Creatinine (0.52-1.04) mg/dL Estimated GFR (>60) mL/min BUN/Creatinine Ratio (6-22) Glucose (70-100) mg/dL Lactate 1.2 (0.7-2.1) mmol/L Calcium (8.4-10.2) mg/dL Total Bilirubin (0.2-1.3) mg/dL AST (14-36) IU/L ALT (<35) IU/L Alkaline Phosphatase (38-126) U/L Total Protein (6.3-8.2) g/dL Albumin (3.5-5.0) g/dL Globulin (1.7-4.1) g/dL Albumin/Globulin Ratio (1.0-2.8) Amylase < 30 L (30-110) U/L Lipase 35 (23-300) U/L Blood Type A Positive Antibody Screen Negative Point of Care Testing Test Results Negative Urine Dip Bedside Urine Glucose Negative Bedside Urine Bilirubin - Negative Bedside Urine Ketone - Negative Urine Specific [place] 1.025 Bedside Urine Occult Blood - Negative Bedside Urine pH 6.0 Bedside Urine Protein - Negative Bedside Urine Urobilinogen - Negative Bedside Urine Nitrite - Negative Bedside Urine Leukocytes - Negative Esterase Discharge Plan Departure Patient Disposition: Home Clinical Impression: BRBPR (bright red blood per rectum) Hemorrhoids Qualifiers: Hemorrhoid type: unspecified Qualified Code(s): K64.9 - Unspecified hemorrhoids Constipation Qualifiers: Constipation type: unspecified constipation type Qualified Code(s): K59.00 - Constipation, unspecified Abdominal pain Qualifiers: Abdominal location: generalized Qualified Code(s): R10.84 - Generalized abdominal pain Instructions: DI for Hemorrhoids, DI for Abdominal Pain-Adult, DI for Constipation Activity Restrictions/Additional Instructions: Thank you for trusting us with your care today. As discussed, your imaging and lab work is very reassuring. You have no signs of anemia or infection. I did send you home with a dose of magnesium citrate to help move your bowels. I also sent a prescription of Proctosol to [facility] for your hemorrhoids Please rest and push fluids. I suspect as you have an easier time having bowel movements and strain less the bleeding will lessen. However as we discussed, please come back to emergency department for any acute concerns such as abdominal with fever, inability keep down fluids etcetera Prescriptions: New hydrocortisone [Proctosol HC] 2.5 % cream with perineal applicator 1 applic ME BID-QID PRN (Reason: hemorrhoids) 7 Days Qty: 30 RF: 0 No Action sennosides [senna] 8.6 mg tablet 8.6 mg PO DAILY RF: 0 (DME) One Touch Ultra Test Strips Qty: 250 RF: 3 insulin aspart U-100 [Novolog U-100 Insulin aspart] 100 unit/mL Solution 1 dose Continuous Subcutaneous Infusion CONT PRN (Reason: sliding scale) RF: 0 ondansetron HCl [Zofran] 4 mg tablet 4 mg PO Q6H PRN (Reason: nausea and vomiting) Qty: 12 RF: 0 hydrocortisone acetate [Anusol-HC] 25 mg suppository 25 mg ME BID Qty: 24 RF: 0 metoclopramide HCl 5 mg tablet 5 mg PO BID Qty: 60 RF: 0 Referrals: Ayala Ferrera MD [Primary Care Provider] - <Sanjuana Garcia MD - Last Filed: 12/03/20 20:01> Cosign ED Attending Coscydneyature Attestation: I was immediately available in the department for consultation throughout this patient's visit. I agree with documentation as above. Sanjuana Garcia MD
== END 2020-12-03 15:33 | disposition home or self-care (01) ==
PROVIDERS: Emergency Medicine; Emergency Provider Nurse Practitioner Family; PCP Family Medicine
DX: K62.5 Hemorrhage of anus and rectum (principal); K64.9 Unspecified hemorrhoids; K59.00 Constipation, unspecified; R10.84 Generalized abdominal pain; E10.8 Type 1 diabetes mellitus with unspecified complications; Z79.4 Long term (current) use of insulin
CPT/HCPCS: 74022; 80053; 81003; 81025; 82150; 83605; 83690; 85025; 85610; 85730; 86850; 86900; 86901; 93005; 99283; 99284

== ENCOUNTER → 2021-02-08 09:20 | Outpatient (CLI) | payer OTHER, MEDICAID, SELFPAY ==
[2020-12-12 14:47] VITALS: BMI 29.7
[2021-02-08 10:57] LABS: COVID19 -Nasal RAPID Negative (Negative)
== END ==
PROVIDERS: PCP Family Medicine; Visit Provider Surgery
DX: Z20.822 Contact with and (suspected) exposure to COVID-19 (principal)
CPT/HCPCS: 87635; C9803

== ENCOUNTER 2021-02-11 08:07 | Day surgery (SDC) | payer OTHER, MEDICAID, SELFPAY ==
[2020-12-12 14:47] VITALS: BMI 29.7
[2021-02-07 12:47] VITALS: BMI 29.7
[2021-02-11] VITALS (8 sets, daily range): BP systolic 115–136; BP diastolic 63–89; PULSE 93–119; RESP 13–26; TEMP 36.4–36.8; O2SAT 98–100; BMI 29.7
--- NOTE | 2021-02-11 | PATH_ITS ---
[facility] Accession Number: [id number] . 01 Material submitted: . hemorrhoids - HEMORRHOIDS . 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 AIN-3 focally approximates the cauterized tissue edge. No evidence of malignancy. MRV 02/15/2021 1109 Local . 02 Comment: As part of routine director supplier quality, Dr. Lanier has reviewed slide A1 of this case and agrees with the diagnosis of AIN-3. . 02 Electronically signed: . Melvin Chavarria MD, PhD, Pathologist NPI- [id number] . 01 Gross description: . The specimen is received in formalin, labeled hemorrhoids and consist of multiple irregular yo-pink to quigley mucosal tissue fragments measuring 4.5 x 4.5 x 2.0 cm in aggregate and ranging from 0.5-2.7 cm. . A1: smaller intact fragments. A2: international sales representative sections of largest fragments (blue and green). A3: two bisected fragments (blue and green). ([id number]) /MRV 02/12/2021 1601 Local . 02 Pathologist provided ICD-10: K64.9, D12.9 . 02 CPT . 739567 Performed at: 01 [facility] [address] [id number] MD Nikolai Delgadillo MD Phone: [phone] Performed at: 02 [facility] [address] [place], [place] [id number] MD Karolyn Maldonado MD Phone: [phone]
--- NOTE | 2021-02-11 09:21 | PM.PREOP ---
Pre-operative Note COVID-19 COVID-19 status: Negative Result date/Date tested (Pos, Neg/Pending): 02/08/21 Interval Note History & Physical reviewed/Exam performed by Physician: Yes Changes to H&P: No
[2021-02-11] MEDS: metroNIDAZOLE 500 MG/100 ML PIGGYBACK 100 MG IV (09:32)
[2021-02-11] MEDS: LACTATED RINGERS 1,000 ML 100 ML IV (09:33)
[2021-02-11] MEDS: CEFAZOLIN 2 GM/100 ML FROZ.PIGGY IV (09:45)
--- NOTE | 2021-02-11 10:13 | SUR.OPER ---
Prone on padded OR bed, head in foam head support, gel chest rolls, gel pad under knees, pillow under lower legs, toes free of pressure, arms secured on padded arm boards at <90 degrees abduction. Safety belt at thigh.
[2021-02-11] MEDS: BUPIVACAINE 0.25% W/ EPI (PF) 10 ML VIAL 20 ML INJ (10:18)
[2021-02-11] MEDS: BUPIVACAINE LIPOSOME 266 MG/20 ML VIAL INJ (10:29)
[2021-02-11] MEDS: DIBUCAINE 1% OINT 28 GM 1 APPLIC TOP (10:33)
--- NOTE | 2021-02-11 10:49 | PM.OP.1 ---
Operative Date/Time/Diagnoses Date of procedure: 02/11/21 Time of procedure: 10:49 Pre-op diagnosis: Hemorrhoids, chronic anal fissure Post-op diagnosis: other (Circumferential internal and external hemorrhoids, chronic posterior midline anal fissure) Procedure & Clinicians Procedure: Hemorrhoidectomy of left lateral and posterior right hemorrhoidal columns Left internal lateral sphincterotomy Anorectal exam under anesthesia Same procedure as scheduled: Yes Indications: Anal pain and bleeding Surgeon: Fina Velasquez Yes if Unassisted: Yes Anesthesia Type: General Operative Notes Findings: Circumferential internal and external hemorrhoids, posterior midline chronic anal fissure Specimen(s): other (hemorrhoids) Estimated Blood Loss (mL): 5 Procedure in detail: The patient was brought into the OR. Sequential compression devices were placed on both legs and turned on. Appropriate perioperative antibiotics were given. General anesthesia was induced and the patient was intubated. The patient was turned prone onto the OR table. All bony prominences were padded. The buttocks were taped apart. The perianal area was prepped and draped in sterile fashion with betadine prep. Surgical timeout was conducted. 0.25% Marcaine with epi was used to perform a four quadrant anal block using 5mL per quadrant for a total of 20mL. On external exam there were moderate external hemorrhoids seen and a chronic posterior midline fissure. With copious lubricant, an anorectal exam was performed. Large internal hemorrhoids were seen circumferentially. The right posterior internal hemorrhoid was grasped proximal to the dentate line and the hemorrhoid was divided using harmonic scalpel and dissected out including the involved vessel, excising the internal and external hemorrhoidal column. The feeding vessel was then suture ligated with 3-0 Vicryl suture to ensure hemostasis. Good hemostasis was achieved. The same was again performed at the left lateral hemorrhoidal column. The internal hemorrhoid was grasped proximal to the dentate line and the hemorrhoid was divided using harmonic scalpel and dissected out including the involved vessel, excising the internal and external hemorrhoidal column. The feeding vessel was then suture ligated with 3-0 Vicryl suture to ensure hemostasis. Good hemostasis was achieved. A 3-0 vicryl suture was also placed at the base of the right anterior hemorrhoidal pedical without removing the associated hemorrhoidal tissue to avoid the increased risk of stenosis with taking a third hemorrhoidal column. Attention was then turned to the left lateral anoderm at 9:00 position. A small skin incision was made overlying the anal sphincter muscle. The skin was opened and dissection was carried down to the anal sphincter using a mosquito clamp. The internal sphincter was located and 3mm of muscle was divided, consistent with the length of the fissure. The anoderm was closed with 3-0 Vicryll suture. 20mL of Exparel was used to inject the anoderm and anal canal circumferentially 2-3mL per cm. A large Gelfoam was then coated and rolled with Dibucaine and placed in the anal canal. A thick layer of Dibucaine was used to coat the anoderm. A stack of 4x4 gauze was then used to cover the anal opening and secured in place with medipore tape. The patient was transferred onto her hospital bed into supine position. She was then awakened from anesthesia and extubated. Needle, sponge, and instrument counts were correct x 2. The patient was transferred to the PACU in stable condition. Complications: none Post-operative Condition: stable Disposition: PACU
[2021-02-11] MEDS: INSULIN REGULAR 100 UNIT/ML 3 ML VIAL IV (10:53)
[2021-02-11] MEDS: METOCLOPRAMIDE 10 MG/2 ML INJ IV (11:27)
[2021-02-11] MEDS: ONDANSETRON 4 MG/2 ML INJ IV (11:43)
== END 2021-02-11 12:30 | disposition home or self-care (01) ==
PROVIDERS: PCP Family Medicine; Referring Provider Family Medicine; Visit Provider Surgery
PROC: (CPT 46260; principal; 2021-02-11 09:15)
DX: K64.8 Other hemorrhoids (principal); K64.4 Residual hemorrhoidal skin tags; K60.1 Chronic anal fissure; K62.5 Hemorrhage of anus and rectum; K59.09 Other constipation
CPT/HCPCS: 46260; 81025; C9290; J0690; J2250; J2405; J2704; J2765; J3010

== ENCOUNTER 2021-02-19 06:58 | Observation (INO) | payer OTHER, MEDICAID, SELFPAY ==
[2020-12-12 14:47] VITALS: BMI 29.7
[2021-02-19] VITALS (20 sets, daily range): BP systolic 104–144; BP diastolic 61–89; PULSE 80–108; RESP 12–22; TEMP 36.2–37; O2SAT 96–100; BMI 30.7; BMI 31.6
--- NOTE | 2021-02-19 07:22 | ED_ITS ---
HPI - GI Bleed General Chief complaint: GI Bleed Stated complaint: Sgy 8 days ago/ rectal bleeding in toilet today Time Seen by Provider: 02/19/21 07:03 Source: patient Mode of arrival: Ambulatory Limitations: no limitations History of Present Illness HPI Narrative: 41-year-old female former smoker with history of diabetic gastroparesis, migraines and bleeding internal hemorrhoids presents with a chief complaint of 4 episodes of significant bright red blood per rectum in the toilet. She denies much in the way of pain but has become dizzy and lightheaded and even fell as a consequence of her dizziness this morning. She had surgery 8 days ago with a hemorrhoidectomy and sphincterotomy. She denies chest pain or shortness of breath. She has had no fever chills. She denies any other symptoms. She did reach out with the surgical team but had yet to hear back. MD complaint: gross hematochezia Onset (ago): hour(s) Severity: moderate Relieving factors: none Exacerbating factors: none Context: hemorrhoids Treatments Prior to Arrival: none Related Data Home Medications Medication Instructions Recorded Confirmed insulin aspart U-100 [Novolog 1 dose CONTINUOUS SUBCUTANEOUS 09/10/18 02/11/21 U-100 Insulin aspart] INFUSION CONT PRN sennosides 8.6 mg tablet 8.6 mg PO DAILY tab 05/01/20 02/11/21 Previous Rx's Medication Instructions Recorded ondansetron HCl [Zofran] 4 mg PO Q6H PRN #12 tab 03/25/20 One Touch Ultra Test Strips #250 each 05/01/20 oxycodone 5 mg PO Q6H PRN #30 tab 02/11/21 Allergies Allergy/AdvReac Type Severity Reaction Status Date / Time lactose [LACTOSE] Allergy Intermediate Verified 02/11/21 09:35 hydromorphone [From DILAUDID] Allergy Unknown Verified 02/11/21 09:35 diphenhydramine AdvReac Unknown ANXIETY, Verified 02/11/21 09:35 DOESNT CALM HER. metoclopramide [From Reglan] AdvReac Anxiety Verified 02/11/21 09:35 Review of Systems Constitutional Constitutional: Denies chills, Denies fatigue, Denies fever(s), Denies frequent falls, Denies lethargy and Denies weakness Eyes Eyes: Denies change in vision, Denies eye discharge, Denies irritation and Denies loss of vision ENT Ears, Nose, Mouth, and Throat: Denies change in voice, Denies dizziness, Denies neck pain, Denies sore throat and Denies throat swelling Cardiovascular Cardiovascular: Denies chest pain, Denies irregular heart rhythm, Denies lightheadedness, Denies palpitations, Denies dyspnea, Denies dyspnea on exertion and Denies orthopnea Respiratory Respiratory: Denies cough, Denies dyspnea, Denies dyspnea on exertion and Denies wheezing Gastrointestinal Gastrointestinal: Reports hematochezia, Denies change in bowel habits, Denies diarrhea, Denies nausea and Denies vomiting Musculoskeletal Musculoskeletal: Denies neck pain and Denies numbness Integumentary/Breasts Skin/Breast: Denies pruritus, Denies erythema, Denies rash and Denies wounds Neurologic Neurologic: Denies behavioral changes, Denies confusion, Denies dizziness, Denies frequent falls, Denies loss of vision, Denies numbness and Denies weakness Psychiatric Psychiatric: Denies anxiety, Denies behavioral changes, Denies confusion, Denies depression, Denies homicidal ideation and Denies suicidal ideation Endocrine Endocrine: Denies fatigue, Denies flushing and Denies palpitations Hematologic/Lymphatic Hematologic/Lymphatic: Denies easy bruising Allergic/Immunologic Allergic/Immunologic: Denies urticaria, Denies throat swelling and Denies wheezing Patient History Medical History Chin injury (1995) Hemorrhoids History of blood clots Hyperlipidemia, unspecified Insulin pump in place Tachycardia Type 1 diabetes Surgical History delivery delivered No pertinent past surgical history Status post ORIF of fracture of ankle Tubal ligation status Family History Mother Thyroid disease Father Lumbar back pain Cancer Sister Diabetes mellitus Social History household members: spouse and children Smoking Status: Former smoker alcohol intake: current Smoking Status: Former smoker alcohol intake frequency: 0-2 drinks per day Substance Use Type: does not use Exam Narrative Exam Narrative: GENERAL: [41] year old patient appears stated age. Well-n ourished, well-developed patient, in mild distress. HEAD: Atraumatic. Normocephalic. EYES: Pupils equal round and reactive. Extraocular motions intact. No scleral icterus. No injection or drainage. ENT: Nose without bleeding, purulent drainage. Throat without erythema, tonsillar hypertrophy or exudate. Airway patent. NECK: Trachea midline. Non tender CARDIOVASCULAR: Regular rate and rhythm without murmurs, gallops, or rubs. RESPIRATORY: Clear to auscultation. Breath sounds equal bilaterally. No wheezes, rales, or rhonchi. GASTROINTESTINAL: Abdomen soft, non-tender, nondistended. RECTAL: External hemorrhoids noted, bright red blood with fresh clots noted, no active flow currently. Digital rectal exam deferred given recent surgery. This exam performed with patient permission and female nurse securities compliance examiner at the bedside EXTREMITIES: No edema or joint tenderness. BACK: Nontender without deformity or crepitance. No flank tenderness. NEURO: AOx3. SKIN: No rash or erythema of visible areas Initial Vital Signs Initial Vital Signs: Vital Signs Temperature 97.6 F 02/19/21 07:18 Pulse Rate 93 H 02/19/21 07:18 Respiratory Rate 16 02/19/21 07:18 Blood Pressure 118/68 02/19/21 07:18 Pulse Oximetry 96 02/19/21 07:18 Course Course Course Narrative: patient seen by her surgeon at bedside and will take to the OR later this morning Orders Ordered: ED Orders 02/19/21 08:43 Basic Metabolic Panel Stat Complete Blood Count AUTO DIFF Stat Type and Screen Stat 02/19/21 09:27 COVID19 -Nasal swab/Pre-Proc Stat Discontinued Medications Metronidazole (Flagyl) 500 mg in 100 mls @ 100 mls/hr IV INTRA-OP ONE Stop: 02/19/21 10:22 Cefazolin Sodium/Dextrose (Ancef) 2 gm in 100 mls @ 200 mls/hr IV INTRA-OP ONE Stop: 02/19/21 09:52 Vital Signs Vital signs: Vital Signs - 8 hr 02/19/21 07:18 02/19/21 09:32 Temperature 97.6 F Pulse Rate 93 H 87 Respiratory Rate 16 Blood Pressure 118/68 Pulse Oximetry 96 100 MDM - GI Bleed Lab Data Result diagrams: 02/19/21 08:43 02/19/21 08:43 Labs: Lab Results 02/19/21 02/19/21 02/19/21 Range/Units 08:43 08:43 08:43 WBC 5.9 (4.5-11.0) X10^3/uL RBC 3.65 L (4.0-5.2) X10^6/uL Hgb 11.2 L (12.0-16.0) g/dL Hct 33.2 L (36-46) % MCV 90.7 (80-100) fL MCH 30.7 (26-34) PG MCHC 33.8 (30-36) % RDW 13.0 (11.6-14.8) % Plt Count 304 (150-400) X10^3/uL Neut % (Auto) 71.8 (50-75) % Lymph % (Auto) 14.8 L (25-40) % [place] % (Auto) 9.4 (3-14) % Eos % (Auto) 3.2 (2-4) % Baso % (Auto) 0.8 (0-2) % Neut # (Auto) 4200 (8283-7310) /uL Lymph # (Auto) 900 L (2099-0106) /uL [place] # (Auto) 600 (0-900) /uL Eos # (Auto) 200 (0-450) /uL Baso # (Auto) 0 (0-100) /uL Sodium 135 L (137-145) mmol/L Potassium 3.4 (3.4-5.1) mmol/L Chloride 102 (98-107) mmol/L Carbon Dioxide 28 (22-32) mmol/L BUN 12 (7-17) mg/dL Creatinine 0.54 (0.52-1.04) mg/dL Estimated GFR > 60.0 (>60) mL/min BUN/Creatinine Ratio 22.2 H (6-22) Glucose 237 H (70-100) mg/dL Calcium 8.6 (8.4-10.2) mg/dL SARS-CoV-2 (PCR) (Negative) Blood Type A Positive Antibody Screen Negative 02/19/21 Range/Units 09:27 WBC (4.5-11.0) X10^3/uL RBC (4.0-5.2) X10^6/uL Hgb (12.0-16.0) g/dL Hct (36-46) % MCV (80-100) fL MCH (26-34) PG MCHC (30-36) % RDW (11.6-14.8) % Plt Count (150-400) X10^3/uL Neut % (Auto) (50-75) % Lymph % (Auto) (25-40) % [place] % (Auto) (3-14) % Eos % (Auto) (2-4) % Baso % (Auto) (0-2) % Neut # (Auto) (0945-3664) /uL Lymph # (Auto) (7219-3289) /uL [place] # (Auto) (0-900) /uL Eos # (Auto) (0-450) /uL Baso # (Auto) (0-100) /uL Sodium (137-145) mmol/L Potassium (3.4-5.1) mmol/L Chloride (98-107) mmol/L Carbon Dioxide (22-32) mmol/L BUN (7-17) mg/dL Creatinine (0.52-1.04) mg/dL Estimated GFR (>60) mL/min BUN/Creatinine Ratio (6-22) Glucose (70-100) mg/dL Calcium (8.4-10.2) mg/dL SARS-CoV-2 (PCR) Negative (Negative) Blood Type Antibody Screen Discharge Plan Departure Patient Disposition: Admitted to Surgery Clinical Impression: Bright red rectal bleeding Admit Date/Time: 02/19/21 09:38 Admit Provider: Fina Rock
[2021-02-19 08:51] LABS: Add Manual Diff / Slide Review NO; Basophils Absolute Auto 0 /uL (0-100); Basophils Percent Auto 0.8 % (0-2); Eosinophils Absolute Auto 200 /uL (0-450); Eosinophils Percent Auto 3.2 % (2-4); Hematocrit 33.2 % (36-46); Hemoglobin 11.2 g/dL (12.0-16.0); Lymphocytes Absolute Auto 900 /uL (1100-4500); Lymphocytes Percent Auto 14.8 % (25-40); Mean Corpuscular HGB Conc 33.8 % (30-36); Mean Corpuscular Hemoglobin 30.7 PG (26-34); Mean Corpuscular Volume 90.7 fL (80-100); Monocytes Absolute Auto 600 /uL (0-900); Monocytes Percent Auto 9.4 % (3-14); Neutrophils Absolute Auto 4200 /uL (1500-7000); Neutrophils Percent Auto 71.8 % (50-75); Platelet Count 304 X10^3/uL (150-400); Red Blood Cell Count 3.65 X10^6/uL (4.0-5.2); White Blood Cell Count 5.9 X10^3/uL (4.5-11.0)
[2021-02-19 09:08] LABS: BUN Creatinine Ratio 22.2 (6-22); Blood Urea Nitrogen 12 mg/dL (7-17); Calcium 8.6 mg/dL (8.4-10.2); Carbon Dioxide 28 mmol/L (22-32); Chloride 102 mmol/L (98-107); Estimated Glomerular Filt Rate > 60.0 mL/min (>60); Glucose 237 mg/dL (70-100); HEMOLYSIS < 15 (0-50); Potassium 3.4 mmol/L (3.4-5.1); Sodium 135 mmol/L (137-145)
--- NOTE | 2021-02-19 09:26 | PM.HP.1 ---
History of Present Illness History of Present Illness Date Patient Seen: 02/19/21 Time Patient Seen: 09:26 Chief complaint: Sgy 8 days ago/ rectal bleeding in toilet today Narrative: This is a 41-year-old woman with type 1 diabetes, and low-grade obesity, who had hemorrhoidectomy insert durotomy 8 days ago for very severe circumferential hemorrhoids and anal fissure. She had no bleeding, until today, when she suddenly filled the toilet bowl 3 times with bright red blood. She came into the ER, was found to have a hemoglobin of 11.2, and swelling and clots but no active bleeding on exam. Per the patient she became lightheaded at home, and stumbled, but did not fall down. Her blood sugar is in the 250s right now as she has been turning down her insulin pump in anticipation of being NPO. She had about 8 oz of water at 6:00 a.m. this morning. Her last solid food was last evening. She reports she has been having regular soft bowel movements without any constipation or straining ever since surgery. She reports she had pain after surgery until today, and suddenly had relief of the pain right before her bleeding episodes. ROS: Thirteen system review is otherwise negative other than as mentioned below and in HPI. PE: GENERAL: Well groomed and cooperative. Appears stated age. Answers questions promptly and appropriately. Vital signs noted. HENT: Normocephalic, atraumatic. Hearing intact. EYES: Conjunctiva pink, sclera white, no periorbital swelling. CARDIOVASCULAR: Regular rate. No pedal edema. RESPIRATORY: Non-tachypneic, breathing comfortably on room air. GASTROINTESTINAL: Abdomen soft and non-distended Perianal: Deferred, already performed by ER doctor, pending anorectal exam under anesthesia in the OR GENITALURINARY: No flank tenderness. MUSCULOSKELETAL: Equal tone and mass bilaterally. SKIN: Warm, dry, soft, appropriate color for ethnicity. No other lesions, rashes, or wounds. NEURO: Alert and Oriented X 3. No gross sensory deficits, or cognitive issues. PSYCH: Appropriate affect and mood. Patient History Medical History Chin injury (1995) Hemorrhoids History of blood clots Hyperlipidemia, unspecified Insulin pump in place Tachycardia Type 1 diabetes Surgical History delivery delivered No pertinent past surgical history Status post ORIF of fracture of ankle Tubal ligation status Family & Social History Family History Mother Thyroid disease Father Lumbar back pain Cancer Sister Diabetes mellitus Social History: household members spouse,children Safety & Behavioral: Feels Safe in Current Yes Environment Been Physically Hurt or No Threatened By a Person Tobacco & Substance use: Tobacco type cigarettes Smoking Status Former smoker alcohol intake current alcohol intake frequency 0-2 drinks per day Substance Use Type does not use Meds Home Medications and Allergies Home Medications Medication Instructions Recorded Confirmed Type insulin aspart U-100 [Novolog 1 dose CONTINUOUS SUBCUTANEOUS 09/10/18 02/11/21 History U-100 Insulin aspart] INFUSION CONT PRN ondansetron HCl [Zofran] 4 mg PO Q6H PRN #12 tab 03/25/20 02/11/21 Rx One Touch Ultra Test Strips #250 each 05/01/20 01/14/21 Rx sennosides 8.6 mg tablet 8.6 mg PO DAILY tab 05/01/20 02/11/21 History oxycodone 5 mg PO Q6H PRN #30 tab 02/11/21 Rx Allergies Allergy/AdvReac Type Severity Reaction Status Date / Time lactose [LACTOSE] Allergy Intermediate Verified 02/11/21 09:35 hydromorphone [From DILAUDID] Allergy Unknown Verified 02/11/21 09:35 diphenhydramine AdvReac Unknown ANXIETY, Verified 02/11/21 09:35 DOESNT CALM HER. metoclopramide [From Reglan] AdvReac Anxiety Verified 02/11/21 09:35 Exam Vital Signs (past 8 hours): - 02/19/21 07:18 Temperature 97.6 F Pulse Rate 93 H Respiratory Rate 16 Blood Pressure 118/68 Pulse Oximetry 96 Oxygen Delivery Method Room Air Objective Labs Result Diagrams: 02/19/21 08:43 02/19/21 08:43 Labs: Laboratory Results - last 24 hr 02/19/21 02/19/21 08:43 08:43 WBC 5.9 RBC 3.65 L Hgb 11.2 L Hct 33.2 L MCV 90.7 MCH 30.7 MCHC 33.8 RDW 13.0 Plt Count 304 Neut % (Auto) 71.8 Lymph % (Auto) 14.8 L [place] % (Auto) 9.4 Eos % (Auto) 3.2 Baso % (Auto) 0.8 Neut # (Auto) 4200 Lymph # (Auto) 900 L [place] # (Auto) 600 Eos # (Auto) 200 Baso # (Auto) 0 Sodium 135 L Potassium 3.4 Chloride 102 Carbon Dioxide 28 BUN 12 Creatinine 0.54 Estimated GFR > 60.0 BUN/Creatinine Ratio 22.2 H Glucose 237 H Calcium 8.6 Assessment & Plan Assessment and plan (1) Type 1 diabetes: Qualifiers: Diabetes mellitus complication status: without complication Qualified Code(s): E10.9 - Type 1 diabetes mellitus without complications Status: Chronic (2) Status post hemorrhoidectomy: Status: Acute (3) Rectal bleeding: Status: Acute Assessment & Plan narrative: This is a 41-year-old woman with acute rectal bleeding it is after hemorrhoidectomy. Likely a stitch broke or tore through, as she suddenly had a relief of her anal discomfort at the time of her bleeding. We will need to do an anorectal exam under anesthesia in the operating room, and get hemostasis before letting her go home. She may be able to go home later today, but we will have to check her blood count after surgery, and see how she is feeling. If she is stable to go home we may discharge her home this afternoon, or she may need to stay for observation overnight. I discussed all this with the patient including risks of surgery such as bleeding, infection, damage to nearby structures, need for additional procedures, postoperative pain, recurrence of hemorrhoids. Plan: Rapid COVID test NPO IV fluid Ancef and Flagyl to be given in the OR Schedule for urgent return to OR for an rectal exam under anesthesia, and hemostasis COVID-19 COVID-19 status: Result pending Result date/Date tested (Pos, Neg/Pending): 02/19/21 Time Spent With Patient Time with patient: 25 - 35 minutes Quality VTE Deep Vein Thrombosis/Pulmonary Embolism Present on Admission: No
[2021-02-19 10:01] LABS: COVID19 -Nasal RAPID Negative (Negative)
[2021-02-19] MEDS: CEFAZOLIN 2 GM/100 ML FROZ.PIGGY IV (11:53)
[2021-02-19] MEDS: metroNIDAZOLE 500 MG/100 ML PIGGYBACK 100 MG IV (12:05)
[2021-02-19] MEDS: BUPIVACAINE LIPOSOME 266 MG/20 ML VIAL INJ (12:17)
[2021-02-19] MEDS: BUPIVACAINE 0.25% W/ EPI 30 ML VIAL INJ (12:18)
[2021-02-19] MEDS: DIBUCAINE 1% OINT 28 GM 1 APPLIC TOP (12:18)
--- NOTE | 2021-02-19 12:22 | SUR.OPER ---
Prone on padded OR bed, head in foam head support, gel chest rolls, gel pad under knees, gel pad under foot/toe area, pillow under lower legs, toes free of pressure, arms secured on padded arm boards at <90 degrees abduction. Safety belt at thigh. Tape over lower legs. Jacknife position used also. Mastisol and 3 silk tape to buttocks to assist spreading buttocks.
--- NOTE | 2021-02-19 12:51 | PM.OP.1 ---
Operative Date/Time/Diagnoses Date of procedure: 02/19/21 Time of procedure: 12:51 Pre-op diagnosis: Post hemorrhoidectomy bleed Post-op diagnosis: other (single arterial bleeder at base of right posterior hemorrhoidal complex) Procedure & Clinicians Procedure: Anorectal exam under anesthesia, suture ligation of bleeding vessel Same procedure as scheduled: Yes Indications: Post hemorrhoidectomy bleeding Surgeon: Fina Rock Click Yes if Unassisted: Yes Anesthesia Type: General Operative Notes Findings: Single bleeding vessel in the right posterior column hemorrhoidectomy site Specimen(s): none sent Estimated Blood Loss (mL): 25 Procedure in detail: The patient was brought into the OR. Sequential compression devices were placed on both legs and turned on. Appropriate perioperative antibiotics were given. General anesthesia was induced and the patient was intubated. The patient was turned prone onto the OR table. All bony prominences were padded. The buttocks were taped apart. The perianal area was prepped and draped in sterile fashion with betadine prep. Surgical timeout was conducted. 0.25% Marcaine with epi was used to perform a four quadrant anal block using 5mL per quadrant for a total of 20mL. With copious lubricant, an anorectal exam was performed. A Hill-Kruse retractor was placed in the anal canal, and each quadrant was examined. A single arterial bleeder was found in the right posterior hemorrhoidal column, and it appeared the suture from the base of that hemorrhoid had popped off. An 0 Vicryl suture on a UR 6 needle was used to over sew the bleeding vessel, with good hemostasis. Additional local anesthetic was injected in the surgical area. A total of 40 mL of 0.25% Marcaine with epi was used for the case. 20mL of Exparel was used to inject the anoderm and anal canal circumferentially 2-3mL per cm. A large Gelfoam was then coated and rolled with Dibucaine and placed in the anal canal. A thick layer of Dibucaine was used to coat the anoderm. A stack of 4x4 gauze was then used to cover the anal opening and secured in place with medipore tape. The patient was transferred onto her hospital bed into supine position. She was then awakened from anesthesia and extubated. Needle, sponge, and instrument counts were correct x 2. The patient was transferred to the PACU in stable condition. Complications: none Post-operative Condition: stable Disposition: PACU Plan for aftercare: Postop CBC to be drawn. Patient being transferred to observation. Hospitalist consult for hyperglycemia. Overnight observation with repeat CBC in the morning. Discharge pending patient is hemodynamically stable, without further bleeding, and does not require transfusion.
[2021-02-19] MEDS: ACETAMINOPHEN 325 MG TABLET 650 MG PO (13:03)
[2021-02-19] MEDS: ONDANSETRON 4 MG/2 ML INJ IV (13:04)
[2021-02-19] MEDS: OXYCODONE IR 5 MG TABLET PO ×2 (13:24→21:19)
--- NOTE | 2021-02-19 13:25 | SUR.PHASEI ---
Pt hard stick. Unable to obtain blood draw. New IV start with lab collection successful. T&C obtained to be held.. During visit at bsd, Dr Rock informed pt that she will probably get a PRBC transfusion. This availability of specimen will allow for expedited care and timely intervention.
[2021-02-19 14:16] LABS: Add Manual Diff / Slide Review NO; Basophils Absolute Auto 100 /uL (0-100); Basophils Percent Auto 1.2 % (0-2); Eosinophils Absolute Auto 100 /uL (0-450); Eosinophils Percent Auto 2.5 % (2-4); Hematocrit 32.8 % (36-46); Hemoglobin 10.8 g/dL (12.0-16.0); Lymphocytes Absolute Auto 1500 /uL (1100-4500); Lymphocytes Percent Auto 26.4 % (25-40); Mean Corpuscular Hemoglobin 30.2 PG (26-34); Mean Corpuscular Volume 91.6 fL (80-100); Monocytes Absolute Auto 400 /uL (0-900); Monocytes Percent Auto 7.1 % (3-14); Neutrophils Absolute Auto 3600 /uL (1500-7000); Neutrophils Percent Auto 62.8 % (50-75); Platelet Count 59 X10^3/uL (150-400); Red Blood Cell Count 3.58 X10^6/uL (4.0-5.2); Red Cell Distribution Width 12.8 % (11.6-14.8); White Blood Cell Count 5.8 X10^3/uL (4.5-11.0)
[2021-02-19] MEDS: SODIUM CHLORIDE 0.9% 1,000 ML 125 ML IV ×2 (14:49→21:20)
--- NOTE | 2021-02-19 20:10 | P.HP_ITS ---
History of Present Illness History of Present Illness Date Patient Seen: 02/19/21 Time Patient Seen: 16:10 Chief complaint: Sgy 8 days ago/ rectal bleeding in toilet today Narrative: 41W with PMH of type 1 diabetes with insulin pump who had a a hemorrhoidectomy for circumferential hemorrhoids and anal fissure. Today she began having bright red blood per rectum. She was lightheaded at home. She came into the ER, was found to have a hemoglobin of 11.2. She went to the OR with Dr. Rock who placed a suture on a bleeding vessel. Medicine is consulted for help managing her diabetes. Patient has had her insulin pump for years and feels very comfortable managing her pump. At home her blood sugars have been slightly high post her initial surgery. She had blood sugars in the 250s initially as she had turned down her insulin pump in preparation of being NPO for surgery. After surgery she continued initially in the mid 250s, however when I saw her she was completely back to her mental baseline and had adjusted her insulin to give more boluses and her blood sugar was improving to the low 200s. She initially told me that she was targeting blood sugar in the 180s while she was not taking a full diet. Patient History Medical History Chin injury (1995) Hemorrhoids History of blood clots Hyperlipidemia, unspecified Insulin pump in place Tachycardia Type 1 diabetes Surgical History delivery delivered No pertinent past surgical history Status post ORIF of fracture of ankle Tubal ligation status Family & Social History Family History Mother Thyroid disease Father Lumbar back pain Cancer Sister Diabetes mellitus Social History: household members spouse,children Safety & Behavioral: Feels Safe in Current Yes Environment Been Physically Hurt or No Threatened By a Person Suicidal Ideation Description None Suicide Plan Description No Plan Tobacco & Substance use: Tobacco type cigarettes Smoking Status Former smoker alcohol intake current alcohol intake frequency 0-2 drinks per day Substance Use Type does not use Meds Home Medications and Allergies Home Medications Medication Instructions Recorded Confirmed Type insulin aspart U-100 [Novolog 1 dose CONTINUOUS SUBCUTANEOUS 09/10/18 02/19/21 History U-100 Insulin aspart] INFUSION CONT PRN ondansetron HCl [Zofran] 4 mg PO Q6H PRN #12 tab 03/25/20 02/19/21 Rx sennosides 8.6 mg tablet 8.6 mg PO DAILY tab 05/01/20 02/19/21 History oxycodone 5 mg PO Q4H PRN #20 tab 02/19/21 Rx Allergies Allergy/AdvReac Type Severity Reaction Status Date / Time hydromorphone [From DILAUDID] Allergy Unknown Verified 02/19/21 11:20 diphenhydramine AdvReac Unknown ANXIETY, Verified 02/11/21 09:35 DOESNT CALM HER. metoclopramide [From Reglan] AdvReac Anxiety Verified 02/11/21 09:35 Review of Systems Review of Systems Narrative: 14 systems reviewed and negative aside from HPI Exam Vital Signs (past 8 hours): - 02/19/21 12:38 02/19/21 12:43 02/19/21 12:48 Temperature 97.2 F L Pulse Rate 104 H 108 H 103 H Respiratory Rate 13 16 12 Blood Pressure 115/67 106/69 112/70 Pulse Oximetry 100 96 97 02/19/21 12:53 02/19/21 13:08 02/19/21 13:20 Temperature Pulse Rate 94 H 90 96 H Respiratory Rate 12 12 14 Blood Pressure 121/69 112/73 117/72 Pulse Oximetry 97 98 99 02/19/21 13:30 02/19/21 13:50 02/19/21 14:04 Temperature 97.8 F 97.9 F Pulse Rate 85 96 H 90 Respiratory Rate 12 16 16 Blood Pressure 122/72 127/80 129/81 Pulse Oximetry 100 97 100 02/19/21 14:34 02/19/21 15:04 02/19/21 16:05 Temperature 97.9 F Pulse Rate 87 81 80 Respiratory Rate 16 18 Blood Pressure 116/70 120/77 110/65 Pulse Oximetry 100 100 100 02/19/21 17:05 Temperature 97.8 F Pulse Rate 84 Respiratory Rate 18 Blood Pressure 127/76 Pulse Oximetry 100 Oxygen Delivery Method Room Air Oxygen Flow Rate 0 Narrative Exam Narrative: GEN: no acute distress, alert HEENT: PERRL, moisst mucous membranes CV: RRR no murmurs PULM: clear bilaterally no wheezes, rhonchi, rales ABD: soft, nontender, nondistended, no organomegaly, normal bowel sounds MSK: equal tone and strength bilaterally SKIN: no noted rashes, warm and dry NEURO: AAOx3, moving all extremities normally PSYCH: pleasant mood, cooperative Objective Labs Result Diagrams: 02/19/21 13:32 02/19/21 08:43 Labs: Laboratory Results - last 24 hr 02/19/21 02/19/21 02/19/21 08:43 08:43 08:43 WBC 5.9 RBC 3.65 L Hgb 11.2 L Hct 33.2 L MCV 90.7 MCH 30.7 MCHC 33.8 RDW 13.0 Plt Count 304 Neut % (Auto) 71.8 Lymph % (Auto) 14.8 L [place] % (Auto) 9.4 Eos % (Auto) 3.2 Baso % (Auto) 0.8 Neut # (Auto) 4200 Lymph # (Auto) 900 L [place] # (Auto) 600 Eos # (Auto) 200 Baso # (Auto) 0 Sodium 135 L Potassium 3.4 Chloride 102 Carbon Dioxide 28 BUN 12 Creatinine 0.54 Estimated GFR > 60.0 BUN/Creatinine Ratio 22.2 H Glucose 237 H Calcium 8.6 SARS-CoV-2 (PCR) Blood Type A Positive Antibody Screen Negative 02/19/21 02/19/21 09:27 13:32 WBC 5.8 RBC 3.58 L Hgb 10.8 L Hct 32.8 L MCV 91.6 MCH 30.2 MCHC 33.0 RDW 12.8 Plt Count 59 L Neut % (Auto) 62.8 Lymph % (Auto) 26.4 [place] % (Auto) 7.1 Eos % (Auto) 2.5 Baso % (Auto) 1.2 Neut # (Auto) 3600 Lymph # (Auto) 1500 [place] # (Auto) 400 Eos # (Auto) 100 Baso # (Auto) 100 Sodium Potassium Chloride Carbon Dioxide BUN Creatinine Estimated GFR BUN/Creatinine Ratio Glucose Calcium SARS-CoV-2 (PCR) Negative Blood Type Antibody Screen Assessment & Plan Assessment & Plan narrative: Ms. Pathak is a 41W PMH of Type 1 DM, s/p hemorrhoidectomy with bleeding now s/p suture of bleeding vessel. 1. Type 1 Diabetes - on insulin pump -medicine consulted for further management of diabetes -patient is very alert, and very familiar with how to manage her insulin pump -at this point trying to turn off pump and give SC insulin would likely cause more difficulty in stabilizing blood sugar -recommendation is to encourage patient to target normal blood sugars -she is hesitant to adjust her pump significantly given fear of hypoglycemic events -encourage patient to titrate blood sugar slightly lower, she appeared to compromise with goal close to blood sugar of 140 -nursing has orders to check blood sugars Code status: Full, proxy is spouse [place] IVF, nutrition, DVT ppx are all per surgery Quality VTE Deep Vein Thrombosis/Pulmonary Embolism Present on Admission: No
[2021-02-19] MEDS: PSYLLIUM HUSK 1 PACKET PO (20:19)
--- NOTE | 2021-02-19 20:44 | PC.NURSE ---
Addendum entered by Trudy Pepe R.N. 02/19/21 21:26: States discomfort is now a 6/10 Med w/oxycodone as per orders. HS CBG = 112, pt tends to her insulin pump on her own. Continue w/plan of care. Original Note: Pt had uneventful evening. Resting quietly most shift. Lungs clear, SpO2 98% RA IVF NS @ 125cc/hr infusing into the RAC via pump w/o incidence. HL right hand intact/patent. States just minimal discomfort, declines med . Dsh to anal area remains CDI. Call light w/in reach, pt calls appropriately for needs. Continue w/plan of care.
[2021-02-20] VITALS: BP 132/79; PULSE 100; RESP 16; TEMP 36.4; O2SAT 98
[2021-02-20] MEDS: OXYCODONE IR 5 MG TABLET PO (02:54)
[2021-02-20 03:50] VITALS: BP 136/84; PULSE 77; RESP 16; TEMP 36.1; O2SAT 99
--- NOTE | 2021-02-20 04:04 | PC.NURSE ---
0315 Rt. hand IV access painful, no erythema noted. Discontinued cath. intact.
[2021-02-20] MEDS: SODIUM CHLORIDE 0.9% 1,000 ML 125 ML IV (05:28)
[2021-02-20 07:30] VITALS: BP 148/91; PULSE 88; RESP 16; TEMP 36.3; O2SAT 99
[2021-02-20] MEDS: ONDANSETRON 4 MG/2 ML INJ IV (07:33)
--- NOTE | 2021-02-20 07:58 | PC.NURSE ---
Assess- Patient complained of nausea and headache, given zofran and patient will be due for oxycodone around 0830. Dressing to bottom cdi, without any bleeding. She is lying on her r.side and resting now. Breakfast will be here soon. Will assess patients appetite after she eats to make sure she is not nauseous.
[2021-02-20 08:11] LABS: Add Manual Diff / Slide Review NO; Basophils Absolute Auto 100 /uL (0-100); Basophils Percent Auto 1.2 % (0-2); Eosinophils Absolute Auto 200 /uL (0-450); Eosinophils Percent Auto 4.1 % (2-4); Hematocrit 28.7 % (36-46); Hemoglobin 9.6 g/dL (12.0-16.0); Lymphocytes Absolute Auto 1300 /uL (1100-4500); Lymphocytes Percent Auto 24.4 % (25-40); Mean Corpuscular HGB Conc 33.3 % (30-36); Mean Corpuscular Hemoglobin 30.3 PG (26-34); Mean Corpuscular Volume 90.9 fL (80-100); Monocytes Absolute Auto 400 /uL (0-900); Monocytes Percent Auto 8.6 % (3-14); Neutrophils Absolute Auto 3200 /uL (1500-7000); Neutrophils Percent Auto 61.7 % (50-75); Platelet Count 285 X10^3/uL (150-400); Red Blood Cell Count 3.16 X10^6/uL (4.0-5.2); Red Cell Distribution Width 12.8 % (11.6-14.8); White Blood Cell Count 5.2 X10^3/uL (4.5-11.0)
--- NOTE | 2021-02-20 10:35 | CM.DANOTE ---
DCP: Case received, EMR reviewed and met with patient. Introduced self and role. Was able to obtain information from patient regarding her baseline activity status prior to hospitalization, as well as some health information. DCP assessment completed with information currently available. Patient is a 41 year old female who admitted yesterday morning to the care of the hospitalist team/surgical team. PCP: Dr. Ferrera Payer: confirmed: [facility] [employer]. Patient came to the hospital via private vehicle secondary to having rectal bleeding. She had surgery yesterday, post hemorroidectomy bleed. Patient is a diabetic type 1,and had an insulin pump. Met briefly with patient. She was laying in bed, alert and oriented. She resides here in [place] with her spouse, Zelalem. She is independent at her baseline, she is employed as a [employer]. P: DCP to continue to follow. Patient should be able to go home when stable, possibly today. Evelyn Quiroga RN/Billing Manager
[2021-02-20] MEDS: KETOROLAC 30 MG/ML VIAL IV (11:19)
--- NOTE | 2021-02-20 11:26 | PM.PN.1 ---
Subjective Subjective Date Patient Seen: 02/20/21 Time Patient Seen: 11:27 Interval history: No active bleeding, pain controled. currently has migraine and dry heave. take Excedrin at home. Wants to go home. Toradal IV given Exam Vital Signs (past 8 hours): - 02/20/21 03:50 02/20/21 07:30 Temperature 97.0 F L 97.4 F L Pulse Rate 77 88 Respiratory Rate 16 16 Blood Pressure 136/84 148/91 H Pulse Oximetry 99 99 Oxygen Delivery Method Room Air Oxygen Flow Rate 0 Objective Labs Result Diagrams: 02/20/21 07:02 02/19/21 08:43 Labs: Laboratory Results - last 24 hr 02/19/21 02/20/21 13:32 07:02 WBC 5.8 5.2 RBC 3.58 L 3.16 L Hgb 10.8 L 9.6 L Hct 32.8 L 28.7 L MCV 91.6 90.9 MCH 30.2 30.3 MCHC 33.0 33.3 RDW 12.8 12.8 Plt Count 59 L 285 Neut % (Auto) 62.8 61.7 Lymph % (Auto) 26.4 24.4 L [place] % (Auto) 7.1 8.6 Eos % (Auto) 2.5 4.1 H Baso % (Auto) 1.2 1.2 Neut # (Auto) 3600 3200 Lymph # (Auto) 1500 1300 [place] # (Auto) 400 400 Eos # (Auto) 100 200 Baso # (Auto) 100 100 PFSH Medical History Chin injury (1995) Hemorrhoids History of blood clots Hyperlipidemia, unspecified Insulin pump in place Tachycardia Type 1 diabetes Surgical History delivery delivered No pertinent past surgical history Status post ORIF of fracture of ankle Tubal ligation status Family History Mother Thyroid disease Father Lumbar back pain Cancer Sister Diabetes mellitus Social History household members: spouse and children Smoking Status: Former smoker alcohol intake: current Quality VTE Deep Vein Thrombosis/Pulmonary Embolism Present on Admission: No
--- NOTE | 2021-02-20 11:32 | P.DS_ITS ---
History of Present Illness History of Present Illness Chief complaint: Sgy 8 days ago/ rectal bleeding in toilet today Discharge Providers Provider Date of admission: 02/19/21 09:38 Discharge Date: 02/20/21 Primary care physician: Ayala Ferrera MD Consults: 02/19/21 12:42 Consult to Discharge Planning Routine Comment: 02/19/21 12:48 Consult to Dietitian, Adult Routine Comment: type 1 diabetic, hgb A1c 9, insulin pump Reason For Exam: type 1 diabetic, hgb A1c 9, insulin pump 02/19/21 14:53 Consult to Hospitalist Service Routine Comment: Consulting Provider: Eitan Lee Reason for consultation: poorly controlled type 1 diabetic, in need of post op blood sugar control Has provider been notified: Yes Discharge provider: Asiya Laird MD Summary Hospital Course Discharge Diagnosis: post op hemorrhoidal bleeding Hospital Course: uncomplicated Status at Discharge Cognitive/behavioral status at discharge: oriented Functional status at discharge: independent ambulation Overall status at discharge: patient is back to baseline Time Spent with Patient Time spent: Less than 30 minutes Exam Vital Signs (past 8 hours): - 02/20/21 03:50 02/20/21 07:30 Temperature 97.0 F L 97.4 F L Pulse Rate 77 88 Respiratory Rate 16 16 Blood Pressure 136/84 148/91 H Pulse Oximetry 99 99 Oxygen Delivery Method Room Air Oxygen Flow Rate 0 Narrative Exam Narrative: no active bleeding. Pale and nauseated from migraine head. this is normal for me. Objective Labs Result Diagrams: 02/20/21 07:02 02/19/21 08:43 Labs: Laboratory Results - last 24 hr 02/19/21 02/20/21 13:32 07:02 WBC 5.8 5.2 RBC 3.58 L 3.16 L Hgb 10.8 L 9.6 L Hct 32.8 L 28.7 L MCV 91.6 90.9 MCH 30.2 30.3 MCHC 33.0 33.3 RDW 12.8 12.8 Plt Count 59 L 285 Neut % (Auto) 62.8 61.7 Lymph % (Auto) 26.4 24.4 L [place] % (Auto) 7.1 8.6 Eos % (Auto) 2.5 4.1 H Baso % (Auto) 1.2 1.2 Neut # (Auto) 3600 3200 Lymph # (Auto) 1500 1300 [place] # (Auto) 400 400 Eos # (Auto) 100 200 Baso # (Auto) 100 100 [facility] Medical History Chin injury (1995) Hemorrhoids History of blood clots Hyperlipidemia, unspecified Insulin pump in place Tachycardia Type 1 diabetes Surgical History delivery delivered No pertinent past surgical history Status post ORIF of fracture of ankle Tubal ligation status Family History Mother Thyroid disease Father Lumbar back pain Cancer Sister Diabetes mellitus Social History household members: spouse and children Smoking Status: Former smoker alcohol intake: current Discharge Assessment & Plan Assessment and Plan Assessment: no ongoing bleeding for surgical hemorrhoidectomy migraine which she prefers treating at home. Plan of Treatment: Home with stool softners and pain medication. follow up 2-4 weeks. Discharge Plan Discharge Plan Patient Disposition: Home Provider Discharge Comment: Pain management: You will be prescribed a narcotic pain medication to take as needed. You may also use Ibuprofen as well as Tylenol/Acetaminophen for pain after surgery. Make sure you do not take more than 3000 mg of Acetaminophen per day from any source. There may be Acetaminophen in cold medications or headache remedies. Using an NSAID such as Ibuprofen helps with inflammation. Do not take more than recommended on the packaging instructions. You may take it along with or instead of your prescribed pain medication. You may sit on an ice pack to help with inflammation, swelling, and bruising. Sit in a warm tub to soak your bottom several times per day, before and after bowel movements, and for pain relief. Use over the counter topical lidocaine ointment, Calmoseptine, or Desitin as a barrier cream before and after bowel movements to protect the healing anal area. Bowel Function: Continue your bowel regimen, and avoiding sitting on the toilet for prolonged periods. Dressings: You have a dry dressing on your bottom and a dissolving sponge in your rectum. You may remove the dressing when you are ready to have a bowel movement. The sponge may dissolve or you may see it in the toilet with your first BM after surgery. Activity: Avoid lifting, pulling, or pushing more than 10 lbs or doing other activities that strain the abdomen or increase the abdominal pressure such as sit-ups, core work outs, and attempt to prevent frequent coughing. Discharge orders & Medications Prescriptions: New oxycodone 5 mg tablet 5 mg PO Q4H PRN (Reason: post operative pain) Qty: 20 RF: 0 Continued sennosides [senna] 8.6 mg tablet 8.6 mg PO DAILY RF: 0 insulin aspart U-100 [Novolog U-100 Insulin aspart] 100 unit/mL Solution 1 dose Continuous Subcutaneous Infusion CONT PRN (Reason: sliding scale) RF: 0 ondansetron HCl [Zofran] 4 mg tablet 4 mg PO Q6H PRN (Reason: nausea and vomiting) Qty: 12 RF: 0 Follow up/Referrals: Ayala Ferrera MD [Primary Care Provider] - Fina Rock MD [Physician] - Diet/Activity/Treatments Diet: Diet as Tolerated Skin/Wound/Dressing Care Report to your healthcare provider any signs of infection, such as:: chills, fever, night sweats, increased pain and unusual drainage Visit Report/Discharge Packet Instructions: DI for Prescription Opioid Use Stand Alone Forms: Surgery Discharge Discharge Data Primary Care Provider: Ayala Ferrera Attending Provider: Fina Rock Quality VTE Deep Vein Thrombosis/Pulmonary Embolism Present on Admission: No
[2021-02-20 11:44] VITALS: BP 141/92; PULSE 94; RESP 14; TEMP 35.6; O2SAT 99
--- NOTE | 2021-02-20 12:54 | DIET.PN ---
Dietary Progress Note Assessment: 41y F admitted for rectal bleeding s/p hemorrhoidectomy referred to nutrition for DM1 c insulin pump. Pt very well versed in use of insulin pump. Pt has fear of hypoglycemia so targets range of 180 BG in general. Pt had discussion c hospitalist who encourages targeting [address] with. Pt has no further questions for RD at this time.
== END 2021-02-20 13:15 | disposition home or self-care (01) ==
LOC: ED 09:26 → AC 09:40
PROVIDERS: Admitting Provider Surgery; Emergency Provider Emergency Medicine; PCP Family Medicine; Referring Provider Emergency Medicine; Visit Provider Surgery
PROC: (CPT 46945; principal; 2021-02-19 11:30)
DX: K91.840 Postprocedural hemorrhage of a digestive system organ or structure following a digestive system procedure (principal); T85.612A Breakdown (mechanical) of permanent sutures, initial encounter; Z98.890 Other specified postprocedural states; Z87.19 Personal history of other diseases of the digestive system; E10.9 Type 1 diabetes mellitus without complications; Z79.4 Long term (current) use of insulin; Z20.822 Contact with and (suspected) exposure to COVID-19
CPT/HCPCS: 46945; 36415; 80048; 82962; 85025; 86850; 86900; 86901; 87635; 96361; 96374; 96375; 96376; 99218; 99283; C9803; G0378; C9290; J0690; J1885; J2405; J2704; J2765; J3010

== ENCOUNTER 2021-07-11 16:55 | Emergency (ER) | payer OTHER, MEDICAID, SELFPAY ==
[2021-02-19 14:51] VITALS: BMI 31.6
[2021-07-11 17:02] VITALS: BP 134/81; PULSE 94; RESP 16; TEMP 37.2; O2SAT 98; BMI 29.8
--- NOTE | 2021-07-11 17:08 | DI.US.S_ITS ---
PROCEDURE: US PERIPH VENOUS UP EXTREM RT INDICATIONS: pain, swelling, recent line, hx of DVT TECHNIQUE: Real-time imaging, as well as color and pulse Doppler interrogation, was performed of the right upper extremity deep veins from the inferior neck to the antecubital fossa. COMPARISON: None. FINDINGS: The internal jugular vein, visualized portions of the subclavian vein, axillary, and brachial veins are free of intraluminal thrombus. Where physically possible, the veins are normally compressible. Color and pulse Doppler demonstrate normal intraluminal flow, with expected phasicity and pulsatility. Additional scanning of the cephalic and basilic veins of the superficial system demonstrate superficial thrombus from the level of the shoulder to the lower arm IMPRESSION: No evidence of deep venous thrombosis. Superficial thrombophlebitis involving the cephalic vein. Dictated by: Branden Luis M.D. on 07/11/2021 at 18:26 Approved by: Branden Luis M.D. on 07/11/2021 at 18:33
--- NOTE | 2021-07-11 17:25 | ED_ITS ---
HPI - Extremity Injury (Upper) General Chief Complaint: Extremity Injury, Upper Stated Complaint: sore arm up to shoulder s/p IV 07/07/21 Time Seen by Provider: 07/11/21 17:08 Source: patient Mode of arrival: Ambulatory Limitations: no limitations History of Present Illness HPI narrative: 41-year-old female former smoker with history of diabetes and prior DVT presents with a chief complaint of pain and swelling of her right upper arm over the past few days. She had been out of town and unfortunately had to visit emergency department and had an IV placed. She now has the pain and swelling as mentioned, pain is worse with motion and improves with rest. She denies any chest pain or shortness of breath. She has had no fever or chills and denies any injury. She is not dizzy nor weak or lightheaded. Related Data Home Medications Medication Instructions Recorded Confirmed insulin aspart U-100 100 unit/mL 1 dose CONTINUOUS SUBCUTANEOUS 09/10/18 03/05/21 subcutaneous solution (Novolog INFUSION CONT PRN U-100 Insulin aspart) sennosides 8.6 mg tablet (senna) 8.6 mg PO DAILY tab 05/01/20 03/05/21 Previous Rx's Medication Instructions Recorded ondansetron HCl 4 mg tablet 4 mg PO Q6H PRN #12 tab 03/25/20 (Zofran) oxycodone 5 mg tablet 5 mg PO Q4H PRN #20 tab 02/19/21 apixaban 5 mg (74 tabs) tablets in See Rx Instructions .ROUTE 07/11/21 a dose pack (LegCyte DVT-PE Treat .COMPLEX #74 ea 30D Start) Allergies Allergy/AdvReac Type Severity Reaction Status Date / Time hydromorphone [From DILAUDID] Allergy Unknown Verified 03/05/21 09:01 diphenhydramine AdvReac Unknown ANXIETY, Verified 03/05/21 09:01 DOESNT CALM HER. metoclopramide [From Reglan] AdvReac Anxiety Verified 03/05/21 09:01 Review of Systems Review of Systems Narrative: GENERAL: Denies chills, fatigue, malaise, fever, sweats. HEENT: Denies sinus pain, ear pain, sore throat, difficulty swallowing, dizziness. RESPIRATORY: Denies dyspnea, cough, wheezing, hemoptysis, sputum. CARDIOVASCULAR: Denies chest pain, palpitations, orthopnea, edema, GASTROINTESTINAL: Denies nausea, vomiting, abdominal pain, diarrhea, constipation, melena. : Denies dysuria, frequency, incontinence, hematuria, urinary retention. MUSCULOSKELETAL: See HPI SKIN: Denies rash, skin lesions, or other NEUROLOGIC: Denies weakness, headache, numbness, change in speech, confusion, seizures, incoordination. PSYCHIATRIC: No concerning psychosocial issues. 12 point review of systems is negative except for those stated above Patient History Medical History Bright red rectal bleeding Chin injury (1995) Hemorrhoids History of blood clots Hyperlipidemia, unspecified Insulin pump in place Tachycardia Type 1 diabetes Surgical History delivery delivered No pertinent past surgical history Status post ORIF of fracture of ankle Tubal ligation status Family History Mother Thyroid disease Father Lumbar back pain Cancer Sister Diabetes mellitus Social History household members: spouse and children Smoking Status: Former smoker alcohol intake: current Smoking Status: Former smoker alcohol intake frequency: 0-2 drinks per day Substance Use Type: does not use Exam Narrative Exam Narrative: GEN: AOx3 and in mild distress EYES: Pupils are equal, round, and reactive to light and accommodation. Extraoccular muscles are intact bilaterally. There is no subconjunctival hemorrhage or exudate. CHEST: Lungs are clear to auscultation bilaterally and free of wheezes, rales, or rhonchi. Heart rate is regular rhythm, there are no murmurs, clicks, rubs, or gallops. There is no chest wall tenderness. ABD: Abdomen is soft and nontender. There is no guarding or rebound. Bowel sounds are normal in all 4 quadrants. There is no mass or organomegaly. EXT: Right upper extremity from elbow to shoulder is moderately swollen with minimal erythema, tenderness on anterior arm. SKIN: OTherwise Warm, pink, and dry. No erythema or rash Initial Vital Signs Initial Vital Signs: Vital Signs Temperature 98.9 F 07/11/21 17:02 Pulse Rate 94 H 07/11/21 17:02 Respiratory Rate 16 07/11/21 17:02 Blood Pressure 134/81 07/11/21 17:02 Pulse Oximetry 98 07/11/21 17:02 Course Orders Ordered: ED Orders 07/11/21 17:08 US periph venous up extrem rt Stat Vital Signs Vital signs: Vital Signs - 8 hr 07/11/21 17:02 07/11/21 17:55 Temperature 98.9 F Pulse Rate 94 H 88 Pulse Rate [Bilateral Radial] 88 Respiratory Rate 16 18 Blood Pressure 134/81 137/89 Pulse Oximetry 98 98 MDM - Extremity Injury (Upper) Imaging Data US - DVT: Radiologist's Impression: Launch?[address] [address] Ultrasound Report Signed Patient: Kitty Pathak MR#: [id number] : 1980 Acct:[id number] Age/Sex: 41 / F Date of Service: 07/11/21 Loc: ED Accession Number: [id number] ?? Procedure: US periph venous up extrem rt Ordering Provider: Chris Daugherty D.O. PROCEDURE:? US PERIPH VENOUS UP EXTREM RT ? INDICATIONS:? pain, swelling, recent line, hx of DVT ? TECHNIQUE:? Real-time imaging, as well as color and pulse Doppler interrogation, was performed of the right upper extremity deep veins from the inferior neck to the antecubital fossa.? ? COMPARISON:? None. ? FINDINGS:? The internal jugular vein, visualized portions of the subclavian vein, axillary, and brachial veins are free of intraluminal thrombus.? Where physically possible, the veins are normally compressible.? Color and pulse Doppler demonstrate normal intraluminal flow, with expected phasicity and pulsatility.? Additional scanning of the cephalic and basilic veins of the superficial system demonstrate superficial thrombus from the level of the shoulder to the lower arm ? IMPRESSION:? No evidence of deep venous thrombosis. ? Superficial thrombophlebitis involving the cephalic vein. ? Dictated by: Branden Luis M.D. on 07/11/2021 at 18:26 ? ? Approved by: Branden Luis M.D. on 07/11/2021 at 18:33 ? [facility] Narrative Medical decision making narrative: 41-year-old female with recent intravascular access, pain and swelling in her upper extremity and history of DVT. Ultrasound demonstrates a large thrombus in the cephalic vein in though it is not within a deep vein the size in proximity to deep veins indicate need for anticoagulation. This has been relayed to the patient and she agrees with and understands the diagnosis. Questions answered to her apparent satisfaction. Discharge Plan Departure Patient Disposition: Home Clinical Impression: Acute cephalic vein thrombosis Qualifiers: Laterality: right Qualified Code(s): I82.611 - Acute embolism and thrombosis of superficial veins of right upper extremity Instructions: DI for Deep Vein Thrombosis Activity Restrictions/Additional Instructions: *You have been diagnosed with [large acute thrombus of proximal cephalic vein, though this is not technically a DVT is treated the same given its size and proximity to the deep veins *What to do: *Please continue to take your regular medications as directed. [x ] New medication prescriptions sent to your pharmacy: [[facility] ] [ ] New medication written as a paper prescription [ ] No new medications given *Please follow up with your primary care provider in 2-3 days, call for an appointment. Let them know you were seen in the Emergency Department and that we ask that you be seen in follow up. We will electronically transmit a record of today's note if your PCP is in our system *If you do not have a primary care provider please contact the [facility] Resource line at [phone]. They will ask some questions about your medical history and help get you set up with a doctor in the community. *Return to Emergency Department if you should have any new, worsening or concerning symptoms, such as [fever greater than 101 F, shaking chills, worsening pain, persistent vomiting or other bothersome symptoms] Prescriptions: New Ravinderis DVT-PE Treat 30D Start 5 mg (74 tabs) tablets,dose pack See Rx Instructions .ROUTE .COMPLEX Qty: 74 RF: 0 No Action sennosides [senna] 8.6 mg tablet 8.6 mg PO DAILY RF: 0 insulin aspart U-100 [Novolog U-100 Insulin aspart] 100 unit/mL Solution 1 dose Continuous Subcutaneous Infusion CONT PRN (Reason: sliding scale) RF: 0 ondansetron HCl [Zofran] 4 mg tablet 4 mg PO Q6H PRN (Reason: nausea and vomiting) Qty: 12 RF: 0 oxycodone 5 mg tablet 5 mg PO Q4H PRN (Reason: post operative pain) Qty: 20 RF: 0 Referrals: Ayala Ferrera MD [Primary Care Provider] -
[2021-07-11 17:55] VITALS: BP 137/89; PULSE 88; RESP 18; O2SAT 98
--- NOTE | 2021-07-11 17:59 | PC.NURSE ---
Patient went to [place] this past weekend with family members and felt ill. She went to the [place] ER and received IV fluids in her right upper arm. Shortly thereafter the patient had an adverse reaction to the IV and a bruise developed. That bruise has grown in size over the last few days. Patient reports HX of PE in upper extremity, US in room at this time.
== END 2021-07-11 18:22 | disposition home or self-care (01) ==
PROVIDERS: Emergency Provider Emergency Medicine; PCP Family Medicine
DX: I82.611 Acute embolism and thrombosis of superficial veins of right upper extremity (principal)
CPT/HCPCS: 93971; 99283

== ENCOUNTER 2021-07-16 13:30 | Emergency (ER) | payer OTHER, MEDICAID, SELFPAY ==
[2021-02-19 14:51] VITALS: BMI 31.6
[2021-07-16 13:35] VITALS: BP 135/82; PULSE 90; RESP 15; TEMP 36.6; O2SAT 100; BMI 29.8
--- NOTE | 2021-07-16 13:38 | DI.RAD.S_ITS ---
PROCEDURE: XR CHEST 1V INDICATIONS: Chest pain TECHNIQUE: One view of the chest was acquired. COMPARISON: [facility], CR, XR CHEST 1V, 06/11/2020, 11:35. FINDINGS: Surgical changes and devices: None. Lungs and pleura: Lungs are clear. No pleural effusions or pneumothorax. Mediastinum: Mediastinal contours appear normal. Heart size is normal. Bones and chest wall: No suspicious bony lesions. Overlying soft tissues appear unremarkable. IMPRESSION: No acute cardiopulmonary process demonstrated radiographically. Dictated by: Zelalem Elias M.D. on 07/16/2021 at 14:29 Approved by: Zelalem Elias M.D. on 07/16/2021 at 14:30
[2021-07-16 14:11] LABS: Add Manual Diff / Slide Review NO; Basophils Absolute Auto 0 /uL (0-100); Basophils Percent Auto 0.7 % (0-2); Eosinophils Absolute Auto 200 /uL (0-450); Eosinophils Percent Auto 3.6 % (2-4); Hematocrit 38.1 % (36-46); Hemoglobin 12.1 g/dL (12.0-16.0); Lymphocytes Absolute Auto 1600 /uL (1100-4500); Lymphocytes Percent Auto 26.2 % (25-40); Mean Corpuscular HGB Conc 31.6 % (30-36); Mean Corpuscular Volume 82.2 fL (80-100); Monocytes Absolute Auto 500 /uL (0-900); Monocytes Percent Auto 8.5 % (3-14); Neutrophils Absolute Auto 3600 /uL (1500-7000); Platelet Count 312 X10^3/uL (150-400); Red Blood Cell Count 4.63 X10^6/uL (4.0-5.2); Red Cell Distribution Width 17.8 % (11.6-14.8)
[2021-07-16 14:18] LABS: INR 1.2 (0.9-1.3); Prothrombin Time 13.3 SECONDS (10.1-12.7)
[2021-07-16 14:20] LABS: PTT Partial Thromboplastin Tim 32 SECONDS (26.4-36.2)
[2021-07-16 14:23] LABS: Alanine Aminotransferase 24 IU/L (<35); Albumin 4.3 g/dL (3.5-5.0); Albumin Globulin Ratio 1.6 (1.0-2.8); Alkaline Phosphatase 64 U/L (38-126); Aspartate Aminotransferase 22 IU/L (14-36); BUN Creatinine Ratio 26.7 (6-22); Bilirubin Total 0.3 mg/dL (0.2-1.3); Blood Urea Nitrogen 16 mg/dL (7-17); Calcium 9.4 mg/dL (8.4-10.2); Carbon Dioxide 29 mmol/L (22-32); Chloride 99 mmol/L (98-107); Creatine Kinase 41 U/L (30-135); Estimated Glomerular Filt Rate > 60.0 mL/min (>60); Globulin 2.7 g/dL (1.7-4.1); Glucose 267 mg/dL (70-100); HEMOLYSIS < 15 (0-50); Lipase 44 U/L (23-300); Potassium 4.5 mmol/L (3.4-5.1); Sodium 136 mmol/L (137-145)
[2021-07-16 14:34] LABS: Troponin I < 0.012 ng/mL (0.01-0.034)
--- NOTE | 2021-07-16 14:47 | ED_ITS ---
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 For the past few days she has had episodes of the pain radiating to her jaw and ear. She denies any dizziness, weakness or lightheadedness. She denies shortness of breath, cough or hemoptysis. Asymptomatic. She denies any obvious provocation, palliation or other radiation of her discomfort. She has had no fever or chills. Related Data Home Medications Medication Instructions Recorded Confirmed insulin aspart U-100 100 unit/mL 1 dose CONTINUOUS SUBCUTANEOUS 09/10/18 03/05/21 subcutaneous solution (Novolog INFUSION CONT PRN U-100 Insulin aspart) sennosides 8.6 mg tablet (senna) 8.6 mg PO DAILY tab 05/01/20 03/05/21 Previous Rx's Medication Instructions Recorded ondansetron HCl 4 mg tablet 4 mg PO Q6H PRN #12 tab 03/25/20 (Zofran) oxycodone 5 mg tablet 5 mg PO Q4H PRN #20 tab 02/19/21 apixaban 5 mg (74 tabs) tablets in See Rx Instructions .ROUTE 07/11/21 a dose pack (Eliquis DVT-PE Treat .COMPLEX #74 ea 30D Start) Allergies Allergy/AdvReac Type Severity Reaction Status Date / Time hydromorphone [From DILAUDID] Allergy Unknown Verified 07/16/21 13:35 diphenhydramine AdvReac Unknown ANXIETY, Verified 07/16/21 13:35 DOESNT CALM HER. metoclopramide [From Reglan] AdvReac Anxiety Verified 07/16/21 13:35 Review of Systems Review of Systems Narrative: GENERAL: Denies chills, fatigue, malaise, fever, sweats. HEENT: Denies sinus pain, ear pain, sore throat, difficulty swallowing, dizziness. RESPIRATORY: Denies dyspnea, cough, wheezing, hemoptysis, sputum. CARDIOVASCULAR: See HPI GASTROINTESTINAL: Denies nausea, vomiting, abdominal pain, diarrhea, constipation, melena. : Denies dysuria, frequency, incontinence, hematuria, urinary retention. MUSCULOSKELETAL: denies weakness, joint pain, or bony pain SKIN: Denies rash, skin lesions, or other NEUROLOGIC: Denies weakness, headache, numbness, change in speech, confusion, seizures, incoordination. PSYCHIATRIC: No concerning psychosocial issues. 12 point review of systems is negative except for those stated above Patient History Medical History Bright red rectal bleeding Chin injury (1995) Hemorrhoids History of blood clots Hyperlipidemia, unspecified Insulin pump in place Tachycardia Type 1 diabetes Surgical History delivery delivered No pertinent past surgical history Status post ORIF of fracture of ankle Tubal ligation status Family History Mother Thyroid disease Father Lumbar back pain Cancer Sister Diabetes mellitus Social History household members: spouse and children Smoking Status: Former smoker alcohol intake: current Smoking Status: Former smoker alcohol intake frequency: 0-2 drinks per day Substance Use Type: does not use Exam Narrative Exam Narrative: GENERAL: [41 year old patient appears stated age. Well-developed patient, in mild distress. Anxious HEAD: Atraumatic. Normocephalic. EYES: Pupils equal round and reactive. Extraocular motions intact. No scleral i cterus. No injection or drainage. ENT: Nose without bleeding, purulent drainage. Throat without erythema, tonsillar hypertrophy or exudate. Airway patent. NECK: Trachea midline. Non tender CARDIOVASCULAR: Regular rate and rhythm without murmurs, gallops, or rubs. RESPIRATORY: Clear to auscultation. Breath sounds equal bilaterally. No wheezes, rales, or rhonchi. GASTROINTESTINAL: Abdomen soft, non-tender, nondistended. EXTREMITIES: Right upper extremity with minimal swelling and tender to palpate. No significant erythema, no induration or fluctuance BACK: Nontender without deformity or crepitance. No flank tenderness. NEURO: AOx3. SKIN: No rash or erythema of visible areas Initial Vital Signs Initial Vital Signs: Vital Signs Temperature 97.9 F 10/05/21 13:35 Pulse Rate 90 07/16/21 13:35 Respiratory Rate 15 07/16/21 13:35 Blood Pressure 135/82 07/16/21 13:35 Pulse Oximetry 100 07/16/21 13:35 Course Orders Ordered: ED Orders 07/16/21 13:38 XR chest 1V Stat 07/16/21 13:50 Complete Blood Count AUTO DIFF Stat Comprehensive Metabolic Panel Stat Lipase Stat Partial Thromboplastin Time Stat Prothrombin Time INR Stat Troponin & CK Cardiac Panel Stat 07/16/21 13:52 EKG-12 Lead Stat Vital Signs Vital signs: Vital Signs - 8 hr 07/16/21 13:35 Temperature 97.9 F Pulse Rate 90 Respiratory Rate 15 Blood Pressure 135/82 Pulse Oximetry 100 MDM - Chest Pain Lab Data Result diagrams: 07/16/21 13:50 07/16/21 13:50 Labs: Lab Results 07/16/21 07/16/21 07/16/21 Range/Units 13:50 13:50 13:50 WBC 6.0 (4.5-11.0) X10^3/uL RBC 4.63 (4.0-5.2) X10^6/uL Hgb 12.1 (12.0-16.0) g/dL Hct 38.1 (36-46) % MCV 82.2 (80-100) fL MCH 26.0 (26-34) PG MCHC 31.6 (30-36) % RDW 17.8 H (11.6-14.8) % Plt Count 312 (150-400) X10^3/uL Neut % (Auto) 61.0 (50-75) % Lymph % (Auto) 26.2 (25-40) % [place] % (Auto) 8.5 (3-14) % Eos % (Auto) 3.6 (2-4) % Baso % (Auto) 0.7 (0-2) % Neut # (Auto) 3600 (5850-7094) /uL Lymph # (Auto) 1600 (3404-3982) /uL [place] # (Auto) 500 (0-900) /uL Eos # (Auto) 200 (0-450) /uL Baso # (Auto) 0 (0-100) /uL PT 13.3 H (10.1-12.7) SECONDS INR 1.2 (0.9-1.3) APTT 32 (26.4-36.2) SECONDS Sodium 136 L (137-145) mmol/L Potassium 4.5 (3.4-5.1) mmol/L Chloride 99 (98-107) mmol/L Carbon Dioxide 29 (22-32) mmol/L BUN 16 (7-17) mg/dL Creatinine 0.60 (0.52-1.04) mg/dL Estimated GFR > 60.0 (>60) mL/min BUN/Creatinine Ratio 26.7 H (6-22) Glucose 267 H (70-100) mg/dL Calcium 9.4 (8.4-10.2) mg/dL Total Bilirubin 0.3 (0.2-1.3) mg/dL AST 22 (14-36) IU/L ALT 24 (<35) IU/L Alkaline Phosphatase 64 (38-126) U/L Total Creatine Kinase 41 (30-135) U/L CK-MB (CK-2) TNP CK-MB (CK-2) Rel Index TNP Troponin I < 0.012 (0.01-0.034) ng/mL Total Protein 7.0 (6.3-8.2) g/dL Albumin 4.3 (3.5-5.0) g/dL Globulin 2.7 (1.7-4.1) g/dL Albumin/Globulin Ratio 1.6 (1.0-2.8) Lipase 44 (23-300) U/L Imaging Data Chest x-ray: Radiologist's Impression: [address] [address] XRay Report Signed Patient: Kitty Pathak MR#: [id number] : 1980 Acct:[id number] Age/Sex: 41 / F Date of Service: 07/16/21 Loc: ED Accession Number: [id number] ?? Procedure: XR chest 1V Ordering Provider: Chris Daugherty D.O. PROCEDURE:? XR CHEST 1V ? INDICATIONS:? Chest pain ? TECHNIQUE:? One view of the chest was acquired.? ? COMPARISON:? [facility], CR, XR CHEST 1V, 06/11/2020, 11:35. ? FINDINGS:? ? Surgical changes and devices:? None.? ? Lungs and pleura:? Lungs are clear.? No pleural effusions or pneumothorax.? ? Mediastinum:? Mediastinal contours appear normal.? Heart size is normal.? ? Bones and chest wall:? No suspicious bony lesions.? Overlying soft tissues kin ear unremarkable.? ? IMPRESSION:? No acute cardiopulmonary process demonstrated radiographically. ? ? Dictated by: Zelalem Elias M.D. on 07/16/2021 at 14:29 ? ? Approved by: Zelalem Elias M.D. on 07/16/2021 at 14:30 ? ECG Data Interpretation: EKG is normal sinus rhythm rate [98] and free of any signs of ischemia or ectopy. No ST segmental elevation or depression. No T wave inversions MDM Narrative Medical decision making narrative: Multiple causes of chest pain considered including OK, PE, pneumothorax, pneumonia, aortic dissection, and pleurisy. Patient reports no radiation, no diaphoresis, no provocation with exertion, and no vomiting Patient's symptoms improved over duration of stay with above-stated therapies. Findings and discharge diagnosis discussed with patient/family followed by verbalization of understanding Return precautions discussed with patient/family whom verbalize understanding. Discharge Plan Departure Patient Disposition: Home Clinical Impression: Atypical chest pain Activity Restrictions/Additional Instructions: *You have been diagnosed with [atypical chest pain. Physical exam, labs, EKG are very reassuring. *What to do: *Please continue to take your regular medications as directed. [ ] New medication prescriptions sent to your pharmacy: [ ] [ ] New medication written as a paper prescription [ x] No new medications given *Please follow up with your primary care provider in 2-3 days, call for an appointment. Let them know you were seen in the Emergency Department and that we ask that you be seen in follow up. We will electronically transmit a record of today's note if your PCP is in our system *If you do not have a primary care provider please contact the [facility] Resource line at [phone]. They will ask some questions about your medical history and help get you set up with a doctor in the community. *Return to Emergency Department if you should have any new, worsening or concerning symptoms, such as [fever greater than 101 F, shaking chills, worsening pain, persistent vomiting or other bothersome symptoms] Prescriptions: No Action sennosides [senna] 8.6 mg tablet 8.6 mg PO DAILY RF: 0 insulin aspart U-100 [Novolog U-100 Insulin aspart] 100 unit/mL Solution 1 dose Continuous Subcutaneous Infusion CONT PRN (Reason: sliding scale) RF: 0 ondansetron HCl [Zofran] 4 mg tablet 4 mg PO Q6H PRN (Reason: nausea and vomiting) Qty: 12 RF: 0 Eliquis DVT-PE Treat 30D Start 5 mg (74 tabs) tablets,dose pack See Rx Instructions .ROUTE .COMPLEX Qty: 74 RF: 0 oxycodone 5 mg tablet 5 mg PO Q4H PRN (Reason: post operative pain) Qty: 20 RF: 0 Referrals: Ayala Ferrera MD [Primary Care Provider] -
[2021-07-16 15:49] VITALS: BP 132/80; PULSE 89; RESP 16; O2SAT 99
== END 2021-07-16 15:49 | disposition home or self-care (01) ==
PROVIDERS: Emergency Provider Emergency Medicine; PCP Family Medicine
DX: R07.89 Other chest pain (principal)
CPT/HCPCS: 36415; 71045; 80053; 82550; 83690; 84484; 85025; 85610; 85730; 93005; 99283; 99284

== ENCOUNTER 2021-08-26 15:11 | Emergency (ER) | payer OTHER, MEDICAID, SELFPAY ==
[2021-02-19 14:51] VITALS: BMI 31.6
[2021-08-26] VITALS (12 sets, daily range): BP systolic 111–135; BP diastolic 64–81; PULSE 79–115; RESP 16–20; TEMP 36.9; O2SAT 92–100
--- NOTE | 2021-08-26 16:20 | ED_ITS ---
HPI - Headache <Norman García DO - Last Filed: 08/27/21 07:25> General Chief Complaint: Headache Stated Complaint: dehydartion migraine throwing up Time Seen by Provider: 08/26/21 16:06 Source: patient Mode of arrival: Ambulatory Limitations: no limitations History of Present Illness HPI Narrative: Patient is a 41-year-old female. Is a type 1 diabetic. Also has a history of migraines. 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 Has been on anticoagulation for the past month. She is here for evaluation of a headache. It started yesterday. She states it feels like 1 of her prior migraines. Was not sudden onset. This causes her to vomit. She has had this exact same situation multiple times the past. States that her blood sugar has been in the 150 range. She has been adjusting her insulin because she has not been eating very much. She did try Excedrin yesterday without any improvement. Related Data Home Medications Medication Instructions Recorded Confirmed insulin aspart U-100 100 unit/mL 1 dose CONTINUOUS SUBCUTANEOUS 09/10/18 subcutaneous solution (Novolog INFUSION CONT PRN U-100 Insulin aspart) sennosides 8.6 mg tablet (senna) 8.6 mg PO DAILY tab 05/01/20 03/05/21 Previous Rx's Medication Instructions Recorded ondansetron HCl 4 mg tablet 4 mg PO Q6H PRN #12 tab 03/25/20 (Zofran) oxycodone 5 mg tablet 5 mg PO Q4H PRN #20 tab 02/19/21 apixaban 5 mg (74 tabs) tablets in See Rx Instructions .ROUTE 07/11/21 a dose pack (Eliquis DVT-PE Treat .COMPLEX #74 ea 30D Start) Allergies Allergy/AdvReac Type Severity Reaction Status Date / Time hydromorphone [From DILAUDID] Allergy Unknown Verified 08/26/21 19:21 diphenhydramine AdvReac Unknown ANXIETY, Verified 08/26/21 19:21 DOESNT CALM HER. metoclopramide [From Reglan] AdvReac Anxiety Verified 08/26/21 19:21 Review of Systems <DO Avis Tinoco Last Filed: 08/27/21 07:25> Constitutional Constitutional: Reports system reviewed and no additional complaints, except as documented Eyes Eyes: Reports system reviewed and no additional complaints, except as documented ENT Ears, Nose, Mouth, and Throat: Reports system reviewed and no additional complaints, except as documented Cardiovascular Cardiovascular: Reports system reviewed and no additional complaints, except as documented Respiratory Respiratory: Reports system reviewed and no additional complaints, except as documented Musculoskeletal Musculoskeletal: Reports system reviewed and no additional complaints, except as documented Integumentary/Breasts Skin/Breast: Reports system reviewed and no additional complaints, except as documented Neurologic Neurologic: Reports system reviewed and no additional complaints, except as documented Hematologic/Lymphatic On Anticoagulants: No Patient History <Norman García DO - Last Filed: 08/27/21 07:25> Medical History Bright red rectal bleeding Chin injury (1995) Hemorrhoids History of blood clots Hyperlipidemia, unspecified Insulin pump in place Tachycardia Type 1 diabetes Surgical History delivery delivered No pertinent past surgical history Status post ORIF of fracture of ankle Tubal ligation status Family History Mother Thyroid disease Father Lumbar back pain Cancer Sister Diabetes mellitus Social History household members: spouse and children Smoking Status: Former smoker alcohol intake: current Smoking Status: Former smoker alcohol intake frequency: 0-2 drinks per day Substance Use Type: does not use Exam <Norman García DO - Last Filed: 08/27/21 07:25> Initial Vital Signs Initial Vital Signs: Vital Signs Temperature 98.5 F 08/26/21 15:15 Pulse Rate 115 H 08/26/21 15:15 Respiratory Rate 20 08/26/21 15:15 Blood Pressure 128/80 08/26/21 15:15 Pulse Oximetry 100 08/26/21 15:15 Const General: cooperative, healthy appearing and comfortable [facility] Head: normal to inspection and normocephalic Eyes General: appearance normal, both eyes and all related structures Resp Effort & Inspection: normal respiratory effort Auscultation: clear to auscultation bilaterally Cardio Rate: regular rate Rhythm: regular rhythm GI Inspection: normal to inspection and non-distended Palpation: soft Back/Spine/Pelvis Back: normal to inspection Skin General: no rashes or lesions noted Neuro General: patient alert, patient awake and moves all extremities Extrem General: normal to inspection and capillary refill normal Psych Appearance: grossly normal and well kempt <Chris Daugherty DO - Last Filed: 08/27/21 03:01> Initial Vital Signs Initial Vital Signs: Vital Signs Temperature 98.5 F 08/26/21 15:15 Pulse Rate 115 H 08/26/21 15:15 Respiratory Rate 20 08/26/21 15:15 Blood Pressure 128/80 08/26/21 15:15 Pulse Oximetry 100 08/26/21 15:15 Course <Norman García DO - Last Filed: 08/27/21 07:25> Orders Ordered: Discontinued Medications Acetaminophen (Acetaminophen 325 Mg Tablet) 650 mg PO NOW ONE Stop: 08/26/21 16:26 Last Admin: 08/26/21 18:41 Dose: Not Given Documented by: JOLLY Sodium Chloride (Normal Saline 0.9%) 1,000 mls @ 1,000 mls/hr IV BOLUS ONE Stop: 08/26/21 17:06 Last Infusion: 08/26/21 17:49 Dose: 0 mls/hr Documented by: Admin: 08/26/21 16:41 Dose: 1,000 mls/hr Documented by: JOLLY Lactated Ringer's (Lactated Ringers) 1,000 mls @ 1,000 mls/hr IV BOLUS ONE Stop: 08/26/21 20:19 Last Infusion: 08/26/21 20:33 Dose: 0 mls/hr Documented by: Admin: 08/26/21 19:21 Dose: 1,000 mls/hr Documented by: JOLLY Ketorolac Tromethamine (Ketorolac 30 Mg/Ml Vial) 30 mg IV NOW ONE Stop: 08/26/21 16:26 Last Admin: 08/26/21 16:41 Dose: 30 mg Documented by: JOLLY Metoclopramide HCl (Metoclopramide 10 Mg/2 Ml Inj) 10 mg IV NOW ONE Stop: 08/26/21 16:26 Last Admin: 08/26/21 16:41 Dose: 10 mg Documented by: JOLLY Pantoprazole Sodium (Pantoprazole 40 Mg Vial) 40 mg IV NOW ONE Stop: 08/26/21 18:35 Last Admin: 08/26/21 18:39 Dose: 40 mg Documented by: JOLLY Vital Signs Vital signs: Vital Signs - 8 hr 08/26/21 19:30 08/26/21 20:00 08/26/21 20:36 Pulse Rate 101 H 98 H 79 Respiratory Rate 18 Blood Pressure 125/64 111/67 117/65 Pulse Oximetry 100 100 99 <Chris Daugherty, DO - Last Filed: 08/27/21 03:01> Course Course Narrative: Patient received in sign-out from Dr. García. I performed independent history and physical exam. Patient is greatly improved after Dr. García's therapies. Her headache is significantly improved. Her ABGs non acidotic, she has no anion gap. She is tolerating orals and feels well for discharge. Return precautions given and questions answered to her apparent satisfaction Orders Ordered: Discontinued Medications Acetaminophen (Acetaminophen 325 Mg Tablet) 650 mg PO NOW ONE Stop: 08/26/21 16:26 Last Admin: 08/26/21 18:41 Dose: Not Given Documented by: JOLLY Sodium Chloride (Normal Saline 0.9%) 1,000 mls @ 1,000 mls/hr IV BOLUS ONE Stop: 08/26/21 17:06 Last Infusion: 08/26/21 17:49 Dose: 0 mls/hr Documented by: Admin: 08/26/21 16:41 Dose: 1,000 mls/hr Documented by: JOLLY Lactated Ringer's (Lactated Ringers) 1,000 mls @ 1,000 mls/hr IV BOLUS ONE Stop: 08/26/21 20:19 Last Infusion: 08/26/21 20:33 Dose: 0 mls/hr Documented by: Admin: 08/26/21 19:21 Dose: 1,000 mls/hr Documented by: JOLLY Ketorolac Tromethamine (Ketorolac 30 Mg/Ml Vial) 30 mg IV NOW ONE Stop: 08/26/21 16:26 Last Admin: 08/26/21 16:41 Dose: 30 mg Documented by: JOLLY Metoclopramide HCl (Metoclopramide 10 Mg/2 Ml Inj) 10 mg IV NOW ONE Stop: 08/26/21 16:26 Last Admin: 08/26/21 16:41 Dose: 10 mg Documented by: JOLLY Pantoprazole Sodium (Pantoprazole 40 Mg Vial) 40 mg IV NOW ONE Stop: 08/26/21 18:35 Last Admin: 08/26/21 18:39 Dose: 40 mg Documented by: JOLLY Vital Signs Vital signs: Vital Signs - 8 hr 08/26/21 19:30 08/26/21 20:00 08/26/21 20:36 Pulse Rate 101 H 98 H 79 Respiratory Rate 18 Blood Pressure 125/64 111/67 117/65 Pulse Oximetry 100 100 99 MDM - Headache <Norman García DO - Last Filed: 08/27/21 07:25> Medical Records Attestation: I reviewed the patient's medical records. Lab Data Attestation: I reviewed the patient's lab results. Result diagrams: 08/26/21 17:55 08/26/21 17:55 Labs: Lab Results 08/26/21 08/26/21 08/26/21 Range/Units 16:47 17:55 17:55 WBC 7.2 (4.5-11.0) X10^3/uL RBC 4.44 (4.0-5.2) X10^6/uL Hgb 12.0 (12.0-16.0) g/dL Hct 37.0 (36-46) % MCV 83.3 (80-100) fL MCH 27.0 (26-34) PG MCHC 32.4 (30-36) % RDW 15.2 H (11.6-14.8) % Plt Count 351 (150-400) X10^3/uL Neut % (Auto) 89.2 H (50-75) % Lymph % (Auto) 6.8 L (25-40) % [place] % (Auto) 2.8 L (3-14) % Eos % (Auto) 0.1 L (2-4) % Baso % (Auto) 1.1 (0-2) % Neut # (Auto) 6400 (6727-3943) /uL Lymph # (Auto) 500 L (1413-4311) /uL [place] # (Auto) 200 (0-900) /uL Eos # (Auto) 0 (0-450) /uL Baso # (Auto) 100 (0-100) /uL Sodium Cancelled Potassium Cancelled Chloride Cancelled Carbon Dioxide Cancelled BUN Cancelled Creatinine Cancelled Estimated GFR Cancelled BUN/Creatinine Ratio Cancelled Glucose Cancelled Calcium Cancelled Phosphorus (2.5-4.5) mg/dL Magnesium (1.6-2.3) mg/dL Total Bilirubin (0.2-1.3) mg/dL AST (14-36) IU/L ALT (<35) IU/L Alkaline Phosphatase (38-126) U/L Total Protein (6.3-8.2) g/dL Albumin (3.5-5.0) g/dL Globulin (1.7-4.1) g/dL Albumin/Globulin Ratio (1.0-2.8) Lipase (23-300) U/L Urine RBC None seen (0-5/HPF) Urine WBC 0-1/hpf (0-5/HPF) Ur Squamous Epith Cells 1-5 /hpf (0-5/HPF) Amorphous Sediment 1+ Urine Bacteria Few (2-10) H (None) Ur Culture Indicated? Cult not indicated Ketones (<0.27) mmol/L 08/26/21 Range/Units 17:55 WBC (4.5-11.0) X10^3/uL RBC (4.0-5.2) X10^6/uL Hgb (12.0-16.0) g/dL Hct (36-46) % MCV (80-100) fL MCH (26-34) PG MCHC (30-36) % RDW (11.6-14.8) % Plt Count (150-400) X10^3/uL Neut % (Auto) (50-75) % Lymph % (Auto) (25-40) % [place] % (Auto) (3-14) % Eos % (Auto) (2-4) % Baso % (Auto) (0-2) % Neut # (Auto) (0093-0211) /uL Lymph # (Auto) (4052-0602) /uL [place] # (Auto) (0-900) /uL Eos # (Auto) (0-450) /uL Baso # (Auto) (0-100) /uL Sodium 136 L Potassium 4.7 Chloride 103 Carbon Dioxide 19 L BUN 17 Creatinine 0.58 Estimated GFR > 60.0 BUN/Creatinine Ratio 29.3 H Glucose 265 H Calcium 8.7 Phosphorus 2.6 (2.5-4.5) mg/dL Magnesium 1.8 (1.6-2.3) mg/dL Total Bilirubin 1.0 (0.2-1.3) mg/dL AST 30 (14-36) IU/L ALT 17 (<35) IU/L Alkaline Phosphatase 52 (38-126) U/L Total Protein 7.3 (6.3-8.2) g/dL Albumin 4.4 (3.5-5.0) g/dL Globulin 2.9 (1.7-4.1) g/dL Albumin/Globulin Ratio 1.5 (1.0-2.8) Lipase 19 L (23-300) U/L Urine RBC (0-5/HPF) Urine WBC (0-5/HPF) Ur Squamous Epith Cells (0-5/HPF) Amorphous Sediment Urine Bacteria (None) Ur Culture Indicated? Ketones 4.76 H (<0.27) mmol/L Point of Care Testing Test Results Negative Urine Dip Bedside Urine Glucose 500 mg/dl Bedside Urine Bilirubin - Negative Bedside Urine Ketone +++ 80 Urine Specific [place] 1.030 Bedside Urine Occult Blood - Negative Bedside Urine pH 5.5 Bedside Urine Protein + 30 Bedside Urine Urobilinogen - Negative Bedside Urine Nitrite - Negative Bedside Urine Leukocytes - Negative Esterase MDM Narrative Medical decision making narrative: Patient is diabetic. Also has a history of migraines. She does feel better after medications. Her nausea is better. Is starting to tolerate oral fluids. She is hyperglycemic. Does have ketones. Her CO2 is 19 on her chemistry. Anion gap is 14. VBG ordered. Care turned over to Dr. Daugherty the change of shift to follow up and disposition. <Chris Daugherty DO - Last Filed: 08/27/21 03:01> Lab Data Labs: Lab Results 08/26/21 08/26/21 08/26/21 Range/Units 16:47 17:55 17:55 WBC 7.2 (4.5-11.0) X10^3/uL RBC 4.44 (4.0-5.2) X10^6/uL Hgb 12.0 (12.0-16.0) g/dL Hct 37.0 (36-46) % MCV 83.3 (80-100) fL MCH 27.0 (26-34) PG MCHC 32.4 (30-36) % RDW 15.2 H (11.6-14.8) % Plt Count 351 (150-400) X10^3/uL Neut % (Auto) 89.2 H (50-75) % Lymph % (Auto) 6.8 L (25-40) % [place] % (Auto) 2.8 L (3-14) % Eos % (Auto) 0.1 L (2-4) % Baso % (Auto) 1.1 (0-2) % Neut # (Auto) 6400 (8874-1956) /uL Lymph # (Auto) 500 L (4038-9327) /uL [place] # (Auto) 200 (0-900) /uL Eos # (Auto) 0 (0-450) /uL Baso # (Auto) 100 (0-100) /uL Sodium Cancelled Potassium Cancelled Chloride Cancelled Carbon Dioxide Cancelled BUN Cancelled Creatinine Cancelled Estimated GFR Cancelled BUN/Creatinine Ratio Cancelled Glucose Cancelled Calcium Cancelled Phosphorus (2.5-4.5) mg/dL Magnesium (1.6-2.3) mg/dL Total Bilirubin (0.2-1.3) mg/dL AST (14-36) IU/L ALT (<35) IU/L Alkaline Phosphatase (38-126) U/L Total Protein (6.3-8.2) g/dL Albumin (3.5-5.0) g/dL Globulin (1.7-4.1) g/dL Albumin/Globulin Ratio (1.0-2.8) Lipase (23-300) U/L Urine RBC None seen (0-5/HPF) Urine WBC 0-1/hpf (0-5/HPF) Ur Squamous Epith Cells 1-5 /hpf (0-5/HPF) Amorphous Sediment 1+ Urine Bacteria Few (2-10) H (None) Ur Culture Indicated? Cult not indicated Ketones (<0.27) mmol/L 08/26/21 Range/Units 17:55 WBC (4.5-11.0) X10^3/uL RBC (4.0-5.2) X10^6/uL Hgb (12.0-16.0) g/dL Hct (36-46) % MCV (80-100) fL MCH (26-34) PG MCHC (30-36) % RDW (11.6-14.8) % Plt Count (150-400) X10^3/uL Neut % (Auto) (50-75) % Lymph % (Auto) (25-40) % [place] % (Auto) (3-14) % Eos % (Auto) (2-4) % Baso % (Auto) (0-2) % Neut # (Auto) (4821-5968) /uL Lymph # (Auto) (1926-4662) /uL [place] # (Auto) (0-900) /uL Eos # (Auto) (0-450) /uL Baso # (Auto) (0-100) /uL Sodium 136 L Potassium 4.7 Chloride 103 Carbon Dioxide 19 L BUN 17 Creatinine 0.58 Estimated GFR > 60.0 BUN/Creatinine Ratio 29.3 H Glucose 265 H Calcium 8.7 Phosphorus 2.6 (2.5-4.5) mg/dL Magnesium 1.8 (1.6-2.3) mg/dL Total Bilirubin 1.0 (0.2-1.3) mg/dL AST 30 (14-36) IU/L ALT 17 (<35) IU/L Alkaline Phosphatase 52 (38-126) U/L Total Protein 7.3 (6.3-8.2) g/dL Albumin 4.4 (3.5-5.0) g/dL Globulin 2.9 (1.7-4.1) g/dL Albumin/Globulin Ratio 1.5 (1.0-2.8) Lipase 19 L (23-300) U/L Urine RBC (0-5/HPF) Urine WBC (0-5/HPF) Ur Squamous Epith Cells (0-5/HPF) Amorphous Sediment Urine Bacteria (None) Ur Culture Indicated? Ketones 4.76 H (<0.27) mmol/L Point of Care Testing Test Results Negative Urine Dip Bedside Urine Glucose 500 mg/dl Bedside Urine Bilirubin - Negative Bedside Urine Ketone +++ 80 Urine Specific [place] 1.030 Bedside Urine Occult Blood - Negative Bedside Urine pH 5.5 Bedside Urine Protein + 30 Bedside Urine Urobilinogen - Negative Bedside Urine Nitrite - Negative Bedside Urine Leukocytes - Negative Esterase Discharge Plan Departure Patient Disposition: Home Clinical Impression: Acute dehydration Migraine Qualifiers: Migraine type: unspecified Status migrainosus presence: without status migrainosus Intractability: not intractable Qualified Code(s): G43.909 - Migraine, unspecified, not intractable, without status migrainosus Instructions: DI for Headache Activity Restrictions/Additional Instructions: *You have been diagnosed with [acute dehydration and migraine headache. Labs are very reassuring there is no evidence of a diabetic emergency] *What to do: *Please continue to take your regular medications as directed. [ ] New medication prescriptions sent to your pharmacy: [ ] [ ] New medication written as a paper prescription [x ] No new medications given *Please follow up with your primary care provider in 2-3 days, call for an appointment. Let them know you were seen in the Emergency Department and that we ask that you be seen in follow up. We will electronically transmit a record of today's note if your PCP is in our system *If you do not have a primary care provider please contact the [facility] Resource line at [phone]. They will ask some questions about your medical history and help get you set up with a doctor in the community. *Return to Emergency Department if you should have any new, worsening or concerning symptoms, such as [fever greater than 101 F, shaking chills, worsening pain, persistent vomiting or other bothersome symptoms] Prescriptions: No Action sennosides [senna] 8.6 mg tablet 8.6 mg PO DAILY 0RF insulin aspart U-100 [Novolog U-100 Insulin aspart] 100 unit/mL Solution 1 dose Continuous Subcutaneous Infusion CONT PRN (Reason: sliding scale) 0RF ondansetron HCl [Zofran] 4 mg tablet 4 mg PO Q6H PRN (Reason: nausea and vomiting) Qty: 12 0RF Rx Instructions: take 1-2 tabs for nausea and vomiting as needed Eliquis DVT-PE Treat 30D Start 5 mg (74 tabs) tablets,dose pack See Rx Instructions .ROUTE .COMPLEX Qty: 74 0RF Rx Instructions: orally per package directions oxycodone 5 mg tablet 5 mg PO Q4H PRN (Reason: post operative pain) Qty: 20 0RF Referrals: Ayala Ferrera MD [Primary Care Provider] -
[2021-08-26] MEDS: KETOROLAC 30 MG/ML VIAL IV (16:41)
[2021-08-26] MEDS: METOCLOPRAMIDE 10 MG/2 ML INJ IV (16:41)
[2021-08-26] MEDS: SODIUM CHLORIDE 0.9% 1,000 ML 1000 ML IV (16:41)
[2021-08-26 16:56] LABS: Amorphous Sediment Urine 1+; Bacteria Urine Few (2-10); Culture Indicated Urine Cult Not Indicated; RBC Urine None Seen (0-5/HPF); Squamous Epithelial Cell Urine 1-5 /HPF (0-5/HPF); WBC Urine 0-1/HPF (0-5/HPF)
[2021-08-26 18:01] LABS: Add Manual Diff / Slide Review NO; Basophils Absolute Auto 100 /uL (0-100); Basophils Percent Auto 1.1 % (0-2); Eosinophils Absolute Auto 0 /uL (0-450); Eosinophils Percent Auto 0.1 % (2-4); Lymphocytes Absolute Auto 500 /uL (1100-4500); Lymphocytes Percent Auto 6.8 % (25-40); Mean Corpuscular HGB Conc 32.4 % (30-36); Mean Corpuscular Volume 83.3 fL (80-100); Monocytes Absolute Auto 200 /uL (0-900); Monocytes Percent Auto 2.8 % (3-14); Neutrophils Absolute Auto 6400 /uL (1500-7000); Neutrophils Percent Auto 89.2 % (50-75); Platelet Count 351 X10^3/uL (150-400); Red Blood Cell Count 4.44 X10^6/uL (4.0-5.2); Red Cell Distribution Width 15.2 % (11.6-14.8); White Blood Cell Count 7.2 X10^3/uL (4.5-11.0)
[2021-08-26 18:20] LABS: Alanine Aminotransferase 17 IU/L (<35); Albumin 4.4 g/dL (3.5-5.0); Albumin Globulin Ratio 1.5 (1.0-2.8); Alkaline Phosphatase 52 U/L (38-126); Aspartate Aminotransferase 30 IU/L (14-36); BUN Creatinine Ratio 29.3 (6-22); Blood Urea Nitrogen 17 mg/dL (7-17); Calcium 8.7 mg/dL (8.4-10.2); Carbon Dioxide 19 mmol/L (22-32); Chloride 103 mmol/L (98-107); Estimated Glomerular Filt Rate > 60.0 mL/min (>60); Globulin 2.9 g/dL (1.7-4.1); Glucose 265 mg/dL (70-100); Lipase 19 U/L (23-300); Magnesium 1.8 mg/dL (1.6-2.3); Phosphorous 2.6 mg/dL (2.5-4.5); Sodium 136 mmol/L (137-145); Total Protein 7.3 g/dL (6.3-8.2)
[2021-08-26 18:23] LABS: Ketones (Beta-Hydroxybutyrate) 4.76 mmol/L (<0.27)
[2021-08-26 18:26] LABS: HEMOLYSIS 114 (0-50); Potassium 4.7 mmol/L (3.4-5.1)
[2021-08-26] MEDS: PANTOPRAZOLE 40 MG VIAL IV (18:39)
[2021-08-26] MEDS: LACTATED RINGERS 1,000 ML 1000 ML IV (19:21)
[2021-08-27 11:01] LABS: PCO2 VBG 34.5 mmHg (45-50); PO2 VBG 32 mmHg (35-45); pH VBG 7.38 (7.33-7.43)
[2021-08-27 11:02] LABS: HCO3 VBG 21 mmol/L (23-28); Oxygen Saturation VBG 62 % (70-75); Total CO2 VBG 22 mmol/L (24-29)
== END 2021-08-26 20:37 | disposition home or self-care (01) ==
PROVIDERS: Emergency Medicine; Emergency Provider Emergency Medicine; PCP Family Medicine
DX: G43.909 Migraine, unspecified, not intractable, without status migrainosus (principal); E86.0 Dehydration
CPT/HCPCS: 36415; 80053; 81003; 81015; 81025; 82009; 82805; 83690; 83735; 84100; 85025; 96361; 96374; 96375; 99284; C9113; J1885; J2765

== ENCOUNTER 2021-09-08 20:27 | Emergency (ER) | payer OTHER, MEDICAID, SELFPAY ==
[2021-02-19 14:51] VITALS: BMI 31.6
[2021-09-08 20:28] VITALS: BP 141/83; PULSE 114; RESP 18; TEMP 36.6; O2SAT 100
[2021-09-08] MEDS: ONDANSETRON 4 MG/2 ML INJ (21:01)
--- NOTE | 2021-09-08 22:58 | ED_ITS ---
HPI - Headache General Chief Complaint: Headache Stated Complaint: DEHYDRATION Time Seen by Provider: 09/08/21 22:52 Mode of arrival: Ambulatory History of Present Illness HPI Narrative: Is a 41-year-old female history of insulin-dependent diabetic currently on El iquis for an upper extremity DVT, history of migraines presenting with migraine headache and vomiting. She is sensitive to light and noise. She says that her migraines have actually been a well controlled until she started Eliquis in June. Since then she has had about 3 headaches. She complains of pain all over her head. She has vomited numerous times has pain in her stomach only because of vomiting. Her glucose on her continuous monitor shows glucose in the 200s. He denies any numbness tingling or weakness. Denies any fever or chills. This is similar to her previous migraines but she has not had 1 in some time. She has been to the ED a few times since June but has not had head CT. She was seen here for dehydration given fluids and had blood work checked. Related Data Home Medications Medication Instructions Recorded Confirmed insulin aspart U-100 100 unit/mL 1 dose CONTINUOUS SUBCUTANEOUS 09/10/18 03/05/21 subcutaneous solution (Novolog INFUSION CONT PRN U-100 Insulin aspart) sennosides 8.6 mg tablet (senna) 8.6 mg PO DAILY tab 05/01/20 03/05/21 Previous Rx's Medication Instructions Recorded ondansetron HCl 4 mg tablet 4 mg PO Q6H PRN #12 tab 03/25/20 (Zofran) oxycodone 5 mg tablet 5 mg PO Q4H PRN #20 tab 02/19/21 apixaban 5 mg (74 tabs) tablets in See Rx Instructions .ROUTE 07/11/21 a dose pack (Eliquis DVT-PE Treat .COMPLEX #74 ea 30D Start) ondansetron 4 mg disintegrating 4 mg PO Q8H PRN #10 tab 09/09/21 tablet Allergies Allergy/AdvReac Type Severity Reaction Status Date / Time hydromorphone [From DILAUDID] Allergy Unknown Verified 08/26/21 19:21 diphenhydramine AdvReac Unknown ANXIETY, Verified 08/26/21 19:21 DOESNT CALM HER. metoclopramide [From Reglan] AdvReac Anxiety Verified 08/26/21 19:21 Review of Systems Review of Systems Narrative: GENERAL: Denies chills, fatigue, malaise, fever, sweats, travel HEENT: Denies sinus pain, ear pain, sore throat, difficulty swallowing, neck pain RESPIRATORY: Denies dyspnea, cough, wheezing, hemoptysis, sputum. CARDIOVASCULAR: Denies chest pain, palpitations, orthopnea, edema GASTROINTESTINAL: See HPI : Denies dysuria, frequency, incontinence, hematuria, urinary retention, flank pain. MUSCULOSKELETAL: Denies weakness, joint pain, or bony pain SKIN: No rash, no erythema, no pruritus NEUROLOGIC: See HPI PSYCHIATRIC: No concerning psychosocial issues. 12 point review of systems is negative except for those stated above and HPI Patient History Medical History Bright red rectal bleeding Chin injury (1995) Hemorrhoids History of blood clots Hyperlipidemia, unspecified Insulin pump in place Tachycardia Type 1 diabetes Surgical History delivery delivered No pertinent past surgical history Status post ORIF of fracture of ankle Tubal ligation status Family History Mother Thyroid disease Father Lumbar back pain Cancer Sister Diabetes mellitus Social History household members: spouse and children Smoking Status: Former smoker alcohol intake: current Smoking Status: Former smoker alcohol intake frequency: 0-2 drinks per day Substance Use Type: does not use Exam Initial Vital Signs Initial Vital Signs: Vital Signs Temperature 97.9 F 09/08/21 20:28 Pulse Rate 114 H 09/08/21 20:28 Respiratory Rate 18 09/08/21 20:28 Blood Pressure 141/83 H 09/08/21 20:28 Pulse Oximetry 100 09/08/21 20:28 GENERAL: 41-year-old female in dark room actively vomiting HEENT: Head atraumatic,EOMI, pupils reactive, face symmetric, moist mucous membranes CARDIOVASCULAR: Regular rate and rhythm without murmurs, rubs or gallops. RESPIRATORY: Breath sounds equal bilaterally, no wheezes rales or rhonchi. ABDOMEN: Soft, nontender. Normoactive bowel sounds all 4 quadrants. No guarding or rebound. EXTREMITIES: Normal range of motion, no clubbing or edema. Neurovascularly intact NEUROLOGICAL: Alert and oriented x4.Normal gait and speech. Cranial nerves II through XII grossly intact. Moving all extremities SKIN: Warm, dry, no laceration, no petechiae, no rashes or lesions. Course Orders Ordered: ED Orders 09/08/21 20:45 Complete Blood Count AUTO DIFF Stat Comprehensive Metabolic Panel Stat Ketones (Beta-Hydroxybutyrate) Stat Lactate (Lactic Acid) Stat Procalcitonin Stat 09/08/21 23:07 CT head/brain wo con Stat 09/08/21 23:28 Venous Blood Gas Stat Discontinued Medications Sodium Chloride (Normal Saline 0.9%) 1,000 mls @ 1,000 mls/hr IV BOLUS ONE Stop: 09/09/21 00:06 Last Infusion: 09/09/21 00:38 Dose: 0 mls/hr Documented by: Admin: 09/08/21 23:36 Dose: 1,000 mls/hr Documented by: ARGENTINA Metoclopramide HCl (Metoclopramide 10 Mg/2 Ml Inj) 10 mg IV NOW ONE Stop: 09/08/21 23:08 Last Admin: 09/08/21 23:35 Dose: 10 mg Documented by: ARGENTINA Ondansetron HCl (Ondansetron 4 Mg/2 Ml Inj) 4 mg IV NOW ONE Stop: 09/09/21 00:04 Last Admin: 09/09/21 00:29 Dose: 4 mg Documented by: ARGENTINA Pantoprazole Sodium (Pantoprazole 40 Mg Vial) 40 mg IV NOW ONE Stop: 09/08/21 23:08 Last Admin: 09/08/21 23:35 Dose: 40 mg Documented by: ARGENTINA Vital Signs Vital signs: Vital Signs - 8 hr 09/08/21 23:16 09/09/21 00:29 09/09/21 01:13 Pulse Rate 99 H Respiratory Rate 22 Blood Pressure 147/87 H 139/84 Pulse Oximetry 99 MDM - Headache Lab Data Result diagrams: 09/08/21 20:45 09/08/21 20:45 Labs: Lab Results 09/08/21 09/08/21 09/08/21 Range/Units 20:45 20:45 20:45 WBC 7.0 (4.5-11.0) X10^3/uL RBC 4.81 (4.0-5.2) X10^6/uL Hgb 13.1 (12.0-16.0) g/dL Hct 40.3 (36-46) % MCV 83.6 (80-100) fL MCH 27.1 (26-34) PG MCHC 32.4 (30-36) % RDW 14.7 (11.6-14.8) % Plt Count 400 (150-400) X10^3/uL Neut % (Auto) 72.8 (50-75) % Lymph % (Auto) 20.0 L (25-40) % [place] % (Auto) 5.0 (3-14) % Eos % (Auto) 0.9 L (2-4) % Baso % (Auto) 1.3 (0-2) % Neut # (Auto) 5100 (9667-4096) /uL Lymph # (Auto) 1400 (1606-2413) /uL [place] # (Auto) 300 (0-900) /uL Eos # (Auto) 100 (0-450) /uL Baso # (Auto) 100 (0-100) /uL VBG pH (7.33-7.43) VBG pCO2 (45-50) mmHg VBG pO2 (35-45) mmHg VBG HCO3 (23-28) mmol/L VBG Total CO2 (24-29) mmol/L VBG O2 Saturation (70-75) % VBG Base Excess (0-4) mmol/L Sodium 137 (137-145) mmol/L Potassium 4.0 (3.4-5.1) mmol/L Chloride 100 (98-107) mmol/L Carbon Dioxide 25 (22-32) mmol/L BUN 15 (7-17) mg/dL Creatinine 0.50 L (0.52-1.04) mg/dL Estimated GFR > 60.0 (>60) mL/min BUN/Creatinine Ratio 30.0 H (6-22) Glucose 271 H (70-100) mg/dL Lactate 1.9 (0.7-2.1) mmol/L Calcium 9.9 (8.4-10.2) mg/dL Total Bilirubin 0.7 (0.2-1.3) mg/dL AST 25 (14-36) IU/L ALT 18 (<35) IU/L Alkaline Phosphatase 62 (38-126) U/L Total Protein 8.1 (6.3-8.2) g/dL Albumin 4.8 (3.5-5.0) g/dL Globulin 3.3 (1.7-4.1) g/dL Albumin/Globulin Ratio 1.5 (1.0-2.8) Procalcitonin 0.05 (<0.5) ng/mL Ketones 1.67 H (<0.27) mmol/L 09/08/ Range/Units 23:28 WBC (4.5-11.0) X10^3/uL RBC (4.0-5.2) X10^6/uL Hgb (12.0-16.0) g/dL Hct (36-46) % MCV (80-100) fL MCH (26-34) PG MCHC (30-36) % RDW (11.6-14.8) % Plt Count (150-400) X10^3/uL Neut % (Auto) (50-75) % Lymph % (Auto) (25-40) % [place] % (Auto) (3-14) % Eos % (Auto) (2-4) % Baso % (Auto) (0-2) % Neut # (Auto) (8599-2343) /uL Lymph # (Auto) (7557-8817) /uL [place] # (Auto) (0-900) /uL Eos # (Auto) (0-450) /uL Baso # (Auto) (0-100) /uL VBG pH 7.35 (7.33-7.43) VBG pCO2 42.8 L (45-50) mmHg VBG pO2 38 (35-45) mmHg VBG HCO3 24 (23-28) mmol/L VBG Total CO2 25 (24-29) mmol/L VBG O2 Saturation 69 L (70-75) % VBG Base Excess -2.0 L (0-4) mmol/L Sodium (137-145) mmol/L Potassium (3.4-5.1) mmol/L Chloride (98-107) mmol/L Carbon Dioxide (22-32) mmol/L BUN (7-17) mg/dL Creatinine (0.52-1.04) mg/dL Estimated GFR (>60) mL/min BUN/Creatinine Ratio (6-22) Glucose (70-100) mg/dL Lactate (0.7-2.1) mmol/L Calcium (8.4-10.2) mg/dL Total Bilirubin (0.2-1.3) mg/dL AST (14-36) IU/L ALT (<35) IU/L Alkaline Phosphatase (38-126) U/L Total Protein (6.3-8.2) g/dL Albumin (3.5-5.0) g/dL Globulin (1.7-4.1) g/dL Albumin/Globulin Ratio (1.0-2.8) Procalcitonin (<0.5) ng/mL Ketones (<0.27) mmol/L Imaging Data CT scan - head: Radiologist's Impression: PROCEDURE:? CT HEAD/BRAIN WO CON ? INDICATIONS:? headache vomiting on eliquis ? TECHNIQUE:? Noncontrast 4.5 mm thick angled axial sections acquired from the foramen magnum to the vertex, with coronal and sagittal reformats.? For radiation dose reduction, the following was used:? automated exposure control, adjustment of mA and/or kV according to patient size.? ? COMPARISON:? [facility], CT, HEAD WITHOUT CONTRAST, 01/11/2009, 14:17. ? FINDINGS:? Image quality:? Excellent.? ? CSF spaces:? Basal cisterns are patent.? No extra-axial fluid collections.? Ventricles are normal in size and shape.? ? Brain:? No midline shift.? No intracranial masses or hemorrhage.? Rios-white matter interface is normal.? ? Skull and face:? Calvarium and visualized facial bones are intact, without suspicious lesions.? ? Sinuses:? Visualized sinuses and mastoids are clear.? ? IMPRESSION:? No CT evidence of acute intracranial process.? ? ? Dictated by: Rosaline Garcia M.D. on 09/08/2021 at 23:34 ? ? MDM Narrative Medical decision making narrative: Patient presenting with headache with history of migraines however on Eliquis and vomiting. No evidence of DKA on blood work. Head CT is negative. Nausea is finally controlled with Zofran and Reglan. She is starting feel a lot better. She is not needing or wanting anything further for pain. Overall feeling significantly better. Discharge Plan Departure Patient Disposition: Home Clinical Impression: Headache, migraine Instructions: DI for Headache Activity Restrictions/Additional Instructions: *You have been diagnosed with migraine headache *What to do: At this time please follow-up your primary care provider's you may need to be on migraine medication. *Continue to take medications as directed--> SENT TO [facility] Zofran Mg every 8 hours if needed for nausea or vomiting *Follow up with your primary care provider in 2-3 days *Return to ER if you should have increasing headache persistent vomiting or any new, worsening or concerning symptoms Prescriptions: New ondansetron 4 mg tablet,disintegrating 4 mg PO Q8H PRN (Reason: nausea and vomiting) Qty: 10 0RF No Action sennosides [senna] 8.6 mg tablet 8.6 mg PO DAILY 0RF insulin aspart U-100 [Novolog U-100 Insulin aspart] 100 unit/mL Solution 1 dose Continuous Subcutaneous Infusion CONT PRN (Reason: sliding scale) 0RF ondansetron HCl [Zofran] 4 mg tablet 4 mg PO Q6H PRN (Reason: nausea and vomiting) Qty: 12 0RF Rx Instructions: take 1-2 tabs for nausea and vomiting as needed Eliquis DVT-PE Treat 30D Start 5 mg (74 tabs) tablets,dose pack See Rx Instructions .ROUTE .COMPLEX Qty: 74 0RF Rx Instructions: orally per package directions oxycodone 5 mg tablet 5 mg PO Q4H PRN (Reason: post operative pain) Qty: 20 0RF Referrals: Ayala Ferrera MD [Primary Care Provider] -
--- NOTE | 2021-09-08 23:07 | DI.CT.S_ITS ---
PROCEDURE: CT HEAD/BRAIN WO CON INDICATIONS: headache vomiting on eliquis TECHNIQUE: Noncontrast 4.5 mm thick angled axial sections acquired from the foramen magnum to the vertex, with coronal and sagittal reformats. For radiation dose reduction, the following was used: automated exposure control, adjustment of mA and/or kV according to patient size. COMPARISON: [facility], CT, HEAD WITHOUT CONTRAST, 01/11/2009, 14:17. FINDINGS: Image quality: Excellent. CSF spaces: Basal cisterns are patent. No extra-axial fluid collections. Ventricles are normal in size and shape. Brain: No midline shift. No intracranial masses or hemorrhage. Rios-white matter interface is normal. Skull and face: Calvarium and visualized facial bones are intact, without suspicious lesions. Sinuses: Visualized sinuses and mastoids are clear. IMPRESSION: No CT evidence of acute intracranial process. Dictated by: Rosaline Garcia M.D. on 09/08/2021 at 23:34 Approved by: Rosaline Garcia M.D. on 09/08/2021 at 23:36
[2021-09-08 23:16] VITALS: BP 147/87
[2021-09-08 23:17] LABS: Add Manual Diff / Slide Review NO; Basophils Absolute Auto 100 /uL (0-100); Basophils Percent Auto 1.3 % (0-2); Eosinophils Absolute Auto 100 /uL (0-450); Eosinophils Percent Auto 0.9 % (2-4); Hematocrit 40.3 % (36-46); Hemoglobin 13.1 g/dL (12.0-16.0); Lymphocytes Absolute Auto 1400 /uL (1100-4500); Mean Corpuscular HGB Conc 32.4 % (30-36); Mean Corpuscular Hemoglobin 27.1 PG (26-34); Mean Corpuscular Volume 83.6 fL (80-100); Monocytes Absolute Auto 300 /uL (0-900); Neutrophils Absolute Auto 5100 /uL (1500-7000); Neutrophils Percent Auto 72.8 % (50-75); Platelet Count 400 X10^3/uL (150-400); Red Blood Cell Count 4.81 X10^6/uL (4.0-5.2); Red Cell Distribution Width 14.7 % (11.6-14.8)
[2021-09-08 23:22] LABS: Alanine Aminotransferase 18 IU/L (<35); Albumin 4.8 g/dL (3.5-5.0); Albumin Globulin Ratio 1.5 (1.0-2.8); Alkaline Phosphatase 62 U/L (38-126); Aspartate Aminotransferase 25 IU/L (14-36); Bilirubin Total 0.7 mg/dL (0.2-1.3); Blood Urea Nitrogen 15 mg/dL (7-17); Calcium 9.9 mg/dL (8.4-10.2); Carbon Dioxide 25 mmol/L (22-32); Chloride 100 mmol/L (98-107); Estimated Glomerular Filt Rate > 60.0 mL/min (>60); Globulin 3.3 g/dL (1.7-4.1); Glucose 271 mg/dL (70-100); HEMOLYSIS 24 (0-50); Sodium 137 mmol/L (137-145); Total Protein 8.1 g/dL (6.3-8.2)
[2021-09-08 23:23] LABS: Lactate (Lactic Acid) 1.9 mmol/L (0.7-2.1)
[2021-09-08 23:25] LABS: Ketones (Beta-Hydroxybutyrate) 1.67 mmol/L (<0.27)
[2021-09-08] MEDS: PANTOPRAZOLE 40 MG VIAL IV (23:35)
[2021-09-08] MEDS: METOCLOPRAMIDE 10 MG/2 ML INJ IV (23:35)
[2021-09-08] MEDS: SODIUM CHLORIDE 0.9% 1,000 ML 1000 ML IV (23:36)
[2021-09-08 23:42] LABS: Procalcitonin 0.05 ng/mL (<0.5)
[2021-09-09 00:29] VITALS: PULSE 99; RESP 22; O2SAT 99
[2021-09-09] MEDS: ONDANSETRON 4 MG/2 ML INJ IV (00:29)
[2021-09-09 01:13] VITALS: BP 139/84
[2021-09-09 01:44] LABS: HCO3 VBG 24 mmol/L (23-28); Oxygen Saturation VBG 69 % (70-75); PCO2 VBG 42.8 mmHg (45-50); PO2 VBG 38 mmHg (35-45); Total CO2 VBG 25 mmol/L (24-29); pH VBG 7.35 (7.33-7.43)
== END 2021-09-09 01:13 | disposition home or self-care (01) ==
PROVIDERS: Emergency Provider Emergency Medicine; PCP Family Medicine
DX: G43.909 Migraine, unspecified, not intractable, without status migrainosus (principal); R11.10 Vomiting, unspecified; Z79.01 Long term (current) use of anticoagulants
CPT/HCPCS: 70450; 80053; 82009; 82805; 83605; 84145; 85025; 96361; 96374; 96375; 99283; 99284; C9113; J2405; J2765

== ENCOUNTER 2021-09-09 19:43 | Emergency (ER) | payer OTHER, MEDICAID, SELFPAY ==
[2021-02-19 14:51] VITALS: BMI 31.6
[2021-09-09 20:03] VITALS: BP 143/78; PULSE 112; RESP 22; TEMP 36.5; O2SAT 98
[2021-09-09] MEDS: ONDANSETRON 4 MG/2 ML INJ (20:48)
[2021-09-09] MEDS: SODIUM CHLORIDE 0.9% 1,000 ML 1000 ML IV ×3 (21:01→23:50)
[2021-09-09] MEDS: LORazepam 2 MG/ML INJ 1 MG IV (21:27)
[2021-09-09 21:47] LABS: Add Manual Diff / Slide Review NO; Basophils Absolute Auto 100 /uL (0-100); Basophils Percent Auto 1.2 % (0-2); Eosinophils Absolute Auto 0 /uL (0-450); Eosinophils Percent Auto 0.1 % (2-4); Hematocrit 36.8 % (36-46); Lymphocytes Absolute Auto 500 /uL (1100-4500); Lymphocytes Percent Auto 7.9 % (25-40); Mean Corpuscular HGB Conc 32.6 % (30-36); Mean Corpuscular Hemoglobin 27.2 PG (26-34); Mean Corpuscular Volume 83.4 fL (80-100); Monocytes Absolute Auto 300 /uL (0-900); Monocytes Percent Auto 3.6 % (3-14); Neutrophils Absolute Auto 6000 /uL (1500-7000); Neutrophils Percent Auto 87.2 % (50-75); Platelet Count 363 X10^3/uL (150-400); Red Blood Cell Count 4.41 X10^6/uL (4.0-5.2); Red Cell Distribution Width 14.6 % (11.6-14.8); White Blood Cell Count 6.9 X10^3/uL (4.5-11.0)
[2021-09-09 21:51] LABS: Alanine Aminotransferase 20 IU/L (<35); Albumin 4.8 g/dL (3.5-5.0); Albumin Globulin Ratio 1.7 (1.0-2.8); Alkaline Phosphatase 65 U/L (38-126); Aspartate Aminotransferase 22 IU/L (14-36); BUN Creatinine Ratio 29.1 (6-22); Bilirubin Total 0.9 mg/dL (0.2-1.3); Blood Urea Nitrogen 16 mg/dL (7-17); Calcium 9.2 mg/dL (8.4-10.2); Carbon Dioxide 20 mmol/L (22-32); Chloride 99 mmol/L (98-107); Estimated Glomerular Filt Rate > 60.0 mL/min (>60); Globulin 2.9 g/dL (1.7-4.1); Glucose 289 mg/dL (70-100); HEMOLYSIS < 15 (0-50); Potassium 3.8 mmol/L (3.4-5.1); Sodium 136 mmol/L (137-145); Total Protein 7.7 g/dL (6.3-8.2)
[2021-09-09] MEDS: PANTOPRAZOLE 40 MG VIAL IV (22:01)
--- NOTE | 2021-09-09 23:22 | ED_ITS ---
HPI - Nausea/Vomiting/Diarrhea General Chief complaint: Nausea/Vomiting/Diarrhea Stated complaint: Migraine/Puking Non Stop Time Seen by Provider: 09/09/21 21:17 Source: patient Mode of arrival: Ambulatory History of Present Illness HPI Narrative: Patient is a 41-year-old female insulin-dependent diabetic also on Eliquis for upper extremity DVT presenting for the 2nd day in a row with headache nausea vomiting. She was seen evaluated last evening for the same. She had full workup including head CT blood work. She said that she did feel better upon discharge. However she states that shortly after she got home she started vomiting again. She just received a text message that her medication was ready at the pharmacy, so she has not yet picked up her anti nausea medication. He is unable to keep anything down and overall does not feel well. Still has mild headache. Related Data Home Medications Medication Instructions Recorded Confirmed insulin aspart U-100 100 unit/mL 1 dose CONTINUOUS SUBCUTANEOUS 09/10/18 03/05/21 subcutaneous solution (Novolog INFUSION CONT PRN U-100 Insulin aspart) sennosides 8.6 mg tablet (senna) 8.6 mg PO DAILY tab 05/01/20 03/05/21 Previous Rx's Medication Instructions Recorded ondansetron HCl 4 mg tablet 4 mg PO Q6H PRN #12 tab 03/25/20 (Zofran) oxycodone 5 mg tablet 5 mg PO Q4H PRN #20 tab 02/19/21 apixaban 5 mg (74 tabs) tablets in See Rx Instructions .ROUTE 07/11/21 a dose pack (Eliquis DVT-PE Treat .COMPLEX #74 ea 30D Start) ondansetron 4 mg disintegrating 4 mg PO Q8H PRN #10 tab 09/09/21 tablet promethazine 25 mg rectal 25 mg GA Q6H PRN #12 ea 09/10/21 suppository Allergies Allergy/AdvReac Type Severity Reaction Status Date / Time hydromorphone [From DILAUDID] Allergy Unknown Verified 08/26/21 19:21 diphenhydramine AdvReac Unknown ANXIETY, Verified 08/26/21 19:21 DOESNT CALM HER. metoclopramide [From Reglan] AdvReac Anxiety Verified 08/26/21 19:21 Review of Systems Review of Systems Narrative: GENERAL: Denies chills, fatigue, malaise, fever, sweats, travel HEENT: Denies sinus pain, ear pain, sore throat, difficulty swallowing, neck pain RESPIRATORY: Denies dyspnea, cough, wheezing, hemoptysis, sputum. CARDIOVASCULAR: Denies chest pain, palpitations, orthopnea, edema GASTROINTESTINAL: See HPI : Denies dysuria, frequency, incontinence, hematuria, urinary retention, flank pain. MUSCULOSKELETAL: Denies weakness, joint pain, or bony pain SKIN: No rash, no erythema, no pruritus NEUROLOGIC: Denies weakness, dizziness, headache, numbness, change in speech, confusion PSYCHIATRIC: No concerning psychosocial issues. 12 point review of systems is negative except for those stated above and HPI Patient History Medical History Bright red rectal bleeding Chin injury (1995) Hemorrhoids History of blood clots Hyperlipidemia, unspecified Insulin pump in place Tachycardia Type 1 diabetes Surgical History delivery delivered No pertinent past surgical history Status post ORIF of fracture of ankle Tubal ligation status Family History Mother Thyroid disease Father Lumbar back pain Cancer Sister Diabetes mellitus Social History household members: spouse and children Smoking Status: Former smoker alcohol intake: current Smoking Status: Former smoker alcohol intake frequency: 0-2 drinks per day Substance Use Type: does not use Exam Initial Vital Signs Initial Vital Signs: Vital Signs Temperature 97.7 F 09/09/21 20:03 Pulse Rate 112 H 09/09/21 20:03 Respiratory Rate 22 09/09/21 20:03 Blood Pressure 143/78 H 09/09/21 20:03 Pulse Oximetry 98 09/09/21 20:03 GENERAL: Alert 41-year-old female in dark room appears to not feel well HEENT: Head atraumatic,EOMI, pupils reactive, face symmetric, moist mucous membranes CARDIOVASCULAR: Regular rate and rhythm without murmurs, rubs or gallops. RESPIRATORY: Breath sounds equal bilaterally, no wheezes rales or rhonchi. ABDOMEN: Soft, nontender. Normoactive bowel sounds all 4 quadrants. No guarding or rebound. EXTREMITIES: Normal range of motion, no clubbing or edema. Neurovascularly intact NEUROLOGICAL: Alert and oriented x4.Normal gait and speech. 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 Course Orders Ordered: Discontinued Medications Al Hydrox/Mg Hydrox/Simethicone 20 ml/ Lidocaine HCl 15 ml 0 ml PO NOW ONE Stop: 09/09/21 23:42 Last Admin: 09/09/21 23:48 Dose: 35 ml Documented by: TEA Sodium Chloride (Normal Saline 0.9%) 1,000 mls @ 1,000 mls/hr IV BOLUS ONE Stop: 09/09/21 21:45 Last Infusion: 09/09/21 22:36 Dose: 0 mls/hr Documented by: Admin: 09/09/21 21:01 Dose: 1,000 mls/hr Documented by: ARGENTINA Sodium Chloride (Normal Saline 0.9%) 1,000 mls @ 1,000 mls/hr IV BOLUS ONE Stop: 09/09/21 23:36 Last Infusion: 09/10/21 01:09 Dose: 0 mls/hr Documented by: Admin: 09/09/21 22:39 Dose: 1,000 mls/hr Documented by: TEA Sodium Chloride (Normal Saline 0.9%) 1,000 mls @ 1,000 mls/hr IV BOLUS ONE Stop: 09/10/21 00:40 Last Infusion: 09/10/21 01:09 Dose: 0 mls/hr Documented by: Admin: 09/09/21 23:50 Dose: 1,000 mls/hr Documented by: TEA Lorazepam (Lorazepam 2 Mg/Ml Inj) 1 mg IV NOW ONE Stop: 09/09/21 21:18 Last Admin: 09/09/21 21:27 Dose: 1 mg Documented by: TEA Metoclopramide HCl (Metoclopramide 10 Mg/2 Ml Inj) 10 mg IV NOW ONE Stop: 09/09/21 23:42 Last Admin: 09/09/21 23:49 Dose: 10 mg Documented by: TEA Morphine Sulfate (Morphine 2 Mg/Ml Inj) 2 mg IV NOW ONE Stop: 09/09/21 23:42 Last Admin: 09/09/21 23:49 Dose: 2 mg Documented by: TEA Pantoprazole Sodium (Pantoprazole 40 Mg Vial) 20 mg IV NOW ONE Stop: 09/09/21 21:57 Last Admin: 09/09/21 21:57 Dose: Not Given Documented by: TEA Pantoprazole Sodium (Pantoprazole 40 Mg Vial) 40 mg IV NOW ONE Stop: 09/09/21 21:57 Last Admin: 09/09/21 22:01 Dose: 40 mg Documented by: TEA Vital Signs Vital signs: Vital Signs - 8 hr 09/09/21 20:03 Temperature 97.7 F Pulse Rate 112 H Respiratory Rate 22 Blood Pressure 143/78 H Pulse Oximetry 98 MDM - Nausea/Vomiting/Diarrhea Lab Data Result diagrams: 09/09/21 21:28 09/09/21 21:28 Labs: Lab Results 09/09/21 09/09/21 Range/Units 21:28 21:28 WBC 6.9 (4.5-11.0) X10^3/uL RBC 4.41 (4.0-5.2) X10^6/uL Hgb 12.0 (12.0-16.0) g/dL Hct 36.8 (36-46) % MCV 83.4 (80-100) fL MCH 27.2 (26-34) PG MCHC 32.6 (30-36) % RDW 14.6 (11.6-14.8) % Plt Count 363 (150-400) X10^3/uL Neut % (Auto) 87.2 H (50-75) % Lymph % (Auto) 7.9 L (25-40) % [place] % (Auto) 3.6 (3-14) % Eos % (Auto) 0.1 L (2-4) % Baso % (Auto) 1.2 (0-2) % Neut # (Auto) 6000 (5425-1306) /uL Lymph # (Auto) 500 L (2289-0004) /uL [place] # (Auto) 300 (0-900) /uL Eos # (Auto) 0 (0-450) /uL Baso # (Auto) 100 (0-100) /uL Sodium 136 L (137-145) mmol/L Potassium 3.8 (3.4-5.1) mmol/L Chloride 99 (98-107) mmol/L Carbon Dioxide 20 L (22-32) mmol/L BUN 16 (7-17) mg/dL Creatinine 0.55 (0.52-1.04) mg/dL Estimated GFR > 60.0 (>60) mL/min BUN/Creatinine Ratio 29.1 H (6-22) Glucose 289 H (70-100) mg/dL Calcium 9.2 (8.4-10.2) mg/dL Total Bilirubin 0.9 (0.2-1.3) mg/dL AST 22 (14-36) IU/L ALT 20 (<35) IU/L Alkaline Phosphatase 65 (38-126) U/L Total Protein 7.7 (6.3-8.2) g/dL Albumin 4.8 (3.5-5.0) g/dL Globulin 2.9 (1.7-4.1) g/dL Albumin/Globulin Ratio 1.7 (1.0-2.8) MDM Narrative Medical decision making narrative: Patient has no evidence of DKA. Minimal headache at this time I do not see need to repeat head CT. sHe does have a history of gastroparesis my at is probably causing some of this. She states she was previously on Reglan but had some side effects so she stopped taking. Is given Ativan which allowed her to sleep and get a break. Still feeling a bit nauseated, but overall feeling better. At this time she feels ready and able to go home. Discharge Plan Departure Patient Disposition: Home Clinical Impression: Gastroparesis Instructions: DI for Vomiting -- Adult Activity Restrictions/Additional Instructions: *You have been diagnosed with vomiting *What to do: Increase fluid as tolerated. Please supervisor picking crew prescription and take as previously written. *Continue to take medications as directed Phenergan suppository every 6 hours if needed--> SENT TO [facility] *Follow up with your primary care provider in 2-3 days *Return to ER if you should have persistent vomiting, headache or any new, worsening or concerning symptoms Prescriptions: New promethazine 25 mg suppository 25 mg GA Q6H PRN (Reason: nausea and vomiting) Qty: 12 0RF No Action sennosides [senna] 8.6 mg tablet 8.6 mg PO DAILY 0RF insulin aspart U-100 [Novolog U-100 Insulin aspart] 100 unit/mL Solution 1 dose Continuous Subcutaneous Infusion CONT PRN (Reason: sliding scale) 0RF ondansetron HCl [Zofran] 4 mg tablet 4 mg PO Q6H PRN (Reason: nausea and vomiting) Qty: 12 0RF Rx Instructions: take 1-2 tabs for nausea and vomiting as needed Eliquis DVT-PE Treat 30D Start 5 mg (74 tabs) tablets,dose pack See Rx Instructions .ROUTE .COMPLEX Qty: 74 0RF Rx Instructions: orally per package directions ondansetron 4 mg tablet,disintegrating 4 mg PO Q8H PRN (Reason: nausea and vomiting) Qty: 10 0RF oxycodone 5 mg tablet 5 mg PO Q4H PRN (Reason: post operative pain) Qty: 20 0RF Referrals: Ayala Ferrera MD [Primary Care Provider] -
[2021-09-09] MEDS: MAG HYDROX/ALUMINUM/SIMETH SUS 20 ML, LIDOCAINE VISCOUS 2% 15 ML PO (23:48)
[2021-09-09] MEDS: MORPHINE 2 MG/ML INJ IV (23:49)
[2021-09-09] MEDS: METOCLOPRAMIDE 10 MG/2 ML INJ IV (23:49)
[2021-09-10 01:17] VITALS: BP 112/68; PULSE 104; RESP 15; O2SAT 100
== END 2021-09-10 01:18 | disposition home or self-care (01) ==
PROVIDERS: Emergency Provider Emergency Medicine; PCP Family Medicine
DX: E10.43 Type 1 diabetes mellitus with diabetic autonomic (poly)neuropathy (principal); K31.84 Gastroparesis; R51.9 Headache, unspecified; R03.0 Elevated blood-pressure reading, without diagnosis of hypertension
CPT/HCPCS: 36415; 80053; 85025; 93005; 96361; 96374; 96375; 99284; C9113; J2060; J2270; J2405; J2765

== ENCOUNTER → 2021-11-07 09:24 | Outpatient (CLI) | payer OTHER, MEDICAID, SELFPAY ==
[2021-02-19 14:51] VITALS: BMI 31.6
[2021-11-07 11:48] LABS: Albumin 4.2 g/dL (3.5-5.0); BUN Creatinine Ratio 28.1 (6-22); Blood Urea Nitrogen 18 mg/dL (7-17); Calcium 9.7 mg/dL (8.4-10.2); Carbon Dioxide 28 mmol/L (22-32); Chloride 104 mmol/L (98-107); Cholesterol 211 mg/dL (140-199); Estimated Glomerular Filt Rate > 60.0 mL/min (>60); Glucose 140 mg/dL (70-100); HDL Cholesterol 59 mg/dL (40-60); HEMOLYSIS < 15 (0-50); LDL Cholesterol Calculated 132 mg/dL (<100); Phosphorous 3.3 mg/dL (2.5-4.5); Potassium 4.6 mmol/L (3.4-5.1); Sodium 136 mmol/L (137-145); Triglycerides 99 mg/dL (35-150)
[2021-11-07 11:49] LABS: Creatinine Urine Random 94.7 mg/dL
[2021-11-07 11:52] LABS: Microalbumi Creatinin Ratio Ur 8.4 ug/mg CR (<30); Microalbumin Urine Random 0.8 mg/dL (0-1.6)
== END ==
PROVIDERS: PCP Family Medicine; Referring Provider Student in an Organized Health Care Education/Training Program; Visit Provider Student in an Organized Health Care Education/Training Program
DX: E10.65 Type 1 diabetes mellitus with hyperglycemia (principal)
CPT/HCPCS: 36415; 80061; 80069; 82043; 82570

== ENCOUNTER 2021-11-20 09:54 | Emergency (ER) | payer OTHER, MEDICAID, SELFPAY ==
[2021-02-19 14:51] VITALS: BMI 31.6
[2021-11-20 10:25] VITALS: BP 137/85; PULSE 82; RESP 15; TEMP 36.1; O2SAT 100; BMI 29.8
--- NOTE | 2021-11-20 10:40 | ED_ITS ---
HPI - Headache General Chief Complaint: Headache Stated Complaint: Migraine, vomiting, dehydrated, type 1 diabetic Time Seen by Provider: 11/20/21 10:02 Mode of arrival: Ambulatory History of Present Illness HPI Narrative: 41-year-old female former smoker with history of migraines and type 1 diabetes presents with a chief complaint of a gradually worsening headache over the past 24 hours or so. She denies any fever chills. She does have some neck pain but states she always has neck pain and this is certainly not out of the norm for her. She states her headache is behaving quite similar to prior migraines, particularly those that require a visit to the emergency department. She denies any head injury or trauma. She states that her pain is squeezing and moderate in intensity. She denies any radiation the pain. She states that it is worse with bright lights and loud noise and seems to improve with rest in a dark room. She denies blurred vision, trouble speech or numbness, tingling of her extremities. She has been off of her anticoagulation for over 1 month. Related Data Home Medications Medication Instructions Recorded Confirmed insulin aspart U-100 100 unit/mL 1 dose CONTINUOUS SUBCUTANEOUS 09/10/18 03/05/21 subcutaneous solution (Novolog INFUSION CONT PRN U-100 Insulin aspart) sennosides 8.6 mg tablet (senna) 8.6 mg PO DAILY tab 05/01/20 03/05/21 Previous Rx's Medication Instructions Recorded ondansetron HCl 4 mg tablet 4 mg PO Q6H PRN #12 tab 03/25/20 (Zofran) oxycodone 5 mg tablet 5 mg PO Q4H PRN #20 tab 02/19/21 apixaban 5 mg (74 tabs) tablets in See Rx Instructions .ROUTE 07/11/21 a dose pack (Eliquis DVT-PE Treat .COMPLEX #74 ea 30D Start) ondansetron 4 mg disintegrating 4 mg PO Q8H PRN #10 tab 09/09/21 tablet promethazine 25 mg rectal 25 mg SC Q6H PRN #12 ea 09/10/21 suppository Allergies Allergy/AdvReac Type Severity Reaction Status Date / Time hydromorphone [From DILAUDID] Allergy Unknown Verified 11/20/21 10:30 diphenhydramine AdvReac Unknown ANXIETY, Verified 11/20/21 10:30 DOESNT CALM HER. metoclopramide [From Reglan] AdvReac Anxiety Verified 11/20/21 10:30 Review of Systems Review of Systems Narrative: GENERAL: See HPI HEENT: Denies sinus pain, ear pain, sore throat, difficulty swallowing, dizziness. RESPIRATORY: Denies dyspnea, cough, wheezing, hemoptysis, sputum. CARDIOVASCULAR: Denies chest pain, palpitations, orthopnea, edema, GASTROINTESTINAL: See HPI : Denies dysuria, frequency, incontinence, hematuria, urinary retention. MUSCULOSKELETAL: denies weakness, joint pain, or bony pain SKIN: Denies rash, skin lesions, or other NEUROLOGIC: See HPI PSYCHIATRIC: No concerning psychosocial issues. 12 point review of systems is negative except for those stated above Patient History Medical History Bright red rectal bleeding Chin injury (1995) Hemorrhoids History of blood clots Hyperlipidemia, unspecified Insulin pump in place Tachycardia Type 1 diabetes Surgical History delivery delivered No pertinent past surgical history Status post ORIF of fracture of ankle Tubal ligation status Family History Mother Thyroid disease Father Lumbar back pain Cancer Sister Diabetes mellitus Social History household members: spouse and children Smoking Status: Former smoker alcohol intake: current Smoking Status: Former smoker alcohol intake frequency: holidays/special occasions only Substance Use Type: does not use Exam Narrative Exam Narrative: GENERAL: [41 year old patient appears stated age. Well-developed patient, in mild distress. Sitting in dark room HEAD: Atraumatic. Normocephalic. EYES: Pupils equal round and reactive. Extraocular motions intact. No scleral icterus. No injection or drainage. ENT: Nose without bleeding, purulent drainage. Throat without erythema, tonsillar hypertrophy or exudate. Airway patent. NECK: Trachea midline. Non tender CARDIOVASCULAR: Regular rate and rhythm without murmurs, gallops, or rubs. RESPIRATORY: Clear to auscultation. Breath sounds equal bilaterally. No wheezes, rales, or rhonchi. GASTROINTESTINAL: Abdomen soft, non-tender, nondistended. EXTREMITIES: No edema or joint tenderness. BACK: Nontender without deformity or crepitance. No flank tenderness. NEURO: AOx3. SKIN: No rash or erythema of visible areas NIH Stroke Scale 1a. LOC: Patient is alert and keenly responsive (0) 1b. LOC Questions: Patient answers both LOC questions accurately (0) 1c. LOC Commands: Patient performs both tasks correctly (0) 2. Best Gaze: Normal (0) 3. Visual: No visual loss (0) 4. Facial palsy: Normal symmetrical movements (0) 5. Motor arm: No drift (0) 6. Motor leg: No drift (0) 7. Limb ataxia: Absent (0) 8. Sensory: Normal (0) 9. Best language: No aphasia; normal (0) 10. Dysarthria: Normal (0) 11. Extinction and inattention: No abnormality (0) NIHSS: 0 Initial Vital Signs Initial Vital Signs: Vital Signs Temperature 97.0 F L 11/20/21 10:25 Pulse Rate 82 11/20/21 10:25 Respiratory Rate 15 11/20/21 10:25 Blood Pressure 137/85 11/20/21 10:25 Pulse Oximetry 100 11/20/21 10:25 Course Orders Ordered: ED Orders 11/20/21 11:58 Complete Blood Count AUTO DIFF Stat 11/20/21 11:59 VBG [Venous Blood Gas] Stat 11/20/21 12:59 Comprehensive Metabolic Panel Stat Ketones (Beta-Hydroxybutyrate) Stat Discontinued Medications Sodium Chloride (Normal Saline 0.9%) 1,000 mls @ 1,000 mls/hr IV BOLUS ONE Stop: 11/20/21 12:15 Last Infusion: 11/20/21 13:31 Dose: 0 mls/hr Documented by: Admin: 11/20/21 11:59 Dose: 1,000 mls/hr Documented by: CODY Sodium Chloride (Normal Saline 0.9%) 1,000 mls @ 1,000 mls/hr IV BOLUS ONE Stop: 11/20/21 14:29 Last Admin: 11/20/21 13:37 Dose: 1,000 mls/hr Documented by: MERLINE Ketorolac Tromethamine (Ketorolac 30 Mg/Ml Vial) 15 mg IV NOW ONE Stop: 11/20/21 13:00 Last Admin: 11/20/21 13:01 Dose: 15 mg Documented by: CODY Metoclopramide HCl (Metoclopramide 10 Mg/2 Ml Inj) 10 mg IV NOW ONE Stop: 11/20/21 13:31 Last Admin: 11/20/21 13:37 Dose: 10 mg Documented by: MERLINE Ondansetron HCl (Ondansetron 4 Mg/2 Ml Inj) 4 mg IV NOW ONE Stop: 11/20/21 13:31 Last Admin: 11/20/21 13:37 Dose: 4 mg Documented by: MERLINE Vital Signs Vital signs: Vital Signs - 8 hr 11/20/21 10:25 Temperature 97.0 F L Pulse Rate 82 Respiratory Rate 15 Blood Pressure 137/85 Pulse Oximetry 100 MDM - Headache Lab Data Result diagrams: 11/20/21 11:58 11/20/21 12:59 Labs: Lab Results 11/20/21 11/20/21 11/20/21 Range/Units 11:58 11:59 12:59 WBC 5.2 (4.5-11.0) X10^3/uL RBC 4.40 (4.0-5.2) X10^6/uL Hgb 12.1 (12.0-16.0) g/dL Hct 36.3 (36-46) % MCV 82.4 (80-100) fL MCH 27.4 (26-34) PG MCHC 33.3 (30-36) % RDW 17.2 H (11.6-14.8) % Plt Count 302 (150-400) X10^3/uL Neut % (Auto) 84.4 H (50-75) % Lymph % (Auto) 9.4 L (25-40) % Cherry % (Auto) 4.8 (3-14) % Eos % (Auto) 0.3 L (2-4) % Baso % (Auto) 1.1 (0-2) % Neut # (Auto) 4400 (7658-6968) /uL Lymph # (Auto) 500 L (3515-4782) /uL Cherry # (Auto) 300 (0-900) /uL Eos # (Auto) 0 (0-450) /uL Baso # (Auto) 100 (0-100) /uL VBG pH 7.37 (7.33-7.43) VBG pCO2 48.1 (45-50) mmHg VBG pO2 37 (35-45) mmHg VBG HCO3 28 (23-28) mmol/L VBG Total CO2 30 H (24-29) mmol/L VBG O2 Saturation 68 L (70-75) % VBG Base Excess 3.0 (0-4) mmol/L Sodium 136 L (137-145) mmol/L Potassium 4.6 (3.4-5.1) mmol/L Chloride 107 (98-107) mmol/L Carbon Dioxide 26 (22-32) mmol/L BUN 18 H (7-17) mg/dL Creatinine 0.52 (0.52-1.04) mg/dL Estimated GFR > 60.0 (>60) mL/min BUN/Creatinine Ratio 34.6 H (6-22) Glucose 131 H (70-100) mg/dL Calcium 8.9 (8.4-10.2) mg/dL Total Bilirubin 0.9 (0.2-1.3) mg/dL AST 36 (14-36) IU/L ALT 15 (<35) IU/L Alkaline Phosphatase 41 (38-126) U/L Total Protein 7.2 (6.3-8.2) g/dL Albumin 4.1 (3.5-5.0) g/dL Globulin 3.1 (1.7-4.1) g/dL Albumin/Globulin Ratio 1.3 (1.0-2.8) Ketones 0.65 H (<0.27) mmol/L MDM Narrative Medical decision making narrative: Headache considerations include, but not limited to: Subarachnoid hemorrhage, but unlikely as patient denies sudden onset of pain, not worst of life, or neck pain Meningitis considered, but thought unlikely given lack of Brudzinski's, Kernig's sign, altered mental status or fever Giant cell arteritis considered, but thought unlikely given lack of unilateral findings, pain in jehovah's witness, vision change HTN Emergency considered, but thought unlikely given normal vitals Other serious diagnoses considered unlikely given lack of red flag findings such as sudden onset, increasing frequency, immunocompromise, systemic signs (fever, chills, stiff neck, or rash), focal neurologic findings, trauma, blood thinners, etc . Patient is rehydrated, tolerating orals, pain is nearly completely resolved with above-stated therapies. She is given return precautions and questions been answered to her apparent satisfaction Discharge Plan Departure Patient Disposition: Home Clinical Impression: Migraine Instructions: DI for Migraine Activity Restrictions/Additional Instructions: *You have been diagnosed with [migraine headache] *What to do: *Take medications as directed *Follow up with your primary care provider in 2-3 days, call for an appointment. Let them know you were seen in the Emergency Department and that we ask that you be seen in follow up *Return to ER if you should have any new, worsening or concerning symptoms, such as [ fever > 101F, neck pain or stiffness, vomiting, confusion, seizure, focal weakness, vision change, speech deficit or other concerning symptoms ] Prescriptions: No Action sennosides [senna] 8.6 mg tablet 8.6 mg PO DAILY 0RF insulin aspart U-100 [Novolog U-100 Insulin aspart] 100 unit/mL Solution 1 dose Continuous Subcutaneous Infusion CONT PRN (Reason: sliding scale) 0RF ondansetron HCl [Zofran] 4 mg tablet 4 mg PO Q6H PRN (Reason: nausea and vomiting) Qty: 12 0RF Rx Instructions: take 1-2 tabs for nausea and vomiting as needed Eliquis DVT-PE Treat 30D Start 5 mg (74 tabs) tablets,dose pack See Rx Instructions .ROUTE .COMPLEX Qty: 74 0RF Rx Instructions: orally per package directions ondansetron 4 mg tablet,disintegrating 4 mg PO Q8H PRN (Reason: nausea and vomiting) Qty: 10 0RF promethazine 25 mg suppository 25 mg SC Q6H PRN (Reason: nausea and vomiting) Qty: 12 0RF oxycodone 5 mg tablet 5 mg PO Q4H PRN (Reason: post operative pain) Qty: 20 0RF Referrals: Ayala Ferrera MD [Primary Care Provider] -
[2021-11-20] MEDS: SODIUM CHLORIDE 0.9% 1,000 ML 1000 ML IV ×2 (11:59→13:37)
[2021-11-20 12:09] LABS: Add Manual Diff / Slide Review NO; Basophils Absolute Auto 100 /uL (0-100); Basophils Percent Auto 1.1 % (0-2); Eosinophils Absolute Auto 0 /uL (0-450); Eosinophils Percent Auto 0.3 % (2-4); Hematocrit 36.3 % (36-46); Hemoglobin 12.1 g/dL (12.0-16.0); Lymphocytes Absolute Auto 500 /uL (1100-4500); Lymphocytes Percent Auto 9.4 % (25-40); Mean Corpuscular HGB Conc 33.3 % (30-36); Mean Corpuscular Hemoglobin 27.4 PG (26-34); Mean Corpuscular Volume 82.4 fL (80-100); Monocytes Absolute Auto 300 /uL (0-900); Monocytes Percent Auto 4.8 % (3-14); Neutrophils Absolute Auto 4400 /uL (1500-7000); Neutrophils Percent Auto 84.4 % (50-75); Platelet Count 302 X10^3/uL (150-400); Red Cell Distribution Width 17.2 % (11.6-14.8); White Blood Cell Count 5.2 X10^3/uL (4.5-11.0)
[2021-11-20 12:10] LABS: HCO3 VBG 28 mmol/L (23-28); PCO2 VBG 48.1 mmHg (45-50); PO2 VBG 37 mmHg (35-45); pH VBG 7.37 (7.33-7.43)
[2021-11-20 12:11] LABS: Oxygen Saturation VBG 68 % (70-75); Total CO2 VBG 30 mmol/L (24-29)
[2021-11-20] MEDS: KETOROLAC 30 MG/ML VIAL 15 MG IV (13:01)
[2021-11-20] MEDS: METOCLOPRAMIDE 10 MG/2 ML INJ IV (13:37)
[2021-11-20] MEDS: ONDANSETRON 4 MG/2 ML INJ IV (13:37)
[2021-11-20 13:43] LABS: Alanine Aminotransferase 15 IU/L (<35); Albumin 4.1 g/dL (3.5-5.0); Albumin Globulin Ratio 1.3 (1.0-2.8); Alkaline Phosphatase 41 U/L (38-126); Aspartate Aminotransferase 36 IU/L (14-36); BUN Creatinine Ratio 34.6 (6-22); Bilirubin Total 0.9 mg/dL (0.2-1.3); Blood Urea Nitrogen 18 mg/dL (7-17); Calcium 8.9 mg/dL (8.4-10.2); Carbon Dioxide 26 mmol/L (22-32); Chloride 107 mmol/L (98-107); Estimated Glomerular Filt Rate > 60.0 mL/min (>60); Globulin 3.1 g/dL (1.7-4.1); Glucose 131 mg/dL (70-100); Sodium 136 mmol/L (137-145); Total Protein 7.2 g/dL (6.3-8.2)
[2021-11-20 13:45] LABS: Ketones (Beta-Hydroxybutyrate) 0.65 mmol/L (<0.27)
[2021-11-20 13:49] LABS: HEMOLYSIS 162 (0-50)
[2021-11-20 13:51] LABS: Potassium 4.6 mmol/L (3.4-5.1)
[2021-11-20 14:55] VITALS: BP 127/75; PULSE 105; RESP 18; O2SAT 100
== END 2021-11-20 14:57 | disposition home or self-care (01) ==
PROVIDERS: Emergency Provider Emergency Medicine; PCP Family Medicine
DX: G43.909 Migraine, unspecified, not intractable, without status migrainosus (principal)
CPT/HCPCS: 80053; 82009; 82805; 85025; 96361; 96374; 96375; 99283; 99284; J1885; J2405; J2765

== ENCOUNTER 2021-11-21 14:35 | Emergency (ER) | payer OTHER, MEDICAID, SELFPAY ==
[2021-02-19 14:51] VITALS: BMI 31.6
[2021-11-21 14:50] VITALS: BP 122/82; PULSE 96; RESP 18; TEMP 36.8; O2SAT 100; BMI 29.8
--- NOTE | 2021-11-21 15:55 | PC.NURSE ---
Pt has personal monitor attached to test blood glucose, pt checked monitor and reports glucose is 118 right now. States her glucose level has been around this number recently.
--- NOTE | 2021-11-21 16:36 | DI.CT.S_ITS ---
PROCEDURE: CT HEAD/BRAIN WO CON INDICATIONS: Headache, dizziness TECHNIQUE: Noncontrast 4.5 mm thick angled axial sections acquired from the foramen magnum to the vertex, with coronal and sagittal reformats. For radiation dose reduction, the following was used: automated exposure control, adjustment of mA and/or kV according to patient size. COMPARISON: [facility], CT, CT HEAD/BRAIN WO CON, 09/08/2021, 23:19. FINDINGS: Image quality: Excellent. CSF spaces: Basal cisterns are patent. No extra-axial fluid collections. Ventricles are normal in size and shape. Brain: No midline shift. No intracranial masses or hemorrhage. Rios-white matter interface is normal. Skull and face: Calvarium and visualized facial bones are intact, without suspicious lesions. Sinuses: Visualized sinuses and mastoids are clear. IMPRESSION: 1. No acute intracranial process. Dictated by: Erin Barragan M.D. on 11/21/2021 at 16:51 Approved by: Erin Barragan M.D. on 11/21/2021 at 16:52
[2021-11-21] MEDS: ONDANSETRON 4 MG ODT PO (16:41)
--- NOTE | 2021-11-21 16:45 | ED.DIZZY ---
HPI - Dizziness <Naseem Vasquez PA-C - Last Filed: 11/22/21 13:17> General Chief Complaint: Dizziness Stated Complaint: Dizzy Time Seen by Provider: 11/21/21 15:55 History of Present Illness HPI Narrative: Patient is a 41-year-old female presenting to the emergency department today for evaluation dizziness. Patient states that her dizziness has progressively worsened over the past 4 days, noting that she is also experienced worsening nausea and vomiting. She states that she was seen in the emergency department yesterday and was treated for a migraine and dizziness. She states that her migraine has since subsided but she notes that her dizziness has persisted and worsened. She denies fever, chills, chest pain, cough, shortness of breath diarrhea, constipation, abdominal pain, diaphoresis, headaches, changes in vision, changes in hearing, slurred speech, behavior abnormality, syncope, or any other concerning symptoms. No further concerns were voiced at this time. Related Data Home Medications Medication Instructions Recorded Confirmed insulin aspart U-100 100 unit/mL 1 dose CONTINUOUS SUBCUTANEOUS 09/10/18 11/26/21 subcutaneous solution (Novolog INFUSION CONT PRN U-100 Insulin aspart) sennosides 8.6 mg tablet (senna) 8.6 mg PO DAILY tab 05/01/20 11/26/21 [id number]-[id number] 250 1 tab PO Q4-6H PRN 11/26/21 11/26/21 mg-250 mg-65 mg tablet (Excedrin Extra Strength) Previous Rx's Medication Instructions Recorded ondansetron HCl 4 mg tablet 4 mg PO Q6H PRN #12 tab 03/25/20 (Zofran) ondansetron 4 mg disintegrating 4 mg PO Q8H PRN #10 tab 09/09/21 tablet promethazine 25 mg rectal 25 mg MS Q6H PRN #12 ea 09/10/21 suppository Allergies Allergy/AdvReac Type Severity Reaction Status Date / Time hydromorphone [From DILAUDID] Allergy Unknown Verified 11/20/21 10:30 diphenhydramine AdvReac Unknown ANXIETY, Verified 11/20/21 10:30 DOESNT CALM HER. metoclopramide [From Reglan] AdvReac Anxiety Verified 11/20/21 10:30 Review of Systems <Naseem Vasquez PA-C - Last Filed: 11/22/21 13:17> Constitutional Constitutional: Denies chills, Denies fatigue, Denies fever(s), Denies frequent falls, Denies lethargy and Denies weakness Eyes Eyes: Denies change in vision, Denies eye discharge, Denies irritation and Denies loss of vision ENT Ears, Nose, Mouth, and Throat: Denies change in voice, Reports dizziness, Denies neck pain, Denies sore throat and Denies throat swelling Cardiovascular Cardiovascular: Denies chest pain, Denies syncope, Denies irregular heart rhythm, Denies lightheadedness, Denies palpitations, Denies dyspnea, Denies dyspnea on exertion and Denies orthopnea Respiratory Respiratory: Denies cough, Denies dyspnea, Denies dyspnea on exertion and Denies wheezing Gastrointestinal Gastrointestinal: Denies abdominal pain, Denies change in bowel habits, Denies diarrhea, Reports nausea and Reports vomiting Genitourinary Genitourinary: Denies hematuria, Denies flank pain, Denies urinary incontinence and Denies urinary urgency Musculoskeletal Musculoskeletal: Denies back pain, Denies muscle weakness, Denies neck pain, Denies numbness and Denies tingling Integumentary/Breasts Skin/Breast: Denies pruritus, Denies erythema, Denies rash and Denies wounds Neurologic Neurologic: Denies behavioral changes, Denies confusion, Reports dizziness, Denies syncope, Denies frequent falls, Denies loss of vision, Denies numbness, Denies tingling and Denies weakness Psychiatric Psychiatric: Denies behavioral changes and Denies confusion Endocrine Endocrine: Denies fatigue and Denies palpitations Allergic/Immunologic Allergic/Immunologic: Denies throat swelling and Denies wheezing Patient History <Naseem Vasqeuz PA-C - Last Filed: 11/22/21 13:17> Medical History Bright red rectal bleeding Chin injury (1995) Hemorrhoids History of blood clots Hyperlipidemia, unspecified Insulin pump in place Tachycardia Type 1 diabetes Surgical History delivery delivered No pertinent past surgical history Status post ORIF of fracture of ankle Tubal ligation status Family History Mother Thyroid disease Father Lumbar back pain Cancer Sister Diabetes mellitus Social History household members: spouse and children Smoking Status: Former smoker alcohol intake: current Smoking Status: Former smoker alcohol intake frequency: holidays/special occasions only Substance Use Type: does not use Exam <Naseem Vasquez PA-C - Last Filed: 11/22/21 13:17> Narrative Exam Narrative: GENERAL: 41 year old patient appears stated age. Well-developed patient, in no acute distress. HEAD: Atraumatic. Normocephalic. EYES: Pupils equal round and reactive. Extraocular motions intact. No scleral icterus. No injection or drainage. ENT: Nose without bleeding, purulent drainage. Throat without erythema, tonsillar hypertrophy or exudate. Airway patent. NECK: Trachea midline. Non tender CARDIOVASCULAR: Regular rate and rhythm without murmurs, gallops, or rubs. RESPIRATORY: Clear to auscultation. Breath sounds equal bilaterally. No wheezes, rales, or rhonchi. GASTROINTESTINAL: Abdomen soft, non-tender, nondistended. EXTREMITIES: No edema or joint tenderness. BACK: Nontender without deformity or crepitance. No flank tenderness. NEURO: AOx3. SKIN: No rash or erythema of visible areas Initial Vital Signs Initial Vital Signs: Vital Signs Temperature 98.3 F 11/21/21 14:50 Pulse Rate 96 H 11/21/21 14:50 Respiratory Rate 18 11/21/21 14:50 Blood Pressure 122/82 11/21/21 14:50 Pulse Oximetry 100 11/21/21 14:50 <Chris Daugherty DO - Last Filed: 11/27/21 07:06> Initial Vital Signs Initial Vital Signs: Vital Signs Temperature 98.3 F 11/21/21 14:50 Pulse Rate 96 H 11/21/21 14:50 Respiratory Rate 18 11/21/21 14:50 Blood Pressure 122/82 11/21/21 14:50 Pulse Oximetry 100 11/21/21 14:50 Course <Naseem Vasquez PA-C - Last Filed: 11/22/21 13:17> Course Course Narrative: CBC, CMP, troponin, urinalysis, VBG, EKG, head CT obtained. Orders Ordered: Discontinued Medications Sodium Chloride (Normal Saline 0.9%) 1,000 mls @ 150 mls/hr IV CONT RANULFO Last Infusion: 11/21/21 19:40 Dose: 0 mls/hr Documented by: Admin: 11/21/21 17:36 Dose: 150 mls/hr Documented by: BRENDA Metoclopramide HCl (Metoclopramide 10 Mg/2 Ml Inj) 10 mg IV NOW ONE Stop: 11/21/21 18:33 Last Admin: 11/21/21 18:40 Dose: 10 mg Documented by: BRENDA Ondansetron HCl (Ondansetron 4 Mg Odt) 4 mg PO NOW ONE Stop: 11/21/21 15:56 Last Admin: 11/21/21 16:41 Dose: 4 mg Documented by: BRENDA Potassium Chloride (Potassium Chloride 20 Meq/15 Ml Udc) 40 meq PO NOW ONE Stop: 11/21/21 19:28 Last Admin: 11/21/21 19:38 Dose: 40 meq Documented by: BRENDA Scopolamine (Scopolamine 1 Patch) 1 patch TOP NOW ONE Stop: 11/21/21 18:32 Last Admin: 11/21/21 18:40 Dose: 1 patch Documented by: BRENDA Vital Signs Vital signs: Vital Signs - 8 hr 11/21/21 14:50 11/21/21 18:46 Temperature 98.3 F Pulse Rate 96 H 97 H Respiratory Rate 18 16 Blood Pressure 122/82 136/80 Pulse Oximetry 100 100 <Chris Daugherty DO - Last Filed: 11/27/21 07:06> Orders Ordered: Discontinued Medications Sodium Chloride (Normal Saline 0.9%) 1,000 mls @ 150 mls/hr IV CONT RANULFO Last Infusion: 11/21/21 19:40 Dose: 0 mls/hr Documented by: Admin: 11/21/21 17:36 Dose: 150 mls/hr Documented by: RBENDA Metoclopramide HCl (Metoclopramide 10 Mg/2 Ml Inj) 10 mg IV NOW ONE Stop: 11/21/21 18:33 Last Admin: 11/21/21 18:40 Dose: 10 mg Documented by: BRENDA Ondansetron HCl (Ondansetron 4 Mg Odt) 4 mg PO NOW ONE Stop: 11/21/21 15:56 Last Admin: 11/21/21 16:41 Dose: 4 mg Documented by: ATAYLMAYRA Potassium Chloride (Potassium Chloride 20 Meq/15 Ml Udc) 40 meq PO NOW ONE Stop: 11/21/21 19:28 Last Admin: 11/21/21 19:38 Dose: 40 meq Documented by: BRENDA Scopolamine (Scopolamine 1 Patch) 1 patch TOP NOW ONE Stop: 11/21/21 18:32 Last Admin: 11/21/21 18:40 Dose: 1 patch Documented by: BRENDA Vital Signs Vital signs: Vital Signs - 8 hr 11/21/21 14:50 11/21/21 18:46 Temperature 98.3 F Pulse Rate 96 H 97 H Respiratory Rate 18 16 Blood Pressure 122/82 136/80 Pulse Oximetry 100 100 MDM - Dizziness <Naseem Vasquez PA-C - Last Filed: 11/22/21 13:17> Lab Data Result diagrams: 11/21/21 18:30 11/21/21 18:30 Labs: Lab Results 11/21/21 11/21/21 11/21/21 Range/Units 17:08 18:30 18:30 WBC 5.5 (4.5-11.0) X10^3/uL RBC 4.20 (4.0-5.2) X10^6/uL Hgb 11.4 L (12.0-16.0) g/dL Hct 34.2 L (36-46) % MCV 81.4 (80-100) fL MCH 27.2 (26-34) PG MCHC 33.4 (30-36) % RDW 16.9 H (11.6-14.8) % Plt Count 310 (150-400) X10^3/uL Neut % (Auto) 59.2 D (50-75) % Lymph % (Auto) 28.4 (25-40) % [place] % (Auto) 10.4 (3-14) % Eos % (Auto) 0.8 L (2-4) % Baso % (Auto) 1.2 (0-2) % Neut # (Auto) 3300 (1809-7478) /uL Lymph # (Auto) 1600 (2171-2151) /uL [place] # (Auto) 600 (0-900) /uL Eos # (Auto) 0 (0-450) /uL Baso # (Auto) 100 (0-100) /uL VBG pH (7.33-7.43) VBG pCO2 (45-50) mmHg VBG pO2 (35-45) mmHg VBG HCO3 (23-28) mmol/L VBG Total CO2 (24-29) mmol/L VBG O2 Saturation (70-75) % VBG Base Excess (0-4) mmol/L Sodium 135 L (137-145) mmol/L Potassium 3.2 L D (3.4-5.1) mmol/L Chloride 104 (98-107) mmol/L Carbon Dioxide 28 (22-32) mmol/L BUN 17 (7-17) mg/dL Creatinine 0.58 (0.52-1.04) mg/dL Estimated GFR > 60.0 (>60) mL/min BUN/Creatinine Ratio 29.3 H (6-22) Glucose 88 (70-100) mg/dL Calcium 8.9 (8.4-10.2) mg/dL Total Bilirubin 0.8 (0.2-1.3) mg/dL AST 20 (14-36) IU/L ALT 15 (<35) IU/L Alkaline Phosphatase 43 (38-126) U/L Troponin I < 0.012 (0.01-0.034) ng/mL Total Protein 6.7 (6.3-8.2) g/dL Albumin 4.0 (3.5-5.0) g/dL Globulin 2.7 (1.7-4.1) g/dL Albumin/Globulin Ratio 1.5 (1.0-2.8) Urine RBC 1-5/hpf (0-5/HPF) Urine WBC 1-5/hpf (0-5/HPF) Ur Squamous Epith Cells 1-5 /hpf (0-5/HPF) Urine Bacteria Few (2-10) H (None) Urine Mucus 2+ H (Negative) Ur Culture Indicated? Cult not indicated 11/21/21 Range/Units 19:18 WBC (4.5-11.0) X10^3/uL RBC (4.0-5.2) X10^6/uL Hgb (12.0-16.0) g/dL Hct (36-46) % MCV (80-100) fL MCH (26-34) PG MCHC (30-36) % RDW (11.6-14.8) % Plt Count (150-400) X10^3/uL Neut % (Auto) (50-75) % Lymph % (Auto) (25-40) % [place] % (Auto) (3-14) % Eos % (Auto) (2-4) % Baso % (Auto) (0-2) % Neut # (Auto) (4417-9843) /uL Lymph # (Auto) (0329-4192) /uL [place] # (Auto) (0-900) /uL Eos # (Auto) (0-450) /uL Baso # (Auto) (0-100) /uL VBG pH 7.40 (7.33-7.43) VBG pCO2 40.9 L (45-50) mmHg VBG pO2 46 H (35-45) mmHg VBG HCO3 25 (23-28) mmol/L VBG Total CO2 26 (24-29) mmol/L VBG O2 Saturation 81 H (70-75) % VBG Base Excess 0.0 (0-4) mmol/L Sodium (137-145) mmol/L Potassium (3.4-5.1) mmol/L Chloride (98-107) mmol/L Carbon Dioxide (22-32) mmol/L BUN (7-17) mg/dL Creatinine (0.52-1.04) mg/dL Estimated GFR (>60) mL/min BUN/Creatinine Ratio (6-22) Glucose (70-100) mg/dL Calcium (8.4-10.2) mg/dL Total Bilirubin (0.2-1.3) mg/dL AST (14-36) IU/L ALT (<35) IU/L Alkaline Phosphatase (38-126) U/L Troponin I (0.01-0.034) ng/mL Total Protein (6.3-8.2) g/dL Albumin (3.5-5.0) g/dL Globulin (1.7-4.1) g/dL Albumin/Globulin Ratio (1.0-2.8) Urine RBC (0-5/HPF) Urine WBC (0-5/HPF) Ur Squamous Epith Cells (0-5/HPF) Urine Bacteria (None) Urine Mucus (Negative) Ur Culture Indicated? Urine Dip Bedside Urine Glucose Negative Bedside Urine Bilirubin - Negative Bedside Urine Ketone +++ 80 Urine Specific Lewellen 1.015 Bedside Urine Occult Blood - Negative Bedside Urine pH 7.0 Bedside Urine Protein + 30 Bedside Urine Urobilinogen - Negative Bedside Urine Nitrite - Negative Bedside Urine Leukocytes - Negative Esterase Imaging Data CT scan - head: Radiologist's Impression: PROCEDURE:? CT HEAD/BRAIN WO CON ? INDICATIONS:? Headache, dizziness ? TECHNIQUE:? Noncontrast 4.5 mm thick angled axial sections acquired from the foramen magnum to the vertex, with coronal and sagittal reformats.? For radiation dose reduction, the following was used:? automated exposure control, adjustment of mA and/or kV according to patient size.? ? COMPARISON:? [facility], CT, CT HEAD/BRAIN WO CON, 09/08/2021, 23:19. ? FINDINGS:? Image quality:? Excellent.? ? CSF spaces:? Basal cisterns are patent.? No extra-axial fluid collections.? Ventricles are normal in size and shape.? ? Brain:? No midline shift.? No intracranial masses or hemorrhage.? Rios-white matter interface is normal.? ? Skull and face:? Calvarium and visualized facial bones are intact, without suspicious lesions.? ? Sinuses:? Visualized sinuses and mastoids are clear.? ? IMPRESSION:? ? 1. No acute intracranial process. ? ? Dictated by: Erin Barragan M.D. on 11/21/2021 at 16:51 ? ? Approved by: Erin Barragan M.D. on 11/21/2021 at 16:52 ? MDM Narrative Medical decision making narrative: To consider BPPV versus Meniere's disease versus intracranial mass versus migraine versus of the dural hematoma versus subdural hematoma versus subarachnoid hemorrhage versus acute coronary syndrome versus myocardial infarction versus CVA versus TIA. Overall, physical examination, history, lab studies, and imaging obtained in the emergency department today returned reassuring. Discussed results of CT and lab studies with patient informed her that no acute abnormality was identified today that would require emergent intervention. Patient was provided an oral potassium supplement due to her slight hypokalemia. I urged the patient to follow up with primary care provider within the next 2-3 days for further evaluation. Additionally, I informed the patient that I would be setting up a referral for an ENT follow-up. Patient expresses understanding and agrees to plan. At this time patient states she would like to be discharged home in is stable for discharge. Strict return precautions were discussed with the patient prior to discharge. <Chris Daugherty, DO - Last Filed: 11/27/21 07:06> Lab Data Labs: Lab Results 11/21/21 11/21/21 11/21/21 Range/Units 17:08 18:30 18:30 WBC 5.5 (4.5-11.0) X10^3/uL RBC 4.20 (4.0-5.2) X10^6/uL Hgb 11.4 L (12.0-16.0) g/dL Hct 34.2 L (36-46) % MCV 81.4 (80-100) fL MCH 27.2 (26-34) PG MCHC 33.4 (30-36) % RDW 16.9 H (11.6-14.8) % Plt Count 310 (150-400) X10^3/uL Neut % (Auto) 59.2 D (50-75) % Lymph % (Auto) 28.4 (25-40) % [place] % (Auto) 10.4 (3-14) % Eos % (Auto) 0.8 L (2-4) % Baso % (Auto) 1.2 (0-2) % Neut # (Auto) 3300 (4347-9977) /uL Lymph # (Auto) 1600 (0244-7337) /uL [place] # (Auto) 600 (0-900) /uL Eos # (Auto) 0 (0-450) /uL Baso # (Auto) 100 (0-100) /uL VBG pH (7.33-7.43) VBG pCO2 (45-50) mmHg VBG pO2 (35-45) mmHg VBG HCO3 (23-28) mmol/L VBG Total CO2 (24-29) mmol/L VBG O2 Saturation (70-75) % VBG Base Excess (0-4) mmol/L Sodium 135 L (137-145) mmol/L Potassium 3.2 L D (3.4-5.1) mmol/L Chloride 104 (98-107) mmol/L Carbon Dioxide 28 (22-32) mmol/L BUN 17 (7-17) mg/dL Creatinine 0.58 (0.52-1.04) mg/dL Estimated GFR > 60.0 (>60) mL/min BUN/Creatinine Ratio 29.3 H (6-22) Glucose 88 (70-100) mg/dL Calcium 8.9 (8.4-10.2) mg/dL Total Bilirubin 0.8 (0.2-1.3) mg/dL AST 20 (14-36) IU/L ALT 15 (<35) IU/L Alkaline Phosphatase 43 (38-126) U/L Troponin I < 0.012 (0.01-0.034) ng/mL Total Protein 6.7 (6.3-8.2) g/dL Albumin 4.0 (3.5-5.0) g/dL Globulin 2.7 (1.7-4.1) g/dL Albumin/Globulin Ratio 1.5 (1.0-2.8) Urine RBC 1-5/hpf (0-5/HPF) Urine WBC 1-5/hpf (0-5/HPF) Ur Squamous Epith Cells 1-5 /hpf (0-5/HPF) Urine Bacteria Few (2-10) H (None) Urine Mucus 2+ H (Negative) Ur Culture Indicated? Cult not indicated 11/21/21 Range/Units 19:18 WBC (4.5-11.0) X10^3/uL RBC (4.0-5.2) X10^6/uL Hgb (12.0-16.0) g/dL Hct (36-46) % MCV (80-100) fL MCH (26-34) PG MCHC (30-36) % RDW (11.6-14.8) % Plt Count (150-400) X10^3/uL Neut % (Auto) (50-75) % Lymph % (Auto) (25-40) % [place] % (Auto) (3-14) % Eos % (Auto) (2-4) % Baso % (Auto) (0-2) % Neut # (Auto) (1629-8599) /uL Lymph # (Auto) (1825-0975) /uL [place] # (Auto) (0-900) /uL Eos # (Auto) (0-450) /uL Baso # (Auto) (0-100) /uL VBG pH 7.40 (7.33-7.43) VBG pCO2 40.9 L (45-50) mmHg VBG pO2 46 H (35-45) mmHg VBG HCO3 25 (23-28) mmol/L VBG Total CO2 26 (24-29) mmol/L VBG O2 Saturation 81 H (70-75) % VBG Base Excess 0.0 (0-4) mmol/L Sodium (137-145) mmol/L Potassium (3.4-5.1) mmol/L Chloride (98-107) mmol/L Carbon Dioxide (22-32) mmol/L BUN (7-17) mg/dL Creatinine (0.52-1.04) mg/dL Estimated GFR (>60) mL/min BUN/Creatinine Ratio (6-22) Glucose (70-100) mg/dL Calcium (8.4-10.2) mg/dL Total Bilirubin (0.2-1.3) mg/dL AST (14-36) IU/L ALT (<35) IU/L Alkaline Phosphatase (38-126) U/L Troponin I (0.01-0.034) ng/mL Total Protein (6.3-8.2) g/dL Albumin (3.5-5.0) g/dL Globulin (1.7-4.1) g/dL Albumin/Globulin Ratio (1.0-2.8) Urine RBC (0-5/HPF) Urine WBC (0-5/HPF) Ur Squamous Epith Cells (0-5/HPF) Urine Bacteria (None) Urine Mucus (Negative) Ur Culture Indicated? Urine Dip Bedside Urine Glucose Negative Bedside Urine Bilirubin - Negative Bedside Urine Ketone +++ 80 Urine Specific [place] 1.015 Bedside Urine Occult Blood - Negative Bedside Urine pH 7.0 Bedside Urine Protein + 30 Bedside Urine Urobilinogen - Negative Bedside Urine Nitrite - Negative Bedside Urine Leukocytes - Negative Esterase Discharge Plan Departure Patient Disposition: Home Clinical Impression: Dizziness Instructions: DI for Dizziness-Nonvertigo Activity Restrictions/Additional Instructions: *You have been diagnosed with dizziness *What to do: *Please continue to take your regular medications as directed. [ ] New medication prescriptions sent to your pharmacy: [ ] [ ] New medication written as a paper prescription [X] No new medications given Physical examination lab studies, and imaging obtained today were all reassuring and did not show signs of acute abnormality. The scopolamine patch provided today in the emergency room can be in place for 72 hours. Please make sure to wash her hands after touching the patch, and ensure that you do not touch her eyes after touching the patch. I have provided a referral for an ENT specialist. You can contact their office at . Please follow-up with the primary care provider within next 2-3 days for further evaluation. Do not hesitate to return to the emergency department if you experience worsening headache, increasing dizziness, syncope, slurring of her speech, or any other concerning symptoms. *Please follow up with your primary care provider in 2-3 days, call for an appointment. Let them know you were seen in the Emergency Department and that we ask that you be seen in follow up. We will electronically transmit a record of today's note if your PCP is in our system *If you do not have a primary care provider please contact the [facility] Resource line at [phone]. They will ask some questions about your medical history and help get you set up with a doctor in the community. *Return to Emergency Department if you should have any new, worsening or concerning symptoms, such as fever greater than 101 F, shaking chills, worsening pain, persistent vomiting or other bothersome symptoms. Prescriptions: No Action sennosides [senna] 8.6 mg tablet 8.6 mg PO DAILY 0RF insulin aspart U-100 [Novolog U-100 Insulin aspart] 100 unit/mL Solution 1 dose Continuous Subcutaneous Infusion CONT PRN (Reason: sliding scale) 0RF ondansetron HCl [Zofran] 4 mg tablet 4 mg PO Q6H PRN (Reason: nausea and vomiting) Qty: 12 0RF Rx Instructions: take 1-2 tabs for nausea and vomiting as needed ondansetron 4 mg tablet,disintegrating 4 mg PO Q8H PRN (Reason: nausea and vomiting) Qty: 10 0RF promethazine 25 mg suppository 25 mg MS Q6H PRN (Reason: nausea and vomiting) Qty: 12 0RF Excedrin Extra Strength 250-250-65 mg Tablet 1 tab PO Q4-6H PRN (Reason: Pain, Mild) 0RF Referrals: Juvenal Balderrama MD [Physician] - 3-5 days Ayala Ferrera MD [Primary Care Provider] - <Chris Daugherty DO - Last Filed: 11/27/21 07:06> Cosign ED Attending Coscydneyature Attestation: I was immediately available in the department for consultation. This documentation has been reviewed and I agree with assessment and plan. Supervised by Chris Daugherty DO
[2021-11-21 17:25] LABS: Bacteria Urine Few (2-10); Mucus Urine 2+ (Negative); RBC Urine 1-5/HPF (0-5/HPF); Squamous Epithelial Cell Urine 1-5 /HPF (0-5/HPF); WBC Urine 1-5/HPF (0-5/HPF)
[2021-11-21 17:26] LABS: Culture Indicated Urine Cult Not Indicated
[2021-11-21] MEDS: SODIUM CHLORIDE 0.9% 1,000 ML 150 ML IV (17:36)
[2021-11-21 18:39] LABS: Add Manual Diff / Slide Review NO; Basophils Absolute Auto 100 /uL (0-100); Basophils Percent Auto 1.2 % (0-2); Eosinophils Absolute Auto 0 /uL (0-450); Eosinophils Percent Auto 0.8 % (2-4); Hematocrit 34.2 % (36-46); Hemoglobin 11.4 g/dL (12.0-16.0); Lymphocytes Absolute Auto 1600 /uL (1100-4500); Lymphocytes Percent Auto 28.4 % (25-40); Mean Corpuscular HGB Conc 33.4 % (30-36); Mean Corpuscular Hemoglobin 27.2 PG (26-34); Mean Corpuscular Volume 81.4 fL (80-100); Monocytes Absolute Auto 600 /uL (0-900); Monocytes Percent Auto 10.4 % (3-14); Neutrophils Absolute Auto 3300 /uL (1500-7000); Neutrophils Percent Auto 59.2 % (50-75); Platelet Count 310 X10^3/uL (150-400); Red Cell Distribution Width 16.9 % (11.6-14.8); White Blood Cell Count 5.5 X10^3/uL (4.5-11.0)
[2021-11-21] MEDS: METOCLOPRAMIDE 10 MG/2 ML INJ IV (18:40)
[2021-11-21] MEDS: SCOPOLAMINE 1 PATCH TOP (18:40)
[2021-11-21 18:46] VITALS: BP 136/80; PULSE 97; RESP 16; O2SAT 100
[2021-11-21 18:50] LABS: Alanine Aminotransferase 15 IU/L (<35); Albumin Globulin Ratio 1.5 (1.0-2.8); Alkaline Phosphatase 43 U/L (38-126); Aspartate Aminotransferase 20 IU/L (14-36); BUN Creatinine Ratio 29.3 (6-22); Bilirubin Total 0.8 mg/dL (0.2-1.3); Blood Urea Nitrogen 17 mg/dL (7-17); Calcium 8.9 mg/dL (8.4-10.2); Carbon Dioxide 28 mmol/L (22-32); Chloride 104 mmol/L (98-107); Estimated Glomerular Filt Rate > 60.0 mL/min (>60); Globulin 2.7 g/dL (1.7-4.1); Glucose 88 mg/dL (70-100); HEMOLYSIS < 15 (0-50); Potassium 3.2 mmol/L (3.4-5.1); Sodium 135 mmol/L (137-145); Total Protein 6.7 g/dL (6.3-8.2)
[2021-11-21 19:02] LABS: Troponin I < 0.012 ng/mL (0.01-0.034)
--- NOTE | 2021-11-21 19:27 | PC.NURSE ---
Pt reports improvement in nausea, slight improvement in dizziness.
[2021-11-21] MEDS: POTASSIUM CHLORIDE 20 MEQ/15 ML UDC 40 MEQ PO (19:38)
[2021-11-21 19:47] VITALS: BP 151/87; PULSE 95; RESP 18; O2SAT 99
[2021-11-21 20:05] LABS: HCO3 VBG 25 mmol/L (23-28); Oxygen Saturation VBG 81 % (70-75); PCO2 VBG 40.9 mmHg (45-50); PO2 VBG 46 mmHg (35-45); Total CO2 VBG 26 mmol/L (24-29)
== END 2021-11-21 19:48 | disposition home or self-care (01) ==
PROVIDERS: Emergency Provider Physician Assistant; PCP Family Medicine
DX: R42 Dizziness and giddiness (principal); Z87.891 Personal history of nicotine dependence
CPT/HCPCS: 70450; 80053; 81003; 81015; 82805; 84484; 85025; 93005; 93010; 96361; 96374; 99284; J2765

== ENCOUNTER 2022-02-26 16:58 | Emergency (ER) | payer OTHER, MEDICAID, SELFPAY ==
[2021-02-19 14:51] VITALS: BMI 31.6
[2022-02-26] VITALS (7 sets, daily range): BP systolic 140–141; BP diastolic 75–84; PULSE 93–119; RESP 16–18; TEMP 36.6; O2SAT 100; BMI 30.7
[2022-02-26] MEDS: ONDANSETRON 4 MG ODT SL (17:31)
[2022-02-26 17:54] LABS: COVID19 -Nasal RAPID Negative (Negative)
[2022-02-26 18:05] LABS: Add Manual Diff / Slide Review NO; Basophils Absolute Auto 100 /uL (0-100); Basophils Percent Auto 1.3 % (0-2); Eosinophils Absolute Auto 100 /uL (0-450); Eosinophils Percent Auto 1.9 % (2-4); Hematocrit 37.2 % (36-46); Hemoglobin 12.2 g/dL (12.0-16.0); Lymphocytes Absolute Auto 800 /uL (1100-4500); Lymphocytes Percent Auto 12.6 % (25-40); Mean Corpuscular HGB Conc 32.7 % (30-36); Mean Corpuscular Hemoglobin 27.1 PG (26-34); Mean Corpuscular Volume 82.9 fL (80-100); Monocytes Absolute Auto 400 /uL (0-900); Neutrophils Absolute Auto 5000 /uL (1500-7000); Neutrophils Percent Auto 78.2 % (50-75); Platelet Count 302 X10^3/uL (150-400); Red Blood Cell Count 4.48 X10^6/uL (4.0-5.2); Red Cell Distribution Width 15.5 % (11.6-14.8); White Blood Cell Count 6.4 X10^3/uL (4.5-11.0)
[2022-02-26] MEDS: SODIUM CHLORIDE 0.9% 1,000 ML 1000 ML IV ×2 (18:05→19:15)
[2022-02-26] MEDS: ONDANSETRON 4 MG/2 ML INJ IV (18:05)
[2022-02-26 18:13] LABS: HCO3 VBG 27 mmol/L (23-28); Oxygen Saturation VBG 52 % (70-75); PCO2 VBG 45.5 mmHg (45-50); PO2 VBG 29 mmHg (35-45); Total CO2 VBG 28 mmol/L (24-29); pH VBG 7.38 (7.33-7.43)
[2022-02-26 18:15] LABS: Alanine Aminotransferase 15 IU/L (<35); Albumin 4.3 g/dL (3.5-5.0); Albumin Globulin Ratio 1.5 (1.0-2.8); Alkaline Phosphatase 62 U/L (38-126); Aspartate Aminotransferase 20 IU/L (14-36); BUN Creatinine Ratio 22.5 (6-22); Bilirubin Total 0.7 mg/dL (0.2-1.3); Blood Urea Nitrogen 16 mg/dL (7-17); Carbon Dioxide 26 mmol/L (22-32); Chloride 102 mmol/L (98-107); Estimated Glomerular Filt Rate > 60 mL/min (>60); Globulin 2.9 g/dL (1.7-4.1); Glucose 271 mg/dL (70-100); HEMOLYSIS < 15 (0-50); Lipase 25 U/L (23-300); Potassium 3.7 mmol/L (3.4-5.1); Sodium 136 mmol/L (137-145); Total Protein 7.2 g/dL (6.3-8.2)
--- NOTE | 2022-02-26 18:30 | ED_ITS ---
HPI - Nausea/Vomiting/Diarrhea General Chief complaint: Nausea/Vomiting/Diarrhea Stated complaint: low blood sugars, vomiting, headache Time Seen by Provider: 02/26/22 18:06 Source: patient Mode of arrival: Ambulatory History of Present Illness HPI Narrative: The patient has IDDM. She uses an Insulin pump. She was hyperglycemic last nig ht, she has a new pump. She was eating high glucose foods, she now feels bad from that. She has a headache. She has no sore throat. She denies sinus discomfort, or sinus drainage. She is not coughing. She has no dysuria. Says no chest pain. She has no abdominal discomfort, no nausea, vomiting diarrhea. She has no urinary complaints. Her glucose is at now. She is receiving IV fluids, she is feeling better. She comments usually takes about 2 bags of IV fluids at a time like this. Related Data Home Medications Medication Instructions Recorded Confirmed insulin aspart U-100 100 unit/mL 1 dose CONTINUOUS SUBCUTANEOUS 09/10/18 11/26/21 subcutaneous solution (Novolog INFUSION CONT PRN U-100 Insulin aspart) sennosides 8.6 mg tablet (senna) 8.6 mg PO DAILY tab 05/01/20 11/26/21 ubhvtsu-wvuelyauviuec-tihgqcer 250 1 tab PO Q4-6H PRN 11/26/21 11/26/21 mg-250 mg-65 mg tablet (Excedrin Extra Strength) Previous Rx's Medication Instructions Recorded ondansetron HCl 4 mg tablet 4 mg PO Q6H PRN #12 tab 03/25/20 (Zofran) ondansetron 4 mg disintegrating 4 mg PO Q8H PRN #10 tab 09/09/21 tablet promethazine 25 mg rectal 25 mg NE Q6H PRN #12 ea 09/10/21 suppository Allergies Allergy/AdvReac Type Severity Reaction Status Date / Time hydromorphone [From DILAUDID] AdvReac Mild Verified 02/26/22 17:06 diphenhydramine AdvReac Unknown ANXIETY, Verified 02/26/22 17:06 DOESNT CALM HER. metoclopramide [From Reglan] AdvReac Anxiety Verified 02/26/22 17:06 Review of Systems Constitutional Constitutional: Denies anorexia, Denies body ache(s), Denies chills, Reports fatigue, Denies fever(s), Reports headache(s) and Denies weakness Eyes Eyes: Denies change in vision ENT Ears, Nose, Mouth, and Throat: Reports headache(s), Denies disequilibrium, Denies sinus pain and Denies sore throat Cardiovascular Cardiovascular: Denies chest pain, Denies edema, Denies irregular heart rhythm and Denies dyspnea Respiratory Respiratory: Denies cough and Denies dyspnea Gastrointestinal Gastrointestinal: Reports abdominal pain, Denies diarrhea, Reports nausea and Denies vomiting Genitourinary Genitourinary: Denies dysuria Musculoskeletal Musculoskeletal: Denies arthralgias and Denies back pain Integumentary/Breasts Skin/Breast: Denies rash Neurologic Neurologic: Reports headache(s), Denies disequilibrium and Denies weakness Psychiatric Psychiatric: Reports abnormal sleep pattern Endocrine Endocrine: Reports fatigue Hematologic/Lymphatic On Anticoagulants: No Patient History Medical History Bright red rectal bleeding Chin injury (1995) Hemorrhoids History of blood clots Hyperlipidemia, unspecified Insulin pump in place Tachycardia Type 1 diabetes Surgical History delivery delivered No pertinent past surgical history Status post ORIF of fracture of ankle Tubal ligation status Family History Mother Thyroid disease Father Lumbar back pain Cancer Sister Diabetes mellitus Social History household members: spouse and children Smoking Status: Former smoker alcohol intake: current Smoking Status: Former smoker alcohol intake frequency: holidays/special occasions only Substance Use Type: does not use Exam Initial Vital Signs Initial Vital Signs: Vital Signs Temperature 98 F 02/26/22 17:02 Pulse Rate 119 H 02/26/22 17:02 Respiratory Rate 16 02/26/22 17:02 Blood Pressure 141/75 H 02/26/22 17:02 Pulse Oximetry 100 02/26/22 17:02 Const General: cooperative, healthy appearing, comfortable and well developed [facility] Head: normocephalic and atraumatic Face and sinus: normal facial exam and sinuses nontender Mouth: oral mucosae normal Throat: posterior oropharynx normal Eyes Conjunctivae: conjunctivae normal Pupils: PERRL EOM: EOM intact bilaterally Neck Neck: full ROM, supple and No lymphadenopathy Chest Chest: normal inspection of the chest Resp Effort & Inspection: normal respiratory effort Auscultation: clear to auscultation bilaterally Cardio Palpation: normal PMI Rate: regular rate Rhythm: regular rhythm Heart Sounds: S1 normal, S2 normal, no click and no murmurs GI Other: Slight epigastric discomfort with palpation. No masses. No distension. No guarding or rebound. Normal bowel sounds. General: No CVA tenderness Back/Spine/Pelvis Back: normal to inspection Skin General: no rashes or lesions noted Neuro General: patient alert, patient awake, patient oriented x3 and no focal motor deficits Extrem General: normal to inspection, no pedal edema and no calf tenderness Psych Mental Status: mental status grossly normal Course Orders Ordered: ED Orders 02/26/22 18:58 Test Urine Stat Urinalysis and Microscopic Stat Urine Culture Stat Discontinued Medications Sodium Chloride (Normal Saline 0.9%) 1,000 mls @ 1,000 mls/hr IV BOLUS ONE Stop: 02/26/22 19:01 Last Infusion: 02/26/22 18:54 Dose: 0 mls/hr Documented by: Admin: 02/26/22 18:05 Dose: 1,000 mls/hr Documented by: MARIBEL Sodium Chloride (Normal Saline 0.9%) 1,000 mls @ 1,000 mls/hr IV BOLUS ONE Stop: 02/26/22 19:39 Last Infusion: 02/26/22 20:23 Dose: 0 mls/hr Documented by: Admin: 02/26/22 19:15 Dose: 1,000 mls/hr Documented by: JOSHUA Metoclopramide HCl (Metoclopramide Hcl 10 Mg Tablet) 10 mg PO NOW ONE Stop: 02/26/22 18:59 Last Admin: 02/26/22 19:15 Dose: 10 mg Documented by: JOSHUA Ondansetron HCl (Ondansetron 4 Mg Odt) 4 mg SL NOW ONE Stop: 02/26/22 17:29 Last Admin: 02/26/22 17:31 Dose: 4 mg Documented by: MERLINE Ondansetron HCl (Ondansetron 4 Mg/2 Ml Inj) 4 mg IV NOW ONE Stop: 02/26/22 18:03 Last Admin: 02/26/22 18:05 Dose: 4 mg Documented by: MARIBEL Vital Signs Vital signs: Vital Signs - 8 hr 02/26/22 19:30 02/26/22 20:00 02/26/22 20:07 Pulse Rate 104 H 93 H 101 H Blood Pressure 141/83 H Pulse Oximetry 100 100 100 MDM - Nausea/Vomiting/Diarrhea Lab Data Result diagrams: 02/26/22 17:53 02/26/22 17:53 Labs: Lab Results 02/26/22 02/26/22 02/26/22 Range/Units 17:35 17:53 17:53 WBC 6.4 (4.5-11.0) X10^3/uL RBC 4.48 (4.0-5.2) X10^6/uL Hgb 12.2 (12.0-16.0) g/dL Hct 37.2 (36-46) % MCV 82.9 (80-100) fL MCH 27.1 (26-34) PG MCHC 32.7 (30-36) % RDW 15.5 H (11.6-14.8) % Plt Count 302 (150-400) X10^3/uL Neut % (Auto) 78.2 H (50-75) % Lymph % (Auto) 12.6 L (25-40) % [place]ricks % (Auto) 6.0 (3-14) % Eos % (Auto) 1.9 L (2-4) % Baso % (Auto) 1.3 (0-2) % Neut # (Auto) 5000 (2439-1216) /uL Lymph # (Auto) 800 L (9383-0323) /uL [place]ricks # (Auto) 400 (0-900) /uL Eos # (Auto) 100 (0-450) /uL Baso # (Auto) 100 (0-100) /uL VBG pH (7.33-7.43) VBG pCO2 (45-50) mmHg VBG pO2 (35-45) mmHg VBG HCO3 (23-28) mmol/L VBG Total CO2 (24-29) mmol/L VBG O2 Saturation (70-75) % VBG Base Excess (0-4) mmol/L Sodium 136 L (137-145) mmol/L Potassium 3.7 (3.4-5.1) mmol/L Chloride 102 (98-107) mmol/L Carbon Dioxide 26 (22-32) mmol/L BUN 16 (7-17) mg/dL Creatinine 0.71 (0.52-1.04) mg/dL Estimated GFR > 60 (>60) mL/min BUN/Creatinine Ratio 22.5 H (6-22) Glucose 271 H (70-100) mg/dL Calcium 9.0 (8.4-10.2) mg/dL Total Bilirubin 0.7 (0.2-1.3) mg/dL AST 20 (14-36) IU/L ALT 15 (<35) IU/L Alkaline Phosphatase 62 (38-126) U/L Total Protein 7.2 (6.3-8.2) g/dL Albumin 4.3 (3.5-5.0) g/dL Globulin 2.9 (1.7-4.1) g/dL Albumin/Globulin Ratio 1.5 (1.0-2.8) Lipase 25 (23-300) U/L Urine Color Urine Appearance Urine pH (4.5-8.0) Ur Specific [place] (1.000-1.035) Urine Protein (Negative) Urine Glucose (UA) (Negative) g/dL Urine Ketones (NEGATIVE) Urine Occult Blood (Negative) Urine Nitrate (Negative) Urine Bilirubin (NEGATIVE) Urine Urobilinogen (0.2) E.U./dL Ur Leukocyte Esterase (NEGATIVE) Urine RBC (0-5/HPF) Urine WBC (0-5/HPF) Ur Squamous Epith Cells (0-5/HPF) Amorphous Sediment Urine Bacteria (None) Urine Mucus (Negative) Ur Culture Indicated? Urine Test (Negative) SARS-CoV-2 (PCR) Negative (Negative) 02/26/22 02/26/22 02/26/22 Range/Units 17:53 18:58 18:58 WBC (4.5-11.0) X10^3/uL RBC (4.0-5.2) X10^6/uL Hgb (12.0-16.0) g/dL Hct (36-46) % MCV (80-100) fL MCH (26-34) PG MCHC (30-36) % RDW (11.6-14.8) % Plt Count (150-400) X10^3/uL Neut % (Auto) (50-75) % Lymph % (Auto) (25-40) % Hendricks % (Auto) (3-14) % Eos % (Auto) (2-4) % Baso % (Auto) (0-2) % Neut # (Auto) (5870-1910) /uL Lymph # (Auto) (6823-5377) /uL [place]ricks # (Auto) (0-900) /uL Eos # (Auto) (0-450) /uL Baso # (Auto) (0-100) /uL VBG pH 7.38 (7.33-7.43) VBG pCO2 45.5 (45-50) mmHg VBG pO2 29 L (35-45) mmHg VBG HCO3 27 (23-28) mmol/L VBG Total CO2 28 (24-29) mmol/L VBG O2 Saturation 52 L (70-75) % VBG Base Excess 2.0 (0-4) mmol/L Sodium (137-145) mmol/L Potassium (3.4-5.1) mmol/L Chloride (98-107) mmol/L Carbon Dioxide (22-32) mmol/L BUN (7-17) mg/dL Creatinine (0.52-1.04) mg/dL Estimated GFR (>60) mL/min BUN/Creatinine Ratio (6-22) Glucose (70-100) mg/dL Calcium (8.4-10.2) mg/dL Total Bilirubin (0.2-1.3) mg/dL AST (14-36) IU/L ALT (<35) IU/L Alkaline Phosphatase (38-126) U/L Total Protein (6.3-8.2) g/dL Albumin (3.5-5.0) g/dL Globulin (1.7-4.1) g/dL Albumin/Globulin Ratio (1.0-2.8) Lipase (23-300) U/L Urine Color Yellow Urine Appearance Clear Urine pH 5.0 (4.5-8.0) Ur Specific [place] 1.025 (1.000-1.035) Urine Protein Trace H (Negative) Urine Glucose (UA) 2+ H (Negative) g/dL Urine Ketones 2+ H (NEGATIVE) Urine Occult Blood Negative (Negative) Urine Nitrate Negative (Negative) Urine Bilirubin Negative (NEGATIVE) Urine Urobilinogen 0.2 (0.2) E.U./dL Ur Leukocyte Esterase Negative (NEGATIVE) Urine RBC None seen (0-5/HPF) Urine WBC 1-5/hpf (0-5/HPF) Ur Squamous Epith Cells 1-5 /hpf (0-5/HPF) Amorphous Sediment 1+ Urine Bacteria Moderate (10-30) H (None) Urine Mucus 1+ H (Negative) Ur Culture Indicated? Specimen cultured Urine Test Negative (Negative) SARS-CoV-2 (PCR) (Negative) Point of Care Testing Glucose POC 179 MDM Narrative Medical decision making narrative: She was IV hydrated 2 L. he received IV Zofran for nausea, she is in took Reglan p.o.. This helped quite a bit. Her glucose has improved. She feels better. She is discharged on Zofran. Discharge Plan Departure Patient Disposition: Home Clinical Impression: Type 1 diabetes, Acute hyperglycemia, Nausea Instructions: DI for Nausea -- Adult Activity Restrictions/Additional Instructions: Her glucose has improved to 179 with IV hydration. Zofran every 4 hours as needed for nausea. Be sure you maintain good hydration all times. Utilizing your pump, transportation operations manager your glucose as previously directed by your PCM. Return here as necessary. Prescriptions: No Action sennosides [senna] 8.6 mg tablet 8.6 mg PO DAILY 0RF insulin aspart U-100 [Novolog U-100 Insulin aspart] 100 unit/mL Solution 1 dose Continuous Subcutaneous Infusion CONT PRN (Reason: sliding scale) 0RF ondansetron HCl [Zofran] 4 mg tablet 4 mg PO Q6H PRN (Reason: nausea and vomiting) Qty: 12 0RF Rx Instructions: take 1-2 tabs for nausea and vomiting as needed ondansetron 4 mg tablet,disintegrating 4 mg PO Q8H PRN (Reason: nausea and vomiting) Qty: 10 0RF promethazine 25 mg suppository 25 mg NE Q6H PRN (Reason: nausea and vomiting) Qty: 12 0RF Excedrin Extra Strength 250-250-65 mg Tablet 1 tab PO Q4-6H PRN (Reason: Pain, Mild) 0RF Referrals: Ayala Ferrera MD [Primary Care Provider] -
[2022-02-26 19:15] LABS: Appearance Urine UA CLEAR; Bilirubin Urine UA NEGATIVE (NEGATIVE); Color Urine UA YELLOW; Glucose Urine UA 2+ g/dL (Negative); Ketones Urine UA 2+ (NEGATIVE); Leukocyte Esterase Urine UA NEGATIVE (NEGATIVE); Nitrite Urine UA NEGATIVE (Negative); Occult Blood Urine UA NEGATIVE (Negative); Pregnancy Test Urine Negative (Negative); Protein Urine UA TRACE (Negative); Specific Gravity Urine UA 1.025 (1.000-1.035); Urobilinogen Urine UA 0.2 E.U./dL (0.2)
[2022-02-26] MEDS: METOCLOPRAMIDE HCL 10 MG TABLET PO (19:15)
[2022-02-26 19:24] LABS: Amorphous Sediment Urine 1+; Bacteria Urine Moderate (10-30); Mucus Urine 1+ (Negative); RBC Urine None Seen (0-5/HPF); Squamous Epithelial Cell Urine 1-5 /HPF (0-5/HPF); WBC Urine 1-5/HPF (0-5/HPF)
[2022-02-26 19:25] LABS: Culture Indicated Urine Specimen Cultured
== END 2022-02-26 20:24 | disposition home or self-care (01) ==
PROVIDERS: Emergency Medicine; Nurse Practitioner Critical Care Medicine; Emergency Provider Emergency Medicine; PCP Family Medicine
DX: E10.65 Type 1 diabetes mellitus with hyperglycemia (principal); R11.0 Nausea; Z20.822 Contact with and (suspected) exposure to COVID-19
CPT/HCPCS: 36415; 80053; 81001; 81025; 82805; 82962; 83690; 85025; 87086; 87635; 96361; 96374; 99284; C9803; J2405

== ENCOUNTER 2022-02-27 10:14 | Emergency (ER) | payer OTHER, MEDICAID, SELFPAY ==
[2021-02-19 14:51] VITALS: BMI 31.6
[2022-02-27 10:17] VITALS: BP 133/80; PULSE 103; RESP 14; TEMP 36.8; O2SAT 100; BMI 30.7
[2022-02-27] MEDS: SODIUM CHLORIDE 0.9% 1,000 ML 1000 ML IV ×2 (10:58→11:45)
--- NOTE | 2022-02-27 10:58 | ED_ITS ---
HPI - Nausea/Vomiting/Diarrhea General Chief complaint: Nausea/Vomiting/Diarrhea Stated complaint: Here last night- migraine/dehydrated, vomiting Time Seen by Provider: 02/27/22 10:56 Source: patient Mode of arrival: Ambulatory Limitations: no limitations History of Present Illness HPI Narrative: This is a 42-year-old female known diabetic with insulin dependent. Patient was seen here yesterday, did not appear to be in DKA but went home had 1 episode of vomiting. Was able to sleep through most the night and then began having vomiting again this morning. Patient denies fevers or chills. No chest pain or shortness of breath. She denies any abdominal pain. No back or flank pain. No diarrhea constipation. No dysuria urgency or frequency. Patient states there have not been any recent changes that would likely prompted this. She has been diagnosed with gastroparesis in the past. She states Benadryl makes her very anxious. Former smoker, occasional alcohol, patient does use marijuana intermittently. She has not found that hot showers or helpful or that it seems to exacerbate her symptoms. Related Data Home Medications Medication Instructions Recorded Confirmed insulin aspart U-100 100 unit/mL 1 dose CONTINUOUS SUBCUTANEOUS 09/10/18 11/26/21 subcutaneous solution (Novolog INFUSION CONT PRN U-100 Insulin aspart) sennosides 8.6 mg tablet (senna) 8.6 mg PO DAILY tab 05/01/20 11/26/21 hzvguhz-swuyrpwbmrvgv-dtqfrnee 250 1 tab PO Q4-6H PRN 11/26/21 11/26/21 mg-250 mg-65 mg tablet (Excedrin Extra Strength) Previous Rx's Medication Instructions Recorded ondansetron HCl 4 mg tablet 4 mg PO Q6H PRN #12 tab 03/25/20 (Zofran) ondansetron 4 mg disintegrating 4 mg PO Q8H PRN #10 tab 09/09/21 tablet promethazine 25 mg rectal 25 mg MD Q6H PRN #12 ea 09/10/21 suppository metoclopramide HCl 10 mg tablet 10 mg PO Q6H PRN #10 tab 02/27/22 (Reglan) Allergies Allergy/AdvReac Type Severity Reaction Status Date / Time hydromorphone [From DILAUDID] AdvReac Mild Verified 02/27/22 10:23 diphenhydramine AdvReac Unknown ANXIETY, Verified 02/27/22 10:23 DOESNT CALM HER. metoclopramide [From Reglan] AdvReac Anxiety Verified 02/27/22 10:23 Review of Systems Review of Systems ROS Unobtainable: All systems reviewed & are unremarkable except as noted in HPI and below Patient History Medical History Bright red rectal bleeding Chin injury (1995) Hemorrhoids History of blood clots Hyperlipidemia, unspecified Insulin pump in place Tachycardia Type 1 diabetes Surgical History delivery delivered No pertinent past surgical history Status post ORIF of fracture of ankle Tubal ligation status Family History Mother Thyroid disease Father Lumbar back pain Cancer Sister Diabetes mellitus Social History household members: spouse and children Smoking Status: Former smoker alcohol intake: current Smoking Status: Former smoker alcohol intake frequency: holidays/special occasions only Substance Use Type: does not use Exam Narrative Exam Narrative: GENERAL: Alert and oriented x three, mild distress. HEENT: Head normocephalic, atraumatic, EOMI, pupils reactive, face symmetric, moist mucous membranes NECK: Supple, full range of motion CARDIOVASCULAR: Regular rate and rhythm without murmurs, rubs or gallops. RESPIRATORY: Breath sounds equal bilaterally, no wheezes rales or rhonchi. ABDOMEN: Soft, nontender. Nondistended. Normoactive bowel sounds all 4 quadrants. No guarding or rebound, rigidity, no mass : No CVA tenderness EXTREMITIES: Normal range of motion, no clubbing or edema. Neurovascularly intact NEUROLOGICAL: Cranial nerves II through XII grossly intact. Moving all extremities SKIN: Warm, dry, no petechiae, no rashes or lesions. Initial Vital Signs Initial Vital Signs: Vital Signs Temperature 98.3 F 02/27/22 10:17 Pulse Rate 103 H 02/27/22 10:17 Respiratory Rate 14 02/27/22 10:17 Blood Pressure 133/80 02/27/22 10:17 Pulse Oximetry 100 02/27/22 10:17 Course Orders Ordered: Discontinued Medications Sodium Chloride (Normal Saline 0.9%) 1,000 mls @ 1,000 mls/hr IV BOLUS ONE Stop: 02/27/22 11:48 Last Infusion: 02/27/22 12:53 Dose: 0 mls/hr Documented by: Admin: 02/27/22 10:58 Dose: 1,000 mls/hr Documented by: CODY Sodium Chloride (Normal Saline 0.9%) 1,000 mls @ 1,000 mls/hr IV BOLUS ONE Stop: 02/27/22 12:35 Last Infusion: 02/27/22 12:54 Dose: 0 mls/hr Documented by: Admin: 02/27/22 11:45 Dose: 1,000 mls/hr Documented by: CODY Metoclopramide HCl (Metoclopramide 10 Mg/2 Ml Inj) 10 mg IV NOW ONE Stop: 02/27/22 11:16 Last Admin: 02/27/22 11:24 Dose: 10 mg Documented by: CODY Ondansetron HCl (Ondansetron 4 Mg/2 Ml Inj) 4 mg IV NOW ONE Stop: 02/27/22 10:51 Last Admin: 02/27/22 10:59 Dose: 4 mg Documented by: CODY Reevaluation(s) Reevaluation #1: patient feeling much better and would like to go home. Time: 13:57 Vital Signs Vital signs: Vital Signs - 8 hr 02/27/22 10:17 02/27/22 13:08 02/27/22 13:09 Temperature 98.3 F Pulse Rate 103 H 109 H 98 H Respiratory Rate 14 Blood Pressure 133/80 137/75 Pulse Oximetry 100 100 100 MDM - Nausea/Vomiting/Diarrhea Lab Data Result diagrams: 02/27/22 10:30 02/27/22 10:30 Labs: Lab Results 02/27/22 02/27/22 02/27/22 Range/Units 10:30 10:30 11:15 WBC 5.6 (4.5-11.0) X10^3/uL RBC 4.45 (4.0-5.2) X10^6/uL Hgb 12.1 (12.0-16.0) g/dL Hct 36.8 (36-46) % MCV 82.6 (80-100) fL MCH 27.2 (26-34) PG MCHC 32.9 (30-36) % RDW 15.6 H (11.6-14.8) % Plt Count 324 (150-400) X10^3/uL Neut % (Auto) 78.3 H (50-75) % Lymph % (Auto) 14.3 L (25-40) % [place] % (Auto) 5.7 (3-14) % Eos % (Auto) 0.5 L (2-4) % Baso % (Auto) 1.2 (0-2) % Neut # (Auto) 4300 (2195-7001) /uL Lymph # (Auto) 800 L (3304-2907) /uL [place] # (Auto) 300 (0-900) /uL Eos # (Auto) 0 (0-450) /uL Baso # (Auto) 100 (0-100) /uL VBG pH 7.41 (7.33-7.43) VBG pCO2 41.2 L (45-50) mmHg VBG pO2 44 (35-45) mmHg VBG HCO3 26 (23-28) mmol/L VBG Total CO2 28 (24-29) mmol/L VBG O2 Saturation 80 H (70-75) % VBG Base Excess 2.0 (0-4) mmol/L Sodium 136 L (137-145) mmol/L Potassium 3.8 (3.4-5.1) mmol/L Chloride 102 (98-107) mmol/L Carbon Dioxide 27 (22-32) mmol/L BUN 14 (7-17) mg/dL Creatinine 0.67 (0.52-1.04) mg/dL Estimated GFR > 60 (>60) mL/min BUN/Creatinine Ratio 20.9 (6-22) Glucose 216 H (70-100) mg/dL Calcium 8.7 (8.4-10.2) mg/dL Total Bilirubin 0.8 (0.2-1.3) mg/dL AST 25 (14-36) IU/L ALT 17 (<35) IU/L Alkaline Phosphatase 59 (38-126) U/L Total Protein 7.1 (6.3-8.2) g/dL Albumin 4.2 (3.5-5.0) g/dL Globulin 2.9 (1.7-4.1) g/dL Albumin/Globulin Ratio 1.4 (1.0-2.8) Lipase 21 L (23-300) U/L Urine RBC (0-5/HPF) Urine WBC (0-5/HPF) Ur Squamous Epith Cells (0-5/HPF) Urine Bacteria (None) Hyaline Casts (None) Urine Mucus (Negative) Ur Culture Indicated? Ketones 1.43 H (<0.27) mmol/L SARS-CoV-2 (PCR) (Negative) 02/27/22 02/27/22 Range/Units 11:30 11:38 WBC (4.5-11.0) X10^3/uL RBC (4.0-5.2) X10^6/uL Hgb (12.0-16.0) g/dL Hct (36-46) % MCV (80-100) fL MCH (26-34) PG MCHC (30-36) % RDW (11.6-14.8) % Plt Count (150-400) X10^3/uL Neut % (Auto) (50-75) % Lymph % (Auto) (25-40) % [place] % (Auto) (3-14) % Eos % (Auto) (2-4) % Baso % (Auto) (0-2) % Neut # (Auto) (2546-5378) /uL Lymph # (Auto) (1109-2896) /uL [place] # (Auto) (0-900) /uL Eos # (Auto) (0-450) /uL Baso # (Auto) (0-100) /uL VBG pH (7.33-7.43) VBG pCO2 (45-50) mmHg VBG pO2 (35-45) mmHg VBG HCO3 (23-28) mmol/L VBG Total CO2 (24-29) mmol/L VBG O2 Saturation (70-75) % VBG Base Excess (0-4) mmol/L Sodium (137-145) mmol/L Potassium (3.4-5.1) mmol/L Chloride (98-107) mmol/L Carbon Dioxide (22-32) mmol/L BUN (7-17) mg/dL Creatinine (0.52-1.04) mg/dL Estimated GFR (>60) mL/min BUN/Creatinine Ratio (6-22) Glucose (70-100) mg/dL Calcium (8.4-10.2) mg/dL Total Bilirubin (0.2-1.3) mg/dL AST (14-36) IU/L ALT (<35) IU/L Alkaline Phosphatase (38-126) U/L Total Protein (6.3-8.2) g/dL Albumin (3.5-5.0) g/dL Globulin (1.7-4.1) g/dL Albumin/Globulin Ratio (1.0-2.8) Lipase (23-300) U/L Urine RBC 0-1/hpf (0-5/HPF) Urine WBC 0-1/hpf (0-5/HPF) Ur Squamous Epith Cells 5-10 /hpf H (0-5/HPF) Urine Bacteria Few (2-10) H (None) Hyaline Casts 1-5/lpf (None) Urine Mucus 1+ H (Negative) Ur Culture Indicated? Cult not indicated Ketones (<0.27) mmol/L SARS-CoV-2 (PCR) Negative (Negative) Point of Care Testing Test Results Negative Urine Dip Bedside Urine Glucose 250 mg/dl Bedside Urine Bilirubin - Negative Bedside Urine Ketone +++ 80 Urine Specific [place] 1.030 Bedside Urine Occult Blood - Negative Bedside Urine pH 6.0 Bedside Urine Protein + 30 Bedside Urine Urobilinogen - Negative Bedside Urine Nitrite - Negative Bedside Urine Leukocytes - Negative Esterase MDM Narrative Medical decision making narrative: This is a 42-year-old female who presents with hyperglycemia she was seen here the day prior, no DKA and does not appear to be so today. She received fluids and antiemetics and is feeling much better and would like to return home. Discharge Plan Departure Patient Disposition: Home Clinical Impression: Vomiting, Hyperglycemia Activity Restrictions/Additional Instructions: I hope continue to feel improved. You do have ketones in her urine but no other signs of DKA currently. Prescription for Reglan sent to [facility] in [place]. You may take tablet every 6 hours as needed for nausea vomiting. Please return for fevers, persistent vomiting, passing out, new chest pain or shortness of breath or other new or concerning symptoms. Prescriptions: New metoclopramide HCl [Reglan] 10 mg tablet 10 mg PO Q6H PRN (Reason: nausea and vomiting) Qty: 10 0RF No Action sennosides [senna] 8.6 mg tablet 8.6 mg PO DAILY 0RF insulin aspart U-100 [Novolog U-100 Insulin aspart] 100 unit/mL Solution 1 dose Continuous Subcutaneous Infusion CONT PRN (Reason: sliding scale) 0RF ondansetron HCl [Zofran] 4 mg tablet 4 mg PO Q6H PRN (Reason: nausea and vomiting) Qty: 12 0RF Rx Instructions: take 1-2 tabs for nausea and vomiting as needed ondansetron 4 mg tablet,disintegrating 4 mg PO Q8H PRN (Reason: nausea and vomiting) Qty: 10 0RF promethazine 25 mg suppository 25 mg MD Q6H PRN (Reason: nausea and vomiting) Qty: 12 0RF Excedrin Extra Strength 250-250-65 mg Tablet 1 tab PO Q4-6H PRN (Reason: Pain, Mild) 0RF Referrals: Ayala Ferrera MD [Primary Care Provider] -
[2022-02-27] MEDS: ONDANSETRON 4 MG/2 ML INJ IV (10:59)
[2022-02-27 11:21] LABS: Add Manual Diff / Slide Review NO; Basophils Absolute Auto 100 /uL (0-100); Basophils Percent Auto 1.2 % (0-2); Eosinophils Absolute Auto 0 /uL (0-450); Eosinophils Percent Auto 0.5 % (2-4); Hematocrit 36.8 % (36-46); Hemoglobin 12.1 g/dL (12.0-16.0); Lymphocytes Absolute Auto 800 /uL (1100-4500); Lymphocytes Percent Auto 14.3 % (25-40); Mean Corpuscular HGB Conc 32.9 % (30-36); Mean Corpuscular Hemoglobin 27.2 PG (26-34); Mean Corpuscular Volume 82.6 fL (80-100); Monocytes Absolute Auto 300 /uL (0-900); Monocytes Percent Auto 5.7 % (3-14); Neutrophils Absolute Auto 4300 /uL (1500-7000); Neutrophils Percent Auto 78.3 % (50-75); Platelet Count 324 X10^3/uL (150-400); Red Blood Cell Count 4.45 X10^6/uL (4.0-5.2); Red Cell Distribution Width 15.6 % (11.6-14.8); White Blood Cell Count 5.6 X10^3/uL (4.5-11.0)
[2022-02-27] MEDS: METOCLOPRAMIDE 10 MG/2 ML INJ IV (11:24)
[2022-02-27 11:28] LABS: Glucose 216 mg/dL (70-100); Lipase 21 U/L (23-300)
[2022-02-27 11:30] LABS: Alanine Aminotransferase 17 IU/L (<35); Albumin 4.2 g/dL (3.5-5.0); Albumin Globulin Ratio 1.4 (1.0-2.8); Alkaline Phosphatase 59 U/L (38-126); Aspartate Aminotransferase 25 IU/L (14-36); BUN Creatinine Ratio 20.9 (6-22); Bilirubin Total 0.8 mg/dL (0.2-1.3); Blood Urea Nitrogen 14 mg/dL (7-17); Calcium 8.7 mg/dL (8.4-10.2); Carbon Dioxide 27 mmol/L (22-32); Chloride 102 mmol/L (98-107); Estimated Glomerular Filt Rate > 60 mL/min (>60); Globulin 2.9 g/dL (1.7-4.1); HEMOLYSIS 54 (0-50); Potassium 3.8 mmol/L (3.4-5.1); Sodium 136 mmol/L (137-145); Total Protein 7.1 g/dL (6.3-8.2)
[2022-02-27 11:31] LABS: Ketones (Beta-Hydroxybutyrate) 1.43 mmol/L (<0.27)
[2022-02-27 11:58] LABS: COVID19 -Nasal RAPID Negative (Negative)
[2022-02-27 12:48] LABS: Bacteria Urine Few (2-10); Culture Indicated Urine Cult Not Indicated; Hyaline Casts Urine 1-5/LPF; Mucus Urine 1+ (Negative); RBC Urine 0-1/HPF (0-5/HPF); Squamous Epithelial Cell Urine 5-10 /HPF (0-5/HPF); WBC Urine 0-1/HPF (0-5/HPF)
[2022-02-27 13:02] LABS: PCO2 VBG 41.2 mmHg (45-50); PO2 VBG 44 mmHg (35-45); pH VBG 7.41 (7.33-7.43)
[2022-02-27 13:03] LABS: HCO3 VBG 26 mmol/L (23-28); Oxygen Saturation VBG 80 % (70-75); Total CO2 VBG 28 mmol/L (24-29)
[2022-02-27 13:08] VITALS: PULSE 109; O2SAT 100
[2022-02-27 13:09] VITALS: BP 137/75; PULSE 98; O2SAT 100
[2022-02-27 14:15] VITALS: BP 142/79; PULSE 106; RESP 18; O2SAT 100
== END 2022-02-27 14:20 | disposition home or self-care (01) ==
PROVIDERS: Emergency Provider Emergency Medicine; PCP Family Medicine
DX: E10.65 Type 1 diabetes mellitus with hyperglycemia (principal); R11.10 Vomiting, unspecified; Z20.822 Contact with and (suspected) exposure to COVID-19
CPT/HCPCS: 80053; 81003; 81015; 81025; 82009; 82805; 83690; 85025; 87635; 96361; 96374; 96375; 99283; 99284; C9803; J2405; J2765

== ENCOUNTER → 2022-08-30 10:44 | Outpatient (CLI) | payer OTHER, MEDICAID, SELFPAY ==
[2021-02-19 14:51] VITALS: BMI 31.6
--- NOTE | 2022-08-30 10:45 | DI.RAD.S_ITS ---
PROCEDURE: XR SHOULDER LT MIN 2V INDICATIONS: Left shoulder injury TECHNIQUE: 2 views of the shoulder were acquired. COMPARISON: None. FINDINGS: Bones: No fractures or dislocations. No suspicious bony lesions. Visualized ribs appear intact. Soft tissues: No suspicious soft tissue calcifications. IMPRESSION: Unremarkable two view left shoulder radiographs Approved by: Wilberto Coe M.D. on 08/30/2022 at 12:09
== END ==
PROVIDERS: PCP Family Medicine; Referring Provider Registered Nurse; Visit Provider Registered Nurse
DX: M25.512 Pain in left shoulder (principal)
CPT/HCPCS: 73030

== ENCOUNTER → 2022-09-01 10:52 | Outpatient (CLI) | payer OTHER, MEDICAID, SELFPAY ==
[2021-02-19 14:51] VITALS: BMI 31.6
[2022-09-01 13:04] LABS: Albumin 4.4 g/dL (3.5-5.0); BUN Creatinine Ratio 21.3 (6-22); Blood Urea Nitrogen 16 mg/dL (7-17); Calcium 9.3 mg/dL (8.4-10.2); Carbon Dioxide 26 mmol/L (22-32); Chloride 102 mmol/L (98-107); Cholesterol 193 mg/dL (140-199); Estimated Glomerular Filt Rate > 60 mL/min (>60); Glucose 140 mg/dL (70-100); HDL Cholesterol 84 mg/dL (40-60); HEMOLYSIS < 15 (0-50); LDL Cholesterol Calculated 95 mg/dL (<100); Potassium 3.7 mmol/L (3.4-5.1); Sodium 138 mmol/L (137-145); Triglycerides 72 mg/dL (35-150)
[2022-09-01 16:39] LABS: Creatinine Urine Random 122.6 mg/dL
[2022-09-01 16:45] LABS: Microalbumi Creatinin Ratio Ur 8.1 ug/mg CR (<30)
[2022-09-02 15:03] LABS: T4 Total Thyroxine 7.62 ug/dL (5.5-11.0)
[2022-09-02 15:17] LABS: Thyroid Stimulating Hormone 1.27 uIU/mL (0.47-4.68)
== END ==
PROVIDERS: PCP Family Medicine; Referring Provider Student in an Organized Health Care Education/Training Program; Visit Provider Student in an Organized Health Care Education/Training Program
DX: E10.65 Type 1 diabetes mellitus with hyperglycemia (principal)
CPT/HCPCS: 36415; 80061; 80069; 82043; 82570; 84436; 84443

== ENCOUNTER 2022-09-17 02:08 | Observation (INO) | payer OTHER, MEDICAID, SELFPAY ==
[2021-02-19 14:51] VITALS: BMI 31.6
[2022-09-17] VITALS (11 sets, daily range): BP systolic 100–150; BP diastolic 67–92; PULSE 82–107; RESP 9–22; TEMP 36–36.5; O2SAT 95–100; BMI 31.3
--- NOTE | 2022-09-17 | PATH_ITS ---
[facility] Accession Number: [id number] . 01 Material submitted: . appendix - APPENDIX . 01 Clinical history: . ABD PAIN . 01 Diagnosis: Vermiform Appendix, Appendectomy: Acute transmural appendicitis and periappendicitis. Negative for neoplasia. MRV 09/19/2022 1614 Local . 01 Electronically signed: . Asiya Pedro MD, Pathologist NPI- [id number] . 01 Gross description: . The specimen is received in formalin labeled with the patient's name, , and appendix, and consists of a vermiform appendix measuring 6.3 x 0.8 cm with yo roughened serosa with yo adherent material consistent with exudate and a small amount of adherent hemorrhage. No perforations are grossly identified, and a small amount of mesoappendix is attached extending out to 1.5 cm. The surgical margin is received closed with sunshine which are removed, and the margin is inked blue. Sectioning reveals a patent lumen filled with yo semi-solid material and ranging from 0.1 to 0.4 cm in diameter. The martinez are yo, grossly intact, and average 0.3 cm thick. Banquet Food Server sections to include one-half of the bisected distal tip, surgical margin, and transportation services representative cross-sections are submitted in cassette A1. ([id number]) /MRV 09/18/2022 1422 Local . 01 Pathologist provided ICD-10: K35.80 . 01 CPT . 521584 Specimen Comment: A courtesy copy of this report has been sent to [phone] Performed at: 01 [facility] [address] [place] [address] [address], [place], [place] [id number] MD Nikolai Delgadillo MD Phone: [phone]
[2022-09-17] MEDS: SODIUM CHLORIDE 0.9% 1,000 ML 1000 ML IV (04:25)
[2022-09-17] MEDS: ONDANSETRON 4 MG/2 ML INJ IV ×3 (04:25→15:40)
[2022-09-17] MEDS: HYDROMORPHONE 0.5 MG INJ IV ×2 (04:26→12:23)
[2022-09-17 04:29] LABS: Add Manual Diff / Slide Review NO; Basophils Absolute Auto 100 /uL (0-100); Eosinophils Absolute Auto 100 /uL (0-450); Eosinophils Percent Auto 0.8 % (2-4); Hematocrit 42.1 % (36-46); Hemoglobin 14.1 g/dL (12.0-16.0); Lymphocytes Absolute Auto 900 /uL (1100-4500); Lymphocytes Percent Auto 8.4 % (25-40); Mean Corpuscular HGB Conc 33.5 % (30-36); Mean Corpuscular Hemoglobin 29.3 PG (26-34); Mean Corpuscular Volume 87.6 fL (80-100); Monocytes Absolute Auto 700 /uL (0-900); Monocytes Percent Auto 6.6 % (3-14); Neutrophils Absolute Auto 9300 /uL (1500-7000); Neutrophils Percent Auto 83.2 % (50-75); Platelet Count 322 X10^3/uL (150-400); Red Blood Cell Count 4.81 X10^6/uL (4.0-5.2); Red Cell Distribution Width 13.5 % (11.6-14.8); White Blood Cell Count 11.2 X10^3/uL (4.5-11.0)
[2022-09-17 04:41] LABS: Alanine Aminotransferase 21 IU/L (<35); Albumin 4.8 g/dL (3.5-5.0); Albumin Globulin Ratio 1.5 (1.0-2.8); Alkaline Phosphatase 71 U/L (38-126); Aspartate Aminotransferase 25 IU/L (14-36); BUN Creatinine Ratio 24.2 (6-22); Bilirubin Total 0.6 mg/dL (0.2-1.3); Blood Urea Nitrogen 15 mg/dL (7-17); Calcium 9.2 mg/dL (8.4-10.2); Carbon Dioxide 27 mmol/L (22-32); Chloride 103 mmol/L (98-107); Estimated Glomerular Filt Rate > 60 mL/min (>60); Globulin 3.3 g/dL (1.7-4.1); Glucose 157 mg/dL (70-100); HEMOLYSIS 46 (0-50); Lipase 21 U/L (23-300); Potassium 4.1 mmol/L (3.4-5.1); Sodium 136 mmol/L (137-145); Total Protein 8.1 g/dL (6.3-8.2)
[2022-09-17 06:53] LABS: Bacteria Urine Few (2-10); Mucus Urine 1+ (Negative); RBC Urine None Seen (0-5/HPF); Squamous Epithelial Cell Urine 1-5 /HPF (0-5/HPF); WBC Urine None Seen (0-5/HPF)
--- NOTE | 2022-09-17 07:04 | DI.CT.S_ITS ---
PROCEDURE: CT ABDOMEN PELVIS W CON INDICATIONS: pain, abd and lower pelvic TECHNIQUE: After the administration of oral and IV contrast, axial sections were acquired from the lung bases to the pubic symphysis. Coronal and sagittal reformats were performed. For radiation dose reduction, the following was used: automated exposure control, adjustment of mA and/or kV according to patient size. COMPARISON: None. FINDINGS: Image quality: Excellent. Lung bases: Bibasilar scars and atelectasis. Small hiatal hernia Heart: No significant findings. ABDOMEN: Liver: . Gallbladder: Unremarkable. Biliary ducts: Unremarkable. Pancreas: Unremarkable. Spleen: Unremarkable. Adrenal Glands: Unremarkable. Kidneys and Ureters: Unremarkable. Stomach and Bowel: Appendix is medial to the cecum extending across the midline in upper pelvis. Appendix is enlarged measuring up to 9 mm in diameter with wall thickening and periappendiceal stranding, consistent with acute appendicitis. Stomach, small bowel loops and colon loops are normal. Peritoneum: No abnormal intraperitoneal fluid. No free air. Ventral Wall: Small fat containing inguinal hernia. Abdominal Nodes: No retroperitoneal or mesenteric adenopathy by size criteria. Vessels: Aorta and inferior vena cava are normal in size. PELVIS: Pelvic Organs: There is a 3.6 cm cyst in the left adnexa, most likely an ovarian cyst. Uterus and right ovary are normal. No pathological free-fluid in pelvis. Bladder: Unremarkable. Pelvic Nodes: No enlarged lymph nodes. Miscellaneous: No inguinal hernias are seen. Bones: Unremarkable. IMPRESSION: 1. Acute appendicitis. No CT findings to suggest appendiceal perforation. No abscess. 2. A 3.6 cm left ovarian cyst. Recommend a short-term pelvic ultrasound follow-up. The result was discussed with Dr. Garcia. Dictated by: Gerardo Oswald M.D. on 09/17/2022 at 8:12 Approved by: Gerardo Oswald M.D. on 09/17/2022 at 8:19
--- NOTE | 2022-09-17 08:43 | ED_ITS ---
HPI - Abdominal Pain General Chief Complaint: Abdominal Pain Stated Complaint: ABD PAIN Time Seen by Provider: 09/17/22 03:40 Source: patient Mode of arrival: Ambulatory Limitations: no limitations History of Present Illness HPI narrative: This 42-year-old female patient has a history of IDDM, she is on an Insulin pump. She had undergone x2, BTL. She indicates she is had recurring abdominal pain and recent weeks. Last night she developed severe, persistent pain of a different nature. She is no fever chills, no nausea vomiting. Pain is focused in the RLQ. BMs have been normal. She is no dysuria or hematuria. She is no history kidney stones. She is no chronic GI issues. Related Data Home Medications Medication Instructions Recorded Confirmed insulin aspart U-100 100 unit/mL 1 dose continuous subcutaneous 09/10/18 subcutaneous solution (Novolog infusion CONT PRN sliding scale U-100 Insulin aspart) sennosides 8.6 mg tablet (senna) 8.6 mg PO DAILY constipation 05/01/20 11/26/21 [id number] 250 1 tab PO Q4-6H PRN Pain, Mild 11/26/21 09/17/22 mg-250 mg-65 mg tablet (Excedrin Extra Strength) Previous Rx's Medication Instructions Recorded ondansetron HCl 4 mg tablet 4 mg PO Q6H PRN nausea and 03/25/20 (Zofran) vomiting #12 tabs ondansetron 4 mg disintegrating 4 mg PO Q8H PRN nausea and 09/09/21 tablet vomiting #10 tabs promethazine 25 mg rectal 25 mg MI Q6H PRN nausea and 09/10/21 suppository vomiting #12 ea Allergies Allergy/AdvReac Type Severity Reaction Status Date / Time hydromorphone [From DILAUDID] AdvReac Mild Verified 09/17/22 13:24 diphenhydramine AdvReac Unknown ANXIETY, Verified 09/17/22 13:24 DOESNT CALM HER. metoclopramide [From Reglan] AdvReac Anxiety Verified 09/17/22 13:24 Review of Systems Constitutional Constitutional: Denies body ache(s), Denies chills and Denies fever(s) Eyes Comments: No eye discomfort ENT Ears, Nose, Mouth, and Throat: Denies dizziness, Denies nasal congestion and Denies sore throat Cardiovascular Cardiovascular: Denies chest pain, Denies syncope, Denies rapid heart rate and Denies dyspnea Respiratory Respiratory: Denies cough and Denies dyspnea Gastrointestinal Gastrointestinal: Reports as per HPI and Reports abdominal pain Genitourinary Genitourinary: Denies dysuria and Denies urinary urgency Musculoskeletal Musculoskeletal: Denies back pain Integumentary/Breasts Skin/Breast: Denies new lesions and Denies rash Neurologic Neurologic: Denies confusion, Denies dizziness and Denies syncope Psychiatric Psychiatric: Denies confusion Patient History Medical History Bright red rectal bleeding Chin injury (1995) Hemorrhoids History of blood clots Hyperlipidemia, unspecified Insulin pump in place Tachycardia Type 1 diabetes Surgical History delivery delivered No pertinent past surgical history Status post ORIF of fracture of ankle Tubal ligation status Family History Mother Thyroid disease Father Lumbar back pain Cancer Sister Diabetes mellitus Social History household members: spouse and children Smoking Status: Former smoker alcohol intake: current Smoking Status: Former smoker alcohol intake frequency: holidays/special occasions only Substance Use Type: does not use Exam Initial Vital Signs Initial Vital Signs: Vital Signs Temperature 97.0 F L 09/17/22 02:10 Pulse Rate 107 H 09/17/22 02:10 Respiratory Rate 18 09/17/22 02:10 Blood Pressure 142/88 H 09/17/22 02:10 Pulse Oximetry 100 09/17/22 02:10 Oxygen Delivery Method 09/17/22 02:10 Const General: cooperative, healthy appearing and comfortable [facility] Head: normocephalic and atraumatic Mouth: oral mucosae normal Throat: posterior oropharynx normal Neck Neck: supple and No JVD Resp Auscultation: clear to auscultation bilaterally Cardio Rate: regular rate Heart Sounds: S1 normal, S2 normal and no murmurs Pulses: brachial pulses present GI Other: Obese. No masses. Focal tenderness in RLQ with guarding and rebound. Normal bowel sounds. Equivocal heel tap. Back/Spine/Pelvis Back: normal to inspection and No back tenderness Skin General: no rashes or lesions noted Neuro General: patient alert, patient awake and patient oriented x3 Extrem General: normal to inspection, full ROM and no calf tenderness Psych Appearance: grossly normal Course Course Course Narrative: 08:45, 09/17/22. Surgery consultation initiated due to acute appendicitis. 11:10. 09/17/22. Patient accepted by surgery, Dr. Pereira. Patient remains NPO. She is given an initial dose of Zosyn. Orders Ordered: ED Orders 09/17/22 07:04 CT abdomen pelvis w con Stat 09/17/22 07:55 Covid-19 + FLU A/B + RSV - PCR Stat Hydromorphone HCl (Hydromorphone 0.5 Mg Inj) 0.5 mg IV Q15MIN PRN PRN Reason: Pain, Last Admin: 09/17/22 12:23 Dose: 0.5 mg Documented By: Admin: 09/17/22 04:26 Dose: 0.5 mg Documented By: AMISH Lactated Ringer's (Lactated Ringers) 1,000 mls @ 200 mls/hr IV CONT RANULFO Last Admin: 09/17/22 12:01 Dose: 200 mls/hr Documented By: KRIS Ondansetron HCl (Ondansetron 4 Mg Odt) 4 mg PO NOW PRN PRN Reason: Nausea And Vomiting Ondansetron HCl (Ondansetron 4 Mg/2 Ml Inj) 4 mg IV NOW PRN PRN Reason: Nausea And Vomiting Discontinued Medications Sodium Chloride (Normal Saline 0.9%) 1,000 mls @ 1,000 mls/hr IV BOLUS ONE Stop: 09/17/22 05:21 Last Infusion: 09/17/22 06:42 Dose: 0 mls/hr Documented By: Admin: 09/17/22 04:25 Dose: 1,000 mls/hr Documented By: AMISH Piperacillin Sod/Tazobactam (Sod 4.5 gm/ Sodium Chloride) 100 mls @ 200 mls/hr IV NOW ONE Stop: 09/17/22 11:10 Last Admin: 09/17/22 12:00 Dose: 200 mls/hr Documented By: KRIS Ondansetron HCl (Ondansetron 4 Mg/2 Ml Inj) 4 mg IV NOW ONE Stop: 09/17/22 04:23 Last Admin: 09/17/22 04:25 Dose: 4 mg Documented By: AMISH Ondansetron HCl (Ondansetron 4 Mg/2 Ml Inj) 4 mg IV NOW ONE Stop: 09/17/22 11:47 Last Admin: 09/17/22 12:00 Dose: 4 mg Documented By: NR Vital Signs Vital signs: Vital Signs - 8 hr 09/17/22 08:31 Temperature 97.7 F Pulse Rate 93 H Respiratory Rate 19 Blood Pressure 146/87 H Pulse Oximetry 100 Oxygen Delivery Method Room Air MDM - Abdominal Pain Lab Data Result diagrams: 09/17/22 04:15 09/17/22 04:15 Labs: Lab Results 09/17/22 09/17/22 09/17/22 Range/Units 02:35 04:15 04:15 WBC 11.2 H (4.5-11.0) X10^3/uL RBC 4.81 (4.0-5.2) X10^6/uL Hgb 14.1 (12.0-16.0) g/dL Hct 42.1 (36-46) % MCV 87.6 (80-100) fL MCH 29.3 (26-34) PG MCHC 33.5 (30-36) % RDW 13.5 (11.6-14.8) % Plt Count 322 (150-400) X10^3/uL Neut % (Auto) 83.2 H (50-75) % Lymph % (Auto) 8.4 L (25-40) % [place] % (Auto) 6.6 (3-14) % Eos % (Auto) 0.8 L (2-4) % Baso % (Auto) 1.0 (0-2) % Neut # (Auto) 9300 H (7857-3153) /uL Lymph # (Auto) 900 L (5887-5773) /uL [place] # (Auto) 700 (0-900) /uL Eos # (Auto) 100 (0-450) /uL Baso # (Auto) 100 (0-100) /uL Sodium 136 L (137-145) mmol/L Potassium 4.1 (3.4-5.1) mmol/L Chloride 103 (98-107) mmol/L Carbon Dioxide 27 (22-32) mmol/L BUN 15 (7-17) mg/dL Creatinine 0.62 (0.52-1.04) mg/dL Estimated GFR > 60 (>60) mL/min BUN/Creatinine Ratio 24.2 H (6-22) Glucose 157 H (70-100) mg/dL Calcium 9.2 (8.4-10.2) mg/dL Total Bilirubin 0.6 (0.2-1.3) mg/dL AST 25 (14-36) IU/L ALT 21 (<35) IU/L Alkaline Phosphatase 71 (38-126) U/L Total Protein 8.1 (6.3-8.2) g/dL Albumin 4.8 (3.5-5.0) g/dL Globulin 3.3 (1.7-4.1) g/dL Albumin/Globulin Ratio 1.5 (1.0-2.8) Lipase 21 L (23-300) U/L Urine RBC None seen (0-5/HPF) Urine WBC None seen (0-5/HPF) Ur Squamous Epith Cells 1-5 /hpf (0-5/HPF) Urine Bacteria Few (2-10) H (None) Urine Mucus 1+ H (Negative) Micro UA Comment * SARS-CoV-2 (PCR) (Negative) Influenza A (RT-PCR) (NEGATIVE) Influenza B (RT-PCR) (NEGATIVE) RSV (PCR) (Negative) 09/17/22 Range/Units 07:55 WBC (4.5-11.0) X10^3/uL RBC (4.0-5.2) X10^6/uL Hgb (12.0-16.0) g/dL Hct (36-46) % MCV (80-100) fL MCH (26-34) PG MCHC (30-36) % RDW (11.6-14.8) % Plt Count (150-400) X10^3/uL Neut % (Auto) (50-75) % Lymph % (Auto) (25-40) % [place] % (Auto) (3-14) % Eos % (Auto) (2-4) % Baso % (Auto) (0-2) % Neut # (Auto) (8143-4280) /uL Lymph # (Auto) (5637-8033) /uL [place] # (Auto) (0-900) /uL Eos # (Auto) (0-450) /uL Baso # (Auto) (0-100) /uL Sodium (137-145) mmol/L Potassium (3.4-5.1) mmol/L Chloride (98-107) mmol/L Carbon Dioxide (22-32) mmol/L BUN (7-17) mg/dL Creatinine (0.52-1.04) mg/dL Estimated GFR (>60) mL/min BUN/Creatinine Ratio (6-22) Glucose (70-100) mg/dL Calcium (8.4-10.2) mg/dL Total Bilirubin (0.2-1.3) mg/dL AST (14-36) IU/L ALT (<35) IU/L Alkaline Phosphatase (38-126) U/L Total Protein (6.3-8.2) g/dL Albumin (3.5-5.0) g/dL Globulin (1.7-4.1) g/dL Albumin/Globulin Ratio (1.0-2.8) Lipase (23-300) U/L Urine RBC (0-5/HPF) Urine WBC (0-5/HPF) Ur Squamous Epith Cells (0-5/HPF) Urine Bacteria (None) Urine Mucus (Negative) Micro UA Comment SARS-CoV-2 (PCR) Negative (Negative) Influenza A (RT-PCR) Flu a negative (NEGATIVE) Influenza B (RT-PCR) Flu b negative (NEGATIVE) RSV (PCR) Negative (Negative) Point of care testing: Point of Care Testing Glucose POC 162 Urine Dip Bedside Urine Glucose Negative Bedside Urine Bilirubin - Negative Bedside Urine Ketone - Negative Urine Specific [place] 1.030 Bedside Urine Occult Blood - Negative Bedside Urine pH 5.5 Bedside Urine Protein +/- 15 Bedside Urine Urobilinogen - Negative Bedside Urine Nitrite - Negative Bedside Urine Leukocytes - Negative Esterase Imaging Data CT scan - abdomen/pelvis: Radiologist's Impression: 1. Acute appendicitis.? No CT findings to suggest appendiceal perforation.? No abscess. ? 2. A 3.6 cm left ovarian cyst.? Recommend a short-term pelvic ultrasound follow- up.? ECG Data Attestation: I personally reviewed and interpreted this ECG as follows: (Sinus tachycardia rate 108 beats per minute. Normal intervals. Possible LE. Poor R- wave progression through this anterior leads. No acute ST changes. No ectopy.) Discharge Plan Departure Patient Disposition: Admitted as Observation Clinical Impression: Acute appendicitis, Type 1 diabetes Admit Date/Time: 09/17/22 12:17 Admit Provider: Juan Pereira
[2022-09-17 10:36] LABS: Influenza A - CEPHEID Flu A NEGATIVE (NEGATIVE); Influenza B - CEPHEID Flu B NEGATIVE (NEGATIVE); Respiratory Syncytial Virus Negative (Negative)
[2022-09-17 10:58] LABS: COVID-19 CEPHEID 4-PLEX PCR Negative (Negative)
[2022-09-17] MEDS: PIPERACILLIN/TAZO 4.5 GM in SODIUM CHLORIDE 0.9% 100 ML IV (12:00)
[2022-09-17] MEDS: LACTATED RINGERS 1,000 ML 200 ML IV (12:01)
--- NOTE | 2022-09-17 12:41 | PM.HP.1 ---
History of Present Illness History of Present Illness Date Patient Seen: 09/17/22 Time Patient Seen: 12:41 Chief complaint: ABD PAIN Narrative: 42-year-old woman presented to the hospital with abdominal pain. sharp pain in the right lower quadrant for the past 24 hours with associated nausea and emesis. On arrival afebrile vital signs within normal limits. CT abdomen pelvis demonstrates acute appendicitis without fluid collection or abscess. She has received Zosyn. Patient History Medical History Bright red rectal bleeding Chin injury (1995) Hemorrhoids History of blood clots Hyperlipidemia, unspecified Insulin pump in place Tachycardia Type 1 diabetes Surgical History delivery delivered No pertinent past surgical history Status post ORIF of fracture of ankle Tubal ligation status Family & Social History Family History Mother Thyroid disease Father Lumbar back pain Cancer Sister Diabetes mellitus Social History: household members spouse,children Safety & Behavioral: Feels Safe in Current Yes Environment Been Physically Hurt or No Threatened By a Person Tobacco & Substance use: Tobacco type cigarettes Smoking Status Former smoker alcohol intake current alcohol intake frequency holiday/special occasion Substance Use Type does not use Meds Home Medications and Allergies Home Medications Medication Instructions Recorded Confirmed Type insulin aspart U-100 100 unit/mL 1 dose continuous subcutaneous 09/10/18 11/26/21 History subcutaneous solution (Novolog infusion CONT PRN sliding scale U-100 Insulin aspart) ondansetron HCl 4 mg tablet 4 mg PO Q6H PRN nausea and 03/25/20 11/26/21 Rx (Zofran) vomiting #12 tabs sennosides 8.6 mg tablet (senna) 8.6 mg PO DAILY constipation 05/01/20 11/26/21 History ondansetron 4 mg disintegrating 4 mg PO Q8H PRN nausea and 09/09/21 11/26/21 Rx tablet vomiting #10 tabs promethazine 25 mg rectal 25 mg HI Q6H PRN nausea and 09/10/21 11/26/21 Rx suppository vomiting #12 ea pdxkikx-rwwiapkddciiy-fjnnnxqi 250 1 tab PO Q4-6H PRN Pain, Mild 11/26/21 11/26/21 History mg-250 mg-65 mg tablet (Excedrin Extra Strength) metoclopramide HCl 10 mg tablet 10 mg PO Q6H PRN nausea and 02/27/22 Rx (Reglan) vomiting #10 tabs Allergies Allergy/AdvReac Type Severity Reaction Status Date / Time hydromorphone [From DILAUDID] AdvReac Mild Verified 08/30/22 10:18 diphenhydramine AdvReac Unknown ANXIETY, Verified 08/30/22 10:18 DOESNT CALM HER. metoclopramide [From Reglan] AdvReac Anxiety Verified 08/30/22 10:18 Exam Vital Signs (past 8 hours): - 09/17/22 08:31 Temperature 97.7 F Pulse Rate 93 H Respiratory Rate 19 Blood Pressure 146/87 H Pulse Oximetry 100 Oxygen Delivery Method Room Air Oxygen Delivery Method Room Air Narrative Exam Narrative: GENERAL: Adult woman in no apparent distress HEENT: No scleral icterus CV: Regular rate, no peripheral edema LUNGS: No increased work of breathing. Patient speaks in full sentences without oxygen support. ABDOMEN: tender right lower quadrant. No chery peritonitis. NEURO: Nonfocal, normal strength throughout, normal gait. SKIN: Warm and dry Objective Labs Result Diagrams: 09/17/22 04:15 09/17/22 04:15 Labs: Laboratory Results - last 24 hr 09/17/22 09/17/22 09/17/22 02:35 04:15 04:15 WBC 11.2 H RBC 4.81 Hgb 14.1 Hct 42.1 MCV 87.6 MCH 29.3 MCHC 33.5 RDW 13.5 Plt Count 322 Neut % (Auto) 83.2 H Lymph % (Auto) 8.4 L [place] % (Auto) 6.6 Eos % (Auto) 0.8 L Baso % (Auto) 1.0 Neut # (Auto) 9300 H Lymph # (Auto) 900 L [place] # (Auto) 700 Eos # (Auto) 100 Baso # (Auto) 100 Sodium 136 L Potassium 4.1 Chloride 103 Carbon Dioxide 27 BUN 15 Creatinine 0.62 Estimated GFR > 60 BUN/Creatinine Ratio 24.2 H Glucose 157 H Calcium 9.2 Total Bilirubin 0.6 AST 25 ALT 21 Alkaline Phosphatase 71 Total Protein 8.1 Albumin 4.8 Globulin 3.3 Albumin/Globulin Ratio 1.5 Lipase 21 L Urine RBC None seen Urine WBC None seen Ur Squamous Epith Cells 1-5 /hpf Urine Bacteria Few (2-10) H Urine Mucus 1+ H Micro UA Comment * SARS-CoV-2 (PCR) Influenza A (RT-PCR) Influenza B (RT-PCR) RSV (PCR) 09/17/22 07:55 WBC RBC Hgb Hct MCV MCH MCHC RDW Plt Count Neut % (Auto) Lymph % (Auto) [place] % (Auto) Eos % (Auto) Baso % (Auto) Neut # (Auto) Lymph # (Auto) [place] # (Auto) Eos # (Auto) Baso # (Auto) Sodium Potassium Chloride Carbon Dioxide BUN Creatinine Estimated GFR BUN/Creatinine Ratio Glucose Calcium Total Bilirubin AST ALT Alkaline Phosphatase Total Protein Albumin Globulin Albumin/Globulin Ratio Lipase Urine RBC Urine WBC Ur Squamous Epith Cells Urine Bacteria Urine Mucus Micro UA Comment SARS-CoV-2 (PCR) Negative Influenza A (RT-PCR) Flu a negative Influenza B (RT-PCR) Flu b negative RSV (PCR) Negative Assessment & Plan Assessment and plan (1) Acute appendicitis: Status: Acute Assessment & Plan narrative: 42-year-old woman type 1 diabetic with with acute appendicitis. Imaging reviewed CT abdomen pelvis demonstrates acute appendicitis without abscess. The I discussed with the patient management options including non operative management and appendectomy. Are her preference is to proceed with laparoscopic appendectomy. Overview of the operation was discussed with the patient. Operative risks including bleeding, infection, damage to surrounding structures were discussed. Questions have been answered she is in agreement with this plan. She provides her verbal consent to proceed. Time Spent With Patient Critical Care time: I spent a total of [] minutes of critical care time on this patient's care today; this time is exclusive of procedural time.
--- NOTE | 2022-09-17 14:18 | SUR.OPER ---
Supine on padded OR bed, head on pillow, left arm padded and tucked at side, right arm on armboard less than 90 degrees, legs uncrossed, safety belt at thigh, tape over blanket over lower legs .
[2022-09-17] MEDS: BUPIVACAINE 0.25% (PF) VIAL 30 ML INJ (14:28)
--- NOTE | 2022-09-17 15:08 | P.OP_ITS ---
Operative Date/Time/Diagnoses Date of procedure: 09/17/22 Time of procedure: 15:08 Pre-op diagnosis: Acute appendicitis Post-op diagnosis: same Procedure & Clinicians Procedure: Laparoscopic appendectomy Same procedure as scheduled: Yes Indications: Symptoms and radiographic findings consistent with acute appendicitis without abscess. Surgeon: Juan Pereira Anesthesia Type: General Operative Notes Findings: Acutely inflamed non perforated appendicitis Specimen(s): other (Appendix) Estimated Blood Loss (mL): 10 Procedure in detail: Patient was brought to the operating room placed supine on the table. Bilateral lower extremity compression devices were applied. Anesthesia was induced and they intubated with an endotracheal tube. They received 3.375 g of Zosyn prior to skin incision. The left arm was tucked and appropriately padded. They were prepped and draped in sterile fashion. Time-out was performed. An i nfraumbilical incision was made the umbilical stalk was grasped and elevated and incision was made and the abdomen was entered atraumatically. A 12 mm balloon trocar was then placed through the incision and pneumoperitoneum of 14 mm Hg was established. The scope was then inserted and the abdomen inspected, there was no evidence of injury upon entry. Two 5 mm ports were placed under direct visua lization, one in the left lower quadrant and second in the lower midline. A thorough laparoscopic evaluation was performed inspecting all four quadrants. The patient was then tilted right side up. The small bowel was then swept to the upper aspect of the abdomen. The tenie were followed to the base of the cecum where the appendix was identified. The appendix was was mobilized from its lateral attachments. It was acutely inflamed but not perforated. The appendix was grasped and a window within the mesentery was made at the base of the appendix using the [place] dissector with care to avoid injuring the cecum. The mesoappendix was then divided using the endo-stapler with a staple length of 2.5 mm-white load. The mesenteric staple line was inspected for hemostasis. The appendix was then amputated flush at the cecum using the endo-stapler blue load. The specimen was retrieved using a endoscopic retrieval bag through the 10 mm infra-umbilical port. The right paracolic gutter and the pouch of [place] were irrigated The 5 mm ports were then removed under direct visualization. The umbilical fascial incision was closed with 0 Vicryl in a figure-eight fashion. The skin wounds were irrigated and closed with 4-0 Monocryl followed by the application of Dermabond. Sponge instrument count at the end of the operation was correct. The patient tolerated procedure well was extubated and transferred to the postoperative care unit in stable condition. Complications: none Post-operative Condition: stable Disposition: same day surgery
[2022-09-17] MEDS: fentaNYL 100 MCG/2 ML INJ IV (15:37)
--- NOTE | 2022-09-17 15:43 | SUR.PHASEI ---
Patient reported mild nausea, medicated with Zofran.
--- NOTE | 2022-09-17 15:53 | SUR.PHASEI ---
Report given to
== END 2022-09-17 16:25 | disposition home or self-care (01) ==
LOC: ED 11:30 → AC 12:18
PROVIDERS: Emergency Medicine; Admitting Provider Surgery; Emergency Provider Emergency Medicine; PCP Family Medicine; Referring Provider Emergency Medicine; Visit Provider Surgery
PROC: 0DTJ4ZZ Resection of Appendix, Percutaneous Endoscopic Approach (ICD-10-PCS; CPT 44970; principal; 2022-09-17 17:30)
DX: K35.80 Unspecified acute appendicitis (principal); E10.9 Type 1 diabetes mellitus without complications; Z79.4 Long term (current) use of insulin; Z96.41 Presence of insulin pump (external) (internal); Z20.822 Contact with and (suspected) exposure to COVID-19
CPT/HCPCS: 44970; 0241U; 36415; 74177; 80053; 81003; 81015; 82962; 83690; 85025; 87086; 93005; 93010; 96374; 96375; 96376; 99219; 99284; G0378; J0330; J1100; J1170; J1885; J2250; J2405; J2543; J2704; J3010; Q9967

== ENCOUNTER 2022-10-24 17:35 | Emergency (ER) | payer OTHER, SELFPAY ==
[2021-02-19 14:51] VITALS: BMI 31.6
[2022-10-24 18:24] VITALS: BP 168/95; PULSE 100; RESP 16; TEMP 36.9; O2SAT 100; BMI 31.3
--- NOTE | 2022-10-24 18:44 | DI.RAD.S_ITS ---
PROCEDURE: XR CHEST 1V INDICATIONS: chest pain TECHNIQUE: One view of the chest was acquired. COMPARISON: [facility], CR, XR CHEST 1V, 07/16/2021, 13:47. FINDINGS: Surgical changes and devices: None. Lungs and pleura: Lungs are clear. No pleural effusions or pneumothorax. Mediastinum: Mediastinal contours appear normal. Heart size is normal. Bones and chest wall: No suspicious bony lesions. Overlying soft tissues appear unremarkable. IMPRESSION: No acute cardiopulmonary abnormality. Approved by: Chino Lynn M.D. on 10/24/2022 at 20:00
[2022-10-24 20:50] LABS: Prothrombin Time 10.9 SECONDS (10.1-12.7)
[2022-10-24 20:52] LABS: D Dimer 296 ng/ml (<500)
[2022-10-24 20:53] LABS: Alanine Aminotransferase 20 IU/L (<35); Albumin 4.4 g/dL (3.5-5.0); Albumin Globulin Ratio 1.5 (1.0-2.8); Alkaline Phosphatase 64 U/L (38-126); Aspartate Aminotransferase 20 IU/L (14-36); BUN Creatinine Ratio 21.5 (6-22); Bilirubin Total 0.6 mg/dL (0.2-1.3); Blood Urea Nitrogen 14 mg/dL (7-17); Calcium 9.2 mg/dL (8.4-10.2); Carbon Dioxide 28 mmol/L (22-32); Chloride 100 mmol/L (98-107); Creatine Kinase 46 U/L (30-135); Estimated Glomerular Filt Rate > 60 mL/min (>60); Glucose 90 mg/dL (70-100); HEMOLYSIS < 15 (0-50); Lipase 19 U/L (23-300); Magnesium 1.9 mg/dL (1.6-2.3); PTT Partial Thromboplastin Tim 27 SECONDS (26-36); Potassium 3.3 mmol/L (3.4-5.1); Sodium 137 mmol/L (137-145); Total Protein 7.4 g/dL (6.3-8.2)
[2022-10-24 20:56] LABS: Add Manual Diff / Slide Review NO; Basophils Absolute Auto 100 /uL (0-100); Eosinophils Absolute Auto 100 /uL (0-450); Eosinophils Percent Auto 2.4 % (2-4); Hematocrit 38.3 % (36-46); Lymphocytes Absolute Auto 1800 /uL (1100-4500); Lymphocytes Percent Auto 29.8 % (25-40); Mean Corpuscular HGB Conc 33.9 % (30-36); Mean Corpuscular Volume 88.5 fL (80-100); Monocytes Absolute Auto 500 /uL (0-900); Monocytes Percent Auto 7.6 % (3-14); Neutrophils Absolute Auto 3700 /uL (1500-7000); Neutrophils Percent Auto 59.2 % (50-75); Platelet Count 337 X10^3/uL (150-400); Red Blood Cell Count 4.32 X10^6/uL (4.0-5.2); Red Cell Distribution Width 13.7 % (11.6-14.8); White Blood Cell Count 6.2 X10^3/uL (4.5-11.0)
[2022-10-24 21:04] LABS: Troponin I < 0.012 ng/mL (0.01-0.034)
--- NOTE | 2022-10-24 22:08 | ED.ABDPAIN ---
HPI - Abdominal Pain General Chief Complaint: Abdominal Pain Stated Complaint: Appendectomy 5 weeks ago, Site pain, Spreading Time Seen by Provider: 10/24/22 22:06 Source: patient and old records reviewed Mode of arrival: Ambulatory Limitations: no limitations History of Present Illness HPI narrative: This is a 42-year-old female with history of insulin-dependent diabetes since age 18 on insulin only. Patient had an appendectomy 5 weeks ago. She states she seemed to be healing well she started having new right lower quadrant pain that was quite intense today did radiate upper back somewhat. Patient denies fevers or chills. She is had nausea today but no vomiting. She denies black or bloody stools, she states she is had normal soft formed stools. No diarrhea constipation. She denies dysuria urgency or frequency. She states she would her menses a week ago, she denies risk of and states she has had a tubal ligation. Patient states no vaginal discharge. She states her incision has been healing well. She defers anything for pain. States she is allergies to Dilaudid, Benadryl makes her anxious, Reglan. Related Data Home Medications Medication Instructions Recorded Confirmed insulin aspart U-100 100 unit/mL 1 dose continuous subcutaneous 09/10/18 10/07/22 subcutaneous solution (Novolog infusion CONT PRN sliding scale U-100 Insulin aspart) sennosides 8.6 mg tablet (senna) 8.6 mg PO DAILY constipation 05/01/20 10/07/22 Previous Rx's Medication Instructions Recorded ondansetron HCl 4 mg tablet 4 mg PO Q6H PRN nausea and 03/25/20 (Zofran) vomiting #12 tabs ondansetron 4 mg disintegrating 4 mg PO Q8H PRN nausea and 09/09/21 tablet vomiting #10 tabs promethazine 25 mg rectal 25 mg MS Q6H PRN nausea and 09/10/21 suppository vomiting #12 ea acetaminophen 325 mg capsule 650 mg PO QID PRN pain #60 caps 09/17/22 (Tylenol) docusate sodium 100 mg capsule 100 mg PO BID #30 caps 09/17/22 (Colace) ibuprofen 200 mg tablet 400 mg PO Q6H #60 tabs 09/17/22 oxycodone 5 mg tablet 5 mg PO Q6H PRN pain #20 tabs 09/17/22 Allergies Allergy/AdvReac Type Severity Reaction Status Date / Time hydromorphone [From DILAUDID] AdvReac Mild Verified 10/24/22 18:30 diphenhydramine AdvReac Unknown ANXIETY, Verified 10/24/22 18:30 DOESNT CALM HER. metoclopramide [From Reglan] AdvReac Anxiety Verified 10/24/22 18:30 Review of Systems Review of Systems ROS Unobtainable: All systems reviewed & are unremarkable except as noted in HPI and below Patient History Medical History Acute appendicitis Bright red rectal bleeding Chin injury (1995) Hemorrhoids History of blood clots Hyperlipidemia, unspecified Insulin pump in place Tachycardia Type 1 diabetes Surgical History delivery delivered No pertinent past surgical history Status post ORIF of fracture of ankle Tubal ligation status Family History Mother Thyroid disease Father Lumbar back pain Cancer Sister Diabetes mellitus Social History household members: spouse and children Smoking Status: Former smoker alcohol intake: current Smoking Status: Former smoker alcohol intake frequency: holidays/special occasions only Substance Use Type: does not use Exam Narrative Exam Narrative: GENERAL: Alert and oriented x three, female in mild distress HEENT: Head normocephalic, atraumatic, EOMI, pupils reactive, face symmetric, moist mucous membranes NECK: Supple, full range of motion CARDIOVASCULAR: Regular rate and rhythm without murmurs, rubs or gallops. RESPIRATORY: Breath sounds equal bilaterally, no wheezes rales or rhonchi. ABDOMEN: Soft, generalized tenderness greatest at right lower quadrant. Patient's incisions from her appendectomy are clean dry and intact without any warmth, erythema and appear to be fully healed. Normoactive bowel sounds all 4 quadrants. No guarding or rebound, rigidity, no mass : No CVA tenderness EXTREMITIES: Normal range of motion, no clubbing or edema. Neurovascularly intact NEUROLOGICAL: Cranial nerves II through XII grossly intact. Moving all extremities SKIN: Warm, dry, no petechiae, no rashes or lesions. Initial Vital Signs Initial Vital Signs: Vital Signs Temperature 98.5 F 10/24/22 18:24 Pulse Rate 100 H 10/24/22 18:24 Respiratory Rate 16 10/24/22 18:24 Blood Pressure 168/95 H 10/24/22 18:24 Pulse Oximetry 100 10/24/22 18:24 Oxygen Delivery Method 10/24/22 18:24 Course Orders Ordered: ED Orders 10/24/22 18:44 XR chest 1V Stat COVID19 -Nasal RAPID/Pre-Proc Stat EKG-12 Lead Stat 10/24/22 20:30 Complete Blood Count AUTO DIFF Stat Comprehensive Metabolic Panel Stat D Dimer Stat Lipase Stat Magnesium Stat Partial Thromboplastin Time Stat Prothrombin Time INR Stat Troponin & CK Cardiac Panel Stat 10/24/22 22:14 CT abdomen pelvis w con Stat Vital Signs Vital signs: Vital Signs - 8 hr 10/24/22 18:24 Temperature 98.5 F Pulse Rate 100 H Respiratory Rate 16 Blood Pressure 168/95 H Pulse Oximetry 100 Oxygen Delivery Method Room Air MDM - Abdominal Pain Lab Data Result diagrams: 10/24/22 20:30 10/24/22 20:30 Labs: Lab Results 10/24/22 10/24/22 10/24/22 Range/Units 20:30 20:30 20:30 WBC 6.2 (4.5-11.0) X10^3/uL RBC 4.32 (4.0-5.2) X10^6/uL Hgb 13.0 (12.0-16.0) g/dL Hct 38.3 (36-46) % MCV 88.5 (80-100) fL MCH 30.0 (26-34) PG MCHC 33.9 (30-36) % RDW 13.7 (11.6-14.8) % Plt Count 337 (150-400) X10^3/uL Neut % (Auto) 59.2 (50-75) % Lymph % (Auto) 29.8 (25-40) % [place] % (Auto) 7.6 (3-14) % Eos % (Auto) 2.4 (2-4) % Baso % (Auto) 1.0 (0-2) % Neut # (Auto) 3700 (8068-5493) /uL Lymph # (Auto) 1800 (1355-2903) /uL [place] # (Auto) 500 (0-900) /uL Eos # (Auto) 100 (0-450) /uL Baso # (Auto) 100 (0-100) /uL PT 10.9 (10.1-12.7) SECONDS INR 1.0 (0.9-1.3) APTT 27 (26-36) SECONDS D-Dimer 296 (<500) ng/ml Sodium 137 (137-145) mmol/L Potassium 3.3 L (3.4-5.1) mmol/L Chloride 100 (98-107) mmol/L Carbon Dioxide 28 (22-32) mmol/L BUN 14 (7-17) mg/dL Creatinine 0.65 (0.52-1.04) mg/dL Estimated GFR > 60 (>60) mL/min BUN/Creatinine Ratio 21.5 (6-22) Glucose 90 (70-100) mg/dL Calcium 9.2 (8.4-10.2) mg/dL Magnesium 1.9 (1.6-2.3) mg/dL Total Bilirubin 0.6 (0.2-1.3) mg/dL AST 20 (14-36) IU/L ALT 20 (<35) IU/L Alkaline Phosphatase 64 (38-126) U/L Total Creatine Kinase 46 (30-135) U/L CK-MB (CK-2) TNP CK-MB (CK-2) Rel Index TNP Troponin I < 0.012 (0.01-0.034) ng/mL Total Protein 7.4 (6.3-8.2) g/dL Albumin 4.4 (3.5-5.0) g/dL Globulin 3.0 (1.7-4.1) g/dL Albumin/Globulin Ratio 1.5 (1.0-2.8) Lipase 19 L (23-300) U/L Point of care testing: Point of Care Testing Test Results Negative Urine Dip Bedside Urine Glucose Negative Bedside Urine Bilirubin - Negative Bedside Urine Ketone + 15 Urine Specific [place] 1.010 Bedside Urine Occult Blood - Negative Bedside Urine pH 7.0 Bedside Urine Protein - Negative Bedside Urine Urobilinogen - Negative Bedside Urine Nitrite - Negative Bedside Urine Leukocytes - Negative Esterase Imaging Data CT scan - abdomen/pelvis: Radiologist's Impression: Close Abdomen/Pelvis CT (Signed) Nikolai Whitfield - 10/24/22 Chest X-Ray (Signed) Chino Lynn - 10/24/22 Launch?Image [address] [address] [address] Scan Report Signed Patient: Kitty Pathak MR#: [id number] : 1980 Acct:[id number] Age/Sex: 42 / F Date of Service: 10/24/22 Loc: ED Accession Number: [id number] ?? Procedure: CT abdomen pelvis w con Ordering Provider: Margret Yanes D.O. PROCEDURE:? CT ABDOMEN PELVIS W CON ? INDICATIONS:? RLQ pain, had appy 5 weeks ago, radiated upwards. +IDDM ? TECHNIQUE:? After the administration of IV contrast, axial sections were acquired from the lung bases to the pubic symphysis.? Coronal and sagittal reformats were performed.? For radiation dose reduction, the following was used:? automated exposure control, adjustment of mA and/or kV according to patient size. ? COMPARISON:? [facility], CT, CT ABDOMEN PELVIS W CON, 09/17/2022, 7:27. ? FINDINGS:? Image quality:? Excellent.? ? Lung bases:? Unremarkable.? ? Heart:? Heart is normal in size. ? ? ABDOMEN: Liver:? No mass lesion. Gallbladder:? Within normal limits without calcified gallstones.? ? Biliary ducts:? No biliary ductal dilatation.? ? Pancreas:? Unremarkable.? ? Spleen:? Normal in size.? ? Adrenal Glands:? No adrenal nodules.? ? Kidneys and Ureters:? No hydronephrosis.? ? ? Stomach and Bowel:? Stomach, small bowel loops, and colon are normal in caliber and wall thickness.? There are surgical sutures adjacent to the cecum consistent with prior appendectomy.? No discrete abscess collection.? Peritoneum:? No abnormal intraperitoneal fluid.? No free air.? ? Ventral Wall: ? No hernia.? Abdominal Nodes:? No retroperitoneal or mesenteric adenopathy by size criteria.? Vessels:? Aorta and inferior vena cava are normal in size.? ? PELVIS: Pelvic Organs:? Unremarkable.? ? Bladder:? The bladder is nondistended.? ? Pelvic Nodes: No enlarged lymph nodes.? Miscellaneous: No inguinal hernias are seen. ? ? ? Bones:? Visualized osseous structures demonstrate no suspicious focal lesions. ? IMPRESSION:? ? 1. No definite acute intra-abdominal abnormality.? Specifically, no abscess collection identified. ? ? Dictated by: Nikolai Whitfield M.D. on 10/24/2022 at 23:03 ? ? Approved by: Nikolai Whitfield M.D. on 10/24/2022 at 23:06?? ECG Data Attestation: I personally reviewed and interpreted this ECG as follows: Interpretation: Sinus rhythm rate 89 MS 166 QRS is 76 and QTC 445. No acute ST changes appreciated. MDM Narrative Medical decision making narrative: This is a 42-year-old female with known insulin-dependent diabetes with history appendectomy 5 weeks ago patient states she was improving in the last day has had increasing pain in her right lower quadrant. Patient states pain has been persistent. She is had nausea but no vomiting denies any other symptoms. Patient's labs are overall reassuring point of care urine shows ketones, no other clear changes for infection. Because patient is insulin-dependent diabetic I would obtain CT scan to evaluate for any occult infection. This shows no acute change, patient's prior ovarian cyst appears to have resolved. She does have follow-up for this. Urine shows ketones no other change. Discussed sending it for culture. Discharge Plan Departure Patient Disposition: Home Clinical Impression: Abdominal pain Instructions: DI for Abdominal Pain-Adult Activity Restrictions/Additional Instructions: Follow-up with your physician for recheck. The ovarian cyst seen on your prior CT is not noted today. You may take Tylenol and/or ibuprofen as needed for pain. Please return for fevers, worsening pain, persistent vomiting, black or bloody stools, new issues with urination, vaginal discharge or other new or concerning changes. Prescriptions: No Action sennosides [senna] 8.6 mg tablet 8.6 mg PO DAILY insulin aspart U-100 [Novolog U-100 Insulin aspart] 100 unit/mL Solution 1 dose Continuous Subcutaneous Infusion CONT PRN (Reason: sliding scale) ondansetron HCl [Zofran] 4 mg tablet 4 mg PO Q6H PRN (Reason: nausea and vomiting) Qty: 12 0RF Rx Instructions: take 1-2 tabs for nausea and vomiting as needed ondansetron 4 mg tablet,disintegrating 4 mg PO Q8H PRN (Reason: nausea and vomiting) Qty: 10 0RF promethazine 25 mg suppository 25 mg MS Q6H PRN (Reason: nausea and vomiting) Qty: 12 0RF oxycodone 5 mg tablet 5 mg PO Q6H PRN (Reason: pain) Qty: 20 0RF acetaminophen [Tylenol] 325 mg capsule 650 mg PO QID PRN (Reason: pain) Qty: 60 0RF ibuprofen 200 mg tablet 400 mg PO Q6H Qty: 60 0RF docusate sodium [Colace] 100 mg capsule 100 mg PO BID Qty: 30 0RF Referrals: Ayala Ferrera MD [Primary Care Provider] - Stand Alone Forms: Patient Portal/API
--- NOTE | 2022-10-24 22:14 | DI.CT.S_ITS ---
PROCEDURE: CT ABDOMEN PELVIS W CON INDICATIONS: RLQ pain, had appy 5 weeks ago, radiated upwards. +IDDM TECHNIQUE: After the administration of IV contrast, axial sections were acquired from the lung bases to the pubic symphysis. Coronal and sagittal reformats were performed. For radiation dose reduction, the following was used: automated exposure control, adjustment of mA and/or kV according to patient size. COMPARISON: [facility], CT, CT ABDOMEN PELVIS W CON, 09/17/2022, 7:27. FINDINGS: Image quality: Excellent. Lung bases: Unremarkable. Heart: Heart is normal in size. ABDOMEN: Liver: No mass lesion. Gallbladder: Within normal limits without calcified gallstones. Biliary ducts: No biliary ductal dilatation. Pancreas: Unremarkable. Spleen: Normal in size. Adrenal Glands: No adrenal nodules. Kidneys and Ureters: No hydronephrosis. Stomach and Bowel: Stomach, small bowel loops, and colon are normal in caliber and wall thickness. There are surgical sutures adjacent to the cecum consistent with prior appendectomy. No discrete abscess collection. Peritoneum: No abnormal intraperitoneal fluid. No free air. Ventral Wall: No hernia. Abdominal Nodes: No retroperitoneal or mesenteric adenopathy by size criteria. Vessels: Aorta and inferior vena cava are normal in size. PELVIS: Pelvic Organs: Unremarkable. Bladder: The bladder is nondistended. Pelvic Nodes: No enlarged lymph nodes. Miscellaneous: No inguinal hernias are seen. Bones: Visualized osseous structures demonstrate no suspicious focal lesions. IMPRESSION: 1. No definite acute intra-abdominal abnormality. Specifically, no abscess collection identified. Dictated by: Nikolai Whitfield M.D. on 10/24/2022 at 23:03 Approved by: Nikolai Whitfield M.D. on 10/24/2022 at 23:06
[2022-10-24 23:35] VITALS: BP 133/72; PULSE 90; O2SAT 99
== END 2022-10-24 23:37 | disposition home or self-care (01) ==
PROVIDERS: Emergency Provider Emergency Medicine; PCP Family Medicine
DX: R10.31 Right lower quadrant pain (principal); E11.9 Type 2 diabetes mellitus without complications; Z79.4 Long term (current) use of insulin; R11.0 Nausea; Z90.49 Acquired absence of other specified parts of digestive tract
CPT/HCPCS: 36415; 71045; 74177; 80053; 81003; 81025; 82550; 83690; 83735; 84484; 85025; 85379; 85610; 85730; 87077; 87086; 87147; 93005; 93010; 99284; Q9967

== ENCOUNTER 2022-11-09 13:46 | Emergency (ER) | payer OTHER, SELFPAY ==
[2021-02-19 14:51] VITALS: BMI 31.6
[2022-11-09] VITALS (23 sets, daily range): BP systolic 137–156; BP diastolic 85–92; PULSE 89–117; RESP 11–28; TEMP 37.2; O2SAT 94–100
--- NOTE | 2022-11-09 14:35 | ED_ITS ---
HPI - Dizziness <Roxana Suresh, DO - Last Filed: 11/12/22 19:47> General Chief Complaint: Dizziness Stated Complaint: dizziness, vomiting,sinus Time Seen by Provider: 11/09/22 14:00 Source: patient Mode of arrival: Ambulatory History of Present Illness HPI Narrative: Patient is a 42-year-old female history of insulin-dependent diabetes on an insulin pump presenting today with about 8-9 days of dizziness diarrhea nausea and vomiting. She denies fever or chills but is having some nasal congestion and upper respiratory like stuff however she he says it is not too bad. She says that she is dizzy mostly when she moves. It has progressively gotten worse she has been vomiting. Her glucose and sugars remained pretty stable to currently her glucose is 130 on her continuous monitor. She really denies any significant abdominal pain no palpitations chest pain. No numbness tingling or weakness. However she came to the ED today after almost falling. He does complain of some neck pain but no significant headache. She is able to turn her head without any difficulty. She was seen in September for appendicitis. Related Data Home Medications Medication Instructions Recorded Confirmed insulin aspart U-100 100 unit/mL 1 dose continuous subcutaneous 09/10/18 10/07/22 subcutaneous solution (Novolog infusion CONT PRN sliding scale U-100 Insulin aspart) sennosides 8.6 mg tablet (senna) 8.6 mg PO DAILY constipation 05/01/20 10/07/22 Previous Rx's Medication Instructions Recorded ondansetron HCl 4 mg tablet 4 mg PO Q6H PRN nausea and 03/25/20 (Zofran) vomiting #12 tabs ondansetron 4 mg disintegrating 4 mg PO Q8H PRN nausea and 09/09/21 tablet vomiting #10 tabs promethazine 25 mg rectal 25 mg UT Q6H PRN nausea and 09/10/21 suppository vomiting #12 ea acetaminophen 325 mg capsule 650 mg PO QID PRN pain #60 caps 09/17/22 (Tylenol) docusate sodium 100 mg capsule 100 mg PO BID #30 caps 09/17/22 (Colace) ibuprofen 200 mg tablet 400 mg PO Q6H #60 tabs 09/17/22 oxycodone 5 mg tablet 5 mg PO Q6H PRN pain #20 tabs 09/17/22 cephalexin 500 mg capsule 500 mg PO BID #14 caps 10/26/22 ondansetron 4 mg disintegrating 4 mg PO TID-QID PRN nausea and 11/10/22 tablet vomiting #10 tabs pantoprazole 40 mg tablet,delayed 40 mg PO DAILY #30 tabs 11/10/22 release (Protonix) promethazine 12.5 mg rectal 12.5 mg UT Q4-6H PRN nausea and 11/10/22 suppository vomiting #12 ea Allergies Allergy/AdvReac Type Severity Reaction Status Date / Time hydromorphone [From DILAUDID] AdvReac Mild Verified 11/09/22 14:00 diphenhydramine AdvReac Unknown ANXIETY, Verified 11/09/22 14:00 DOESNT CALM HER. metoclopramide [From Reglan] AdvReac Anxiety Verified 11/09/22 14:00 Review of Systems <Roxana Suresh DO - Last Filed: 11/12/22 19:47> Review of Systems ROS Unobtainable: All systems reviewed & are unremarkable except as noted in HPI and below Patient History <Roxana Suresh DO - Last Filed: 11/12/22 19:47> Medical History Acute appendicitis Bright red rectal bleeding Chin injury (1995) Hemorrhoids History of blood clots Hyperlipidemia, unspecified Insulin pump in place Tachycardia Type 1 diabetes Surgical History delivery delivered No pertinent past surgical history Status post ORIF of fracture of ankle Tubal ligation status Family History Mother Thyroid disease Father Lumbar back pain Cancer Sister Diabetes mellitus Social History household members: spouse and children Smoking Status: Former smoker alcohol intake: current Smoking Status: Former smoker alcohol intake frequency: holidays/special occasions only Substance Use Type: does not use Exam <Roxana Suresh DO - Last Filed: 11/12/22 19:47> Initial Vital Signs Initial Vital Signs: Vital Signs Pulse Rate 117 H 11/09/22 13:57 Pulse Oximetry 98 11/09/22 13:57 GENERAL: Alert 42-year-old female appears to not feel well and in no acute distress. HEENT: Head atraumatic,EOMI, pupils reactive, face symmetric, no nystagmus moist mucous membranes , mild neck pain no appreciative meningitis sinus CARDIOVASCULAR: Regular rate and rhythm without murmurs, rubs or gallops. RESPIRATORY: Breath sounds equal bilaterally, no wheezes rales or rhonchi. ABDOMEN: Soft, nontender. Normoactive bowel sounds all 4 quadrants. No guardi ng or rebound. EXTREMITIES: Normal range of motion, no clubbing or edema. Neurovascularly intact NEUROLOGICAL: Alert and oriented x4.Normal gait and speech. Cranial nerves II through XII grossly intact. Good rhvlsh-aw-xach, good wrdg-xk-loae, strength equal bilaterally, no dysarthria or aphasia, sensation in tact to soft touch bilaterally, no visual changes, no facial droop SKIN: Warm, dry, no laceration, no petechiae, no rashes or lesions. <Chris Daugherty DO - Last Filed: 11/10/22 03:49> Initial Vital Signs Initial Vital Signs: Vital Signs Pulse Rate 117 H 11/09/22 13:57 Pulse Oximetry 98 11/09/22 13:57 Procedures <Roxana Suresh DO - Last Filed: 11/12/22 19:47> Central Line Placement Right IJ: Central Line Prep: Chlorhexidine scrub and sterile drapes applied Local Anesthetic: lidocaine 1% Amount of anesthesia used (mL): 5 Ultrasound Used for Placement: Yes Central Line Lumen Inserted: triple Post Procedure: sutured in place, good blood return, all ports aspirated, flushed, capped and sterile dressing applied Post Procedure X-Ray: tip of catheter in good position and no pneumothorax seen Patient Tolerated Procedure: Well and No complications Scores <Roxana Suresh DO - Last Filed: 11/12/22 19:47> NIH Stroke Scale Level of Conciousness: Alert, keenly responsive Ask month/age: Answers both questions correctly. Open/close eyes, close hand: Performs both tasks correctly Best gaze horizontal: Normal Visual robert: No visual loss Facial palsy: Normal symetrical movement Left arm drift: No drift for full 10 sec Right arm drift: No drift for full 10 sec Left leg drift: No drift for full 5 sec Right leg drift: No drift for full 5 sec Limb ataxia: Absent Sensory on face/arms/legs: Normal, no sensory loss Best language: No aphasia, normal Dysarthria: Normal Extinction or inattention: No abnormality Total NIH Stroke scale score: 0 <Chris Daugherty, DO - Last Filed: 11/10/22 03:49> NIH Stroke Scale Total NIH Stroke scale score: 0 Course <Roxana Suresh DO - Last Filed: 11/12/22 19:47> Orders Ordered: Discontinued Medications Sodium Chloride (Normal Saline 0.9%) 1,000 mls @ 1,000 mls/hr IV BOLUS ONE Stop: 11/09/22 15:40 Last Infusion: 11/09/22 20:35 Dose: 0 mls/hr Documented By: Admin: 11/09/22 19:32 Dose: 1,000 mls/hr Documented By: SHRADDHA Sodium Chloride (Normal Saline 0.9%) 1,000 mls @ 1,000 mls/hr IV BOLUS ONE Stop: 11/09/22 23:48 Last Infusion: 11/10/22 00:50 Dose: 0 mls/hr Documented By: Admin: 11/09/22 23:12 Dose: 1,000 mls/hr Documented By: SHRADDHA Sodium Chloride (Normal Saline 0.9%) 1,000 mls @ 1,000 mls/hr IV BOLUS ONE Stop: 11/09/22 22:44 Last Infusion: 11/09/22 22:55 Dose: 0 mls/hr Documented By: Admin: 11/09/22 21:50 Dose: 1,000 mls/hr Documented By: SHRADDHA Meclizine HCl (Meclizine Hcl 12.5 Mg Tablet) 25 mg PO NOW ONE Stop: 11/09/22 14:42 Last Admin: 11/09/22 16:41 Dose: 25 mg Documented By: VIRI Metoclopramide HCl (Metoclopramide 10 Mg/2 Ml Inj) 10 mg IV NOW ONE Stop: 11/09/22 22:50 Last Admin: 11/09/22 23:24 Dose: 10 mg Documented By: SHRADDHA Ondansetron HCl (Ondansetron 4 Mg/2 Ml Inj) 4 mg IV NOW ONE Stop: 11/09/22 14:42 Last Admin: 11/09/22 19:15 Dose: 4 mg Documented By: SHRADDHA Ondansetron HCl (Ondansetron 4 Mg/2 Ml Inj) 4 mg IV NOW ONE Stop: 11/09/22 22:26 Last Admin: 11/09/22 22:30 Dose: 4 mg Documented By: SHRADDHA Pantoprazole Sodium (Pantoprazole 40 Mg Vial) 40 mg IV NOW ONE Stop: 11/09/22 22:50 Last Admin: 11/09/22 23:24 Dose: 40 mg Documented By: SHRADDHA Vital Signs Vital signs: Vital Signs - 8 hr 11/09/22 19:57 11/09/22 19:57 11/09/22 20:00 Pulse Rate 107 H 103 H Blood Pressure 152/88 H Pulse Oximetry 94 100 11/09/22 20:30 11/09/22 21:00 11/09/22 21:30 Pulse Rate 101 H 100 H 98 H Blood Pressure Pulse Oximetry 100 99 100 11/09/22 22:00 11/09/22 22:30 11/09/22 23:00 Pulse Rate 89 96 H 100 H Blood Pressure Pulse Oximetry 100 100 99 11/09/22 23:30 11/10/22 00:00 11/10/22 00:30 Pulse Rate 91 H 94 H 97 H Blood Pressure Pulse Oximetry 99 100 100 11/10/22 00:34 11/10/22 00:34 Pulse Rate Blood Pressure 146/82 H Pulse Oximetry 100 <Chris Daugherty DO - Last Filed: 11/10/22 03:49> Orders Ordered: Discontinued Medications Sodium Chloride (Normal Saline 0.9%) 1,000 mls @ 1,000 mls/hr IV BOLUS ONE Stop: 11/09/22 15:40 Last Infusion: 11/09/22 20:35 Dose: 0 mls/hr Documented By: Admin: 11/09/22 19:32 Dose: 1,000 mls/hr Documented By: SHRADDHA Sodium Chloride (Normal Saline 0.9%) 1,000 mls @ 1,000 mls/hr IV BOLUS ONE Stop: 11/09/22 23:48 Last Infusion: 11/10/22 00:50 Dose: 0 mls/hr Documented By: Admin: 11/09/22 23:12 Dose: 1,000 mls/hr Documented By: SHRADDHA Sodium Chloride (Normal Saline 0.9%) 1,000 mls @ 1,000 mls/hr IV BOLUS ONE Stop: 11/09/22 22:44 Last Infusion: 11/09/22 22:55 Dose: 0 mls/hr Documented By: Admin: 11/09/22 21:50 Dose: 1,000 mls/hr Documented By: SHRADDHA Meclizine HCl (Meclizine Hcl 12.5 Mg Tablet) 25 mg PO NOW ONE Stop: 11/09/22 14:42 Last Admin: 11/09/22 16:41 Dose: 25 mg Documented By: VIRI Metoclopramide HCl (Metoclopramide 10 Mg/2 Ml Inj) 10 mg IV NOW ONE Stop: 11/09/22 22:50 Last Admin: 11/09/22 23:24 Dose: 10 mg Documented By: SHRADDHA Ondansetron HCl (Ondansetron 4 Mg/2 Ml Inj) 4 mg IV NOW ONE Stop: 11/09/22 14:42 Last Admin: 11/09/22 19:15 Dose: 4 mg Documented By: SHRADDHA Ondansetron HCl (Ondansetron 4 Mg/2 Ml Inj) 4 mg IV NOW ONE Stop: 11/09/22 22:26 Last Admin: 11/09/22 22:30 Dose: 4 mg Documented By: SHRADDHA Pantoprazole Sodium (Pantoprazole 40 Mg Vial) 40 mg IV NOW ONE Stop: 11/09/22 22:50 Last Admin: 11/09/22 23:24 Dose: 40 mg Documented By: SHRADDHA Vital Signs Vital signs: Vital Signs - 8 hr 11/09/22 19:57 11/09/22 19:57 11/09/22 20:00 Pulse Rate 107 H 103 H Blood Pressure 152/88 H Pulse Oximetry 94 100 11/09/22 20:30 11/09/22 21:00 11/09/22 21:30 Pulse Rate 101 H 100 H 98 H Blood Pressure Pulse Oximetry 100 99 100 11/09/22 22:00 11/09/22 22:30 11/09/22 23:00 Pulse Rate 89 96 H 100 H Blood Pressure Pulse Oximetry 100 100 99 11/09/22 23:30 11/10/22 00:00 11/10/22 00:30 Pulse Rate 91 H 94 H 97 H Blood Pressure Pulse Oximetry 99 100 100 11/10/22 00:34 11/10/22 00:34 Pulse Rate Blood Pressure 146/82 H Pulse Oximetry 100 MDM - Dizziness <Roxana Suresh, DO - Last Filed: 11/12/22 19:47> Lab Data 11/09/22 15:25 11/09/22 15:25 Labs: Lab Results 11/09/22 11/09/22 11/09/22 Range/Units 14:42 15:25 15:25 WBC 9.5 (4.5-11.0) X10^3/uL RBC 4.58 (4.0-5.2) X10^6/uL Hgb 13.5 (12.0-16.0) g/dL Hct 40.8 (36-46) % MCV 89.1 (80-100) fL MCH 29.4 (26-34) PG MCHC 33.0 (30-36) % RDW 13.6 (11.6-14.8) % Plt Count 325 (150-400) X10^3/uL Neut % (Auto) 81.9 H (50-75) % Lymph % (Auto) 10.3 L (25-40) % [place] % (Auto) 6.9 (3-14) % Eos % (Auto) 0.4 L (2-4) % Baso % (Auto) 0.5 (0-2) % Neut # (Auto) 7800 H (3472-9600) /uL Lymph # (Auto) 1000 L (2842-2049) /uL [place] # (Auto) 700 (0-900) /uL Eos # (Auto) 0 (0-450) /uL Baso # (Auto) 100 (0-100) /uL RBC Morphology Normal morphology Sodium 134 L (137-145) mmol/L Potassium 4.6 (3.4-5.1) mmol/L Chloride 99 (98-107) mmol/L Carbon Dioxide 26 (22-32) mmol/L BUN 14 (7-17) mg/dL Creatinine 0.52 (0.52-1.04) mg/dL Estimated GFR > 60 (>60) mL/min BUN/Creatinine Ratio 26.9 H (6-22) Glucose 161 H (70-100) mg/dL Calcium 9.1 (8.4-10.2) mg/dL Total Bilirubin 0.9 (0.2-1.3) mg/dL AST 23 (14-36) IU/L ALT 20 (<35) IU/L Alkaline Phosphatase 70 (38-126) U/L Total Creatine Kinase 53 (30-135) U/L CK-MB (CK-2) TNP CK-MB (CK-2) Rel Index TNP Troponin I < 0.012 (0.01-0.034) ng/mL Total Protein 7.7 (6.3-8.2) g/dL Albumin 4.5 (3.5-5.0) g/dL Globulin 3.2 (1.7-4.1) g/dL Albumin/Globulin Ratio 1.4 (1.0-2.8) Urine RBC (0-5/HPF) Urine WBC (0-5/HPF) Ur Squamous Epith Cells (0-5/HPF) Urine Bacteria (None) Ur Culture Indicated? Urine Test (Negative) Ketones 0.90 H (<0.27) mmol/L SARS-CoV-2 (PCR) Positive H (Negative) Influenza A (RT-PCR) Flu a negative (NEGATIVE) Influenza B (RT-PCR) Flu b negative (NEGATIVE) RSV (PCR) Negative (Negative) 11/09/22 11/09/22 11/09/22 Range/Units 16:05 16:05 16:05 WBC (4.5-11.0) X10^3/uL RBC (4.0-5.2) X10^6/uL Hgb (12.0-16.0) g/dL Hct (36-46) % MCV (80-100) fL MCH (26-34) PG MCHC (30-36) % RDW (11.6-14.8) % Plt Count (150-400) X10^3/uL Neut % (Auto) (50-75) % Lymph % (Auto) (25-40) % [place] % (Auto) (3-14) % Eos % (Auto) (2-4) % Baso % (Auto) (0-2) % Neut # (Auto) (5141-4492) /uL Lymph # (Auto) (1514-8549) /uL [place] # (Auto) (0-900) /uL Eos # (Auto) (0-450) /uL Baso # (Auto) (0-100) /uL RBC Morphology Sodium (137-145) mmol/L Potassium (3.4-5.1) mmol/L Chloride (98-107) mmol/L Carbon Dioxide (22-32) mmol/L BUN (7-17) mg/dL Creatinine (0.52-1.04) mg/dL Estimated GFR (>60) mL/min BUN/Creatinine Ratio (6-22) Glucose (70-100) mg/dL Calcium (8.4-10.2) mg/dL Total Bilirubin (0.2-1.3) mg/dL AST (14-36) IU/L ALT (<35) IU/L Alkaline Phosphatase (38-126) U/L Total Creatine Kinase (30-135) U/L CK-MB (CK-2) CK-MB (CK-2) Rel Index Troponin I (0.01-0.034) ng/mL Total Protein (6.3-8.2) g/dL Albumin (3.5-5.0) g/dL Globulin (1.7-4.1) g/dL Albumin/Globulin Ratio (1.0-2.8) Urine RBC None seen (0-5/HPF) Urine WBC 5-10/hpf H (0-5/HPF) Ur Squamous Epith Cells 5-10 /hpf H (0-5/HPF) Urine Bacteria Many (>30) H (None) Ur Culture Indicated? Specimen cultured Urine Test Negative Cancelled (Negative) Ketones (<0.27) mmol/L SARS-CoV-2 (PCR) (Negative) Influenza A (RT-PCR) (NEGATIVE) Influenza B (RT-PCR) (NEGATIVE) RSV (PCR) (Negative) Urine Dip Bedside Urine Glucose Negative Bedside Urine Bilirubin - Negative Bedside Urine Ketone + 15 Urine Specific [place] 1.015 Bedside Urine Occult Blood - Negative Bedside Urine pH 7.0 Bedside Urine Protein + 30 Bedside Urine Urobilinogen - Negative Bedside Urine Nitrite - Negative Bedside Urine Leukocytes - Negative Esterase ECG Data Interpretation: Normal sinus rhythm rate 94 UT interval 158 QRS [address] changes Q-waves noted in lead 3 only slightly low voltage similar to multiple previous EKGs MDM Narrative Medical decision making narrative: Patient is an insulin-dependent diabetic 42-year-old female presenting with headache and dizziness ongoing for like the last 15 days. Her dizziness is significantly worse every time she sits up and moves. She is not really had fever but not feeling well. She does have headache not necessarily neck pain. She is positive for COVID probably causing some of her dizziness. She is no focal deficits. She does not have any significant leukocytosis mild left shif he has a glucose of 161 no anion gap she is not acidotic no it signs of DKA. She is extremely dizzy and headache every time she sits up stands or moves. She is a very hard IV start. We were able to get blood however all the peripheral lines blue. I attempted bilateral EJs and was unsuccessful. Central line was finally placed for fluids medication and treatment. Patient signed out to Dr. Daugherty for further management CC: Headache and dizziness Complicating co-morbidities: Type 1 diabetes, blood clots Data collected from: Patient Medical records reviewed: Multiple prior visits Differential considered, but not limited to: COVID, influenza, stroke, DKA, electrolyte abnormality versus other Exam documented above, pertinent findings include: No focal neurologic findings, moist mucous membranes, normal heart rate and rhythm, abdomen soft Lab Test results independently reviewed as above. Pertinent findings: No significant sign of infection, acidosis or other electrolyte abnormality Independently reviewed EKG as above Imaging studies independently reviewed: CTA of head and neck without significant finding Treatments: Tremendous improvement with fluids, antiemetics and Protonix Discussion: 42-year-old female prior DVTs and type 1 diabetes as well as migraines presents with dizziness, headache, nausea and vomiting. Multiple diagnoses considered as noted above, patient does have significant improvement with above-stated therapies. There is no evidence of DKA, stroke, dissection, recurrence of clot, other electrolyte abnormalities. Patient does have COVID which is newly discovered today but absent of any respiratory distress, hypoxemia or requirement of supplemental oxygen. Vital signs are stable, she is well hydrated, tolerating orals and appropriate for discharge Disposition: see below, along with detailed discharge instructions that have been reviewed with patient as well as indications for ED re-evaluation and additional outpatient follow up <Chris Daugherty DO - Last Filed: 11/10/22 03:49> Lab Data Labs: Lab Results 11/09/22 11/09/22 11/09/22 Range/Units 14:42 15:25 15:25 WBC 9.5 (4.5-11.0) X10^3/uL RBC 4.58 (4.0-5.2) X10^6/uL Hgb 13.5 (12.0-16.0) g/dL Hct 40.8 (36-46) % MCV 89.1 (80-100) fL MCH 29.4 (26-34) PG MCHC 33.0 (30-36) % RDW 13.6 (11.6-14.8) % Plt Count 325 (150-400) X10^3/uL Neut % (Auto) 81.9 H (50-75) % Lymph % (Auto) 10.3 L (25-40) % [place] % (Auto) 6.9 (3-14) % Eos % (Auto) 0.4 L (2-4) % Baso % (Auto) 0.5 (0-2) % Neut # (Auto) 7800 H (7429-1127) /uL Lymph # (Auto) 1000 L (4592-0484) /uL [place] # (Auto) 700 (0-900) /uL Eos # (Auto) 0 (0-450) /uL Baso # (Auto) 100 (0-100) /uL RBC Morphology Normal morphology Sodium 134 L (137-145) mmol/L Potassium 4.6 (3.4-5.1) mmol/L Chloride 99 (98-107) mmol/L Carbon Dioxide 26 (22-32) mmol/L BUN 14 (7-17) mg/dL Creatinine 0.52 (0.52-1.04) mg/dL Estimated GFR > 60 (>60) mL/min BUN/Creatinine Ratio 26.9 H (6-22) Glucose 161 H (70-100) mg/dL Calcium 9.1 (8.4-10.2) mg/dL Total Bilirubin 0.9 (0.2-1.3) mg/dL AST 23 (14-36) IU/L ALT 20 (<35) IU/L Alkaline Phosphatase 70 (38-126) U/L Total Creatine Kinase 53 (30-135) U/L CK-MB (CK-2) TNP CK-MB (CK-2) Rel Index TNP Troponin I < 0.012 (0.01-0.034) ng/mL Total Protein 7.7 (6.3-8.2) g/dL Albumin 4.5 (3.5-5.0) g/dL Globulin 3.2 (1.7-4.1) g/dL Albumin/Globulin Ratio 1.4 (1.0-2.8) Urine RBC (0-5/HPF) Urine WBC (0-5/HPF) Ur Squamous Epith Cells (0-5/HPF) Urine Bacteria (None) Ur Culture Indicated? Urine Test (Negative) Ketones 0.90 H (<0.27) mmol/L SARS-CoV-2 (PCR) Positive H (Negative) Influenza A (RT-PCR) Flu a negative (NEGATIVE) Influenza B (RT-PCR) Flu b negative (NEGATIVE) RSV (PCR) Negative (Negative) 11/09/22 11/09/22 11/09/22 Range/Units 16:05 16:05 16:05 WBC (4.5-11.0) X10^3/uL RBC (4.0-5.2) X10^6/uL Hgb (12.0-16.0) g/dL Hct (36-46) % MCV (80-100) fL MCH (26-34) PG MCHC (30-36) % RDW (11.6-14.8) % Plt Count (150-400) X10^3/uL Neut % (Auto) (50-75) % Lymph % (Auto) (25-40) % [place] % (Auto) (3-14) % Eos % (Auto) (2-4) % Baso % (Auto) (0-2) % Neut # (Auto) (4241-2506) /uL Lymph # (Auto) (8130-5376) /uL [place] # (Auto) (0-900) /uL Eos # (Auto) (0-450) /uL Baso # (Auto) (0-100) /uL RBC Morphology Sodium (137-145) mmol/L Potassium (3.4-5.1) mmol/L Chloride (98-107) mmol/L Carbon Dioxide (22-32) mmol/L BUN (7-17) mg/dL Creatinine (0.52-1.04) mg/dL Estimated GFR (>60) mL/min BUN/Creatinine Ratio (6-22) Glucose (70-100) mg/dL Calcium (8.4-10.2) mg/dL Total Bilirubin (0.2-1.3) mg/dL AST (14-36) IU/L ALT (<35) IU/L Alkaline Phosphatase (38-126) U/L Total Creatine Kinase (30-135) U/L CK-MB (CK-2) CK-MB (CK-2) Rel Index Troponin I (0.01-0.034) ng/mL Total Protein (6.3-8.2) g/dL Albumin (3.5-5.0) g/dL Globulin (1.7-4.1) g/dL Albumin/Globulin Ratio (1.0-2.8) Urine RBC None seen (0-5/HPF) Urine WBC 5-10/hpf H (0-5/HPF) Ur Squamous Epith Cells 5-10 /hpf H (0-5/HPF) Urine Bacteria Many (>30) H (None) Ur Culture Indicated? Specimen cultured Urine Test Negative Cancelled (Negative) Ketones (<0.27) mmol/L SARS-CoV-2 (PCR) (Negative) Influenza A (RT-PCR) (NEGATIVE) Influenza B (RT-PCR) (NEGATIVE) RSV (PCR) (Negative) Urine Dip Bedside Urine Glucose Negative Bedside Urine Bilirubin - Negative Bedside Urine Ketone + 15 Urine Specific [place] 1.015 Bedside Urine Occult Blood - Negative Bedside Urine pH 7.0 Bedside Urine Protein + 30 Bedside Urine Urobilinogen - Negative Bedside Urine Nitrite - Negative Bedside Urine Leukocytes - Negative Esterase MDM Narrative Medical decision making narrative: Patient is an insulin-dependent diabetic 42-year-old female presenting with headache and dizziness ongoing for like the last 15 days. Her dizziness is significantly worse every time she sits up and moves. She is not really had fever but not feeling well. She does have headache not necessarily neck pain. She is positive for COVID probably causing some of her dizziness. She is no focal deficits. She does not have any significant leukocytosis mild left shif he has a glucose of 161 no anion gap she is not acidotic no it signs of DKA. She is extremely dizzy and headache every time she sits up stands or moves. She is a very hard IV start. We were able to get blood however all the peripheral lines blue. I attempted bilateral EEGs and was unsuccessful. Central line was finally placed for fluids medication and treatment. Patient signed out to Dr. Daugherty for further management CC: Headache and dizziness Complicating co-morbidities: Type 1 diabetes, blood clots Data collected from: Patient Medical records reviewed: Multiple prior visits Differential considered, but not limited to: COVID, influenza, stroke, DKA, electrolyte abnormality versus other Exam documented above, pertinent findings include: No focal neurologic findings, moist mucous membranes, normal heart rate and rhythm, abdomen soft Lab Test results independently reviewed as above. Pertinent findings: No significant sign of infection, acidosis or other electrolyte abnormality Independently reviewed EKG as above Imaging studies independently reviewed: CTA of head and neck without significant finding Treatments: Tremendous improvement with fluids, antiemetics and Protonix Discussion: 42-year-old female prior DVTs and type 1 diabetes as well as migraines presents with dizziness, headache, nausea and vomiting. Multiple diagnoses considered as noted above, patient does have significant improvement with above-stated therapies. There is no evidence of DKA, stroke, dissection, recurrence of clot, other electrolyte abnormalities. Patient does have COVID which is newly discovered today but absent of any respiratory distress, hypoxemia or requirement of supplemental oxygen. Vital signs are stable, she is well hydrated, tolerating orals and appropriate for discharge Disposition: see below, along with detailed discharge instructions that have been reviewed with patient as well as indications for ED re-evaluation and additional outpatient follow up Discharge Plan Departure Patient Disposition: Home Clinical Impression: COVID-19, Vomiting Instructions: DI for Vomiting -- Adult, DI for Dizziness-Nonvertigo, COVID-19 Activity Restrictions/Additional Instructions: *You have been diagnosed with [ COVID-19] *What to do: ?* per recommendations from the CDC and the [facility] Department of Health ?* stay home except to get medical care. ?Restrict activities outside your home, except for getting medical care. ?Do not go to work, school, or public areas. ?Avoid using public transportation, ride sharing, or taxis. ?* separate yourself from other people in your home. ?* call ahead before visiting your doctor ?* Wear a facemask ?* Cover your coughs and sneezes ?* Clean your hands often ?* Avoid sharing household items ?* Clean all high-touch services every day ?* Monitor your symptoms and seek prompt medical attention if your illness is worsening, particularly with difficulty in breathing. You may discontinue your isolation when: ?1. You have been fever-free for at least 24 hours without the use of fever reducing medication, AND ?2. Your symptoms are getting better, AND ?3. At least 5 days have passed since symptoms first appeared ?4. If you have fever, continue to stay home until fever resolves Individuals with laboratory confirmed COVID-19 who have not had any symptoms may discontinue home isolation when at least 5 days have passed since the date of their first COVID-19 diagnostic test and have had no subsequent illness You should notifiy any friends and family that have been in close contact *If up to date on COVID Vaccines, then they do not need to quarantine unless symptoms develop. Get tested on day 5 (or sooner if symptoms develop). Take precautions and watch for symptoms until day 10 *If NOT up to date on COVID Vaccines, then CDC recommends quarantine for at least 5 full days. Wear a well fitted mask at home if you must be around others. If they ?develop symptoms they should get tested. If they remain asymptomatic they should get tested on day 5. They should take precautions and monitor for symptoms until day 10. *You have been diagnosed with [vomiting and headache due to COVID, thankfully there is no evidence diabetic emergencies such as DKA or other significant diagnosis require a specific intervention] *What to do: *Please continue to take your regular medications as directed. [x ] New medication prescriptions sent to your pharmacy: [facility] ] [ ] New medication written as a paper prescription [ ] No new medications given *Please follow up with your primary care provider in 2-3 days, call for an appointment. Let them know you were seen in the Emergency Department and that we ask that you be seen in follow up. We will electronically transmit a record of today's note if your PCP is in our system *If you do not have a primary care provider please contact the [facility] Resource line at [phone]. They will ask some questions about your medical history and help get you set up with a doctor in the community. *Return to Emergency Department if you should have any new, worsening or concerning symptoms, such as [fever greater than 101 F, shaking chills, worsening pain, persistent vomiting or other bothersome symptoms] Prescriptions: New promethazine 12.5 mg suppository 12.5 mg UT Q4-6H PRN (Reason: nausea and vomiting) Qty: 12 0RF pantoprazole [Protonix] 40 mg tablet,delayed release (DR/EC) 40 mg PO DAILY Qty: 30 0RF ondansetron 4 mg tablet,disintegrating 4 mg PO TID-QID PRN (Reason: nausea and vomiting) Qty: 10 0RF No Action sennosides [senna] 8.6 mg tablet 8.6 mg PO DAILY insulin aspart U-100 [Novolog U-100 Insulin aspart] 100 unit/mL Solution 1 dose Continuous Subcutaneous Infusion CONT PRN (Reason: sliding scale) ondansetron HCl [Zofran] 4 mg tablet 4 mg PO Q6H PRN (Reason: nausea and vomiting) Qty: 12 0RF Rx Instructions: take 1-2 tabs for nausea and vomiting as needed ondansetron 4 mg tablet,disintegrating 4 mg PO Q8H PRN (Reason: nausea and vomiting) Qty: 10 0RF promethazine 25 mg suppository 25 mg UT Q6H PRN (Reason: nausea and vomiting) Qty: 12 0RF cephalexin 500 mg capsule 500 mg PO BID Qty: 14 0RF oxycodone 5 mg tablet 5 mg PO Q6H PRN (Reason: pain) Qty: 20 0RF acetaminophen [Tylenol] 325 mg capsule 650 mg PO QID PRN (Reason: pain) Qty: 60 0RF ibuprofen 200 mg tablet 400 mg PO Q6H Qty: 60 0RF docusate sodium [Colace] 100 mg capsule 100 mg PO BID Qty: 30 0RF Referrals: Ayala Ferrera MD [Primary Care Provider] - Stand Alone Forms: Patient Portal/API
--- NOTE | 2022-11-09 14:41 | DI.CT.S_ITS ---
PROCEDURE: CT ANGIO HEAD AND NECK INDICATIONS: Dizziness TECHNIQUE: Pre-contrast 4.5 mm thick sections acquired from the foramen magnum to the vertex. After the administration of intravenous contrast, 1 mm thick sections acquired from the aortic arch through the [place] of [place]. Post-contrast 4.5 mm thick sections then re-acquired from the foramen magnum to the vertex. 3-dimensional umassys-rlfherkct-pdncqwnujo (MIP) and/or volume rendering reformats were acquired of the central intracranial vasculature and neck separately. For radiation dose reduction, the following was used: automated exposure control, adjustment of mA and/or kV according to patient size. COMPARISON: [facility], CT, CT HEAD/BRAIN WO CON, 11/21/2021, 16:39. FINDINGS: Image quality: There is mild motion artifact. BRAIN: CSF spaces: Basal cisterns are patent. No extra-axial fluid collections. Ventricles are normal in size and shape. Brain: No intracranial hemorrhage, mass, or mass effect. Rios-white matter interface appears preserved. No abnormal intracranial enhancement. Skull and face: Calvarium and facial bones appear intact, without suspicious lesions. Orbits appear normal. Sinuses: Sinuses and mastoids are clear. HEAD CT ANGIOGRAPHY: Anterior circulation: Intracranial internal carotid arteries are normal in size and appear patent bilaterally. The paired anterior cerebral arteries appear patent bilaterally. The anterior communicating artery also appears patent. The middle cerebral arteries appear patent bilaterally. No high-grade stenosis, occlusion, or filling defects. No cerebral aneurysms identified. Posterior circulation: Visualized portions of the vertebral arteries demonstrate normal caliber, and join to form a patent basilar artery. The posterior cerebral arteries appears patent bilaterally. No high-grade stenosis, occlusion, or filling defects. No cerebral aneurysms identified. NECK CT ANGIOGRAPHY: Carotid system: The great vessels demonstrate a conventional anatomy as they arise from the aortic arch. The origins of the common carotid arteries appear patent. The common carotid arteries demonstrate normal caliber and courses. The bifurcation regions are both widely patent. The internal carotid arteries demonstrate normal calibers and courses. Posterior circulation: The origins of the vertebral arteries both appear patent. The more superior extracranial portions of both vertebral arteries also demonstrate normal courses and calibers. They join to form a patent basilar artery. Soft tissues: Visualized neck soft tissues demonstrate no suspicious abnormalities. Bones: No suspicious bony lesions. Visualized cervical spine demonstrates straightening of the cervical lordosis. There is multilevel degenerative disc disease and facet joint arthropathy. IMPRESSION: 1. No acute intracranial abnormality. 2. No high-grade stenosis or occlusion of the central intracranial arteries. 3. No high-grade stenosis or occlusion of the head and neck arteries. Any quantitative measurements of stenosis were performed using NASCET criteria. Dictated by: Nikolai Whitfield M.D. on 11/09/2022 at 20:08 Approved by: Nikolai Whitfield M.D. on 11/09/2022 at 20:12
[2022-11-09 15:42] LABS: Influenza A - CEPHEID Flu A NEGATIVE (NEGATIVE); Influenza B - CEPHEID Flu B NEGATIVE (NEGATIVE); Respiratory Syncytial Virus Negative (Negative)
[2022-11-09 15:47] LABS: Alanine Aminotransferase 20 IU/L (<35); Albumin 4.5 g/dL (3.5-5.0); Albumin Globulin Ratio 1.4 (1.0-2.8); Alkaline Phosphatase 70 U/L (38-126); Aspartate Aminotransferase 23 IU/L (14-36); BUN Creatinine Ratio 26.9 (6-22); Bilirubin Total 0.9 mg/dL (0.2-1.3); Blood Urea Nitrogen 14 mg/dL (7-17); Calcium 9.1 mg/dL (8.4-10.2); Carbon Dioxide 26 mmol/L (22-32); Chloride 99 mmol/L (98-107); Creatine Kinase 53 U/L (30-135); Estimated Glomerular Filt Rate > 60 mL/min (>60); Globulin 3.2 g/dL (1.7-4.1); Glucose 161 mg/dL (70-100); Potassium 4.6 mmol/L (3.4-5.1); Sodium 134 mmol/L (137-145); Total Protein 7.7 g/dL (6.3-8.2)
[2022-11-09 15:48] LABS: COVID-19 CEPHEID 4-PLEX PCR POSITIVE (Negative)
[2022-11-09 15:55] LABS: HEMOLYSIS 61 (0-50)
[2022-11-09 15:57] LABS: Basophils Absolute Auto 100 /uL (0-100); Basophils Percent Auto 0.5 % (0-2); Eosinophils Absolute Auto 0 /uL (0-450); Eosinophils Percent Auto 0.4 % (2-4); Hematocrit 40.8 % (36-46); Hemoglobin 13.5 g/dL (12.0-16.0); Lymphocytes Absolute Auto 1000 /uL (1100-4500); Lymphocytes Percent Auto 10.3 % (25-40); Mean Corpuscular Hemoglobin 29.4 PG (26-34); Mean Corpuscular Volume 89.1 fL (80-100); Monocytes Absolute Auto 700 /uL (0-900); Monocytes Percent Auto 6.9 % (3-14); Neutrophils Absolute Auto 7800 /uL (1500-7000); Neutrophils Percent Auto 81.9 % (50-75); Platelet Count 325 X10^3/uL (150-400); Red Blood Cell Count 4.58 X10^6/uL (4.0-5.2); Red Cell Distribution Width 13.6 % (11.6-14.8); White Blood Cell Count 9.5 X10^3/uL (4.5-11.0)
[2022-11-09 15:58] LABS: Troponin I < 0.012 ng/mL (0.01-0.034)
[2022-11-09 16:19] LABS: Add Manual Diff / Slide Review SLIDE REVIEW
[2022-11-09 16:20] LABS: RBC Morphology Normal Morphology
[2022-11-09 16:36] LABS: Pregnancy Test Urine Negative (Negative)
[2022-11-09] MEDS: MECLIZINE HCL 12.5 MG TABLET 25 MG PO (16:41)
[2022-11-09 17:46] LABS: RBC Urine None Seen (0-5/HPF)
[2022-11-09 17:47] LABS: WBC Urine 5-10/HPF (0-5/HPF)
[2022-11-09 17:48] LABS: Bacteria Urine Many (>30); Culture Indicated Urine Specimen Cultured; Squamous Epithelial Cell Urine 5-10 /HPF (0-5/HPF)
[2022-11-09] MEDS: ONDANSETRON 4 MG/2 ML INJ IV ×2 (19:15→22:30)
--- NOTE | 2022-11-09 19:30 | DI.RAD.S_ITS ---
PROCEDURE: XR CHEST 1V INDICATIONS: central line placement TECHNIQUE: One view of the chest was acquired. COMPARISON: [facility], CR, XR CHEST 1V, 10/24/2022, 19:13. [facility], CR, XR CHEST 1V, 07/16/2021, 13:47. FINDINGS: Surgical changes and devices: Tip of the right internal jugular central venous catheter projects over the upper-mid SVC. Lungs and pleura: Lungs are clear. No pleural effusions or pneumothorax. Mediastinum: Mediastinal contours appear normal. Heart size is normal. Bones and chest wall: No suspicious bony lesions. Overlying soft tissues appear unremarkable. IMPRESSION: Tip of the right internal jugular central venous catheter projects over the upper-mid SVC. No pneumothorax. Dictated by: Chino Singh M.D. on 11/09/2022 at 20:15 Approved by: Chino Singh M.D. on 11/09/2022 at 20:17
[2022-11-09] MEDS: SODIUM CHLORIDE 0.9% 1,000 ML 1000 ML IV ×3 (19:32→23:12)
[2022-11-09] MEDS: PANTOPRAZOLE 40 MG VIAL IV (23:24)
[2022-11-09] MEDS: METOCLOPRAMIDE 10 MG/2 ML INJ IV (23:24)
[2022-11-10] VITALS: PULSE 94; O2SAT 100
[2022-11-10 00:30] VITALS: PULSE 97; O2SAT 100
[2022-11-10 00:34] VITALS: BP 146/82; O2SAT 100
== END 2022-11-10 01:01 | disposition home or self-care (01) ==
PROVIDERS: Emergency Medicine; Emergency Provider Emergency Medicine; PCP Family Medicine
DX: U07.1 COVID-19 (principal); R42 Dizziness and giddiness; R11.2 Nausea with vomiting, unspecified; E10.9 Type 1 diabetes mellitus without complications; G43.909 Migraine, unspecified, not intractable, without status migrainosus
CPT/HCPCS: 0241U; 70496; 70498; 71045; 80053; 81003; 81015; 81025; 82009; 82550; 84484; 85025; 87086; 93005; 96361; 96374; 96375; 96376; 99284; C9113; J2405; J2765; Q9967

== ENCOUNTER → 2023-03-25 08:54 | Outpatient (CLI) | payer OTHER, SELFPAY ==
[2021-02-19 14:51] VITALS: BMI 31.6
[2023-03-25 11:03] LABS: Creatinine Urine Random 174.6 mg/dL
[2023-03-25 11:04] LABS: Microalbumi Creatinin Ratio Ur 4.5 ug/mg CR (<30); Microalbumin Urine Random 0.8 mg/dL (0-1.6)
[2023-03-25 11:41] LABS: Alanine Aminotransferase 21 IU/L (<35); Albumin 4.3 g/dL (3.5-5.0); Albumin Globulin Ratio 1.6 (1.0-2.8); Alkaline Phosphatase 63 U/L (38-126); Aspartate Aminotransferase 21 IU/L (14-36); BUN Creatinine Ratio 25.8 (6-22); Bilirubin Total 0.8 mg/dL (0.2-1.3); Blood Urea Nitrogen 16 mg/dL (7-17); Carbon Dioxide 26 mmol/L (22-32); Chloride 102 mmol/L (98-107); Cholesterol 192 mg/dL (140-199); Estimated Glomerular Filt Rate > 60 mL/min (>60); Globulin 2.7 g/dL (1.7-4.1); Glucose 167 mg/dL (70-100); HDL Cholesterol 84 mg/dL (40-60); HEMOLYSIS < 15 (0-50); LDL Cholesterol Calculated 97 mg/dL (<100); Potassium 4.1 mmol/L (3.4-5.1); Sodium 135 mmol/L (137-145); Triglycerides 53 mg/dL (35-150)
[2023-03-27 06:36] LABS: Labcorp Hemoglobin (Hb) A1c 7.2 % (4.8-5.6)
== END ==
PROVIDERS: PCP Family Medicine; Referring Provider Student in an Organized Health Care Education/Training Program; Visit Provider Student in an Organized Health Care Education/Training Program
DX: E10.65 Type 1 diabetes mellitus with hyperglycemia (principal)
CPT/HCPCS: 36415; 80053; 80061; 82043; 82570; 83036

== ENCOUNTER → 2023-05-27 07:57 | Outpatient (CLI) | payer OTHER, SELFPAY ==
[2021-02-19 14:51] VITALS: BMI 31.6
== END ==
PROVIDERS: PCP Family Medicine; Referring Provider Family Medicine; Visit Provider Family Medicine
DX: R63.5 Abnormal weight gain (principal)
CPT/HCPCS: 36415

== ENCOUNTER 2023-06-28 19:27 | Emergency (ER) | payer OTHER, SELFPAY ==
[2021-02-19 14:51] VITALS: BMI 31.6
[2023-06-28 19:29] VITALS: BP 159/96; PULSE 89; RESP 16; TEMP 36.8; O2SAT 99; BMI 35.5
--- NOTE | 2023-06-28 19:38 | DI.US.S_ITS ---
PROCEDURE: US PERIPH VENOUS UP EXTREM LT INDICATIONS: CHRONIC INTERMITTENT PAIN SINCE SHOULDER INJURY IN AUGUST. WORSENING PAIN/SWELLING TODAY. HISTORY OF DVT. TECHNIQUE: Real-time imaging, as well as color and pulse Doppler interrogation, was performed of the left upper extremity deep veins from the inferior neck to the antecubital fossa. COMPARISON: None. FINDINGS: The internal jugular vein, visualized portions of the subclavian vein, axillary, and brachial veins are free of intraluminal thrombus. Where physically possible, the veins are normally compressible. Color and pulse Doppler demonstrate normal intraluminal flow, with expected phasicity and pulsatility. Additional scanning of the cephalic and basilic veins of the superficial system demonstrates normal compressibility, without thrombus. A small amount of fluid is noted anterior to the humeral head which is nonspecific and may reflect joint fluid in the subcoracoid recess. IMPRESSION: 1. No evidence of deep venous thrombosis in the left upper extremity. Dictated by: Nikolai Whitfield M.D. on 06/28/2023 at 20:43 Approved by: Nikolai Whitfield M.D. on 06/28/2023 at 20:46
[2023-06-28 21:03] VITALS: BP 150/87; PULSE 86; O2SAT 100
--- NOTE | 2023-06-28 21:03 | ED_ITS ---
HPI - Extremity Problem General Chief complaint: Extremity Problem,Nontraumatic Stated complaint: L/ arm swollen, hot , feels tight Time Seen by Provider: 06/28/23 19:38 Source: patient Mode of arrival: Ambulatory History of Present Illness HPI Narrative: 43-year-old woman who comes in complaining of left upper extremity swelling tightness and pain. She is had upper extremity DVTs in the past and is concerned that this may be recurrent. She did have full workup and there was no obvious explanation for the DVT found. She is also had an episode of frozen shoulder with similar findings that did improve with physical therapy. She is not having chest pain, palpitations, dyspnea, orthopnea, fevers or chills Related Data Home Medications Medication Instructions Recorded Confirmed insulin aspart U-100 100 unit/mL 1 dose continuous subcutaneous 09/10/18 10/07/22 subcutaneous solution (Novolog infusion CONT PRN sliding scale U-100 Insulin aspart) sennosides 8.6 mg tablet (senna) 8.6 mg PO DAILY constipation 05/01/20 10/07/22 Previous Rx's Medication Instructions Recorded ondansetron HCl 4 mg tablet 4 mg PO Q6H PRN nausea and 03/25/20 (Zofran) vomiting #12 tabs ondansetron 4 mg disintegrating 4 mg PO Q8H PRN nausea and 09/09/21 tablet vomiting #10 tabs promethazine 25 mg rectal 25 mg CA Q6H PRN nausea and 09/10/21 suppository vomiting #12 ea acetaminophen 325 mg capsule 650 mg PO QID PRN pain #60 caps 09/17/22 (Tylenol) docusate sodium 100 mg capsule 100 mg PO BID #30 caps 09/17/22 (Colace) ibuprofen 200 mg tablet 400 mg PO Q6H #60 tabs 09/17/22 oxycodone 5 mg tablet 5 mg PO Q6H PRN pain #20 tabs 09/17/22 cephalexin 500 mg capsule 500 mg PO BID #14 caps 10/26/22 ondansetron 4 mg disintegrating 4 mg PO TID-QID PRN nausea and 11/10/22 tablet vomiting #10 tabs pantoprazole 40 mg tablet,delayed 40 mg PO DAILY #30 tabs 11/10/22 release (Protonix) promethazine 12.5 mg rectal 12.5 mg CA Q4-6H PRN nausea and 11/10/22 suppository vomiting #12 ea Allergies Allergy/AdvReac Type Severity Reaction Status Date / Time hydromorphone [From DILAUDID] AdvReac Mild Verified 11/09/22 14:00 diphenhydramine AdvReac Unknown ANXIETY, Verified 11/09/22 14:00 DOESNT CALM HER. metoclopramide [From Reglan] AdvReac Anxiety Verified 11/09/22 14:00 Review of Systems Review of Systems Narrative: Pertinent positive and negative findings as per HPI Patient History Medical History Acute appendicitis Bright red rectal bleeding Chin injury (1995) Hemorrhoids History of blood clots Hyperlipidemia, unspecified Insulin pump in place Tachycardia Type 1 diabetes Surgical History delivery delivered No pertinent past surgical history Status post ORIF of fracture of ankle Tubal ligation status Family History Mother Thyroid disease Father Lumbar back pain Cancer Sister Diabetes mellitus Social History household members: spouse and children Smoking Status: Former smoker alcohol intake: current Smoking Status: Former smoker alcohol intake frequency: holidays/special occasions only Substance Use Type: does not use Exam Initial Vital Signs Initial Vital Signs: Vital Signs Temperature 98.3 F 06/28/23 19:29 Pulse Rate 89 06/28/23 19:29 Respiratory Rate 16 06/28/23 19:29 Blood Pressure 159/96 H 06/28/23 19:29 Pulse Oximetry 99 06/28/23 19:29 Oxygen Delivery Method Room Air 06/28/23 19:29 General: Alert appropriate in no acute distress Respiratory: Able to speak in full sentences, no obvious respiratory distress Skin: No obvious rashes, warm and dry Neurologic: Grossly intact no obvious asymmetries or abnormalities Psych: appropriate insight and affect, cooperative Extremity: Left arm is slightly more edematous than the right. There is no warmth or erythema. Shoulder can abduct to approximately 45? and there is wade ost no internal or external rotation. Course Orders Ordered: ED Orders 06/28/23 19:38 US periph venous up extrem lt Stat Vital Signs Vital signs: Vital Signs - 8 hr 06/28/23 19:29 06/28/23 21:03 Temperature 98.3 F Pulse Rate 89 86 Respiratory Rate 16 Blood Pressure 159/96 H 150/87 H Pulse Oximetry 99 100 Oxygen Delivery Method Room Air Room Air MDM - Extremity (Nontraumatic) MDM Narrative Medical decision making narrative: CC: Swollen left arm and pain Complicating co-morbidities: Type 1 diabetes, prior upper extremity DVTs, prior frozen shoulder syndrome Data collected from: patient, spouse Medical records reviewed: Records from her primary care provider at [facility] reviewed. She did just have a Zio patch and is waiting for follow-up Differential considered: DVT, infection, cardiac etiology, trauma, shoulder problems Exam documented above, pertinent findings include: Slight fullness through the entire left arm without excess warmth or erythema. She has significantly limited range of motion of the left shoulder suggesting recurrent frozen shoulder syndrome Imaging studies independently reviewed: Ultrasound of the left arm does not indicate DVT Consultations: I left a brief message with her primary care physician, Ayala Ferrera asking for her to initiate a physical therapy referral Discussion: 43-year-old woman with left shoulder pain limited range of motion and mild edema to the left upper extremity with no evidence of DVT or infection. I suspect that this is frozen shoulder and I suspect that physical therapy will be most helpful. There is no indication for advanced imaging, any additional medications or hospitalization at this time. Findings reviewed with the patient questions are answered and she is safe for discharge home Discharge Plan Departure Patient Disposition: Home Clinical Impression: Arm pain, left Acute shoulder pain Qualifiers: Laterality: left Qualified Code(s): M25.512 - Pain in left shoulder Instructions: DI for Frozen Shoulder Activity Restrictions/Additional Instructions: Thank you for coming in today There is no evidence of blood clot in your left arm. Your shoulder has significant decreased range of motion I suspect that you again have a frozen shoulder and that is likely contributing to the pain and the poor lymphatic drainage from that arm that is causing the swelling that you are appreciating Please contact Dr. Ferrera to set up a referral to physical therapy. If you find that you are getting worse, please feel free to return to the ER Prescriptions: No Action sennosides [senna] 8.6 mg tablet 8.6 mg PO DAILY insulin aspart U-100 [Novolog U-100 Insulin aspart] 100 unit/mL Solution 1 dose Continuous Subcutaneous Infusion CONT PRN (Reason: sliding scale) ondansetron HCl [Zofran] 4 mg tablet 4 mg PO Q6H PRN (Reason: nausea and vomiting) Qty: 12 0RF Rx Instructions: take 1-2 tabs for nausea and vomiting as needed ondansetron 4 mg tablet,disintegrating 4 mg PO Q8H PRN (Reason: nausea and vomiting) Qty: 10 0RF promethazine 25 mg suppository 25 mg CA Q6H PRN (Reason: nausea and vomiting) Qty: 12 0RF cephalexin 500 mg capsule 500 mg PO BID Qty: 14 0RF oxycodone 5 mg tablet 5 mg PO Q6H PRN (Reason: pain) Qty: 20 0RF acetaminophen [Tylenol] 325 mg capsule 650 mg PO QID PRN (Reason: pain) Qty: 60 0RF ibuprofen 200 mg tablet 400 mg PO Q6H Qty: 60 0RF docusate sodium [Colace] 100 mg capsule 100 mg PO BID Qty: 30 0RF promethazine 12.5 mg suppository 12.5 mg CA Q4-6H PRN (Reason: nausea and vomiting) Qty: 12 0RF pantoprazole [Protonix] 40 mg tablet,delayed release (DR/EC) 40 mg PO DAILY Qty: 30 0RF ondansetron 4 mg tablet,disintegrating 4 mg PO TID-QID PRN (Reason: nausea and vomiting) Qty: 10 0RF Referrals: Ayala Ferrera MD [Primary Care Provider] - Stand Alone Forms: Patient Portal/API
== END 2023-06-28 21:22 | disposition home or self-care (01) ==
PROVIDERS: Emergency Provider Emergency Medicine; PCP Family Medicine
DX: M25.512 Pain in left shoulder (principal)
CPT/HCPCS: 93971; 99281; 99283

== ENCOUNTER → 2023-09-02 10:04 | Outpatient (CLI) | payer OTHER, SELFPAY ==
[2021-02-19 14:51] VITALS: BMI 31.6
[2023-09-02 11:42] LABS: Alanine Aminotransferase 22 IU/L (<35); Albumin 4.7 g/dL (3.5-5.0); Albumin Globulin Ratio 1.3 (1.0-2.8); Alkaline Phosphatase 71 U/L (38-126); Aspartate Aminotransferase 27 IU/L (14-36); BUN Creatinine Ratio 33.3 (6-22); Bilirubin Total 1.1 mg/dL (0.2-1.3); Blood Urea Nitrogen 22 mg/dL (7-17); Calcium 9.9 mg/dL (8.4-10.2); Carbon Dioxide 23 mmol/L (22-32); Chloride 104 mmol/L (98-107); Estimated Glomerular Filt Rate > 60 mL/min (>60); Globulin 3.6 g/dL (1.7-4.1); Glucose 112 mg/dL (70-100); HEMOLYSIS 27 (0-50); Potassium 3.9 mmol/L (3.4-5.1); Sodium 135 mmol/L (137-145); Total Protein 8.3 g/dL (6.3-8.2)
[2023-09-02 11:44] LABS: Albumin 4.7 g/dL (3.5-5.0); BUN Creatinine Ratio 33.3 (6-22); Blood Urea Nitrogen 22 mg/dL (7-17); Calcium 9.8 mg/dL (8.4-10.2); Carbon Dioxide 22 mmol/L (22-32); Chloride 105 mmol/L (98-107); Cholesterol 242 mg/dL (140-199); Estimated Glomerular Filt Rate > 60 mL/min (>60); Glucose 110 mg/dL (70-100); HDL Cholesterol 94 mg/dL (40-60); HEMOLYSIS 27 (0-50); LDL Cholesterol Calculated 132 mg/dL (<100); Phosphorous 2.8 mg/dL (2.5-4.5); Potassium 3.9 mmol/L (3.4-5.1); Sodium 136 mmol/L (137-145); Triglycerides 81 mg/dL (35-150)
[2023-09-02 11:53] LABS: Add Manual Diff / Slide Review NO; Basophils Absolute Auto 100 /uL (0-100); Basophils Percent Auto 1.4 % (0-2); Eosinophils Absolute Auto 400 /uL (0-450); Eosinophils Percent Auto 6.1 % (2-4); Hematocrit 44.5 % (36-46); Hemoglobin 14.9 g/dL (12.0-16.0); Lymphocytes Absolute Auto 1600 /uL (1100-4500); Lymphocytes Percent Auto 27.3 % (25-40); Mean Corpuscular HGB Conc 33.4 % (30-36); Mean Corpuscular Hemoglobin 30.6 PG (26-34); Mean Corpuscular Volume 91.5 fL (80-100); Monocytes Absolute Auto 400 /uL (0-900); Monocytes Percent Auto 7.2 % (3-14); Neutrophils Absolute Auto 3400 /uL (1500-7000); Platelet Count 303 X10^3/uL (150-400); Red Blood Cell Count 4.86 X10^6/uL (4.0-5.2); Red Cell Distribution Width 13.1 % (11.6-14.8); White Blood Cell Count 5.9 X10^3/uL (4.5-11.0)
[2023-09-02 12:17] LABS: Ferritin 11 ng/mL (6-137)
[2023-09-02 16:01] LABS: Creatinine Urine Random 114.7 mg/dL
[2023-09-02 16:07] LABS: Microalbumi Creatinin Ratio Ur 6.9 ug/mg CR (<30); Microalbumin Urine Random 0.8 mg/dL (0-1.6)
== END ==
PROVIDERS: PCP Family Medicine; Referring Provider Obstetrics & Gynecology; Visit Provider Obstetrics & Gynecology
DX: E10.65 Type 1 diabetes mellitus with hyperglycemia (principal); E10.69 Type 1 diabetes mellitus with other specified complication
CPT/HCPCS: 80053; 80061; 80069; 82043; 82570; 82728; 83036; 84378; 84443; 85025

== ENCOUNTER → 2023-12-14 09:36 | Outpatient (CLI) | payer OTHER, SELFPAY ==
[2021-02-19 14:51] VITALS: BMI 31.6
[2023-12-15 11:39] LABS: Hemoglobin A1C% w Est Avg Glu 6.9 % (4.0-6.0)
== END ==
PROVIDERS: PCP Family Medicine; Referring Provider Student in an Organized Health Care Education/Training Program; Visit Provider Student in an Organized Health Care Education/Training Program
DX: E10.69 Type 1 diabetes mellitus with other specified complication (principal)
CPT/HCPCS: 36415; 83036

== ENCOUNTER → 2024-03-31 08:14 | Outpatient (CLI) | payer OTHER, SELFPAY ==
[2021-02-19 14:51] VITALS: BMI 31.6
[2024-03-31 09:23] LABS: Cholesterol 129 mg/dL (140-199); HDL Cholesterol 52 mg/dL (40-60); LDL Cholesterol Calculated 62 mg/dL (<100); Triglycerides 73 mg/dL (35-150)
== END ==
PROVIDERS: PCP Obstetrics & Gynecology; Referring Provider Student in an Organized Health Care Education/Training Program; Visit Provider Student in an Organized Health Care Education/Training Program
DX: E10.69 Type 1 diabetes mellitus with other specified complication (principal)
CPT/HCPCS: 36415; 80061

== ENCOUNTER → 2024-05-15 09:52 | Outpatient (CLI) | payer OTHER, SELFPAY ==
[2021-02-19 14:51] VITALS: BMI 31.6
== END ==
PROVIDERS: PCP Obstetrics & Gynecology; Visit Provider Nurse Practitioner Family
DX: R30.0 Dysuria (principal)
CPT/HCPCS: 87077; 87086; 87186

== ENCOUNTER → 2024-08-25 10:23 | Outpatient (CLI) | payer OTHER, SELFPAY ==
[2021-02-19 14:51] VITALS: BMI 31.6
[2024-08-25 12:21] LABS: Albumin 4.6 g/dL (3.5-5.0); BUN Creatinine Ratio 21.9 (6-22); Blood Urea Nitrogen 14 mg/dL (7-17); Calcium 9.6 mg/dL (8.4-10.2); Carbon Dioxide 26 mmol/L (22-32); Chloride 104 mmol/L (98-107); Cholesterol 184 mg/dL (140-199); Estimated Glomerular Filt Rate > 60 mL/min (>60); Glucose 112 mg/dL (70-100); HDL Cholesterol 66 mg/dL (40-60); HEMOLYSIS < 15 (0-50); LDL Cholesterol Calculated 104 mg/dL (<100); Phosphorous 3.1 mg/dL (2.5-4.5); Potassium 3.8 mmol/L (3.4-5.1); Sodium 138 mmol/L (137-145); Triglycerides 72 mg/dL (35-150)
[2024-08-25 16:46] LABS: Microalbumin Urine Random 1.5 mg/dL (0-1.6)
[2024-08-25 16:50] LABS: Creatinine Urine Random 154.98 mg/dL
== END ==
PROVIDERS: PCP Student in an Organized Health Care Education/Training Program; Referring Provider Student in an Organized Health Care Education/Training Program; Visit Provider Student in an Organized Health Care Education/Training Program
DX: E10.319 Type 1 diabetes mellitus with unspecified diabetic retinopathy without macular edema (principal)
CPT/HCPCS: 36415; 80061; 80069; 82043; 82570

== ENCOUNTER 2025-02-01 03:03 | Emergency (ER) | payer OTHER, SELFPAY ==
[2021-02-19 14:51] VITALS: BMI 31.6
[2025-02-01 03:08] VITALS: BP 140/88; PULSE 108; RESP 16; TEMP 36.8; O2SAT 100; BMI 25.8
--- NOTE | 2025-02-01 03:08 | ED_ITS ---
HPI - Ear Problem General Stated complaint: right ear pain Time Seen by Provider: 02/01/25 03:04 History of Present Illness HPI Narrative: 44-year-old female with a history of type 1 insulin-dependent diabetes hyper lipidemia presenting for right ear pain, she states that she has been feeling an earache over the past few days, went to sleep woke up 1 hour prior to arrival felt worsening ear pain and pressure. Denies hearing loss. Denies any head strike, denies any other symptoms such as headache visual disturbances chest pain shortness breath fever chills nausea vomiting abdominal pain or any other GI/ symptoms time. Related Data Home Medications Medication Instructions Recorded Confirmed glucagon 3 mg/actuation nasal 3 mg intranasal DAILY PRN 11/26/24 02/01/25 spray (Baqsimi) Hypoglycemia tirzepatide 5 mg/0.5 mL 5 mg SUBCUT WEEKLY 11/26/24 02/01/25 subcutaneous pen injector (Mounjaro) blood-glucose sensor (Poikos G7 02/01/25 02/01/25 Sensor device) insulin lispro 100 unit/mL 0 - 100 unit DAILY 02/01/25 02/01/25 subcutaneous solution Previous Rx's Medication Instructions Recorded amoxicillin 875 mg-potassium 1 tab PO BID 1 week #14 tabs 02/01/25 clavulanate 125 mg tablet Allergies Allergy/AdvReac Type Severity Reaction Status Date / Time hydromorphone [From DILAUDID] AdvReac Mild Verified 11/26/24 07:51 diphenhydramine AdvReac Unknown ANXIETY, Verified 11/26/24 07:51 DOESNT CALM HER. metoclopramide [From Reglan] AdvReac Anxiety Verified 11/26/24 07:51 Review of Systems Review of Systems Narrative: General: Denies fever, chills, weight loss HEENT: Positive right ear pain, Denies headache, eye drainage, eye irritation, head trauma, sore throat, voice change Cardiovascular: Denies any chest pain, palpitations, tachycardia Respiratory: Denies any shortness of breath, cough, wheeze, stridor GI/: Denies any abdominal pain, nausea, vomiting, diarrhea, bright red blood per rectum, melanotic stools, urinary frequency, urinary retention, dysuria, hematuria MSK: Denies any joint pain, muscle pains, swelling Skin: Denies any rashes, lesions, discoloration Neuro: Denies any headache, lightheadedness, dizziness, fainting, weakness Psych: Denies SI/HI Patient History Medical History Headache (~1982) Shoulder pain (~2021) Atrial fibrillation (~2018) Headache, migraine (~1982) Diabetic gastroparesis (~2014) Chronic constipation Type 1 diabetes (~1997) Acute appendicitis Bright red rectal bleeding Insulin pump in place History of blood clots Tachycardia Hemorrhoids Hyperlipidemia, unspecified Chin injury (1995) Type 1 diabetes Surgical History Anesthesia History of shoulder surgery (~2023) History of appendectomy (~2021) Status post hemorrhoidectomy Tubal ligation status delivery delivered Status post ORIF of fracture of ankle No pertinent past surgical history Family History Mother Thyroid disease Father Lumbar back pain Cancer Sister Diabetes mellitus Mental health problem Grandfather History of heart disease Grandmother Dementia Grandfather Congestive heart failure Grandmother Congestive heart failure Son Lung disease Son Hirschsprung's disease Down syndrome Social History household members: spouse and children alcohol intake: current alcohol intake frequency: holidays/special occasions only Exam Narrative Exam Narrative: General: Cooperative, well-developed, not in acute distress HEENT: Normocephalic, atraumatic, PERRLA, normal sclera, eyelids normal, right tympanic membrane erythematous, left tympanic membrane without erythema edema or gross deformity Neck: Active full range of motion, atraumatic Chest: Normal to inspection, negative crepitus, no overlying erythema ecchymosis Respiratory: Normal respiratory effort, not in acute respiratory distress, clear to auscultation bilaterally negative cough, wheeze, tachypnea, rhonchi, rales Cardiology: Regular rate rhythm negative gallop, murmur, rubs GI/: No tenderness to palpation, soft, non rigid, normal to inspection, exam deferred MSK: Full active range of motion in all 4 extremities, atraumatic, no tenderness to palpation of any bony prominences Skin: No rashes or lesions noted Neuro: Alert awake oriented x3, moves all 4 extremities spontaneously, cranial nerves intact, able to answer all questions appropriately follows commands appropriately Psych: Cooperative, negative suicidal or homicidal ideations Medical Decision Making Differential Diagnosis Differential Diagnosis: Otitis media, otitis externa MDM Narrative Medical decision making narrative: 44-year-old female with past medical history type 1 insulin-dependent diabetic, hyperlipidemia, presenting for right ear pain, she states that she has been having a right earache for the past few days but states that when she woke up 1 hour prior to arrival had worsening pain discomfort to the right ear. She denies any trauma or falls denies any visual disturbances. On exam patient with erythematous right tympanic membrane consistent with an acute otitis media patient was given antibiotics and instructed to follow up with primary care in outpatient setting she was given strict return precautions she verbalized understanding of this and agrees to being discharged home with outpatient follow up Discharge Plan Departure Patient Disposition: Home Clinical Impression: Otitis media Activity Restrictions/Additional Instructions: Please follow up with the primary care doctor Please read the discharge instructions sheet carefully and bring all papers to all doctor follow-up visits, as it may contain information that your doctor may want to see. Disease processes change and evolve, if your symptoms worsen or if you develop any new symptoms that are concerning to you please return for ev aluation. Your evaluation today does not show any evidence of any life- threatening/serious illnesses requiring admission to the hospital or surgery. Please follow-up with your doctor for re-evaluation in approximately 1 day. Seek immediate medical attention for any worrisome symptoms. *If you do not have a primary care provider please contact the [facility] Resource line at [phone]. They will ask some questions about your medical history and help get you set up with a doctor in the community. Prescriptions: New amoxicillin-pot clavulanate 875-125 mg tablet 1 tab PO BID 7 Days Qty: 14 0RF No Action Mounjaro 5 mg/0.5 mL pen injector 5 mg SUBCUT WEEKLY Patient Comments: [NO ORIGINAL SIG] Baqsimi 3 mg/actuation spray,non-aerosol 3 mg intranasal DAILY PRN (Reason: Hypoglycemia) Patient Comments: Administer 3 mg into affected nostril(s) once as needed (unconscious hypoglycemia) for up to 1 dose insulin lispro 100 unit/mL solution 0 - 100 unit DAILY (DME) Dexcom G7 Sensor Device MISCELLANEOUS Q10D Referrals: Kat Pizarro MD [Primary Care Provider] - Stand Alone Forms: Patient Portal/API/Survey
[2025-02-01] MEDS: AMOXICILLIN/CLAV 875/125 MG 1 TAB PO (03:14)
[2025-02-01] MEDS: NAPROXEN 250 MG TABLET 500 MG PO (03:14)
== END 2025-02-01 03:15 | disposition home or self-care (01) ==
LOC: ED 03:17
PROVIDERS: Emergency Provider Student in an Organized Health Care Education/Training Program; PCP Student in an Organized Health Care Education/Training Program
DX: H66.91 Otitis media, unspecified, right ear (principal); E10.9 Type 1 diabetes mellitus without complications
CPT/HCPCS: 99283

== ENCOUNTER → 2025-03-10 07:25 | Outpatient (CLI) | payer OTHER, SELFPAY ==
[2021-02-19 14:51] VITALS: BMI 31.6
[2025-03-10 08:49] LABS: Creatinine Urine Random 136.01 mg/dL
[2025-03-10 08:58] LABS: Hemoglobin A1C% w Est Avg Glu 6.6 % (4.0-6.0)
[2025-03-10 09:01] LABS: Albumin 4.4 g/dL (3.5-5.0); BUN Creatinine Ratio 30.9 (6-22); Blood Urea Nitrogen 21 mg/dL (7-17); Calcium 9.3 mg/dL (8.4-10.2); Carbon Dioxide 21 mmol/L (22-32); Chloride 105 mmol/L (98-107); Cholesterol 208 mg/dL (140-199); Estimated Glomerular Filt Rate > 60 mL/min (>60); Glucose 144 mg/dL (70-99); HDL Cholesterol 81 mg/dL (40-60); HEMOLYSIS 16 (0-50); LDL Cholesterol Calculated 114 mg/dL (<100); Phosphorous 3.9 mg/dL (2.5-4.5); Potassium 4.3 mmol/L (3.4-5.1); Sodium 136 mmol/L (137-145); Triglycerides 63 mg/dL (35-150)
[2025-03-12 14:13] LABS: Microalbumin Urine Random 0.8 mg/dL (0-1.6)
== END ==
PROVIDERS: PCP Student in an Organized Health Care Education/Training Program; Referring Provider Student in an Organized Health Care Education/Training Program; Visit Provider Student in an Organized Health Care Education/Training Program
DX: E10.69 Type 1 diabetes mellitus with other specified complication (principal)
CPT/HCPCS: 36415; 80061; 80069; 82043; 82570; 83036; 84156

== ENCOUNTER 2025-07-23 11:42 | Emergency (ER) | payer OTHER, SELFPAY ==
[2021-02-19 14:51] VITALS: BMI 31.6
[2025-07-23] VITALS (13 sets, daily range): BP systolic 109–123; BP diastolic 62–83; PULSE 83–104; RESP 12–22; TEMP 36.6; O2SAT 98–100; BMI 23.3
--- NOTE | 2025-07-23 12:01 | DI.RAD.S_ITS ---
PROCEDURE: XR CHEST 1V INDICATIONS: Chest Pain TECHNIQUE: One view of the chest was acquired. COMPARISON: , CR, XR CHEST 1V, 11/09/2022, 19:28. , CR, XR CHEST 1V, 10/24/2022, 19:13. FINDINGS: Surgical changes and devices: None. Lungs and pleura: Lungs are clear. No pleural effusions or pneumothorax. Mediastinum: Mediastinal contours appear normal. Heart size is normal. Bones and chest wall: No suspicious bony lesions. Overlying soft tissues appear unremarkable. IMPRESSION: No acute cardiopulmonary abnormality is seen. Dictated by: Haim López M.D. on 07/23/2025 at 12:52 Approved by: Haim López M.D. on 07/23/2025 at 12:52
--- NOTE | 2025-07-23 12:09 | EKG_ITS ---
[facility] [address], [place] [address] Test Date: 2025-07-23 Pat Name: Kitty Pathak Department: [facility] Room: Gender: Female [employer] Work[employer]: ADENIKE : 1980 Requested By: Order Number: [id number] Reading MD: Jamey Briseno MD Measurements Intervals [place] Rate: 87 P: 71 LA: 162 QRS: 57 QRSD: 68 T: 54 QT: 350 QTc: 421 Interpretive Statements Normal sinus rhythm Electronically Signed On 07-23-2025 13:51:48 PDT by Jamey Briseno MD
--- NOTE | 2025-07-23 13:03 | ED_ITS ---
HPI - Chest Pain General Chief Complaint: Chest Pain Stated Complaint: chest pain since thursday Time Seen by Provider: 07/23/25 12:21 Source: patient Mode of arrival: Ambulatory History of Present Illness HPI narrative: 45-year-old female history of atrial fibrillation status post ablation 2008 not currently on any medications presents with midsternal chest pain radiating to the right jaw for the past few days that comes and goes. Sharp pain currently asymptomatic at this time with no nausea diaphoresis back pain but does radiation left shoulder. Other than what is stated 14 point review of system is negative. Related Data Home Medications ?Medication ?Instructions ?Recorded ?Confirmed glucagon 3 mg/actuation nasal 3 mg intranasal DAILY AR N 11/26/24 02/01/25 spray (Baqsimi) Hypoglycemia tirzepatide 5 mg/0.5 mL 5 mg SUBCUT WEEKLY 11/26/24 02/01/25 subcutaneous pen injector (Mounjaro) blood-glucose sensor (Dexcom G7 02/01/25 02/01/25 Sensor device) insulin lispro 100 unit/mL 0 - 100 unit DAILY 02/01/25 02/01/25 subcutaneous solution Allergies Allergy/AdvReac Type Severity Reaction Status Date / Time hydromorphone (From DILAUDID) AdvReac Mild Verified 07/23/25 12:10 diphenhydramine AdvReac Unknown ANXIETY, Verified 07/23/25 12:10 DOESNT CALM HER. metoclopramide (From Reglan) AdvReac Anxiety Verified 07/23/25 12:10 Review of Systems Review of Systems ROS Unobtainable: All systems reviewed & are unremarkable except as noted in HPI and below Patient History Medical History Headache (~1982) Shoulder pain (~2021) Atrial fibrillation (~2018) Headache, migraine (~1982) Diabetic gastroparesis (~2014) Chronic constipation Type 1 diabetes (~1997) Acute appendicitis Bright red rectal bleeding Insulin pump in place History of blood clots Tachycardia Hemorrhoids Hyperlipidemia, unspecified Chin injury (1995) Type 1 diabetes Surgical History Anesthesia History of shoulder surgery (~2023) History of appendectomy (~2021) Status post hemorrhoidectomy Tubal ligation status delivery delivered Status post ORIF of fracture of ankle No pertinent past surgical history Family History Mother Thyroid disease Father Lumbar back pain Cancer Sister Diabetes mellitus Mental health problem Grandfather History of heart disease Grandmother Dementia Grandfather Congestive heart failure Grandmother Congestive heart failure Son Lung disease Son Hirschsprung's disease Down syndrome Social History household members: spouse and children alcohol intake: current alcohol intake frequency: holidays/special occasions only Exam Narrative Exam Narrative: GENERAL: [45] year old patient appears stated age. Well-developed patient, in mild distress. HEAD: Atraumatic. Normocephalic. EYES: Pupils equal round and reactive. Extraocular motions intact. No scleral icterus. No injection or drainage. ENT: Nose without bleeding, purulent drainage. Throat without erythema, tonsillar hypertrophy or exudate. Airway patent. NECK: Trachea midline. Non tender CARDIOVASCULAR: Regular rate and rhythm without murmurs, gallops, or rubs. RESPIRATORY: Clear to auscultation. Breath sounds equal bilaterally. No wheezes, rales, or rhonchi. GASTROINTESTINAL: Abdomen soft, non-tender, nondistended. EXTREMITIES: No edema or joint tenderness. BACK: Nontender without deformity or crepitance. No flank tenderness. NEURO: AOx3. SKIN: No rash or erythema of visible areas Initial Vital Signs Initial Vital Signs: Vital Signs Temperature 97.8 F 07/23/25 11:55 Pulse Rate 104 H 07/23/25 11:55 Respiratory Rate 12 07/23/25 11:55 Blood Pressure 119/83 07/23/25 11:55 Pulse Oximetry 100 07/23/25 11:55 Oxygen Delivery Method Room Air 07/23/25 11:55 Scores HEART Score Heart Score history: Slightly Suspicious Heart Score EKG: Normal Heart Score Age: 45-64 years old Heart Score risk factors: 1-2 risk factors Heart Score troponin: < or = to normal limit Heart Score Total: 2 Course Orders Ordered: ED Orders 07/23/25 12:01 XR chest 1V Stat EKG-12 Lead Stat 07/23/25 13:15 Complete Blood Count AUTO DIFF Stat Comprehensive Metabolic Panel Stat D Dimer Stat Lipase Stat Magnesium Stat NT-proBNP (BNP-Adult 18+) Stat PTT Partial Thromboplastin Thai Stat Prothrombin Time INR Stat Troponin & CK Cardiac Panel Stat 07/23/25 15:00 Troponin I Stat Discontinued Medications Aspirin (Aspirin 81 Mg Chew Tab) 324 mg PO NOW ONE Stop: 07/23/25 12:02 Last Admin: 07/23/25 13:30 Dose: 324 mg Documented By: LANNY Ruth Hydrox/Mg Hydrox/Simethicone 30 ml/ Lidocaine HCl 15 ml 0 ml PO NOW ONE Stop: 07/23/25 14:08 Last Admin: 07/23/25 14:12 Dose: 45 ml Documented By: LANNY Vital Signs Vital signs: Vital Signs - 8 hr 07/23/25 11:55 07/23/25 12:04 07/23/25 12:05 Temperature 97.8 F Pulse Rate 104 H 85 Respiratory Rate 12 Blood Pressure 119/83 119/68 Pulse Oximetry 100 100 Oxygen Delivery Method Room Air 07/23/25 12:05 07/23/25 12:30 07/23/25 12:33 Temperature Pulse Rate 83 84 86 Respiratory Rate 13 16 15 Blood Pressure Pulse Oximetry 100 100 100 Oxygen Delivery Method Room Air 07/23/25 12:33 07/23/25 13:00 07/23/25 13:00 Temperature Pulse Rate 84 Respiratory Rate 16 Blood Pressure 112/68 122/74 Pulse Oximetry 100 Oxygen Delivery Method Room Air MDM - Chest Pain Lab Data 07/23/25 13:15 07/23/25 13:15 Labs: Lab Results 07/23/25 Range/Units 13:15 WBC 4.8 (4.5-11.0) X10^3/uL RBC 4.47 (4.0-5.2) X10^6/uL Hgb 13.8 (12.0-16.0) g/dL Hct 40.7 (36-46) % MCV 90.9 (80-100) fL MCH 30.8 (26-34) PG MCHC 33.9 (30-36) % RDW 13.2 (11.6-14.8) % Plt Count 268 (150-400) X10^3/uL Neut % (Auto) 57.0 (50-75) % Lymph % (Auto) 32.1 (25-40) % [place] % (Auto) 6.4 (3-14) % Eos % (Auto) 3.0 (2-4) % Baso % (Auto) 1.5 (0-2) % Neut # (Auto) 2800 (0136-2414) /uL Lymph # (Auto) 1500 (8120-8851) /uL [place] # (Auto) 300 (0-900) /uL Eos # (Auto) 100 (0-450) /uL Baso # (Auto) 100 (0-100) /uL PT 10.8 (9.4-12.5) SECONDS INR 1.0 (0.9-1.3) APTT 28 (25.1-36.5) SECONDS D-Dimer 369 (<500) ng/ml Sodium 134 L (137-145) mmol/L Potassium 4.4 (3.4-5.1) mmol/L Chloride 102 (98-107) mmol/L Carbon Dioxide 22 (22-32) mmol/L BUN 27 H (7-17) mg/dL Creatinine 0.87 (0.52-1.04) mg/dL Estimated GFR > 60 (>60) mL/min BUN/Creatinine Ratio 31.0 H (6-22) Glucose 132 H (70-99) mg/dL Calcium 9.7 (8.4-10.2) mg/dL Magnesium 1.9 (1.6-2.3) mg/dL Total Bilirubin 0.7 (0.2-1.3) mg/dL AST 23 (14-36) IU/L ALT 17 (<35) IU/L Alkaline Phosphatase 41 (38-126) U/L Total Creatine Kinase 35 (30-135) U/L Troponin I < 0.012 (0.01-0.034) ng/mL NT-Pro-B Natriuret Pep < 20 (<125) pg/mL Total Protein 7.8 (6.3-8.2) g/dL Albumin 4.8 (3.5-5.0) g/dL Globulin 3.0 (1.7-4.1) g/dL Albumin/Globulin Ratio 1.6 (1.0-2.8) Lipase 71 (23-300) U/L MDM Narrative Medical decision making narrative: All lab work, vital signs, nurse triage note, medication list, previous ER visits, and all imaging studies reviewed. Patient given aspirin and GI cocktail. Two sets troponin normal less than 0.012 and 0.022. EKG showed normal sinus rhythm no STT wave changes heart score 2. Differential diagnosis anxiety GERD STEMI NSTEMI unstable angina PE. Dimer 369 Discharge Plan Departure Patient Disposition: Home Clinical Impression: Chest pain Qualifiers: Chest pain type: chest pain on breathing Qualified Code(s): R07.1 - Chest pain on breathing Instructions: DI for Chest Pain Activity Restrictions/Additional Instructions: Return with new or worsening symptoms. Follow up PCP tomorrow call office for stress test. Prescriptions: No Action Mounjaro 5 mg/0.5 mL pen injector 5 mg SUBCUT WEEKLY Patient Comments: [NO ORIGINAL SIG] Baqsimi 3 mg/actuation spray,non-aerosol 3 mg intranasal DAILY PRN (Reason: Hypoglycemia) Patient Comments: Administer 3 mg into affected nostril(s) once as needed (unconscious hypoglycemia) for up to 1 dose insulin lispro 100 unit/mL solution 0 - 100 unit DAILY (DME) Dexcom G7 Sensor Device MISCELLANEOUS Q10D Referrals: Kat Pizarro MD [Primary Care Provider, Family Practice] Stand Alone Forms: Patient Portal/API
[2025-07-23 13:26] LABS: Add Manual Diff / Slide Review NO; Hematocrit 40.7 % (36-46); Hemoglobin 13.8 g/dL (12.0-16.0); Lymphocytes Absolute Auto 1500 /uL (1100-4500); Mean Corpuscular HGB Conc 33.9 % (30-36); Mean Corpuscular Hemoglobin 30.8 PG (26-34); Mean Corpuscular Volume 90.9 fL (80-100); Platelet Count 268 X10^3/uL (150-400)
[2025-07-23] MEDS: ASPIRIN 81 MG CHEW TAB 324 MG PO (13:30)
[2025-07-23 13:32] LABS: INR 1.0 (0.9-1.3); Prothrombin Time 10.8 SECONDS (9.4-12.5)
[2025-07-23 13:35] LABS: PTT Partial Thromboplastin Tim 28 SECONDS (25.1-36.5)
[2025-07-23 13:45] LABS: Alanine Aminotransferase 17 IU/L (<35); Albumin 4.8 g/dL (3.5-5.0); Albumin Globulin Ratio 1.6 (1.0-2.8); Alkaline Phosphatase 41 U/L (38-126); Blood Urea Nitrogen 27 mg/dL (7-17); Calcium 9.7 mg/dL (8.4-10.2); Carbon Dioxide 22 mmol/L (22-32); Chloride 102 mmol/L (98-107); Creatine Kinase 35 U/L (30-135); Estimated Glomerular Filt Rate > 60 mL/min (>60); Globulin 3.0 g/dL (1.7-4.1); Glucose 132 mg/dL (70-99); HEMOLYSIS 23 (0-50); Lipase 71 U/L (23-300); Magnesium 1.9 mg/dL (1.6-2.3); Potassium 4.4 mmol/L (3.4-5.1); Sodium 134 mmol/L (137-145); Total Protein 7.8 g/dL (6.3-8.2)
[2025-07-23 13:57] LABS: NT-proBNP (BNP-Adult 18+) < 20 pg/mL (<125); Troponin I < 0.012 ng/mL (0.01-0.034)
[2025-07-23] MEDS: MAG HYDROX/ALUMINUM/SIMETH SUS 30 ML, LIDOCAINE VISCOUS 2% 15 ML PO (14:12)
[2025-07-23 16:04] LABS: Troponin I 0.022 ng/mL (0.01-0.034)
== END 2025-07-23 16:29 | disposition home or self-care (01) ==
PROVIDERS: Emergency Provider Family Medicine; PCP Student in an Organized Health Care Education/Training Program
DX: R07.1 Chest pain on breathing (principal)
CPT/HCPCS: 36415; 71045; 80053; 82550; 83690; 83735; 83880; 84484; 85025; 85379; 85610; 85730; 93005; 93010; 99284